=== PATIENT | male | born 1965 | race Caucasian/White ===

== ENCOUNTER 2022-04-20 15:23 | Outpatient (RCR) | payer OTHER, SELFPAY ==
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
== END 2022-06-28 12:04 | disposition home or self-care (01) ==
PROVIDERS: PCP Internal Medicine; Visit Provider Internal Medicine
DX: M25.511 Pain in right shoulder (principal); M62.81 Muscle weakness (generalized); Z51.89 Encounter for other specified aftercare
CPT/HCPCS: 97110; 97162

== ENCOUNTER 2022-09-18 20:40 | Observation (INO) | payer OTHER, SELFPAY ==
[2022-09-18] VITALS (12 sets, daily range): BP systolic 126–166; BP diastolic 72–101; PULSE 81–97; RESP 14–18; O2SAT 90–97; BMI 39.0
--- NOTE | 2022-09-18 21:09 | CRLHL7_ITS ---
For Patients: As a result of the Century Cures Act, medical imaging exams and procedure reports are released immediately into your electronic medical record. You may view this report before your referring provider. If you have questions, please contact your health care provider. INDICATION: Fall, altered mental status. TECHNIQUE: CT head without IV contrast. Coronal and sagittal reformats. COMPARISON: Head CT 02/05/2021. FINDINGS: No intracranial hemorrhage, extra-axial collection, or evidence of acute cortical infarct. Newly apparent right inferior cerebellar small peripheral wedge-shaped region of fluid density (series 2, image 14). Age-appropriate ventricles and sulci. No mass effect or midline shift. The cranium and orbits are intact. Right maxillary sinus minimal mucosal thickening. The remaining paranasal sinuses and mastoid air cells are clear. IMPRESSION: 1. 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 2. No definitive acute findings. Dictated by Derrick De Leon MD @ 09/18/2022 9:48:24 PM Please note that all CT scans at this facility use dose modulation, iterative reconstruction, and/or weight-based dosing when appropriate to reduce radiation dose to as low as reasonably achievable. Dictated by: Derrick De Leon MD @ 09/18/2022 21:49:11 (Electronically Signed)
--- NOTE | 2022-09-18 21:09 | CRLHL7_ITS ---
For Patients: As a result of the Cures Act, medical imaging exams and procedure reports are released immediately into your electronic medical record. You may view this report before your referring provider. If you have questions, please contact your health care provider. Indication: Fall, altered mental status Technique: Noncontrast axial CT of the thoracic spine with coronal and sagittal reformats. Comparison: CT cervical spine from same day Findings: Normal static alignment of the thoracic spine. No significant spondylolisthesis. No acute fracture identified. Mild superior endplate deformities at T5-7, with superimposed Schmorl`s nodes, favored chronic. Chronic healed left 5th and 6th rib fractures. Mild scattered spondylosis, including shallow anterolateral projecting osteophytes. No evidence of significant neural foraminal or spinal canal stenosis. No focal mass, consolidation, or pneumothorax identified within the included lungs. Impression: 1. No evidence of acute fracture or traumatic malalignment in the thoracic spine. 2. Mild superior endplate deformities at T5-7 with superimposed Schmorl`s nodes, favor chronic. 3. Old healed left 5th and 6th rib fractures. Please note that all CT scans at this facility use dose modulation, iterative reconstruction, and/or weight-based dosing when appropriate to reduce radiation dose to as low as reasonably achievable. Dictated by Karlee Polanco MD @ 09/19/2022 1:55:37 PM (Electronically Signed)
--- NOTE | 2022-09-18 21:09 | CRLHL7_ITS ---
For Patients: As a result of the Cures Act, medical imaging exams and procedure reports are released immediately into your electronic medical record. You may view this report before your referring provider. If you have questions, please contact your health care provider. INDICATION: Fall, transient alteration of awareness, cervical spine injury TECHNIQUE: CT cervical spine without i.v. contrast. Coronal and sagittal reformats were obtained. COMPARISON: None FINDINGS: The sensitivity and specificity of the exam are moderately limited by artifacts from patient motion and body habitus. Alignment: Straightening of the cervical spine is noted with mild kyphosis in the upper cervical spine. Bone: No acute fractures or aggressive bone lesions are identified. Disc: Severe degenerative disc disease is present at C3-4. The facet joints are unremarkable. Soft tissue: The prevertebral soft tissues are unremarkable in appearance. The visualized lung apices and mediastinum are unremarkable. IMPRESSIONS: 1. No acute osseous injuries are identified. 2. The sensitivity and specificity of the exam are moderately limited by artifacts from patient motion and body habitus. Dictated by Will Valencia MD @ 09/18/2022 10:24:07 PM Please note that all CT scans at this facility use dose modulation, iterative reconstruction, and/or weight-based dosing when appropriate to reduce radiation dose to as low as reasonably achievable. Dictated by: Will Valencia MD @ 09/18/2022 22:24:10 (Electronically Signed)
--- NOTE | 2022-09-18 21:09 | CRLHL7_ITS ---
For Patients: As a result of the Cures Act, medical imaging exams and procedure reports are released immediately into your electronic medical record. You may view this report before your referring provider. If you have questions, please contact your health care provider. INDICATION: [Fall]. TECHNIQUE: CT lumbar spine without intravenous contrast. Coronal and sagittal reformats. COMPARISON: [None]. FINDINGS: Alignment: Normal. Osseous: [Postsurgical changes of L5-S1 interbody fusion. The lumbar vertebral body heights are maintained. No acute fracture. Chronic L5 pars defects.] Degenerative: [Mild-moderate L4-L5 spondylosis.] Soft tissues: [Scattered abdominal aortic atherosclerotic calcification] IMPRESSION: [Lumbar spine without static subluxation or acute fracture.] Please note that all CT scans at this facility use dose modulation, iterative reconstruction, and/or weight-based dosing when appropriate to reduce radiation dose to as low as reasonably achievable. Dictated by: Derrick De Leon MD @ 09/18/2022 22:51:37 (Electronically Signed)
--- NOTE | 2022-09-18 21:25 | ED_ITS ---
HPI - General Adult General Chief complaint: Fall/Minor Trauma Stated complaint: Glucose issues, fell twice Time Seen by Provider: 09/18/22 20:46 Source: family Mode of arrival: ambulatory Limitations: altered mental status History of Present Illness HPI narrative: 57-year-old male brought in by his for frequent falls today. Patient has a complex medical history that includes frequent falls, traumatic brain injury, diabetes, history of cerebellar infarct, depression, chronic pain who per his fell approximately 3 hours prior to presenting to the ER in his garage. She states that they were trying to get him up for 45 minutes. When he finally got up he came into the house had dinner and once he got up from the dinner table he fell again onto his knees. And she stated that she was able to get him up and then she convinced him to come to the ER. She states that for the last several hours she will have episodes where he closes his eyes and then his eye lids flutter and his eyes rolling to the back of his head. During these episodes which she cannot tell me how long they are, he is unresponsive. She states that this is not normal behavior for him. She tells me that he has no access to narcotic medications, there is no way that he could have taken more than his prescribed medications today and she is certain he did not take his insulin. However, during the 1st episode of falling which could get him off the floor she states that his sugar was 53. When I ask her if he Often has low blood sugar without insulin, she cannot answer this question. states that he has been out of it for several days now. When I ask her what this means she just says he has not been acting like himself. She is unsure if he has had episodes of unresponsiveness in the last few days. She does state that he has not been ill, denies fevers or vomiting. Denies any new complaints aside from being slower than usual to respond and again not acting like himself Related Data Home Medications Medication Instructions Recorded Confirmed aspirin 81 mg tablet,delayed 81 mg PO BID 04/18/22 09/18/22 release gabapentin 600 mg tablet 1,200 mg PO TID 04/18/22 09/18/22 insulin NPH isoph U-100 human 100 unit subcut 04/18/22 04/18/22 unit/mL subcutaneous suspension insulin regular human 100 unit/mL 65 - 75 unit subcut 04/18/22 04/18/22 injection solution lisinopril 10 mg tablet 10 mg PO DAILY 04/18/22 09/18/22 lisinopril 5 mg tablet 5 mg PO QDAY 04/18/22 09/18/22 metformin 1,000 mg tablet 1,000 mg PO BID 04/18/22 09/18/22 rosuvastatin 10 mg tablet 10 mg PO QDAY 04/18/22 09/18/22 venlafaxine 75 mg capsule,extended 300 mg PO DAILY 04/18/22 09/18/22 release 24 hr acetaminophen PO 09/18/22 Previous Rx's Medication Instructions Recorded Blood Glucose Meter #1 ea 01/16/22 Allergies Allergy/AdvReac Type Severity Reaction Status Date / Time amoxicillin Allergy Intermediate Unknown Verified 09/18/22 20:59 celecoxib Allergy Intermediate Unknown Verified 09/18/22 20:59 Sulfa (Sulfonamide Allergy Intermediate Hives Verified 09/18/22 20:59 Antibiotics) Penicillins Allergy Unknown Verified 09/18/22 20:59 sulfasalazine Allergy Unknown Verified 04/17/22 14:33 Review of Systems Status of ROS: Reports: 10 or more systems reviewed and unremarkable except as noted in History and below ( per ) [facility] Medical History Right shoulder pain ?M25.511 - Pain in right shoulder (ICD-10) Vasovagal syncope ?R55 - Syncope and collapse (ICD-10) Pneumonia due to COVID-19 virus (01/2021) ?U07.1 - COVID-19 (ICD-10) ?J12.82 - Pneumonia due to coronavirus disease 2019 (ICD-10) Surgical History History of lumbar fusion (1994) ?Z98.1 - Arthrodesis status (ICD-10) Social History Smoking Status: Former smoker Do you use any of these nicotine containing products: None Second hand tobacco smoke exposure: No How often do you have a drink containing alcohol: monthly or less AUDIT-C Alcohol total score: 1 Non-prescribed substance use: denies use Little interest or pleasure in doing things: more than half the days Feeling down, depressed, or hopeless: more than half the days Exam Narrative: Exam Narrative: overweight, well-developed patient . He appears to be sleeping in the ER but I cannot wake him up. He does move away from noxious stimuli. When I open his eyes his eyes quickly dart back and forth before rolling into the back of his head. When I raise his hand over his head, the hand falls to the side of the body and never on top of his head Or face. HEENT: Normocephalic atraumatic. Pupils are equally round reactive to light. Conjunctivae are moist without any icterus noted. Moist mucous membranes. I am able to open his mouth and he leaves it open, no trauma noted to the inside of the mouth in the posterior pharynx appears normal. Neck is soft without any lymphadenopathy or thyromegaly. No masses are appreciated. I am able to open his eyes and he looks back and forth a few times before his eyes roll superiorly and flutter. Cardiovascular: Heart is regular rate and rhythm S1 and S2 are present without any murmurs. Lungs: Clear to auscultation bilaterally no wheezes rhonchi or rales are appreciated. Abdomen: Soft , protuberant and nontender nondistended with normal bowel soun ds. No guarding or rebound. No masses or organomegaly appreciated. Extremities: Bilateral lower extremities are without edema. Skin: Well perfused without any obvious rashes. he does have superficial abrasions to both knees and the right elbow. Const: Vital Signs, click to edit/add: Vital Signs - 24 hr 09/18/22 20:48 09/18/22 21:07 09/18/22 21:09 Pulse Rate 86 Pulse Rate [Pulse Oximeter] 86 Respiratory Rate 18 Blood Pressure Blood Pressure [Ri ght Upper Arm] 126/72 Pulse Oximetry 94 92 94 Oxygen Delivery Me thod Room Air Oxygen Flow Rate 09/18/22 21:15 09/18/22 22:09 09/18/22 22:15 Pulse Rate 97 93 Pulse Rate [Pulse Oximeter] Respiratory Rate Blood Pressure Blood Pressure [Ri ght Upper Arm] Pulse Oximetry 90 90 94 Oxygen Delivery Me thod Oxygen Flow Rate 09/18/22 22:22 09/18/22 22:30 09/18/22 22:30 Pulse Rate 94 82 Pulse Rate [Pulse Oximeter] Respiratory Rate 15 Blood Pressure 127/87 Blood Pressure [Ri ght Upper Arm] Pulse Oximetry 91 96 90 Oxygen Delivery Me thod Nasal Cannula Nasal Cannula Oxygen Flow Rate 2 2 09/18/22 22:44 09/18/22 22:45 09/18/22 23:00 Pulse Rate 86 Pulse Rate [Pulse Oximeter] Respiratory Rate 15 17 14 Blood Pressure 166/94 H Blood Pressure [Ri ght Upper Arm] Pulse Oximetry 96 97 Oxygen Delivery Me thod Nasal Cannula Oxygen Flow Rate 2 09/18/22 23:02 Pulse Rate 81 Pulse Rate [Pulse Oximeter] Respiratory Rate 15 Blood Pressure 165/101 H Blood Pressure [Ri ght Upper Arm] Pulse Oximetry 97 Oxygen Delivery Me thod Oxygen Flow Rate Course Course Hospital Course: Patient was sent over for head and spine CT given an unwitnessed fall and inability to assess for pain. In route to CT patient woke up and asked where he was. He was told that he was in the hospital and he immediately fell back asleep again. EKG, read by me, shows sinus tachycardia with a pulse of 101, premature atrial complexes, left axis deviation. Upon returning to the ER room, an IV was placed and patient did not flinch with IV placement. During IV placement we worse talking about getting a urine sample and we came to the conclusion that he will need to be catheterized for a urine sample. Patient open his eyes shortly after this conversation and said that he did not want to be catheterized and he provided a urine sample. He immediately went back to sleep. His states that this is what he is like at home at this time night, states that he has a very heavy sleeper and that she has to Scream at him in order for him to wake up. The only difference between that and what is occurring today is that he is not waking up when he is asked to, and has only woken during the 2 previously mentioned times. unfortunately, during t he 2 times that he did wake up in the ED he did not cooperate with any conversation, did not answer any questions. his imaging was unremarkable this included a head, spine CT. Labs did not show any acute evidence for his altered mental status. Blood glucoses were all within normal ranges. Vital Signs Vital signs: Initial Vital Signs Temperature Source Temporal Artery Scan 09/18/22 20:48 Pulse Rate 86 09/18/22 20:48 Respiratory Rate 18 09/18/22 20:48 Blood Pressure 126/72 09/18/22 20:48 Blood Pressure Mean 90 09/18/22 20:48 Blood Pressure Position Supine 09/18/22 20:48 Pulse Oximetry 94 09/18/22 20:48 Oxygen Delivery Method Room Air 09/18/22 20:48 Vital Signs Pulse Rate 86 09/18/22 20:48 Respiratory Rate 18 09/18/22 20:48 Blood Pressure 126/72 09/18/22 20:48 Pulse Oximetry 94 09/18/22 20:48 Oxygen Delivery Method Room Air 09/18/22 20:48 Pulse Rate 81 09/18/22 23:02 Respiratory Rate 15 09/18/22 23:02 Blood Pressure 165/101 H 09/18/22 23:02 Pulse Oximetry 97 09/18/22 23:02 Oxygen Delivery Method Nasal Cannula 09/18/22 23:00 Oxygen Flow Rate 2 09/18/22 23:00 Medical Decision Making MDM Narrative Medical decision making narrative: 57-year-old male with frequent falls and altered mental status of unclear etiology. Differential diagnoses include this med is a patel disorder, pseudoseizures, syncopal episodes. given that his cannot take care of him at this time because he is not cooperating, patient will be admitted for further care. Patient maintains his airway and Is hemodynamically stable, he does become mildly hypoxic with oxygen at 89-90% when he is snoring. Lab Data Lab results reviewed: Yes I reviewed the patient's lab results Labs: Lab Results 09/18/22 09/18/22 09/18/22 Range/Units 21:10 22:20 22:35 WBC 11.88 H (4.50-11.00) K/uL RBC 5.56 (4.30-5.90) m/uL Hgb 15.2 (13.5-17.5) gm/dL Hct 47.3 (37.0-53.0) % MCV 85 (80-100) fL MCH 27 (26-34) pg MCHC 32 (32-36) gm/dL RDW Coeff of Radha 12.4 (11.5-15.5) % Plt Count 255 (140-440) K/uL Neut % (Auto) 69.8 (42.0-72.0) % Lymph % (Auto) 19.9 L (20-44) % [place] % (Auto) 7.7 (0.0-11.0) % Eos % (Auto) 1.0 (0.0-7.0) % Baso % (Auto) 0.3 (0.0-3.0) % Neut # (Auto) 8.30 H (1.7-7.0) K/uL Lymph # (Auto) 2.40 (0.90-2.90) K/uL [place] # (Auto) 0.90 (0.00-0.90) K/UL Eos # (Auto) 0.10 (0.00-0.50) K/uL Baso # (Auto) 0.00 (0.00-0.30) K/uL VBG pH 7.319 L (7.32-7.43) VBG pCO2 57 H (40-50) mmHG VBG pO2 29.3 (25-47) mmHG VBG HCO3 29 H (21-28) mmol/L Sodium 136 (135-149) mmol/L Potassium 4.2 (3.6-5.1) mmol/L Chloride 100 (96-114) mmol/L Carbon Dioxide 30 (20-32) mmol/L BUN 31 H (7-30) mg/dL Creatinine 1.1 (0.5-1.5) mg/dL Estimated Creat Clear 74.98 Estimated GFR 79 ml/min Glucose 75 (60-115) mg/dL Lactate 1.5 (0.5-1.9) mmol/L Calcium 9.0 (8.4-10.6) mg/dL Total Bilirubin 0.6 (0.1-1.5) mg/dL Direct Bilirubin 0.0 (0.0-0.5) mg/dL AST 26 (12-35) U/L ALT 27 (4-50) U/L Alkaline Phosphatase 81 (40-150) U/L Troponin I < 0.01 L (0.01-0.04) ng/mL C-Reactive Protein 0.7 (0.5-1.0) mg/dL Total Protein 6.9 (6.0-8.3) g/dL Albumin 4.0 (3.3-5.0) g/dL Lipase 104 (23-300) U/L Urine Color Yellow (Yellow) Urine Appearance Clear (Clear) Urine pH 5.0 (5.0-8.5) Ur Specific [place] 1.025 (1.000-1.030) Urine Protein 3+ A (Negative) Urine Glucose (UA) Negative (Negative) Urine Ketones 1+ A (Negative) Urine Blood Negative (Negative) Urine Nitrite Negative (Negative) Urine Bilirubin 1+ A (Negative) Urine Urobilinogen 1.0 (0.2-1.0) Ur Leukocyte Esterase Negative (Negative) Urine RBC 0-2 (0-2) Urine WBC 0-2 (0-5) Ur Squamous Epith Cells Few (None-Few) Urine Bacteria Few A (None) Urine Mucus Few A (None) Salicylates < 1.0 L (1.0-10) mg/dL Urine Opiates Screen Negative (Negative) Ur Oxycodone Screen Negative (Negative) Urine Methadone Screen Negative (Negative) Ur Propoxyphene Screen Negative (Negative) Acetaminophen < 10.0 L (10.0-30.0) ug/mL Ur Barbiturates Screen Negative (Negative) U Tricyclic Antidepress Negative (Negative) Ur Phencyclidine Scrn Negative (Negative) Ur Amphetamines Screen Negative (Negative) U Methamphetamines Scrn Negative (Negative) U Benzodiazepines Scrn Negative (Negative) Urine Cocaine Screen Negative (Negative) U Marijuana (THC) Screen Negative (Negative) Ur Drug Screen Comment See Note Ethyl Alcohol < 0.01 L (0.01-0.03) % POC Troponin I 0.00 L (0.01-0.04) ng/ml Imaging Data CT scan - head: Attestation: I have reviewed the pertinent imaging results. Radiologist's impression: CT head without IV contrast. Coronal and sagittal reformats. COMPARISON: Head CT 02/05/2021. FINDINGS: No intracranial hemorrhage, extra-axial collection, or evidence of acute cortical infarct. Newly apparent right inferior cerebellar small peripheral wedge-shaped region of fluid density (series 2, image 14). Age-appropriate ventricles and sulci. No mass effect or midline shift. The cranium and orbits are intact. Right maxillary sinus minimal mucosal thickening. The remaining paranasal sinuses and mastoid air cells are clear. IMPRESSION: 1. 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 2. No definitive acute findings. CT cervical spine: Attestation: I have reviewed the pertinent imaging results. Radiologist's impression: TECHNIQUE: CT cervical spine without i.v. contrast. Coronal and sagittal reformats were obtained. COMPARISON: None FINDINGS: The sensitivity and specificity of the exam are moderately limited by artifacts from patient motion and body habitus. Alignment: Straightening of the cervical spine is noted with mild kyphosis in the upper cervical spine. Bone: No acute fractures or aggressive bone lesions are identified. Disc: Severe degenerative disc disease is present at C3-4. The facet joints are unremarkable. Soft tissue: The prevertebral soft tissues are unremarkable in appearance. The visualized lung apices and mediastinum are unremarkable. IMPRESSIONS: 1. No acute osseous injuries are identified. 2. The sensitivity and specificity of the exam are moderately limited by artifacts from patient motion and body habitus. CT lumbar spine: Attestation: I have reviewed the pertinent imaging results. Radiologist's impression: CT lumbar spine without intravenous contrast. Coronal and sagittal reformats. COMPARISON: [None]. FINDINGS: Alignment: Normal. Osseous: [Postsurgical changes of L5-S1 interbody fusion. The lumbar vertebral body heights are maintained. No acute fracture. Chronic L5 pars defects.] Degenerative: [Mild-moderate L4-L5 spondylosis.] Soft tissues: [Scattered abdominal aortic atherosclerotic calcification] IMPRESSION: [Lumbar spine without static subluxation or acute fracture.] CT thoracic spine: Attestation: I have reviewed the pertinent imaging results. Radiologist's impression: Study:?CT Spine Thoracic-09/18/2022 10:08:29 PM Ordering Physician:[place] Jim[place] Preliminary Report: PRELIMINARY IMPRESSION: 1. No acute osseous injuries are noted in the thoracic spine. ECG Data Attestation: I personally reviewed and interpreted this ECG as follows: Discharge Plan Discharge Clinical Impression: AMS (altered mental status) Patient Disposition: Admitted As Inpatient
[2022-09-18 22:37] LABS: Appearance Urine Clear (Clear); Bilirubin Urine 1+ (Negative); Blood Urine Negative (Negative); Color Urine Yellow (Yellow); Glucose Urine Negative (Negative); Ketones Urine 1+ (Negative); Leukocyte Esterase Urine Negative (Negative); Nitrite Urine Negative (Negative); Protein Urine 3+ (Negative); Specific Gravity Urine 1.025 (1.000-1.030)
[2022-09-18 22:40] LABS: HCO3 VBG 29 mmol/L (21-28); PCO2 VBG 57 mmHG (40-50); PO2 VBG 29.3 mmHG (25-47); pH VBG 7.319 (7.32-7.43)
[2022-09-18 22:42] LABS: Lactate* 1.5 mmol/L (0.5-1.9)
[2022-09-18 22:43] LABS: Amphetamine Screen Urine Negative (Negative); Barbiturate Screen Urine Negative (Negative); Benzodiazepines Screen Urine Negative (Negative); Cannabinoid Screen Urine Negative (Negative); Cocaine Screen Urine Negative (Negative); Methadone Screen Urine Negative (Negative); Methamphetamines Screen Urine Negative (Negative); Opiate Screen Urine Negative (Negative); Oxycodone Screen Urine Negative (Negative); Phencyclidine Screen Urine Negative (Negative); Tricyclic Antidepressant Urine Negative (Negative)
[2022-09-18 22:44] LABS: RBC Urine 0-2 (0-2)
[2022-09-18 22:45] LABS: Bacteria Urine Few; Mucus Urine Few; Squamous Epithelial Cell Urine Few (None-Few); WBC Urine 0-2 (0-5)
[2022-09-18 22:46] LABS: Basophils Percent Auto 0.3 % (0.0-3.0); Hematocrit 47.3 % (37.0-53.0); Hemoglobin* 15.2 gm/dL (13.5-17.5); Immature Granulocytes Pct Auto 1.3 %; Lymphocytes Percent Auto 19.9 % (20-44); Mean Corpuscular HGB Conc 32 gm/dL (32-36); Mean Corpuscular Hemoglobin 27 pg (26-34); Mean Corpuscular Volume 85 fL (80-100); Monocytes Percent Auto 7.7 % (0.0-11.0); Neutrophils Percent Auto 69.8 % (42.0-72.0); Platelet Count* 255 K/uL (140-440); RDW Coefficient of Variation % 12.4 % (11.5-15.5); Red Blood Count 5.56 m/uL (4.30-5.90); White Blood Count* 11.88 K/uL (4.50-11.00)
[2022-09-18 22:48] LABS: Slide Review Reflex No
[2022-09-18 22:57] LABS: Chloride* 100 mmol/L (96-114)
[2022-09-18 22:58] LABS: Sodium* 136 mmol/L (135-149)
[2022-09-18 22:59] LABS: Potassium* 4.2 mmol/L (3.6-5.1)
[2022-09-18 23:00] LABS: Creatinine* 1.1 mg/dL (0.5-1.5); Est. Creatinine Clearance* 74.98; Estimated Glomerular Filt Rate 79 ml/min
[2022-09-18 23:01] LABS: Alanine Aminotransferase* 27 U/L (4-50); Alkaline Phosphatase* 81 U/L (40-150); Aspartate Amino Transferase* 26 U/L (12-35); Bilirubin Total* 0.6 mg/dL (0.1-1.5); Blood Urea Nitrogen* 31 mg/dL (7-30); Carbon Dioxide* 30 mmol/L (20-32); Glucose* 75 mg/dL (60-115); Lipase* 104 U/L (23-300); Total Protein* 6.9 g/dL (6.0-8.3)
[2022-09-18 23:03] LABS: Acetaminophen* < 10.0 ug/mL (10.0-30.0); Ethanol* < 0.01 % (0.01-0.03); Salicylate* < 1.0 mg/dL (1.0-10)
[2022-09-18 23:04] LABS: C Reactive Protein* 0.7 mg/dL (0.5-1.0)
[2022-09-18] MEDS: 0.9 % SODIUM CHLORIDE 1000 ml 1,000 ML IV (23:07)
[2022-09-18 23:25] LABS: Troponin I* < 0.01 ng/mL (0.01-0.04)
[2022-09-19] VITALS (8 sets, daily range): BP systolic 103–176; BP diastolic 63–104; PULSE 78–96; RESP 18–20; TEMP 36.4–37.2; O2SAT 94–95; BMI 40.5
--- NOTE | 2022-09-19 00:22 | ED.NURSE ---
Report to accepting [place] RN. Patient is transported to [facility] [place] via cart.
[2022-09-19 00:26] LABS: Erythrocyte SedimentationRate* 7 mm/hr (2-15)
--- NOTE | 2022-09-19 00:56 | PM.IMCN1 ---
Date of Consult Consult date: 09/19/22 Primary Care Provider: Karthik Sanz MD Consult Narrative Narrative: [facility] Hospitalist ADMISSION SUPPORT NOTE eHospitalist was contacted by Dr. Escoto with request of admission support. Chief complaint: Falls with weakness HPI: History was obtained from the patient's who was present at bedside and provided most of the history as well as the patient. She reports that over the past month the patient has had 4 falls all related to hypoglycemia. Today he fell in the garage where his legs gave way he had a brief loss of consciousness it took him a while to get back up. His blood sugar was checked and was 69 and so he ate supper however after eating supper his blood sugar went only to 80 and then dropped again to the 60s range. He fell again and at that time his called EMS. She reports that his eating has been inconsistent and he is having episodes of hypoglycemia. She is concerned that he actually has a eating disorder and eats more frequently at nighttime and hides the fact that he is eating frequently. Review of systems other mention above is negative Home Medications: Reviewed see EMR for details Pertinent Medical History: DM 2, neuropathy, chronic back pain, hypertension, dyslipidemia, cerebellar infarct, traumatic brain injury, depression, back surgery Pertinent Social History: Smoked as a teenager, denies drugs of abuse, occasional alcohol use Review of Systems Status of ROS: Reports: 10 or more systems reviewed and unremarkable except as noted in History and below [facility] Medical History Right shoulder pain ?M25.511 - Pain in right shoulder (ICD-10) Vasovagal syncope ?R55 - Syncope and collapse (ICD-10) Pneumonia due to COVID-19 virus (01/2021) ?U07.1 - COVID-19 (ICD-10) ?J12.82 - Pneumonia due to coronavirus disease 2019 (ICD-10) Surgical History History of lumbar fusion (1994) ?Z98.1 - Arthrodesis status (ICD-10) Social History Smoking Status: Former smoker Do you use any of these nicotine containing products: None Second hand tobacco smoke exposure: No How often do you have a drink containing alcohol: monthly or less AUDIT-C Alcohol total score: 1 Non-prescribed substance use: denies use Little interest or pleasure in doing things: more than half the days Feeling down, depressed, or hopeless: more than half the days Meds Home Medications and Allergies Home Medications Medication Instructions Recorded Confirmed Type aspirin 81 mg tablet,delayed 81 mg PO BID 04/18/22 09/18/22 History release gabapentin 600 mg tablet 1,200 mg PO TID 04/18/22 09/18/22 History insulin NPH isoph U-100 human 100 unit subcut 04/18/22 04/18/22 History unit/mL subcutaneous suspension insulin regular human 100 unit/mL 65 - 75 unit subcut 04/18/22 04/18/22 History injection solution lisinopril 10 mg tablet 10 mg PO DAILY 04/18/22 09/18/22 History lisinopril 5 mg tablet 5 mg PO QDAY 04/18/22 09/18/22 History metformin 1,000 mg tablet 1,000 mg PO BID 04/18/22 09/18/22 History rosuvastatin 10 mg tablet 10 mg PO QDAY 04/18/22 09/18/22 History venlafaxine 75 mg capsule,extended 300 mg PO DAILY 04/18/22 09/18/22 History release 24 hr acetaminophen PO 09/18/22 History Allergies Allergy/AdvReac Type Severity Reaction Status Date / Time amoxicillin Allergy Intermediate Unknown Verified 09/18/22 20:59 celecoxib Allergy Intermediate Unknown Verified 09/18/22 20:59 Sulfa (Sulfonamide Allergy Intermediate Hives Verified 09/18/22 20:59 Antibiotics) Penicillins Allergy Unknown Verified 09/18/22 20:59 sulfasalazine Allergy Unknown Verified 04/17/22 14:33 Exam Narrative: Exam Narrative: Exam (performed via interactive video with assistance of bedside nurse): General: Alert, cooperative, no acute distress, morbidly obese HEENT: Oral mucosa pink and moist without erythema Lungs: Clear to auscultation bilaterally without crackle or wheeze but diminished at bases CV: Regular rate and rhythm without loud murmur rub or gallop Ext: No pitting edema noted Skin: No rashes, bruises or lesions appreciated on gross visualization of exposed skin Neuro: Alert, oriented x person and place, CN III -VII, XI, XII grossly intact, moves all extremities without any significant focal deficit appreciated by nurse Const: Vital Signs, click to edit/add: Vital Signs - 24 hr 09/18/22 20:48 09/18/22 21:07 09/18/22 21:09 Pulse Rate 86 Pulse Rate [Pulse Oximeter] 86 Respiratory Rate 18 Blood Pressure Blood Pressure [Ri ght Upper Arm] 126/72 Pulse Oximetry 94 92 94 Oxygen Delivery Me thod Room Air Oxygen Flow Rate 09/18/22 21:15 09/18/22 22:09 09/18/22 22:15 Pulse Rate 97 93 Pulse Rate [Pulse Oximeter] Respiratory Rate Blood Pressure Blood Pressure [Ri ght Upper Arm] Pulse Oximetry 90 90 94 Oxygen Delivery Me thod Oxygen Flow Rate 09/18/22 22:22 09/18/22 22:30 09/18/22 22:30 Pulse Rate 94 82 Pulse Rate [Pulse Oximeter] Respiratory Rate 15 Blood Pressure 127/87 Blood Pressure [Ri ght Upper Arm] Pulse Oximetry 91 96 90 Oxygen Delivery Me thod Nasal Cannula Nasal Cannula Oxygen Flow Rate 2 2 09/18/22 22:44 09/18/22 22:45 09/18/22 23:00 Pulse Rate 86 Pulse Rate [Pulse Oximeter] Respiratory Rate 15 17 14 Blood Pressure 166/94 H Blood Pressure [Ri ght Upper Arm] Pulse Oximetry 96 97 Oxygen Delivery Me thod Nasal Cannula Oxygen Flow Rate 2 09/18/22 23:02 Pulse Rate 81 Pulse Rate [Pulse Oximeter] Respiratory Rate 15 Blood Pressure 165/101 H Blood Pressure [Ri ght Upper Arm] Pulse Oximetry 97 Oxygen Delivery Me thod Oxygen Flow Rate Labs Labs: Short CBC 09/18/22 Range/Units 22:35 WBC 11.88 H (4.50-11.00) K/uL Hgb 15.2 (13.5-17.5) gm/dL Hct 47.3 (37.0-53.0) % Plt Count 255 (140-440) K/uL BMP 09/18/22 22:35 Sodium 136 Potassium 4.2 Chloride 100 Carbon Dioxide 30 BUN 31 H Creatinine 1.1 Glucose 75 Calcium 9.0 Cardiac Enzymes 09/18/22 Range/Units 22:35 Troponin I < 0.01 L (0.01-0.04) ng/mL Liver Function 09/18/22 Range/Units 22:35 Total Bilirubin 0.6 (0.1-1.5) mg/dL Direct Bilirubin 0.0 (0.0-0.5) mg/dL AST 26 (12-35) U/L ALT 27 (4-50) U/L Alkaline Phosphatase 81 (40-150) U/L Albumin 4.0 (3.3-5.0) g/dL Urine 09/18/22 Range/Units 22:20 Urine Color Yellow (Yellow) Urine Appearance Clear (Clear) Urine pH 5.0 (5.0-8.5) Ur Specific [place] 1.025 (1.000-1.030) Urine Protein 3+ A (Negative) Urine Glucose (UA) Negative (Negative) Assessment and Plan Assessment and plan (1) Hypoglycemia: Status: Acute Plan Recent lab/CT scan of cervical spine, head, lumbar spine, thoracic spine (this result was pending at the time of this documentation): Reviewed see EMR for details EKG: Per my interpretation showed sinus rhythm with poor R wave progression Assessment and Plan: 1. Fall and weakness-secondary to hypoglycemia. There may be an element of deconditioning. We will get physical therapy to evaluate 2. Hypoglycemia-NPH is not the best insulin for someone who is inconsistent with their meals because of the peaks related to this insulin. I think he would be better served on Lantus or Levemir for basal coverage with rapid insulin with meals. He reports taking 65 units of NPH in the morning and 85 units at bedtime with regular insulin 65 units at lunch and 75 units at dinnertime. Will leave for rounding provider to discuss with pharmacy regarding the conversion and appropriate dosing of long-acting Levemir/Lantus with rapid insulin for mealtime coverage. He has been hesitant to see his primary care physician regarding his insulin regimen management. For now we will place on sliding scale given his hypoglycemic episodes tonight. 3. Chronic back pain-continue gabapentin 4. Hypertension-patient reports being taken off of his antihypertensive agents 5. Dyslipidemia-however patient is not taking statin 6. Depression-continue venlafaxine. Will leave for rounding provider to further address concern for eating disorder expressed by patient's 7. DVT prophylaxis-twice daily Lovenox given BMI greater than 40 8. CODE STATUS full code discussed with patient Chart review was performed as well as evaluation of the patient via video. Thank you for involving ehospitalist. Please contact [phone] if further assistance is needed.
[2022-09-19] MEDS: 0.9 % SODIUM CHLORIDE 1000 ml 1,000 ML 150 ML IV (02:51)
[2022-09-19] MEDS: ACETAMINOPHEN 325 MG TABLET 650 MG PO ×3 (02:54→13:24)
--- NOTE | 2022-09-19 06:47 | PC.NURSE ---
End of shift: Pt arrived to the floor at 0030 with at bedside. Pt is Alert and oriented to person and place. Pt has periotic confusion and memory issues. Pt complaining of 8/10 pain on his tailbone. PRN pain medication given. Upon reassessment, pt was sleeping. Pt weaned off O2 and tolerating well with sats >90% on RA. Bed alarm in place. A1 to the bedside commode.
[2022-09-19 06:48] LABS: Basophils Absolute Auto 0.03 K/uL (0.00-0.30); Basophils Percent Auto 0.3 % (0.0-3.0); Eosinophils Absolute Auto 0.22 K/uL (0.00-0.50); Eosinophils Percent Auto 2.4 % (0.0-7.0); Hematocrit 46.2 % (37.0-53.0); Hemoglobin* 14.7 gm/dL (13.5-17.5); Immature Granulocytes Abs Auto 0.04 K/uL (0.00-0.30); Immature Granulocytes Pct Auto 0.4 %; Lymphocytes Percent Auto 29.7 % (20-44); Mean Corpuscular HGB Conc 32 gm/dL (32-36); Mean Corpuscular Hemoglobin 27 pg (26-34); Mean Corpuscular Volume 86 fL (80-100); Monocytes Percent Auto 8.7 % (0.0-11.0); Neutrophils Absolute Auto 5.32 K/uL (1.7-7.0); Neutrophils Percent Auto 58.5 % (42.0-72.0); Platelet Count* 215 K/uL (140-440); RDW Coefficient of Variation % 12.4 % (11.5-15.5); Red Blood Count 5.39 m/uL (4.30-5.90)
[2022-09-19 06:49] LABS: Slide Review Reflex No
[2022-09-19 07:01] LABS: Hemoglobin A1C* 9.76 % (0-5.6)
[2022-09-19 07:08] LABS: Albumin* 3.6 g/dL (3.3-5.0); Chloride* 106 mmol/L (96-114); Sodium* 137 mmol/L (135-149)
[2022-09-19 07:09] LABS: Potassium* 3.9 mmol/L (3.6-5.1)
[2022-09-19 07:10] LABS: Creatinine* 0.7 mg/dL (0.5-1.5); Estimated Glomerular Filt Rate 108 ml/min
[2022-09-19 07:11] LABS: Alanine Aminotransferase* 24 U/L (4-50); Alkaline Phosphatase* 69 U/L (40-150); Aspartate Amino Transferase* 24 U/L (12-35); Bilirubin Total* 0.5 mg/dL (0.1-1.5); Blood Urea Nitrogen* 24 mg/dL (7-30); Carbon Dioxide* 25 mmol/L (20-32); Glucose* 132 mg/dL (60-115); Total Protein* 6.1 g/dL (6.0-8.3)
[2022-09-19 07:12] LABS: Calcium* 8.7 mg/dL (8.4-10.6)
[2022-09-19 07:39] LABS: TSH With Reflex to FT4* 0.205 uIU/mL (0.270-4.200)
[2022-09-19 08:12] LABS: Free T4 Free Thyroxine* 1.04 ng/dL (0.70-1.85)
[2022-09-19] MEDS: METFORMIN 1,000 MG TABLET 1000 MG PO (08:51)
[2022-09-19] MEDS: VENLAFAXINE ER 75 MG CAPSULE 225 MG PO (08:52)
[2022-09-19] MEDS: lisinopriL 10 MG TABLET PO (08:52)
[2022-09-19] MEDS: GABAPENTIN 600 MG TABLET 1200 MG PO ×3 (08:52→21:26)
[2022-09-19] MEDS: ASPIRIN 81 MG TABLET EC PO ×2 (08:52→21:26)
[2022-09-19] MEDS: ROSUVASTATIN CALCIUM 10 MG TABLET PO (08:52)
[2022-09-19] MEDS: SODIUM CHLORIDE 0.9 % (FLUSH) 10 ML SYRINGE 5 ML IVF ×2 (08:53→21:26)
[2022-09-19] MEDS: ENOXAPARIN 40 MG/0.4 ML INJ SUBCUT ×2 (08:53→21:26)
--- NOTE | 2022-09-19 13:05 | P.IMHP_ITS ---
Hospitalist- H&P: TRAN History of Present Illness Date Seen: 09/19/22 Chief complaint: Glucose issues, fell twice Narrative: Saman Michel Jr is a 57 year old male brought in by his for frequent falls today.? Patient has a complex medical history that includes frequent falls, traumatic brain injury, diabetes, history of cerebellar infarct, depression, chronic pain who per his fell approximately 3 hours prior to presenting to the ER in his garage.? She states that they were trying to get him up for 45 minutes.? When he finally got up he came into the house had dinner and once he got up from the dinner table he fell again onto his knees.? And she stated that she was able to get him up and then she convinced him to come to the ER.? She states that for the last several hours she will have episodes where he closes his eyes and then his eye lids flutter and his eyes rolling to the back of his head.? During these episodes which she cannot tell me how long they are, he is unresponsive.? She states that this is not normal behavior for him.? She tells me that he has no access to narcotic medications, there is no way that he could have taken more than his prescribed medications today and she is certain he did not take his insulin.? However, during the 1st episode of falling which could get him off the floor she states that his sugar was 53.? When I ask her if he ? Often has low blood sugar without? insulin, she cannot answer this question. states that he has been out of it for several days now.? When I ask her what this means she just says he has not been acting like himself.? She is unsure if he has had episodes of unresponsiveness in the last few days.? She does state that he has not been ill, denies fevers or vomiting.? Denies any new complaints aside from being slower than usual to respond and again not acting like himself I speak with the patient today. He is oriented to his circumstances. Recalls some of the recent events with falling down and being unable to get up. He is able to describe for me his management lb for insulin and blood sugar control. He does have a continuous glucose monitor which has been telling him he has had low readings. These recent falls with low readings he has not taken any oral glucose to rapidly correct them. Patient currently reports he takes Humulin and 65 units in the morning and 85 units at bedtime. He takes Humulin R 65 units at noon and 75 units at supper. He is unaware of whether there is a pattern to his hypoglycemia episodes. His hemoglobin A1c in March was 9.8 and today it is 9.75. He eats typically to meals a day, lunch around 1:00 a.m. and supper around 6:00 a.m.. He does not normally eat breakfast. He denies doing a lot of snacking the other notes indicate that he may be doing quite a bit of snacking as well. He reports he walks pretty well without an assistive device or unsteadiness most the time. He occasionally has episodes where he feels unsteady, out of balance or even has vertigo. Does not have any of those feelings today. He does not have any orthostatic symptoms but does feel more unsteady when he is moving about than when he is sitting still. He reports that he goes for a walk with his dog every day and reports that normally goes well. He does think he lost consciousness with a couple of these episodes. Notes indicate that he had altered mental status for a significant period of time after each episode though I note again that he was not getting his hypoglycemia treated with oral glucose or carbohydrates. January of 2021 he was hospitalized for COVID pneumonia. At that time he was admitted to the hospital taking 300 units of insulin per day. During his hospital stay he had fairly good blood sugar control on 200 units a day with a basal bolus regimen. He has subsequently gone back to his current regimen which is providing him with [address] scan done in the emergency department showed a cerebellar stroke which was new since January of 2021 but did not appear to be acute. Patient is unaware of when this might have occurred. Review of Systems Narrative: He has sleep apnea. His BiPAP equipment was recalled any is not used it for a long time. I told him he should use it until the replace it. He reports that the equipment no longer works. He reports seasonal allergy symptoms in the summer and fall. This bothers him especially when he is out walking his dog. He has never had medication to treat this. [facility] Medical History Right shoulder pain ?M25.511 - Pain in right shoulder (ICD-10) Vasovagal syncope ?R55 - Syncope and collapse (ICD-10) Pneumonia due to COVID-19 virus (01/2021) ?U07.1 - COVID-19 (ICD-10) ?J12.82 - Pneumonia due to coronavirus disease 2019 (ICD-10) Surgical History History of lumbar fusion (1994) ?Z98.1 - Arthrodesis status (ICD-10) Family History (Updated 09/19/22 @ 13:17 by Stanley Hilario MD) Mother High blood pressure Depression Stroke Other Diabetes Social History (Updated 09/19/22 @ 13:19 by Stanley Hilario MD) Narrative: He lives with his in [place]. He is disabled. He is a former smoker having 30 pack-year history. Occasionally drinks alcohol. What is your current living situation?: I presently have a place to live Problems where you live: no known problems Problems where you live details: n/a In the past 12 months, utilities in danger of being shut off: no In the past 12 mos, have been you worried that your food would run out before you had money to buy more?: never true In the past 12 mos, the food you bought just didn't last and you didn't have money to buy more?: never true Highest level of school completed/degree received: high school graduate Smoking Status: Former smoker Do you use any of these nicotine containing products: None Second hand tobacco smoke exposure: No How often do you have a drink containing alcohol: monthly or less Alcohol type: beer AUDIT-C Alcohol total score: 1 Non-prescribed substance use: denies use Caffeine: Yes ([facility]) How often does anyone, including family, friends and others, physically hurt you : never How often does anyone, including family, friends and others, insult or talk down to you: never How often does anyone, including family, friends and others, threaten you with harm: never How often does anyone, including family, friends and others, scream or curse at you: never Little interest or pleasure in doing things: more than half the days Feeling down, depressed, or hopeless: more than half the days service: No Meds Home Medications and Allergies Home Medications Medication Instructions Recorded Confirmed Type aspirin 81 mg tablet,delayed 81 mg PO BID 04/18/22 09/18/22 History release gabapentin 600 mg tablet 1,200 mg PO TID 04/18/22 09/18/22 History insulin NPH isoph U-100 human 100 65 - 90 unit subcut BID 04/18/22 09/19/22 History unit/mL subcutaneous suspension insulin regular human 100 unit/mL 65 - 75 unit subcut BID 04/18/22 09/19/22 History injection solution venlafaxine 75 mg capsule,extended 300 mg PO DAILY 04/18/22 09/18/22 History release 24 hr acetaminophen 500 - 1,000 mg PO Q6H PRN 09/18/22 09/19/22 History Allergies Allergy/AdvReac Type Severity Reaction Status Date / Time amoxicillin Allergy Intermediate Unknown Verified 09/18/22 20:59 celecoxib Allergy Intermediate Unknown Verified 09/18/22 20:59 Sulfa (Sulfonamide Allergy Intermediate Hives Verified 09/18/22 20:59 Antibiotics) Penicillins Allergy Unknown Verified 09/18/22 20:59 sulfasalazine Allergy Unknown Verified 04/17/22 14:33 Exam Narrative: Exam Narrative: He is alert and oriented to his circumstances. Speech is fluent. Head is without obvious trauma. Eyes are normal. Pupils are equal round reactive to light. Extraocular movements are full. Oropharynx with small airway. Neck is supple without mass or adenopathy. No stridor. Respirations are clear to auscultation. No wheezing rales or rhonchi. Cardiovascular: S1, S2, regular rate and rhythm. No murmur gallop or rub. Abdomen: Bowel sounds active. Abdomen is soft without tenderness or mass. Extremities without edema. He moves all 4 extremities well with symmetric strength. Const: Vital Signs, click to edit/add: Vital Signs - 24 hr 09/18/22 20:48 09/18/22 21:07 09/18/22 21:09 Temperature Pulse Rate 86 Pulse Rate [Left A pical] Pulse Rate [Pulse Oximeter] 86 Respiratory Rate 18 Blood Pressure Blood Pressure [Ri ght Arm] Blood Pressure [Ri ght Upper Arm] 126/72 Pulse Oximetry 94 92 94 Oxygen Delivery Me thod Room Air Oxygen Flow Rate 09/18/22 21:15 09/18/22 22:09 09/18/22 22:15 Temperature Pulse Rate 97 93 Pulse Rate [Left A pical] Pulse Rate [Pulse Oximeter] Respiratory Rate Blood Pressure Blood Pressure [Ri ght Arm] Blood Pressure [Ri ght Upper Arm] Pulse Oximetry 90 90 94 Oxygen Delivery Me thod Oxygen Flow Rate 09/18/22 22:22 09/18/22 22:30 09/18/22 22:30 Temperature Pulse Rate 94 82 Pulse Rate [Left A pical] Pulse Rate [Pulse Oximeter] Respiratory Rate 15 Blood Pressure 127/87 Blood Pressure [Ri ght Arm] Blood Pressure [Ri ght Upper Arm] Pulse Oximetry 91 96 90 Oxygen Delivery Me thod Nasal Cannula Nasal Cannula Oxygen Flow Rate 2 2 09/18/22 22:44 09/18/22 22:45 09/18/22 23:00 Temperature Pulse Rate 86 Pulse Rate [Left A pical] Pulse Rate [Pulse Oximeter] Respiratory Rate 15 17 14 Blood Pressure 166/94 H Blood Pressure [Ri ght Arm] Blood Pressure [Ri ght Upper Arm] Pulse Oximetry 96 97 Oxygen Delivery Me thod Nasal Cannula Oxygen Flow Rate 2 09/18/22 23:02 09/19/22 00:42 09/19/22 00:42 Temperature 97.7 F Pulse Rate 81 Pulse Rate [Left A pical] Pulse Rate [Pulse Oximeter] 93 Respiratory Rate 15 18 18 Blood Pressure 165/101 H Blood Pressure [Ri ght Arm] 150/95 H Blood Pressure [Ri ght Upper Arm] Pulse Oximetry 97 95 95 Oxygen Delivery Me thod Nasal Cannula Nasal Cannula Oxygen Flow Rate 2 2 09/19/22 02:55 09/19/22 07:30 09/19/22 11:00 Temperature 97.5 F L 98.1 F 98.9 F Pulse Rate Pulse Rate [Left A pical] 91 Pulse Rate [Pulse Oximeter] 78 85 91 Respiratory Rate 18 20 20 Blood Pressure Blood Pressure [Ri ght Arm] 150/92 H 176/102 H 172/101 H Blood Pressure [Ri ght Upper Arm] Pulse Oximetry 94 95 94 Oxygen Delivery Me thod Nasal Cannula Room Air Room Air Oxygen Flow Rate 1 Documenting provider has reviewed patient's vital signs: yes Hospitalist - H&P: Result Labs Labs: Short CBC 09/18/22 09/19/22 Range/Units 22:35 05:50 WBC 11.88 H 9.10 (4.50-11.00) K/uL Hgb 15.2 14.7 (13.5-17.5) gm/dL Hct 47.3 46.2 (37.0-53.0) % Plt Count 255 215 (140-440) K/uL BMP 09/18/22 09/19/22 22:35 05:50 Sodium 136 137 Potassium 4.2 3.9 Chloride 100 106 Carbon Dioxide 30 25 BUN 31 H 24 Creatinine 1.1 0.7 Glucose 75 132 H Calcium 9.0 8.7 Cardiac Enzymes 09/18/22 Range/Units 22:35 Troponin I < 0.01 L (0.01-0.04) ng/mL Liver Function 09/18/22 09/19/22 Range/Units 22:35 05:50 Total Bilirubin 0.6 0.5 (0.1-1.5) mg/dL Direct Bilirubin 0.0 (0.0-0.5) mg/dL AST 26 24 (12-35) U/L ALT 27 24 (4-50) U/L Alkaline Phosphatase 81 69 (40-150) U/L Albumin 4.0 3.6 (3.3-5.0) g/dL Urine 09/18/22 Range/Units 22:20 Urine Color Yellow (Yellow) Urine Appearance Clear (Clear) Urine pH 5.0 (5.0-8.5) Ur Specific [place] 1.025 (1.000-1.030) Urine Protein 3+ A (Negative) Urine Glucose (UA) Negative (Negative) Assessment and Plan Assessment and plan (1) Hypoglycemia: Problem comment: Hypoglycemia episodes in the context of an elevated hemoglobin A1c and very high dosing of insulin. This is likely to be somewhat difficult to manage as he is likely mostly hyperglycemic but occasionally hypoglycemic causing him to fall. I recommended that we moved to a basal bolus insulin regimen that was effective for him urine half ago when he was hospitalized. Will look into the economic costs to make sure this could be affordable for him. Status: Acute (2) AMS (altered mental status): Problem comment: Back to baseline today. Presumably related to hypoglycemia. Status: Acute (3) Cerebellar infarct: Problem comment: Patient does not recall this. Likely this is contributing to his problems with falling down at times Old chronic right. See scanned 03/13/22-03/17/22 [facility] Discharge Sum. Status: Chronic (4) Falls frequently: Problem comment: Falls presumably primarily due to hypoglycemia but secondarily his cerebellar infarct and peripheral neuropathy are contributing. He did well with physical therapy today though they are recommending outpatient PT Status: Chronic (5) History of traumatic brain injury: Problem comment: Multiple head injuries and old stroke resulting in cognitive deficits. Status: Chronic (6) CAD (coronary artery disease): Problem comment: Asymptomatic Status: Chronic (7) MICHA (obstructive sleep apnea): Problem comment: 03/24/12 AHI=70. Untreated. 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 Status: Chronic (10) Type 2 diabetes mellitus with hyperglycemia: Problem comment: Not well-controlled with hx of noncompliance with meds. Switched to basal bolus insulin. Status: Chronic (11) Obesity with body mass index (BMI) of 35.0 to 39.9 without comorbidity: Problem comment: Will continue work on his diet exercise. Status: Chronic (12) Hypertension: Problem comment: I do need to see him back when he is not in acute pain so we can make further recommendations (04/18/22). Status: Chronic (13) Depression: Problem comment: & anxiety. Continue the venlafaxine. Status: Chronic Plan 57-year-old male admitted to the hospital with altered mental status in the context of hypoglycemia. Also having relatively frequent falls always in the context of hypoglycemia as well. Notably his hemoglobin A1c of 9.75 indicates persistent hyperglycemia. I have discussed with him a recommendation to switch to basal bolus insulin to see if we can level out his very high and very low sugars.. Continue to assess for neurologic and cardiac problems related to falls. These have been witnessed events without evidence of seizures. Total time spent today is 75 minutes, 55 minutes in coordination of care discussing with patient management of hyper and hypoglycemia, falls.
--- NOTE | 2022-09-19 14:34 | PC.NURSE ---
Gildaal by Dr. BELTRAN. Insulin doses adjusted by hospitalist. AM BG 150 and Lunch BG 156. Pt has chronic back pain managed with gabapentin and tylenol. Orthostatic bps reviewed with Dr. Beltran. Good appetite. Denies dizziness,n/v headache or tunnel vision. Pain 4-5 out of 10. Patient's gait is stable, sba of one. Report to oncoming shift.
[2022-09-19] MEDS: DEXTROSE 50 % SYRINGE IVP ×3 (16:24→21:26)
[2022-09-19] MEDS: ONDANSETRON 2 MG/ML inj 4 MG IVP (17:42)
[2022-09-19 17:56] LABS: Glucose* 60 mg/dL (60-115)
--- NOTE | 2022-09-19 19:03 | PC.NURSE ---
Checked patient's blood glucose at 1725 while patient was eating supper and found to be 42. Patient reported feeling dizzy and lightheaded and was diaphoretic. New IV site placed and serum glucose sent to lab with IV start which was 60. D50% 25mg administered IVP. Blood glucose recheck at 1745 was 219. Patient finished supper and reported hypoglycemic symptoms were resolved. Dr. Mccall updated and ordered to hold mealtime diabetic meds and complete hourly glucose checks for 4 hours. Recheck of blood glucose at 1800 was 160 and at 1900 was 118.
[2022-09-20 03:00] VITALS: BP 130/78; PULSE 85; RESP 22; TEMP 36.4; O2SAT 94
--- NOTE | 2022-09-20 05:57 | PC.NURSE ---
Shift note: BG in 90-100th from 1600 yesterday, 09/19/22, and throughout the night. Per Dr Mccall Levemir was non-administered in pm, no sliding scale insulin given and extra dose of D50% 25gm given to the pt. He ambulates independently in the room, gait is steady, no c/o lightheadedness or dizziness, or nausea.
[2022-09-20 07:00] VITALS: BP 130/78; PULSE 81; RESP 22; TEMP 36.7; O2SAT 93
--- NOTE | 2022-09-20 09:09 | NUTR.NU ---
RDN with nutrition screen for DM2 diagnosis and diabetic diet. Patient declined verbal education for designated caregiver and will pass along the handout/information provided. Diabetic diet education provided. Discussed basics of carbohydrate counting including sources of carbohydrates, serving sizes, and label reading. Discussed using the plate method for carbohydrate-controlled, balanced meals that include ? plate non-starchy vegetables, ? plate protein, and 3-4 servings of carbohydrates per meal (fruit, whole grains, legumes, milk, yogurt) and 1-2 per snack. ?Patient was also encouraged to keep timing of meals consistent and avoid skipping meals. Handouts provided to support discussion. Patient was encouraged to attend outpatient diabetes education and was provided with the process to set this up. RDN contact information provided and encouraged patient to call with questions. RDN to follow up as needed.
[2022-09-20] MEDS: VENLAFAXINE ER 75 MG CAPSULE 225 MG PO (09:26)
[2022-09-20] MEDS: ENOXAPARIN 40 MG/0.4 ML INJ SUBCUT (09:26)
[2022-09-20] MEDS: lisinopriL 10 MG TABLET PO (09:26)
[2022-09-20] MEDS: ROSUVASTATIN CALCIUM 10 MG TABLET PO (09:26)
[2022-09-20] MEDS: ASPIRIN 81 MG TABLET EC PO (09:26)
[2022-09-20] MEDS: GABAPENTIN 600 MG TABLET 1200 MG PO (09:27)
[2022-09-20] MEDS: METFORMIN 1,000 MG TABLET 1000 MG PO (09:27)
[2022-09-20] MEDS: SODIUM CHLORIDE 0.9 % (FLUSH) 10 ML SYRINGE 5 ML IVF (09:27)
[2022-09-20 11:00] VITALS: BP 123/73; PULSE 81; RESP 20; TEMP 36.1; O2SAT 93
--- NOTE | 2022-09-20 14:58 | PC.NURSE ---
Discharge: Patient alert and oriented, pleasant and cooperative. BG much better today. see emar. VSS and denies pain. at bedside. Machine Rope Maker did some teaching and education on how to self administer insulin using a pen dispenser, patient verbalized understanding on how to use pen. Machine Rope Maker suggested have home meter checked or recalibrated d/t discrepancy of readings. Hospital machine showed higher BG number than the home meter. Patient discharged today at 1400 accompanied by spouse. Discharge instructions given and signed. patient verbalized understanding. Belongings sheet signed. IV removed intact.
--- NOTE | 2022-09-20 15:58 | P.DS_ITS ---
DS: Providers Provider Date Seen: 09/20/22 Date of admission: 09/19/22 00:26 Primary care physician: Karthik Sanz MD Admitting Clinician: Haroon Mccall MD Attending Physician on discharge: Eliezer Hilario MD Date of Discharge: 09/20/22 DS: Diagnosis Discharge Diagnosis (1) Hypoglycemia: Status: Acute Problem details: Hypoglycemia episodes in the context of an elevated hemoglobin A1c and very high dosing of insulin. This is likely to be somewhat difficult to manage as he is likely mostly hyperglycemic but occasionally hypoglycemic causing him to fall. I recommended that we moved to a basal bolus insulin regimen that was effective for him urine half ago when he was hospitalized. There is a large amount of uncertainty related to the cause of his elevated hemoglobin A1c with frequent hypoglycemic episodes and reported relatively high dose of insulin use. I suspect he may have difficulties with his glucose monitor and nurses here confirmed that it is having significant variations from our fingerstick glucose measurements. I also suspect he may have trouble drawing up and self administering insulin. I have switched him to insulin pens for that reason. Urgent outpatient follow-up in clinic to review his blood sugar monitoring including possible referral for new glucose monitoring equipment which seems to be not working properly. Recommend his do insulin administration and glucose monitoring as cognitively it is still uncertain whether he is able to perform this adequately. Ongoing adjustment of his insulin dosing which has been a problem and possibly also related to inconsistent dietary management of his diabetes. (2) AMS (altered mental status): Status: Acute Problem details: Back to baseline today. Presumably related to hypoglycemia. (3) Cerebellar infarct: Status: Chronic Problem details: Patient does not recall this. Likely this is contributing to his problems with falling down at times. Old chronic right side. See scanned 03/13/22-03/17/22 [facility] Discharge Sum. (4) Falls frequently: Status: Chronic Problem details: Falls presumably primarily due to hypoglycemia but secondarily his cerebellar infarct and peripheral neuropathy are contributing. He did well with physical therapy today though they are recommending outpatient PT. ambulates fairly well when he has a normal blood sugar (5) History of traumatic brain injury: Status: Chronic Problem details: Multiple head injuries and old stroke resulting in cognitive deficits. 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 (7) MICHA (obstructive sleep apnea): Status: Chronic Problem details: 03/24/12 AHI=70. Untreated. Patient is not really interested in pursuing further evaluation for getting a new BiPAP (8) Type 2 diabetes mellitus with hyperglycemia: Status: Chronic Problem details: Switched to Lantus plus Humalog plus metformin (9) Hypertension: Status: Chronic Problem details: Resume lisinopril (10) Depression: Status: Chronic Problem details: & anxiety. Continue the venlafaxine. (11) Cognitive impairment: Status: Acute Problem details: Unable to perform [facility] testing today. Initial attempts were revealing of severe cognitive deficits but he was unable to do most of the testing. Recommend his take over insulin administration and glucose monitoring DS: Summary Hospital Course Hospital Course: 57-year-old male admitted to the hospital with recurrent falls associated with hypoglycemia with blood sugar readings in the 50-60 range. Patient self administers insulin R and N to manage his blood sugars. With his frequent hypoglycemia and an hemoglobin A1c of 9.7 it is clear that there are problems with blood sugar management. His total insulin administration that he repeatedly confirmed is 290 units per day. On admission I switched him to a basal bolus regimen. Almost immediately this had to be reduced to a total of 150 units today because of hypoglycemia. On discharge his regimen will be Lantus 50 units at bedtime plus Humalog 30 units with each meal, he only eats 2 meals a day. He was able to demonstrate that he knew how to use an insulin pen which was prescribed. I confirmed with his pharmacist at [facility] in [place] that the cost of each of these prescriptions would be 35 dollars per month which he says he can not afford. I also restarted his metformin which was stopped for unknown reasons. His lisinopril was also stopped for unknown reasons and I have resume that as well. Status at Discharge Cognitive/behavioral status at discharge: Unable to perform testing. Consider outpatient occupational therapy assessment. Functional status at discharge: independent ambulation Overall status at discharge: patient is back to baseline Time Spent with Patient Time attestation: Total time spent providing and/or coordinating discharge services: Time spent: Greater than 30 minutes Exam Narrative: Exam Narrative: He is alert and in no distress. Speech is normal. He is able to give fairly good history. Unable to perform a any mental status testing however. Breathing is unlabored. Cardiovascular: S1, S2, regular rate and rhythm. Abdomen is soft without tenderness or mass. Extremities with 1- 2+ edema. Const: Vital Signs, click to edit/add: Vital Signs - 24 hr 09/19/22 19:00 09/19/22 23:00 09/20/22 03:00 Temperature 98.9 F 98.2 F 97.5 F L Pulse Rate [Left A pical] Pulse Rate [Pulse Oximeter] 94 90 85 Respiratory Rate 20 20 22 Blood Pressure [Ri ght Arm] 117/78 103/63 130/78 Pulse Oximetry 94 95 94 Oxygen Delivery Me thod Room Air Room Air Room Air 09/20/22 07:00 09/20/22 07:00 09/20/22 11:00 Temperature 98.0 F 97.0 F L Pulse Rate [Left A pical] 81 Pulse Rate [Pulse Oximeter] 81 81 Respiratory Rate 22 22 20 Blood Pressure [Ri ght Arm] 130/78 123/73 Pulse Oximetry 93 93 Oxygen Delivery Me thod Room Air Room Air Documenting provider has reviewed patient's vital signs: yes DS: Data Data Completed and Pending Labs on day of discharge: Labs from last 24 hours 09/19/22 17:36 Glucose 60 Preliminary micro results at discharge 09/18/22 22:20 Urine Culture - Preliminary Urine Catheterized NO GROWTH AFTER 24 HOURS Discharge Plan Discharge Disposition: Home, Self-Care Date of Admission: 09/19/22 00:26 Attending Provider on Discharge: Stanley Hilario Primary Care Provider: Karthik Sanz Condition: Improved Anticipated Discharge Date/Time: 09/20/22 11:10 Discharge Medications: New insulin aspart U-100 [Novolog FlexPen U-100 Insulin] 100 unit/mL (3 mL) insulin pen 30 unit subcut TIDWM Qty: 30 0RF insulin glargine [Basaglar KwikPen U-100 Insulin] 100 unit/mL (3 mL) insulin pen 50 unit subcut QPM Qty: 15 0RF metformin 1,000 mg Tablet 1,000 mg PO BIDWM Qty: 60 0RF lisinopril 10 mg Tablet 10 mg PO DAILY Qty: 30 0RF Continued aspirin 81 mg tablet,delayed release (DR/EC) 81 mg PO BID gabapentin 600 mg tablet 1,200 mg PO TID venlafaxine 75 mg capsule,extended release 24hr 300 mg PO DAILY acetaminophen [Tylenol] 500 - 1,000 mg PO Q6H PRN Discontinued insulin NPH isoph U-100 human 100 unit/mL suspension 65 - 90 unit subcut BID Rx Instructions: 65 units at noon 85 units in pm insulin regular human 100 unit/mL solution 65 - 75 unit subcut BID Rx Instructions: 65 units at noon 75 units at pm No Action (DME) Blood Glucose Meter Misc See Rx Instructions .Route Qty: 1 0RF Rx Instructions: As directed Discharge Orders: Discharge Order (Routine); Ordered 09/20/22 Ordered By: Stanley Hilario Patient Education: Lisinopril (By mouth), Metformin (By mouth), Insulin Aspart Protamine/Insulin Aspart (By injection), Insulin Glargine (By injection) Additional Instructions: I have made several changes to her medications. I have restarted metformin and lisinopril. I have stopped your previous insulin treatment and started a new insulin treatment. You will be using insulin pens. You will take Lantus 50 units at bedtime and Humalog 30 units before each meal. See your doctor next week to review your blood sugar readings to make sure this plan is working. He will certainly need to make some adjustments in your treatment over time. Activity Level: Activity as Tolerated Discharge Diet: Diabetic Follow Up Appointments: Karthik Sanz MD [Primary Care Provider] - 10/01/22 1:45 pm ( [facility]/blood sugar management) Forms: [facility] Info Instructions
== END 2022-09-20 14:00 | disposition home or self-care (01) ==
LOC: ED 23:48 → MEDSURG 09-19 00:27
PROVIDERS: Internal Medicine; Admitting Provider Hospitalist; Emergency Provider Family Medicine; PCP Internal Medicine; Visit Provider Hospitalist
DX: E16.2 Hypoglycemia, unspecified (principal); R41.82 Altered mental status, unspecified; I63.9 Cerebral infarction, unspecified; R29.6 Repeated falls; Z87.820 Personal history of traumatic brain injury; I25.10 Atherosclerotic heart disease of native coronary artery without angina pectoris; G47.33 Obstructive sleep apnea (adult) (pediatric); M54.2 Cervicalgia; M54.9 Dorsalgia, unspecified; G89.29 Other chronic pain; G62.9 Polyneuropathy, unspecified; E11.65 Type 2 diabetes mellitus with hyperglycemia; E66.9 Obesity, unspecified; I10 Essential (primary) hypertension; F32.A Depression, unspecified; R41.89 Other symptoms and signs involving cognitive functions and awareness
CPT/HCPCS: 36415; 70450; 72125; 72128; 72131; 80048; 80053; 80076; 80143; 80179; 80306; 81001; 82077; 82803; 82947; 82962; 83036; 83605; 83690; 84439; 84443; 84484; 85025; 85651; 86140; 87086; 93005; 94761; 96361; 96372; 97112; 97116; 97162; 97165; 97535; 99199; 99285; A9270; G0378; J1650; J2405; J7030

== ENCOUNTER 2022-10-01 13:24 | Outpatient (CLI) | payer OTHER, SELFPAY | END 2022-10-01 13:25 | disposition home or self-care (01) | PROVIDERS: PCP Internal Medicine; Visit Provider Internal Medicine | DX: E16.2 Hypoglycemia, unspecified (principal); E78.5 Hyperlipidemia, unspecified; I10 Essential (primary) hypertension; E11.65 Type 2 diabetes mellitus with hyperglycemia; Z12.5 Encounter for screening for malignant neoplasm of prostate | CPT/HCPCS: 80053; 80061; 82043; 82570; 84153 ==

== ENCOUNTER 2023-08-26 14:47 | Outpatient (CLI) | payer OTHER, SELFPAY | END 2023-08-26 14:48 | disposition home or self-care (01) | LOC: NFLDREF 14:53 | PROVIDERS: PCP Internal Medicine; Visit Provider Internal Medicine | DX: E11.65 Type 2 diabetes mellitus with hyperglycemia (principal) | CPT/HCPCS: 80053 ==

== ENCOUNTER 2023-09-23 15:17 | Outpatient (CLI) | payer OTHER, SELFPAY | END 2023-09-23 15:18 | disposition home or self-care (01) | PROVIDERS: PCP Internal Medicine; Visit Provider Physician Assistant | DX: L97.511 Non-pressure chronic ulcer of other part of right foot limited to breakdown of skin (principal); B95.1 Streptococcus, group B, as the cause of diseases classified elsewhere | CPT/HCPCS: 87070; 87186 ==

== ENCOUNTER 2023-10-14 08:10 | Outpatient (CLI) | payer OTHER, SELFPAY | END 2023-10-14 08:11 | disposition home or self-care (01) | LOC: WOUND 08:10 | PROVIDERS: PCP Internal Medicine; Visit Provider Family Medicine | DX: E11.621 Type 2 diabetes mellitus with foot ulcer (principal); E11.40 Type 2 diabetes mellitus with diabetic neuropathy, unspecified; L97.412 Non-pressure chronic ulcer of right heel and midfoot with fat layer exposed; L97.422 Non-pressure chronic ulcer of left heel and midfoot with fat layer exposed; L97.521 Non-pressure chronic ulcer of other part of left foot limited to breakdown of skin; I25.10 Atherosclerotic heart disease of native coronary artery without angina pectoris; R29.6 Repeated falls; Z79.4 Long term (current) use of insulin | CPT/HCPCS: G0463 ==

== ENCOUNTER 2023-10-21 15:30 | Outpatient (CLI) | payer OTHER, SELFPAY | END 2023-10-21 15:31 | disposition home or self-care (01) | LOC: WOUND 10-22 12:47 | PROVIDERS: PCP Internal Medicine; Visit Provider Nurse Practitioner Family | DX: E11.621 Type 2 diabetes mellitus with foot ulcer (principal); E11.40 Type 2 diabetes mellitus with diabetic neuropathy, unspecified; L97.418 Non-pressure chronic ulcer of right heel and midfoot with other specified severity; L97.428 Non-pressure chronic ulcer of left heel and midfoot with other specified severity; I25.10 Atherosclerotic heart disease of native coronary artery without angina pectoris; Z79.4 Long term (current) use of insulin | CPT/HCPCS: 97597 ==

== ENCOUNTER 2023-10-24 15:14 | Observation (INO) | payer OTHER, SELFPAY ==
[2023-10-24] VITALS (31 sets, daily range): BP systolic 66–149; BP diastolic 44–95; PULSE 68–81; RESP 12–20; TEMP 36.1–36.6; O2SAT 82–98; BMI 36.5
[2023-10-24] MEDS: DEXTROSE 50 % SYRINGE IVP (15:45)
[2023-10-24] MEDS: 0.9 % SODIUM CHLORIDE 1000 ml 1,000 ML IV ×2 (15:45→16:00)
--- NOTE | 2023-10-24 15:45 | ED.GENADULT ---
HPI - General Adult General Time Seen by Provider: 15:45 Date Seen: 10/24/23 Chief complaint: Diabetic Related Problem Stated complaint: slurring speech, blood sugar low Time Seen by Provider: 10/24/23 15:28 Source: patient and RN notes reviewed Mode of arrival: ambulatory Limitations: no limitations History of Present Illness HPI narrative: This 58-year-old diabetic gentleman was brought over from outpatient ultrasound where he was to have arterial ultrasounds done for wounds of his bilateral heels. [place] Manager is found him to be slumped forward in his chair, not really responding. His told them that they would probably need help as he was not very mobile. She notes he has been like this most of the day. She finely arouse him around 11, was not really waking up. His blood sugar I believe she said was in the 54. She did force him to eat some food but reportedly was quite somnolent like he is today. He has not had any fevers. He has had wounds in his heels that [facility] has [facility]. No acute cough, he did not complain of any pain when we did ask him at 1 of the times he did answer us. His is here with 2 grandchildren, when asked about advanced directives, she would want everything done possible. This is a patient that is insulin-dependent diabetic who has had problems with hypoglycemia before. He has also had a stroke that was diagnosed by head CT but he was otherwise unaware that he had this before. He does have obstructive sleep apnea in review of recent admission, he was not using his BiPAP because his equipment did not work any longer. His initial oxygenation was 83% on arrival and he was noted to be breathing independently. His initial blood pressure was in the low 100s but when I was initially evaluating him, recheck blood pressures were in the 60s and 70s systolic, he was afebrile. Nursing staff was working to find an IV site as his Accu-Chek showed blood sugar to be in the 40s with this altered mental status, pharmacy was bringing down oral glucose when they finally did obtain IV, did get an amp of D50. Recheck of the blood sugar was 160. 1-1/2 hour later was down into the 80s an pharmacy did bring down D10 which we did started 100 mL an hour. We will be following his Accu-Cheks Q 30 minutes or as indicated. He was certainly obtain ended, seemingly like he could be acute on chronic respiratory failure. We did initiate BiPAP but patient was independently breathing, venous blood gas did come back at that point and patient was continuing to breathe independently, BiPAP was not continued and his venous blood gas does not support acute respiratory failure. Portable chest x-ray was done and on my preliminary review did not see any acute congestive heart failure. Initial EKG nonspecific widening of the QRS, some artifact and poor R-wave progression anterior precordial leads. Other labs are pending at this time. Did try 0.4 mg Narcan, patient maybe was a little more arousable. We are trying to understand if he is on any narcotic medicines. He is noted to be poorly compliant by a his and she had stated that he really does not take medicines unless she gives them to him. At times he will open his eyes to voice and will have short communications in 1 or 2 word answers. There are other times where he is not responsive to sternal rub. We did initiate 2 L of normal saline, most recent pressure when I was in there when the 2 L were going after we were able to find 2 IV sites with ultrasound assistance gave a systolic pressure of 110. Related Data Home Medications ?Medication ?Instructions ?Recorded ?Confirmed lidocaine 4 % topical patch 1 patch topical QDAY PRN 09/18/23 10/16/23 (Lidocaine Pain Relief) Previous Rx's ?Medication ?Instructions ?Recorded acetaminophen 500 mg tablet 500 - 1,000 mg (1 - 2 x 500 mg) PO 10/17/22 Q6H PRN pain #100 tabs aspirin 81 mg tablet,delayed 81 mg PO BID #60 tabs 10/17/22 release Blood Glucose Meter #1 ea 10/18/22 pen needle, diabetic 32 gauge x #100 ea 10/19/22 (Pen Needle) flash glucose sensor (FreeStyle #10 ea 11/05/22 Luis 2 Sensor kit) insulin aspart U-100 100 unit/mL 30 unit (0.3 mL) subcut BID #30 mL 09/18/23 (3 mL) subcutaneous pen (Novolog FlexPen U-100 Insulin aspart) insulin lispro 100 unit/mL 30 unit (0.3 mL) subcut TID 10/02/23 subcutaneous pen (Humalog KwikPen Diabetes type 2 #15 mL (U-100) Insulin) flash glucose sensor (FreeStyle #1 ea 10/09/23 Luis 2 Sensor kit) gabapentin 600 mg tablet 1,200 mg (2 x 600 mg) PO TID #180 10/09/23 tabs propranolol 10 mg tablet 10 mg PO BID #180 tabs 10/09/23 venlafaxine 75 mg capsule,extended 300 mg (4 x 75 mg) PO DAILY #120 10/09/23 release 24 hr caps atorvastatin 10 mg tablet 10 mg PO QHS #90 tabs 10/11/23 divalproex 500 mg tablet,extended 1,500 mg (3 x 500 mg) PO QDAY #270 10/11/23 release 24 hr (Depakote ER) tabs prazosin 1 mg capsule 1 mg PO QHS #90 caps 10/11/23 quetiapine 25 mg tablet 25 mg PO Q6H #120 tabs 10/11/23 trazodone 50 mg tablet 50 mg PO QHS insomnia #90 tabs 10/11/23 Allergies Allergy/AdvReac Type Severity Reaction Status Date / Time amoxicillin Allergy Intermediate Unknown Verified 10/24/23 15:45 celecoxib Allergy Intermediate Unknown Verified 10/24/23 15:45 Sulfa (Sulfonamide Allergy Intermediate Hives Verified 10/24/23 15:45 Antibiotics) Penicillins Allergy Unknown Verified 10/24/23 15:45 sulfasalazine Allergy Unknown Verified 10/24/23 15:45 Review of Systems Status of ROS: Reports: unobtainable due to mental status (Obtunded at times, other times arousable and will answer briefly) [facility] Medical History (Updated 10/24/23 @ 18:24 by Stanley Hilario MD) Dietary indiscretion ?R63.8 - Other symptoms and signs concerning food and fluid intake (ICD-10) Decubitus ulcer of heel, bilateral ?L89.619 - Pressure ulcer of right heel, unspecified stage (ICD-10) ?L89.629 - Pressure ulcer of left heel, unspecified stage (ICD-10) Poorly controlled diabetes mellitus ?E11.65 - Type 2 diabetes mellitus with hyperglycemia (ICD-10) Depression ?F32.A - Depression, unspecified (ICD-10) Heart failure with preserved ejection fraction ?I50.30 - Unspecified diastolic (congestive) heart failure (ICD-10) Hypertension ?I10 - Essential (primary) hypertension (ICD-10) Obesity with body mass index (BMI) of 35.0 to 39.9 without comorbidity ?E66.9 - Obesity, unspecified (ICD-10) Type 2 diabetes mellitus with hyperglycemia ?E11.65 - Type 2 diabetes mellitus with hyperglycemia (ICD-10) Hyperlipemia ?E78.5 - Hyperlipidemia, unspecified (ICD-10) Chronic neck and back pain ?M54.2 - Cervicalgia (ICD-10) ?M54.9 - Dorsalgia, unspecified (ICD-10) ?G89.29 - Other chronic pain (ICD-10) MICHA (obstructive sleep apnea) ?G47.33 - Obstructive sleep apnea (adult) (pediatric) (ICD-10) CAD (coronary artery disease) ?I25.10 - Atherosclerotic heart disease of [place] coronary artery without angina pectoris (ICD-10) Peripheral polyneuropathy ?G62.9 - Polyneuropathy, unspecified (ICD-10) Bilateral carpal tunnel syndrome ?G56.03 - Carpal tunnel syndrome, bilateral upper limbs (ICD-10) History of traumatic brain injury ?Z87.820 - Personal history of traumatic brain injury (ICD-10) Falls frequently ?R29.6 - Repeated falls (ICD-10) Cerebellar infarct ?I63.9 - Cerebral infarction, unspecified (ICD-10) AMS (altered mental status) ?R41.82 - Altered mental status, unspecified (ICD-10) Hypoglycemia ?E16.2 - Hypoglycemia, unspecified (ICD-10) Unsteady gait ?R26.81 - Unsteadiness on feet (ICD-10) CVA (cerebral vascular accident) ?I63.9 - Cerebral infarction, unspecified (ICD-10) Cognitive impairment ?R41.89 - Other symptoms and signs involving cognitive functions and awareness (ICD-10) Right shoulder pain ?M25.511 - Pain in right shoulder (ICD-10) Surgical History History of lumbar fusion (1994) ?Z98.1 - Arthrodesis status (ICD-10) Family History Mother High blood pressure Depression Stroke Father Alcohol dependence Other Diabetes Social History (Updated 10/24/23 @ 18:14 by Stanley Hilario MD) Narrative: He lives with his in [place]. He is disabled. He is a former smoker having 30 pack-year history. Occasionally drinks alcohol. In their home he lives with his and 2 daughters and 2 granddaughters ages 2 and 6. 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 One of the daughters also works at school where her 6-year-old daughter will attend school. Other daughter works at a preschool where the her 2-year-old daughter will attend preschool. What is your current living situation?: I presently have a place to live Problems where you live: no known problems Problems where you live details: n/a In the past 12 months, utilities in danger of being shut off: no In past 12 months, lack of transportation kept you from medical appts, meetings, work, or getting things needed for daily living: no In the past 12 mos, have been you worried that your food would run out before you had money to buy more?: never true In the past 12 mos, the food you bought just didn't last and you didn't have money to buy more?: never true Highest level of school completed/degree received: high school graduate Smoking Status: Former smoker Do you use any of these nicotine containing products: None Second hand tobacco smoke exposure: No How often do you have a drink containing alcohol: monthly or less Alcohol type: beer AUDIT-C Alcohol total score: 1 Non-prescribed substance use: denies use Caffeine: Yes ([facility]) How often does anyone, including family, friends and others, physically hurt you: never How often does anyone, including family, friends and others, insult or talk down to you: never How often does anyone, including family, friends and others, threaten you with harm: never How often does anyone, including family, friends and others, scream or curse at you: never Little interest or pleasure in doing things: more than half the days Feeling down, depressed, or hopeless: more than half the days service: No Exam Const: Vital Signs, click to edit/add: Vital Signs - 24 hr 10/24/23 15:20 10/24/23 15:23 10/24/23 15:43 Temperature 97.6 F Pulse Rate 70 Pulse Rate [Pulse Oximeter] Respiratory Rate 16 12 Blood Pressure Blood Pressure [Ri ght Upper Arm] Pulse Oximetry 83 L 91 87 L Oxygen Delivery Me thod Room Air Room Air Oxygen Flow Rate Fraction of Inspir ed Oxygen 10/24/23 15:45 10/24/23 15:45 10/24/23 15:46 Temperature 98 F Pulse Rate 69 Pulse Rate [Pulse Oximeter] 69 Respiratory Rate 12 Blood Pressure Blood Pressure [Ri ght Upper Arm] 129/73 Pulse Oximetry 83 L 88 91 Oxygen Delivery Me thod Room Air Nasal Cannula Nasal Cannula Oxygen Flow Rate 2 2 Fraction of Inspir ed Oxygen 10/24/23 15:52 10/24/23 15:54 10/24/23 16:00 Temperature Pulse Rate 68 69 69 Pulse Rate [Pulse Oximeter] Respiratory Rate 14 14 16 Blood Pressure 79/54 L 66/44 L 85/46 L Blood Pressure [Ri ght Upper Arm] Pulse Oximetry 91 86 L 82 L Oxygen Delivery Me thod BiPAP Oxygen Flow Rate Fraction of Inspir ed Oxygen 10/24/23 16:01 10/24/23 16:02 10/24/23 16:10 Temperature Pulse Rate 69 68 Pulse Rate [Pulse Oximeter] Respiratory Rate 13 Blood Pressure 77/47 L Blood Pressure [Ri ght Upper Arm] Pulse Oximetry 91 89 Oxygen Delivery Me thod Oxygen Flow Rate Fraction of Inspir ed Oxygen 0.30 10/24/23 16:10 10/24/23 16:11 10/24/23 16:15 Temperature Pulse Rate 69 70 70 Pulse Rate [Pulse Oximeter] Respiratory Rate 14 16 16 Blood Pressure 74/44 L 68/48 L Blood Pressure [Ri ght Upper Arm] Pulse Oximetry 90 88 92 Oxygen Delivery Me thod Oxygen Flow Rate Fraction of Inspir ed Oxygen 10/24/23 16:22 10/24/23 16:28 10/24/23 16:46 Temperature Pulse Rate 71 72 73 Pulse Rate [Pulse Oximeter] Respiratory Rate 20 18 14 Blood Pressure 110/66 118/61 130/76 Blood Pressure [Ri ght Upper Arm] Pulse Oximetry 93 96 96 Oxygen Delivery Me thod Nasal Cannula Oxygen Flow Rate 2 Fraction of Inspir ed Oxygen 10/24/23 16:52 10/24/23 17:02 10/24/23 17:12 Temperature Pulse Rate 73 72 73 Pulse Rate [Pulse Oximeter] Respiratory Rate 16 14 16 Blood Pressure 132/79 129/78 133/77 Blood Pressure [Ri ght Upper Arm] Pulse Oximetry 96 97 97 Oxygen Delivery Me thod Oxygen Flow Rate Fraction of Inspir ed Oxygen 10/24/23 17:22 10/24/23 17:32 10/24/23 18:02 Temperature Pulse Rate 74 74 77 Pulse Rate [Pulse Oximeter] Respiratory Rate 14 16 16 Blood Pressure 139/82 138/80 126/75 Blood Pressure [Ri ght Upper Arm] Pulse Oximetry 97 96 95 Oxygen Delivery Me thod Nasal Cannula Oxygen Flow Rate 1 Fraction of Inspir ed Oxygen 10/24/23 18:12 10/24/23 18:22 10/24/23 18:30 Temperature Pulse Rate 77 76 75 Pulse Rate [Pulse Oximeter] Respiratory Rate 14 16 14 Blood Pressure 124/73 126/74 Blood Pressure [Ri ght Upper Arm] Pulse Oximetry 93 94 93 Oxygen Delivery Me thod Oxygen Flow Rate 1 2 Fraction of Inspir ed Oxygen Somnolent to tended, at times responds to voice, other times is not responding to sternal rub. Has been independently breathing throughout all of this. Conjugate gaze, pupils are equal round, sclera clear. Symmetrical facial function when he does talk. Speech is somewhat slurred at times. Neck supple, no masses. Lungs are clear without wheezing or crackles, no tachypnea. CV regular rate and rhythm, no murmur heard. Abdomen is soft, no masses, organomegaly, does not seem to elicit any pain on palpation. He has no lower extremity edema, has wounds/ulcers of his heels that seem to be clean dry and intact at this time, no surrounding erythema, do not appear to be infected. Do watch him when he is more lucid independently moving his arms and legs. Did not notice any focal deficit but cannot get directed neurologic exam out of him at this time. Documenting provider has reviewed patient's vital signs: yes Course Reevaluation(s) Time of Reevaluation #1: 17:01 Reevaluation #1: His notes he has been hospitalized at [place] before, recently. She states that is worried they started his psychiatric medicines and antianxiety medicines. Briefly in review of that history, do note that the increased his Depakote. His hemoglobin A1c during that hospitalization was 14.8, note this was in August I believe. He was started on propranolol 10 mg tablet b.i.d. and trazodone 50 mg at bedtime with ability to repeat ones. His quiet a Pean was 25-50 mg up to 4 times a day. He is on 300 mg of venlafaxine. He also takes gabapentin 1200 mg t.i.d., prazosin 1 mg at bedtime. He did have his dextrose solution rate increased, will increase to 200 mL per hour and then recheck in 15 minutes due to a glucose in the 60s despite being on the D10 infusion at 100 mL/hour. His blood pressures have stabilized. He is in the low one hundred systolic. Procalcitonin has come back mildly elevated at 0.82. C-reactive protein is 4.8. We do not have a definite source of infection and will be moving towards CT of chest abdomen pelvis to rule out occult infection. Will see if 1 blood culture can be drawn, note there is significant shortage and they are limits to blood culture availability. feels that his heels look better than they have been. Time of Reevaluation #2: 17:09 Reevaluation #2: Blood sugar is 63 despite the increased D10. Will try 1 mg IV glucagon. Will contact outside facilities to see if we might transfer this patient. Consultations Consultation #1: Dr. Hilario did come down, we have briefly reviewed this patient earlier but went over him in further depth now. He believes that this is likely the hypoglycemia which is complicated by a his comorbid conditions. Patient does seem to be awakening better. We have talked to his , his insulin seems to be in some discrepancy. His states he is on novel in an and novel in our, last gave himself insulin at 5:00 a.m. this morning despite reports of having hypoglycemia through the night. He is going to evaluate this patient, does feel like he may be able to stay here. Had a similar hospitalization about 1 year ago. Did review his C-reactive protein is up, procalcitonin just mildly elevated. Will proceed with CT of chest abdomen pelvis just to ensure that we are not missing occult infection, 1 blood culture is going to be drawn as well. Time: 17:21 Consultation #2: Updated Dr. Hilario on the CT findings; there is essentially no acute evidence of any infectious etiology. He does have some incidental stable findings of atherosclerosis, prostatomegaly, there is bladder wall thickening. This was all reviewed with Dr. Hilario, we are holding on antibiotics at this time. Once his D10 has run out, they are going to see if he can maintain his sugars with eating. He is asked our nurses to feed the patient down here before going down the floor. He does accept this patient. Time: 19:02 Vital Signs Vital signs: Initial Vital Signs Pulse Oximetry 83 L 10/24/23 15:20 Vital Signs Pulse Oximetry 83 L 10/24/23 15:20 Temperature 98 F 10/24/23 15:45 Pulse Rate 75 10/24/23 18:30 Respiratory Rate 14 10/24/23 18:30 Blood Pressure 126/74 10/24/23 18:22 Pulse Oximetry 93 10/24/23 18:30 Oxygen Delivery Method Nasal Cannula 10/24/23 18:02 Oxygen Flow Rate 2 10/24/23 18:22 Fraction of Inspired Oxygen 0.30 10/24/23 16:10 Medications Administered Medications: Generic Name Dose Route Start Last Admin Trade Name Freq PRN Reason Stop Dose Admin Dextrose 500 mls @ 100 mls/hr 10/24/23 16:58 10/24/23 16:57 10 % Dextrose 500 Ml IV 200 mls/hr .Q5H RICHARD Infusion Discontinued Medications Generic Name Dose Route Start Last Admin Trade Name Freq PRN Reason Stop Dose Admin Dextrose 25 gm 10/24/23 15:26 10/24/23 15:45 Dextrose 50 % Syringe IVP 10/24/23 15:27 25 gm ONCE ONE Administration Glucagon 1 mg 10/24/23 17:09 10/24/23 17:16 Glucagon,Human Recombinant 1 Mg/Ml Vial IV 10/24/23 17:10 1 mg ONCE ONE Administration Sodium Chloride 1,000 mls @ 1,000 mls/hr 10/24/23 16:02 10/24/23 16:45 0.9 % Sodium Chloride 1000 Ml IV 10/24/23 17:01 Infused .Q1H RICHARD Infusion Sodium Chloride 1,000 mls @ 1,000 mls/hr 10/24/23 16:03 10/24/23 17:00 0.9 % Sodium Chloride 1000 Ml IV 10/24/23 17:02 Infused .Q1H RICHARD Infusion Naloxone HCl 0.4 mg 10/24/23 16:58 10/24/23 16:06 Naloxone 0.4 Mg/Ml Inj IVP 10/24/23 16:59 0.4 mg ONCE ONE Administration Medical Decision Making Lab Data Lab results reviewed: Yes I reviewed the patient's lab results Labs: Lab Results 10/24/23 10/24/23 Range/Units 15:40 16:23 WBC 12.07 H (4.50-11.00) K/uL RBC 4.66 (4.30-5.90) m/uL Hgb 12.5 L (13.5-17.5) gm/dL Hct 40.9 (37.0-53.0) % MCV 88 (80-100) fL MCH 27 (26-34) pg MCHC 31 L (32-36) gm/dL RDW Coeff of Radha 12.8 (11.5-15.5) % Plt Count 297 (140-440) K/uL Neut % (Auto) 77.8 H (42.0-72.0) % Lymph % (Auto) 12.3 L (20-44) % [place] % (Auto) 7.6 (0.0-11.0) % Eos % (Auto) 1.4 (0.0-7.0) % Baso % (Auto) 0.2 (0.0-3.0) % Neut # (Auto) 9.40 H (1.7-7.0) K/uL Lymph # (Auto) 1.50 (0.90-2.90) K/uL [place] # (Auto) 0.90 (0.00-0.90) K/UL Eos # (Auto) 0.20 (0.00-0.50) K/uL Baso # (Auto) 0.00 (0.00-0.30) K/uL Abs Immat Gran (auto) 0.10 (0.00-0.30) K/uL Imm/Tot Granulo (auto) 0.7 % VBG pH 7.322 (7.32-7.43) VBG pCO2 57 H (40-50) mmHG VBG pO2 47.3 H (25-47) mmHG VBG HCO3 30 H (21-28) mmol/L Sodium 138 (135-149) mmol/L Potassium 4.4 (3.6-5.1) mmol/L Chloride 104 (96-114) mmol/L Carbon Dioxide 29 (20-32) mmol/L Anion Gap 5 L (7-15) mEq/L BUN 36 H (7-30) mg/dL Creatinine 1.4 (0.5-1.5) mg/dL Estimated GFR 59 ml/min Glucose 49 L* (60-115) mg/dL Lactate 1.2 (0.5-1.9) mmol/L Calcium 8.7 (8.4-10.6) mg/dL Magnesium 2.3 (1.5-2.6) mg/dL Total Bilirubin 0.5 (0.1-1.5) mg/dL Direct Bilirubin 0.3 (0.0-0.5) mg/dL AST 16 (12-35) U/L ALT 17 (4-50) U/L Alkaline Phosphatase 78 (40-150) U/L Troponin I 0.03 (0.01-0.04) ng/mL C-Reactive Protein 4.8 H (0.5-1.0) mg/dL NT-Pro-B Natriuret Pep 1560 pg/mL Total Protein 6.8 (6.0-8.3) g/dL Albumin 3.9 (3.3-5.0) g/dL Procalcitonin 0.82 H (<0.50) ng/mL Urine Color Yellow (Yellow) Urine Appearance Clear (Clear) Urine pH 5.5 (5.0-8.5) Ur Specific [place] 1.025 (1.000-1.030) Urine Protein 2+ A (Negative) Urine Glucose (UA) 3+ A (Negative) Urine Ketones Trace A (Negative) Urine Blood Negative (Negative) Urine Nitrite Negative (Negative) Urine Bilirubin 1+ A (Negative) Urine Urobilinogen 1.0 (0.2-1.0) Ur Leukocyte Esterase Negative (Negative) Urine RBC 0-2 (0-2) Urine WBC 0-2 (0-5) Ur Squamous Epith Cells Few (None-Few) Urine Bacteria None (None) Urine Opiates Screen Negative (Negative) Ur Oxycodone Screen Negative (Negative) Urine Methadone Screen Negative (Negative) Ur Barbiturates Screen Negative (Negative) U Tricyclic Antidepress POSITIVE A (Negative) Ur Phencyclidine Scrn Negative (Negative) Ur Amphetamines Screen Negative (Negative) U Methamphetamines Scrn Negative (Negative) U Benzodiazepines Scrn Negative (Negative) Urine Cocaine Screen Negative (Negative) U Marijuana (THC) Screen Negative (Negative) Ur Drug Screen Comment See Note Ethyl Alcohol < 0.01 L (0.01-0.03) % SARS-CoV-2 (PCR) Negative SARS-CoV-2 (Negative) Influenza Type A (PCR) Negative PCR FLU A (Negative) Influenza Type B (PCR) Negative PCR FLU B (Negative) RSV (PCR) Negative PCR RSV (Negative) Imaging Data CT scan - head: Attestation: I have reviewed the pertinent imaging results. Radiologist's impression: Patient: JONATHAN BURRIS JR Facility:?[facility] Patient ID:?[id number] Site Patient ID:?[id number]. Site :?[id number] Study:?CT-Head WITHOUT-10/24/2023 4:45:12 PM Ordering Physician:Mati Jimenez Final Report: INDICATION: ALTERED MENTAL STATUS TECHNIQUE: CT of the head was performed without IV contrast. COMPARISON: 09/18/2022. FINDINGS: Slightly suboptimal examination secondary to motion artifact. Parenchyma: No acute hemorrhage, infarction, or mass. Mild scattered periventricular white matter hypoattenuation is nonspecific and is favored to represent chronic small vessel ischemic disease. Redemonstration of small chronic right cerebellar infarct. Ventricles and extra-axial spaces: Appropriate for age. Visualized paranasal sinuses: Clear. Mastoid air cells: Partially opacified on the right. Bones: No focal abnormality. Additional comment: None. IMPRESSION: No acute intracranial abnormality. Redemonstration of small chronic right cerebellar infarct. Please note that all CT scans at this facility use dose modulation, iterative reconstruction, and/or weight-based dosing when appropriate to reduce radiation dose to as low as reasonably achievable. Dictated by Sae Ames MD @ 10/24/2023 5:09:55 PM (Electronic Signature) Chest x-ray: Attestation: I have reviewed the pertinent imaging results. Radiologist's impression: Patient: JONATHAN BURRIS JR Facility:?[facility] Patient ID:?[id number] Site Patient ID:?[id number]. Site :?1965 Study:?XRay-Chest 1 VIEW-10/24/2023 4:18:57 PM Ordering Physician:?Dontae Jimenez Final Report: Indication: Altered mental status Technique: AP view of the chest. Comparison: 09/13/2019 Findings: Low lung volumes. Normal cardiomediastinal silhouette aside from calcified aortic knob. No focal consolidation, pleural effusions, or visualized pneumothorax. Chronic left 5th and 6 rib fracture deformities. Impression: No acute cardiopulmonary disease. Dictated by Sae Ames MD @ 10/24/2023 4:54:26 PM (Electronic Signature) CT Chest/Ab/Pelvis: Attestation: I have reviewed the pertinent imaging results. Radiologist's impression: Patient: JONATHAN BURRIS JR Facility:?[facility] Patient ID:?[id number] Site Patient ID:?[id number]. Site :?1965 Study:?CT-Chest/Abd/Pelvis WITH ISOVUE 370 125cc-10/24/2023 6:29:37 PM Ordering Physician:?Dontae Jimenez Final Report: Indication: ALTERED MENTAL STATUS, INFECTION WITHOUT SOURCE Technique: CT chest/abdomen/pelvis with IV contrast, 125 mL Isovue 370 Comparison: CT chest on February 05, [address] abdomen/pelvis on September 26, 2019 Findings: Chest: No thyroid nodules. No thoracic lymphadenopathy. Mild cardiomegaly with small pericardial effusion. Coronary artery calcifications and aortic valve calcifications. The thoracic aorta and pulmonary artery are normal in caliber. No focal airspace consolidation, pleural effusion, or pneumothorax. Minimal dependent and bibasilar atelectatic changes. No suspicious pulmonary nodules or masses. The airways are clear. Abdomen/pelvis: The liver, gallbladder and biliary system, spleen, pancreas, adrenal glands, kidneys, and ureters are unremarkable in appearance. Moderate circumferential bladder wall thickening, mild prostatomegaly. There is no evidence of bowel obstruction or inflammation. The appendix is normal in appearance. Moderate stool burden throughout the colon. No free fluid or free air. No abscess. No abdominopelvic lymphadenopathy. No abdominal aortic aneurysm. Mild calcified and noncalcified atherosclerosis of the aortoiliac system and its branches. Soft tissue/musculoskeletal: Moderate bilateral gynecomastia. No acute fracture or malalignment. Remote posterior left 5th and 6th rib fractures and right anterior 4th and 5th rib fractures. Similar appearing degenerative changes and sequela of remote injury to the proximal left humerus. Intervertebral disc spacer at L5-S1. No suspicious osseous. Impression: 1. No CT evidence of an acute process involving the abdomen or pelvis. 2. Incidental findings as detailed above. Please note that all CT scans at this facility use dose modulation, iterative reconstruction, and/or weight-based dosing when appropriate to reduce radiation dose to as low as reasonably achievable. Dictated by Mario Slaughter MD @ 10/24/2023 6:58:08 PM (Electronic Signature) Critical Care Time Critical Care Time Critical Care Time: Yes Attestation: The patient required my highest level preparedness to intervene emergently and I personally spent this critical care time directly and personally managing the patient. This critical care time included: Obtaining a history; Examining the patient; Pulse oximetry; Ordering and reviewing of studies; Arranging urgent treatment with development of a management plan; Evaluation of patients response to treatment; Frequent reassessment discussions with other providers. This critical care time was performed to assess and manage the high probability of imminent life-threatening deterioration that could result in multiorgan failure. It was exclusive of separate billable procedures and treating other patients and teaching time. Total Critical Care Time in Minutes: 70 Discharge Plan Discharge Clinical Impression: Acute alteration in mental status, Hypoglycemia due to insulin Patient Disposition: Admitted As Observation Condition: Improved
--- NOTE | 2023-10-24 15:49 | CRLHL7_ITS ---
For Patients: As a result of the Century Cures Act, medical imaging exams and procedure reports are released immediately into your electronic medical record. You may view this report before your referring provider. If you have questions, please contact your health care provider. INDICATION: ALTERED MENTAL STATUS TECHNIQUE: CT of the head was performed without IV contrast. COMPARISON: 09/18/2022. FINDINGS: Slightly suboptimal examination secondary to motion artifact. Parenchyma: No acute hemorrhage, infarction, or mass. Mild scattered periventricular white matter hypoattenuation is nonspecific and is favored to represent chronic small vessel ischemic disease. Redemonstration of small chronic right cerebellar infarct. Ventricles and extra-axial spaces: Appropriate for age. Visualized paranasal sinuses: Clear. Mastoid air cells: Partially opacified on the right. Bones: No focal abnormality. Additional comment: None. IMPRESSION: No acute intracranial abnormality. Redemonstration of small chronic right cerebellar infarct. Please note that all CT scans at this facility use dose modulation, iterative reconstruction, and/or weight-based dosing when appropriate to reduce radiation dose to as low as reasonably achievable. Dictated by Sae Ames MD @ 10/24/2023 5:09:55 PM (Electronically Signed)
[2023-10-24 15:56] LABS: HCO3 VBG 30 mmol/L (21-28); Lactate* 1.2 mmol/L (0.5-1.9); PCO2 VBG 57 mmHG (40-50); PO2 VBG 47.3 mmHG (25-47); pH VBG 7.322 (7.32-7.43)
[2023-10-24 16:00] LABS: Basophils Percent Auto 0.2 % (0.0-3.0); Eosinophils Percent Auto 1.4 % (0.0-7.0); Hematocrit 40.9 % (37.0-53.0); Hemoglobin* 12.5 gm/dL (13.5-17.5); Immature Granulocytes Pct Auto 0.7 %; Lymphocytes Percent Auto 12.3 % (20-44); Mean Corpuscular HGB Conc 31 gm/dL (32-36); Mean Corpuscular Hemoglobin 27 pg (26-34); Mean Corpuscular Volume 88 fL (80-100); Monocytes Percent Auto 7.6 % (0.0-11.0); Neutrophils Percent Auto 77.8 % (42.0-72.0); Platelet Count* 297 K/uL (140-440); RDW Coefficient of Variation % 12.8 % (11.5-15.5); Red Blood Count 4.66 m/uL (4.30-5.90); White Blood Count* 12.07 K/uL (4.50-11.00)
[2023-10-24 16:01] LABS: Slide Review Reflex No
--- NOTE | 2023-10-24 16:01 | CRLHL7_ITS ---
For Patients: As a result of the Cures Act, medical imaging exams and procedure reports are released immediately into your electronic medical record. You may view this report before your referring provider. If you have questions, please contact your health care provider. Indication: Altered mental status Technique: AP view of the chest. Comparison: 09/13/2019 Findings: Low lung volumes. Normal cardiomediastinal silhouette aside from calcified aortic knob. No focal consolidation, pleural effusions, or visualized pneumothorax. Chronic left 5th and 6 rib fracture deformities. Impression: No acute cardiopulmonary disease. Dictated by Sae Ames MD @ 10/24/2023 4:54:26 PM (Electronically Signed)
[2023-10-24] MEDS: 10 % DEXTROSE 500 ML 500 ML 100 ML IV (16:15)
[2023-10-24 16:26] LABS: Albumin* 3.9 g/dL (3.3-5.0); Chloride* 104 mmol/L (96-114)
[2023-10-24 16:27] LABS: Potassium* 4.4 mmol/L (3.6-5.1); Sodium* 138 mmol/L (135-149)
[2023-10-24 16:29] LABS: Creatinine* 1.4 mg/dL (0.5-1.5); Estimated Glomerular Filt Rate 59 ml/min
[2023-10-24 16:30] LABS: Alanine Aminotransferase* 17 U/L (4-50); Alkaline Phosphatase* 78 U/L (40-150); Anion Gap 5 mEq/L (7-15); Aspartate Amino Transferase* 16 U/L (12-35); Bilirubin Direct* 0.3 mg/dL (0.0-0.5); Bilirubin Total* 0.5 mg/dL (0.1-1.5); Blood Urea Nitrogen* 36 mg/dL (7-30); Carbon Dioxide* 29 mmol/L (20-32); Total Protein* 6.8 g/dL (6.0-8.3)
[2023-10-24 16:31] LABS: Calcium* 8.7 mg/dL (8.4-10.6); Magnesium* 2.3 mg/dL (1.5-2.6)
[2023-10-24 16:32] LABS: Glucose* 49 mg/dL (60-115)
[2023-10-24 16:33] LABS: Appearance Urine Clear (Clear); Bilirubin Urine 1+ (Negative); Blood Urine Negative (Negative); Color Urine Yellow (Yellow); Glucose Urine 3+ (Negative); Ketones Urine Trace (Negative); Leukocyte Esterase Urine Negative (Negative); Nitrite Urine Negative (Negative); Protein Urine 2+ (Negative); Specific Gravity Urine 1.025 (1.000-1.030); pH Urine 5.5 (5.0-8.5)
[2023-10-24 16:33] LABS: C Reactive Protein* 4.8 mg/dL (0.5-1.0)
[2023-10-24 16:34] LABS: Ethanol* < 0.01 % (0.01-0.03)
[2023-10-24 16:40] LABS: PCR FLU A Negative PCR FLU A (Negative); PCR FLU B Negative PCR FLU B (Negative); PCR RSV Negative PCR RSV (Negative); SARS PCR* Negative SARS-CoV-2 (Negative)
[2023-10-24 16:42] LABS: NT Pro B Type NatriureticPept* 1560 pg/mL
[2023-10-24 16:43] LABS: Amphetamine Screen Urine Negative (Negative); Barbiturate Screen Urine Negative (Negative); Benzodiazepines Screen Urine Negative (Negative); Cannabinoid Screen Urine Negative (Negative); Cocaine Screen Urine Negative (Negative); Methadone Screen Urine Negative (Negative); Methamphetamines Screen Urine Negative (Negative); Opiate Screen Urine Negative (Negative); Oxycodone Screen Urine Negative (Negative); Phencyclidine Screen Urine Negative (Negative); Tricyclic Antidepressant Urine POSITIVE (Negative)
[2023-10-24 16:43] LABS: Troponin I* 0.03 ng/mL (0.01-0.04)
[2023-10-24 16:45] LABS: RBC Urine 0-2 (0-2); Squamous Epithelial Cell Urine Few (None-Few); WBC Urine 0-2 (0-5)
[2023-10-24 16:47] LABS: Procalcitonin* 0.82 ng/mL (<0.50)
--- NOTE | 2023-10-24 17:05 | CRLHL7_ITS ---
For Patients: As a result of the Cures Act, medical imaging exams and procedure reports are released immediately into your electronic medical record. You may view this report before your referring provider. If you have questions, please contact your health care provider. Indication: ALTERED MENTAL STATUS, INFECTION WITHOUT SOURCE Technique: CT chest/abdomen/pelvis with IV contrast, 125 mL Isovue 370 Comparison: CT chest on February 05, [address] abdomen/pelvis on September 26, 2019 Findings: Chest: No thyroid nodules. No thoracic lymphadenopathy. Mild cardiomegaly with small pericardial effusion. Coronary artery calcifications and aortic valve calcifications. The thoracic aorta and pulmonary artery are normal in caliber. No focal airspace consolidation, pleural effusion, or pneumothorax. Minimal dependent and bibasilar atelectatic changes. No suspicious pulmonary nodules or masses. The airways are clear. Abdomen/pelvis: The liver, gallbladder and biliary system, spleen, pancreas, adrenal glands, kidneys, and ureters are unremarkable in appearance. Moderate circumferential bladder wall thickening, mild prostatomegaly. There is no evidence of bowel obstruction or inflammation. The appendix is normal in appearance. Moderate stool burden throughout the colon. No free fluid or free air. No abscess. No abdominopelvic lymphadenopathy. No abdominal aortic aneurysm. Mild calcified and noncalcified atherosclerosis of the aortoiliac system and its branches. Soft tissue/musculoskeletal: Moderate bilateral gynecomastia. No acute fracture or malalignment. Remote posterior left 5th and 6th rib fractures and right anterior 4th and 5th rib fractures. Similar appearing degenerative changes and sequela of remote injury to the proximal left humerus. Intervertebral disc spacer at L5-S1. No suspicious osseous. Impression: 1. No CT evidence of an acute process involving the abdomen or pelvis. 2. Incidental findings as detailed above. Please note that all CT scans at this facility use dose modulation, iterative reconstruction, and/or weight-based dosing when appropriate to reduce radiation dose to as low as reasonably achievable. Dictated by Mario Slaughter MD @ 10/24/2023 6:58:08 PM (Electronically Signed)
[2023-10-24] MEDS: GLUCAGON,HUMAN RECOMBINANT 1 MG/ML VIAL IV (17:16)
--- NOTE | 2023-10-24 17:55 | P.IMHP_ITS ---
Hospitalist- H&P: TRAN History of Present Illness Date Seen: 10/24/23 Chief complaint: slurring speech, blood sugar low Narrative: Saman Michel Jr is a 58 year old male with diabetes, stroke, TBI, coronary artery disease, MICHA, depressed admitted through the emergency department with hypoglycemia hypoxia and altered mental status. History is mostly obtained from his . Last night he was up late eating pasta and potatoes. noted his blood sugar at 230 a.m. was 232. She reported this was typical that he would be up late eating He come to the hospital today for ultrasound of his lower extremity arteries for further evaluation of bilateral heel ulcers. In the radiology department awaiting is ultrasound he became unresponsive with low blood sugar. His notes that he was hard to arouse this morning and difficult to get him out of bed and to the ultrasound appointment. He was able to walk with a cane and assistance a short distance but then required a wheelchair to come to the appointment. On arrival to Emergency Department blood sugar was 43 and the patient was difficult to arouse. He subsequently had improvement his blood sugar to 104 and now he is now awake but has difficulty giving history. Patient is had longstanding problems with diabetes. On August 25 his hemoglobin A1c was 14.3. He has had some adjustments in his insulin to help manage his hyperglycemia and hypoglycemia. His most recent prescription for insulin was NovoLog insulin, 25 units before breakfast, 20 units before lunch, 35 units before dinner and Basaglar 50 units at bedtime. He has been prescribed insulin pens because he has trouble drawing up his own insulin. It was recommended that his manage his insulin but he has been managing his own insulin in his does not know what he has been giving himself. He has a continuous glucose monitor. It is unclear how much he is using it. I recommended it be connected to his 's cellphone. There are several big problems/concerns with blood sugar control: 1. Uncertain if patient is able to properly administer insulin. He was started on insulin pens to make it easier. 2. Patient tends not to eat regular meals or sleep at regular times. indicates the most common routine is for him to be awake most of the night eating mostly carbs and then he does not eat in the morning or at noon. It is unclear when he is taking his insulin and whether his insulin use is correlated with his eating. 3. He eats a very high carb diet and tends to binge on food. It is doubtful whether he would be able to do carb counting. 4. It is recommended that his manage his blood sugar monitoring, have her cell phone connected to his CGM, administer his insulin. It is unclear whether he is willing to let this happen. 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 Review of Systems Narrative: Other than being very tired and difficult to arouse today he has not had other symptoms of illness. He is going to our wound clinic for bilateral plantar heel ulcers. They referred him for arterial ultrasound of his legs looking for chronic ischemia. It was while he was waiting for his ultrasound that he became unresponsive with hypoglycemia and referred to the emergency department. Apparently no recent respiratory illness, fever, gastrointestinal illness. notes that when he is does binge on certain foods he gets diarrhea but this is been a chronic problem [facility] Medical History (Updated 10/24/23 @ 21:27 by Stanley Hilario MD) Dietary indiscretion ?R63.8 - Other symptoms and signs concerning food and fluid intake (ICD-10) Decubitus ulcer of heel, bilateral ?L89.619 - Pressure ulcer of right heel, unspecified stage (ICD-10) ?L89.629 - Pressure ulcer of left heel, unspecified stage (ICD-10) Poorly controlled diabetes mellitus ?E11.65 - Type 2 diabetes mellitus with hyperglycemia (ICD-10) Depression ?F32.A - Depression, unspecified (ICD-10) Heart failure with preserved ejection fraction ?I50.30 - Unspecified diastolic (congestive) heart failure (ICD-10) Hypertension ?I10 - Essential (primary) hypertension (ICD-10) Obesity with body mass index (BMI) of 35.0 to 39.9 without comorbidity ?E66.9 - Obesity, unspecified (ICD-10) Type 2 diabetes mellitus with hyperglycemia ?E11.65 - Type 2 diabetes mellitus with hyperglycemia (ICD-10) Hyperlipemia ?E78.5 - Hyperlipidemia, unspecified (ICD-10) Chronic neck and back pain ?M54.2 - Cervicalgia (ICD-10) ?M54.9 - Dorsalgia, unspecified (ICD-10) ?G89.29 - Other chronic pain (ICD-10) MICHA (obstructive sleep apnea) ?G47.33 - Obstructive sleep apnea (adult) (pediatric) (ICD-10) CAD (coronary artery disease) ?I25.10 - Atherosclerotic heart disease of [place] coronary artery without angina pectoris (ICD-10) Peripheral polyneuropathy ?G62.9 - Polyneuropathy, unspecified (ICD-10) Bilateral carpal tunnel syndrome ?G56.03 - Carpal tunnel syndrome, bilateral upper limbs (ICD-10) History of traumatic brain injury ?Z87.820 - Personal history of traumatic brain injury (ICD-10) Falls frequently ?R29.6 - Repeated falls (ICD-10) Cerebellar infarct ?I63.9 - Cerebral infarction, unspecified (ICD-10) AMS (altered mental status) ?R41.82 - Altered mental status, unspecified (ICD-10) Hypoglycemia ?E16.2 - Hypoglycemia, unspecified (ICD-10) Unsteady gait ?R26.81 - Unsteadiness on feet (ICD-10) CVA (cerebral vascular accident) ?I63.9 - Cerebral infarction, unspecified (ICD-10) Cognitive impairment ?R41.89 - Other symptoms and signs involving cognitive functions and awareness (ICD-10) Right shoulder pain ?M25.511 - Pain in right shoulder (ICD-10) Surgical History History of lumbar fusion (1994) ?Z98.1 - Arthrodesis status (ICD-10) Family History Mother High blood pressure Depression Stroke Father Alcohol dependence Other Diabetes Social History (Updated 10/24/23 @ 18:14 by Stanley Hilario MD) Narrative: He lives with his in [place]. He is disabled. He is a former smoker having 30 pack-year history. Occasionally drinks alcohol. In their home he lives with his and 2 daughters and 2 granddaughters ages 2 and 6. 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 One of the daughters also works at school where her 6-year-old daughter will attend school. Other daughter works at a preschool where the her 2-year-old daughter will attend preschool. What is your current living situation?: I presently have a place to live Problems where you live: no known problems Problems where you live details: n/a In the past 12 months, utilities in danger of being shut off: no In past 12 months, lack of transportation kept you from medical appts, meetings, work, or getting things needed for daily living: no In the past 12 mos, have been you worried that your food would run out before you had money to buy more?: never true In the past 12 mos, the food you bought just didn't last and you didn't have money to buy more?: never true Highest level of school completed/degree received: high school graduate Smoking Status: Former smoker Do you use any of these nicotine containing products: None Second hand tobacco smoke exposure: No How often do you have a drink containing alcohol: monthly or less Alcohol type: beer AUDIT-C Alcohol total score: 1 Non-prescribed substance use: denies use Caffeine: Yes ([place]) How often does anyone, including family, friends and others, physically hurt you : never How often does anyone, including family, friends and others, insult or talk down to you: never How often does anyone, including family, friends and others, threaten you with harm: never How often does anyone, including family, friends and others, scream or curse at you: never Little interest or pleasure in doing things: more than half the days Feeling down, depressed, or hopeless: more than half the days service: No Meds Home Medications and Allergies Home Medications ?Medication ?Instructions ?Recorded ?Confirmed ?Type lidocaine 4 % topical patch 1 patch topical QDAY PRN 09/18/23 10/16/23 History (Lidocaine Pain Relief) Allergies Allergy/AdvReac Type Severity Reaction Status Date / Time amoxicillin Allergy Intermediate Unknown Verified 10/24/23 20:04 celecoxib Allergy Intermediate Unknown Verified 10/24/23 20:04 Sulfa (Sulfonamide Allergy Intermediate Hives Verified 10/24/23 20:04 Antibiotics) Penicillins Allergy Unknown Verified 10/24/23 20:04 sulfasalazine Allergy Unknown Verified 10/24/23 20:04 Exam Narrative: Exam Narrative: Initially he is sleepy but arouses to voice. After his blood sugars up to 124 he is alert and able to carry on a conversation. Head is without apparent trauma. Oropharynx small airway. No facial asymmetry. Extraocular movements are full. Neck is supple without mass or adenopathy or tenderness. Respirations are clear to auscultation. Cardiovascular: S1, S2, regular rate and rhythm. No murmur gallop or rub. Abdomen: Bowel sounds active. Abdomen is soft without tenderness or mass. Extremities with bilateral plantar heel ulcers that are 3-4 cm in diameter. He has an ulcer on his anterior right patel and lateral distal left fibula area. Non of the ulcers appear infected. He has intact strength in all 4 extremities. Intact pedal pulses Const: Vital Signs, click to edit/add: Vital Signs - 24 hr 10/24/23 15:20 10/24/23 15:23 10/24/23 15:45 Temperature 97.6 F 98 F Pulse Rate [Pulse Oximeter] 69 Respiratory Rate 16 12 Blood Pressure [Ri ght Upper Arm] 129/73 Pulse Oximetry 83 L 91 83 L Oxygen Delivery Me thod Room Air Room Air Oxygen Flow Rate Fraction of Inspir ed Oxygen 10/24/23 15:45 10/24/23 16:10 Temperature Pulse Rate [Pulse Oximeter] Respiratory Rate Blood Pressure [Ri ght Upper Arm] Pulse Oximetry 88 Oxygen Delivery Me thod Nasal Cannula Oxygen Flow Rate 2 Fraction of Inspir ed Oxygen 0.30 Documenting provider has reviewed patient's vital signs: yes Hospitalist - H&P: Result Labs Labs: Short CBC 10/24/23 Range/Units 15:40 WBC 12.07 H (4.50-11.00) K/uL Hgb 12.5 L (13.5-17.5) gm/dL Hct 40.9 (37.0-53.0) % Plt Count 297 (140-440) K/uL BMP 10/24/23 15:40 Sodium 138 Potassium 4.4 Chloride 104 Carbon Dioxide 29 BUN 36 H Creatinine 1.4 Glucose 49 L* Calcium 8.7 Cardiac Enzymes 10/24/23 Range/Units 15:40 Troponin I 0.03 (0.01-0.04) ng/mL Liver Function 10/24/23 Range/Units 15:40 Total Bilirubin 0.5 (0.1-1.5) mg/dL Direct Bilirubin 0.3 (0.0-0.5) mg/dL AST 16 (12-35) U/L ALT 17 (4-50) U/L Alkaline Phosphatase 78 (40-150) U/L Albumin 3.9 (3.3-5.0) g/dL Urine 10/24/23 Range/Units 16:23 Urine Color Yellow (Yellow) Urine Appearance Clear (Clear) Urine pH 5.5 (5.0-8.5) Ur Specific [place] 1.025 (1.000-1.030) Urine Protein 2+ A (Negative) Urine Glucose (UA) 3+ A (Negative) Imaging CT Chest/Ab/Pelvis: Radiologist's impression: Indication: ALTERED MENTAL STATUS, INFECTION WITHOUT SOURCE Technique: CT chest/abdomen/pelvis with IV contrast, 125 mL Isovue 370 Comparison: CT chest on February 05, [address] abdomen/pelvis on September 26, 2019 Findings: Chest: No thyroid nodules. No thoracic lymphadenopathy. Mild cardiomegaly with small pericardial effusion. Coronary artery calcifications and aortic valve calcifications. The thoracic aorta and pulmonary artery are normal in caliber. No focal airspace consolidation, pleural effusion, or pneumothorax. Minimal dependent and bibasilar atelectatic changes. No suspicious pulmonary nodules or masses. The airways are clear. Abdomen/pelvis: The liver, gallbladder and biliary system, spleen, pancreas, adrenal glands, kidneys, and ureters are unremarkable in appearance. Moderate circumferential bladder wall thickening, mild prostatomegaly. There is no evidence of bowel obstruction or inflammation. The appendix is normal in appearance. Moderate stool burden throughout the colon. No free fluid or free air. No abscess. No abdominopelvic lymphadenopathy. No abdominal aortic aneurysm. Mild calcified and noncalcified atherosclerosis of the aortoiliac system and its branches. Soft tissue/musculoskeletal: Moderate bilateral gynecomastia. No acute fracture or malalignment. Remote posterior left 5th and 6th rib fractures and right anterior 4th and 5th rib fractures. Similar appearing degenerative changes and sequela of remote injury to the proximal left humerus. Intervertebral disc spacer at L5-S1. No suspicious osseous. Impression: 1. No CT evidence of an acute process involving the abdomen or pelvis. 2. Incidental findings as detailed above. CT scan - head: Radiologist's impression: INDICATION: ALTERED MENTAL STATUS TECHNIQUE: CT of the head was performed without IV contrast. COMPARISON: 09/18/2022. FINDINGS: Slightly suboptimal examination secondary to motion artifact. Parenchyma: No acute hemorrhage, infarction, or mass. Mild scattered periventricular white matter hypoattenuation is nonspecific and is favored to represent chronic small vessel ischemic disease. Redemonstration of small chronic right cerebellar infarct. Ventricles and extra-axial spaces: Appropriate for age. Visualized paranasal sinuses: Clear. Mastoid air cells: Partially opacified on the right. Bones: No focal abnormality. Additional comment: None. IMPRESSION: No acute intracranial abnormality. Redemonstration of small chronic right cerebellar infarct. Assessment and Plan Assessment and plan (1) Acute alteration in mental status: Problem comment: Likely due to hypoglycemia. Other contributing factors include high dose gabapentin, untreated sleep apnea. Continuing evaluation for acute medical pro blem that may be contributing as well. Plan to correct hypoglycemia and monitor blood sugars and adjust insulin. Decrease gabapentin to 900 mg t.i.d. and possibly 600 mg t.i.d. Status: Acute (2) Hypoglycemia due to insulin: Problem comment: Patient is having hypoglycemia despite marked elevation of hemoglobin A1c indicating chronic hyperglycemia. It appears patient is unable to appropriately monitor his diabetes and manage his blood sugars and administer insulin appropriately. I recommend a plan to have his manage his blood sugars and insulin. Status: Acute (3) Cognitive impairment: Problem comment: Attempt to perform [place] testing again. Cognitive impairment is suspected with history of TBI and stroke. Status: Chronic (4) Dietary indiscretion: Problem comment: Patient is primarily eating in the evening and at night, eating a very high carb diet. Unclear whether he is able to appropriately administer insulin to respond to his irregular dietary habits Status: Acute (5) Poorly controlled diabetes mellitus: Problem comment: Concerns about the patient's ability to monitor blood sugar, respond to blood sugar abnormalities, administer insulin, regulate dietary intake, carb counting, Status: Acute (6) Cerebellar infarct: Problem comment: Remote history of right cerebellar infarct Patient does not recall this. Likely this is contributing to his problems with falling down at times. See scanned 03/13/22-03/17/22 [facility] Discharge Sum. Status: Chronic (7) Falls frequently: Problem comment: Falls presumably primarily due to hypoglycemia but secondarily his cerebellar infarct and peripheral neuropathy are contributing. He did well with physical therapy today though they are recommending outpatient PT. ambulates fairly well when he has a normal blood sugar Status: Chronic (8) History of traumatic brain injury: Problem comment: Multiple head injuries and old stroke resulting in cognitive deficits. Status: Chronic (9) Peripheral polyneuropathy: Problem comment: Per scanned 2020 Neuro note Severe sensory >motor axonal peripheral polyneuropathy. Status: Chronic (10) MICHA (obstructive sleep apnea): Problem comment: 03/24/12 AHI=70. Untreated. Patient is not really interested in pursuing further evaluation for getting a new BiPAP Status: Chronic (11) Decubitus ulcer of heel, bilateral: Problem comment: Going to our wound clinic for evaluation. Referred for testing for arterial insufficiency with ultrasound. Status: Acute (12) Acute kidney injury: Problem comment: Baseline creatinine from August is 0.7. Now 1.4. Will trend and monitor. Further evaluation if not correcting Status: Acute (13) Hypoxic respiratory failure: Problem comment: Initially hypoxia was thought primarily due to altered mental status in the context of untreated sleep apnea. Patient denies dyspnea and no apparent cardia respiratory disease is identified. Continue to monitor Status: Acute Plan 58-year-old male with altered mental status and hypoglycemia admitted to the hospital for ongoing evaluation of hypoglycemia, altered mental status, hypoxia, acute kidney injury. Will need to evaluate a better plan of care for his poorly controlled diabetes to reduce the risk of serious medical complications and repeat hospitalizations Total Time Spent Total Time Spent: Total time spent is 90 minutes in evaluation management
[2023-10-24] MEDS: ATORVASTATIN 10 MG TABLET PO (20:10)
[2023-10-24] MEDS: TRAZODONE HCL 50 MG TABLET PO (20:10)
[2023-10-24] MEDS: PROPRANOLOL 20 MG TABLET 10 MG PO (20:11)
[2023-10-24] MEDS: GABAPENTIN 300 MG CAPSULE 900 MG PO (20:11)
[2023-10-24] MEDS: ASPIRIN 81 MG TABLET EC PO (20:11)
[2023-10-24] MEDS: INSULIN ASPART 100 UNIT/ML SUBCUT (20:12)
[2023-10-24] MEDS: QUETIAPINE 25 MG TABLET PO (20:13)
[2023-10-24] MEDS: SODIUM CHLORIDE 0.9 % (FLUSH) 10 ML SYRINGE 5 ML IVF (20:16)
[2023-10-24] MEDS: PRAZOSIN HCL 1 MG CAPSULE PO (21:01)
[2023-10-25 00:52] VITALS: O2SAT 81
[2023-10-25 02:34] VITALS: BP 141/85; PULSE 79; RESP 16; TEMP 36.2; O2SAT 95
--- NOTE | 2023-10-25 06:51 | PC.NURSE ---
shift note: pleasant and cooperative. SBA with walker to BR, tolerated well. BG 185 at HS, 3 units given per sliding scale. Recheck at 0200, BG 85 ? Juice and Cracker given, recheck shortly after BG 96, Juice and Cracker given again, BG 79 at end of shift, snacks given & breakfast ordered. Pt desat to 70s on RA while asleep, apneic episodes witnessed, 2L via NC placed to keep sats > 90%. Mepi to bilat heel ulcers. Mepi to right patel abrasion. Mepi to left ankle, small wound. Tele ? NSR w/ PVCs. IV in Right AC removed shortly after arrival to the floor, IV appeared to be infiltrated, right arm swollen. 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 ?
[2023-10-25 06:53] LABS: Basophils Absolute Auto 0.02 K/uL (0.00-0.30); Basophils Percent Auto 0.3 % (0.0-3.0); Eosinophils Percent Auto 2.8 % (0.0-7.0); Hematocrit 37.8 % (37.0-53.0); Hemoglobin* 11.8 gm/dL (13.5-17.5); Immature Granulocytes Abs Auto 0.04 K/uL (0.00-0.30); Immature Granulocytes Pct Auto 0.6 %; Lymphocytes Absolute Auto 2.33 K/uL (0.90-2.90); Lymphocytes Percent Auto 33.2 % (20-44); Mean Corpuscular HGB Conc 31 gm/dL (32-36); Mean Corpuscular Hemoglobin 27 pg (26-34); Mean Corpuscular Volume 87 fL (80-100); Monocytes Percent Auto 10.5 % (0.0-11.0); Neutrophils Absolute Auto 3.69 K/uL (1.7-7.0); Neutrophils Percent Auto 52.6 % (42.0-72.0); Platelet Count* 253 K/uL (140-440); RDW Coefficient of Variation % 12.7 % (11.5-15.5); Red Blood Count 4.35 m/uL (4.30-5.90); White Blood Count* 7.02 K/uL (4.50-11.00)
[2023-10-25 07:02] LABS: Slide Review Reflex No
[2023-10-25 07:16] VITALS: PULSE 81
[2023-10-25 07:17] LABS: Chloride* 104 mmol/L (96-114); Potassium* 4.5 mmol/L (3.6-5.1); Sodium* 136 mmol/L (135-149)
[2023-10-25 07:20] LABS: Estimated Glomerular Filt Rate 88 ml/min
[2023-10-25 07:21] LABS: Anion Gap 5 mEq/L (7-15); Blood Urea Nitrogen* 33 mg/dL (7-30); Calcium* 8.3 mg/dL (8.4-10.6); Carbon Dioxide* 27 mmol/L (20-32); Glucose* 107 mg/dL (60-115)
[2023-10-25 07:24] LABS: C Reactive Protein* 3.5 mg/dL (0.5-1.0)
[2023-10-25 08:00] VITALS: BP 104/66; PULSE 77; RESP 16; TEMP 36.1; O2SAT 91
[2023-10-25] MEDS: PROPRANOLOL 20 MG TABLET 10 MG PO (09:51)
[2023-10-25] MEDS: GABAPENTIN 300 MG CAPSULE 900 MG PO ×2 (09:51→13:21)
[2023-10-25] MEDS: VENLAFAXINE ER 75 MG CAPSULE 300 MG PO (09:52)
[2023-10-25] MEDS: DIVALPROEX SODIUM ER TAB 250 MG 1500 MG PO (09:52)
[2023-10-25] MEDS: ASPIRIN 81 MG TABLET EC PO (09:53)
[2023-10-25] MEDS: INSULIN GLARGINE,HUM.REC.ANLOG 100 UNIT/ML INSULN.PEN 50 UNIT SUBCUT (09:54)
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
[2023-10-25] MEDS: INSULIN ASPART 100 UNIT/ML 20 UNIT SUBCUT (13:23)
[2023-10-25] MEDS: ACETAMINOPHEN 500 MG TABLET 1000 MG PO (13:26)
[2023-10-25 13:29] VITALS: BP 127/64; PULSE 87; RESP 16; TEMP 36.3; O2SAT 91
--- NOTE | 2023-10-25 14:07 | PC.NURSE ---
end of shift. pt has been very pleasant and cooperative. he does have some memory problems per pt. OT did a mocca and it was 12. he is up with SBA walker to BR. he is eating, drinking and voiding. BS where 101 and 195 MD was updated and insulin was given. he has bilateral heel ulcers with Mepilex dressings. Mepilex to right patel and to left ankle, small wound. Tele ? NSR / SA. he is up with SBA and a walker.
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
== END 2023-10-25 16:15 | disposition home or self-care (01) ==
LOC: ED 18:59 → MEDSURG 19:27
PROVIDERS: Admitting Provider Family Medicine; Emergency Provider Family Medicine; PCP Internal Medicine; Visit Provider Family Medicine
DX: I10 Essential (primary) hypertension (principal)
CPT/HCPCS: 36415; 70450; 71045; 71260; 74177; 80048; 80053; 80306; 81001; 82077; 82248; 82803; 82962; 83605; 83735; 83880; 84145; 84484; 85025; 86140; 87040; 87631; 93005; 94660; 94761; 97116; 97162; 97166; 99285; 99291; G0378; A9270; J1610; J1815; J2310; J7030; Q9967

== ENCOUNTER 2023-10-28 15:41 | Outpatient (CLI) | payer OTHER, SELFPAY | END 2023-10-28 15:42 | disposition home or self-care (01) | LOC: WOUND 15:41 | PROVIDERS: PCP Internal Medicine; Visit Provider Nurse Practitioner Family | DX: E11.621 Type 2 diabetes mellitus with foot ulcer (principal); L97.418 Non-pressure chronic ulcer of right heel and midfoot with other specified severity; L97.428 Non-pressure chronic ulcer of left heel and midfoot with other specified severity; L97.818 Non-pressure chronic ulcer of other part of right lower leg with other specified severity; L97.828 Non-pressure chronic ulcer of other part of left lower leg with other specified severity; Z79.4 Long term (current) use of insulin; E11.622 Type 2 diabetes mellitus with other skin ulcer | CPT/HCPCS: 97597; 97602 ==

== ENCOUNTER 2023-10-29 13:50 | Outpatient (CLI) | payer OTHER, SELFPAY ==
--- NOTE | 2023-10-29 14:00 | CRLHL7_ITS ---
For Patients: As a result of the Century Cures Act, medical imaging exams and procedure reports are released immediately into your electronic medical record. You may view this report before your referring provider. If you have questions, please contact your health care provider. DUPLEX ARTERIAL ULTRASOUND BILATERAL LOWER EXTREMITIES 10/29/2023 CLINICAL HISTORY: Nonhealing right heel wound. COMPARISON: None. TECHNIQUE: The lower extremity arteries were examined per exam specific protocol with goetz-scale ultrasound, color-flow and Doppler spectral analysis. Peak systolic velocities (PSV), Doppler waveform quality and Velocity Ratios if applicable, were documented at sites per exam specific protocol. FINDINGS: Predominantly multiphasic waveforms are seen throughout the bilateral lower extremity arterial systems with monophasic waveforms in the right peroneal, posterior tibial, anterior tibial and dorsalis pedis arteries, as well as within the left peroneal and dorsalis pedis arteries. No hemodynamically significant stenoses or occlusions are identified. RIGHT FORESTER SILVICULTURE: 104.7 cm/sec. Tri DFA: 74.9 cm/sec. Multi FA PRX: 125.9 cm/sec. Tri FA MID: 97.3 cm/sec. Tri FA DIST: 122.3 cm/sec. Tri POP A: 78.9 cm/sec. Tri GUIDO A: 47.2 cm/sec. [place] JUNIOR ASSISTANT MANAGER: 48.4 cm/sec. [place] IVÁN: 52.4 cm/sec. [place] DPA: 39.6 cm/sec. [place] LEFT FORESTER SILVICULTURE: 122.3 cm/sec. Tri DFA: 63.9 cm/sec. Bi FA PRX: 130.2 cm/sec. Tri FA MID: 191.7 cm/sec. Tri FA DIST: 173.9 cm/sec. Tri POP A: 104.4 cm/sec. Tri GUIDO A: 35.4 cm/sec. [place] JUNIOR ASSISTANT MANAGER: 23.8 cm/sec. Tri IVÁN: 68.6 cm/sec. Tri DPA: 86.0 cm/sec. [place] IMPRESSION: Predominantly multiphasic waveforms throughout the bilateral lower extremity arterial systems with monophasic waveforms in the pedal arteries. No hemodynamically significant stenoses or occlusions are identified. Romero Palmer M.D. [facility] [employer] [facility] [email or web address] Transcribed: 1:24 pm DW/Dictated by: Romero Palmer MD @ 10/30/2023 12:04:00 PM (Electronically Signed)
== END 2023-10-29 13:51 | disposition home or self-care (01) ==
PROVIDERS: PCP Internal Medicine; Visit Provider Nurse Practitioner Family
DX: L97.412 Non-pressure chronic ulcer of right heel and midfoot with fat layer exposed (principal)
CPT/HCPCS: 93926

== ENCOUNTER 2023-11-04 15:28 | Outpatient (CLI) | payer OTHER, SELFPAY | END 2023-11-04 15:29 | disposition home or self-care (01) | LOC: WOUND 15:28 | PROVIDERS: PCP Internal Medicine; Visit Provider Nurse Practitioner Family | DX: E11.621 Type 2 diabetes mellitus with foot ulcer (principal); L97.418 Non-pressure chronic ulcer of right heel and midfoot with other specified severity; L97.428 Non-pressure chronic ulcer of left heel and midfoot with other specified severity; E11.622 Type 2 diabetes mellitus with other skin ulcer; L97.828 Non-pressure chronic ulcer of other part of left lower leg with other specified severity | CPT/HCPCS: 97597 ==

== ENCOUNTER 2023-11-11 14:51 | Outpatient (CLI) | payer OTHER, SELFPAY | END 2023-11-11 14:52 | disposition home or self-care (01) | LOC: WOUND 14:51 | PROVIDERS: PCP Internal Medicine; Visit Provider Physician Assistant Surgical | DX: E11.621 Type 2 diabetes mellitus with foot ulcer (principal); L97.418 Non-pressure chronic ulcer of right heel and midfoot with other specified severity; L97.428 Non-pressure chronic ulcer of left heel and midfoot with other specified severity; E11.622 Type 2 diabetes mellitus with other skin ulcer; L97.822 Non-pressure chronic ulcer of other part of left lower leg with fat layer exposed; I73.89 Other specified peripheral vascular diseases | CPT/HCPCS: 11042 ==

== ENCOUNTER 2023-11-14 15:00 | Outpatient (CLI) | payer OTHER, SELFPAY ==
--- OUTSIDE RECORDS SUMMARY | 2023-11-16 23:48 | XMS_ITS | Continuity of Care Document ---
Author Organization [facility] Address [address] [facility] [address] [place] [address] Phone Care Team Providers Care Ict Development Manager Name Role Phone Elizabeth Peterson CNP Unavailable [...] Offic/outpt E&m Estab Low-mod D[facility]LL Rowley, [address] [facility] [address], [place], [place], [id number], tel:[phone] [facility] No Information 9 Kristen Johnson. [address] [facility], [address], [place], [place], [id number], [place]. tel:[phone] Referring Provider: Reggie Geiger MD J, [address] [facility], [place], [address]. tel:[phone] Offic/outpt E&m Estab Low-mod D[facility]RELL Rowley, [address] [facility] [address], [place], [place], [id number], [place] tel:[phone] [facility] No Information 9200 9 Budnick Elizabeth. [address] , [address], [place], [place], [id number], [place]. tel:[phone] Referring Provider: Reggie Rock, [address] [place], [address]. tel:[phone] Offic/outpt E&m Estab Mod-hi 2 Amrik, [facility], [address], [place], [place], [id number], [place] tel:[phone] [facility] No Information 9 Budnick Elizabeth. [address] , [address], [place], [place], [id number], [place]. tel:[phone] Referring Provider: Reggie Rcok, [address] [place], [address]. tel:[phone] Offic/outpt E&m Estab Low-mod Amrik, [facility], [address] [facility] [address], [place], [id number], [place] tel:[phone] [facility] No Information 9 Juanjo Paredes. [address], [place], [address], [place]. tel:[phone] Referring Provider: REFERRAL SELF, ISRA[place]. Offic/outpt E&m Estab Low-mod Amrik, [facility], [address] [facility] [address], [place], [place], [id number], [place] tel:[phone] [facility] No Information 9 Juanjo Paredes. [address], [place], [address], [place]. tel:[phone] Referring Provider: REFERRAL SELF, ISRA[place]. [facility], [address] [facility] [address], [place], [id number], [place] tel:[phone] [facility] No Information 9 Juanjo LOZA Reggie. [address], [place], [place], [facility], [place]. [phone] Referring Provider: REFERRAL SELF, ISRA[place]. Offic/outpt E&m Estab Mod-hi 2 [facility], [facility], [address] [facility] [address], [place], [place], [id number], tel:[phone] [facility] No Information 9 Juanjo LOZA Reggie. [address], [place], [place], [facility], [place]. tel:[phone] Referring Provider: REFERRAL SELFISRAEL. Offic Cons New/estab Mod-hi 60 Amrik, [facility], [address] [facility] [address], [place], [place], [id number], tel:[phone] [facility] No Information 9 Tor Vega [facility]. [address] [place], [place], [facility], . Family History Family Member Type Diagnosis [...]
--- OUTSIDE RECORDS SUMMARY | 2023-11-16 23:48 | XMS_ITS | Clinical Summary ---
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 Name Role Phone Royce Weiner Primary Care Provider [phone] Allergies Active Allergy Reactions Criticality Noted Date Comments Amoxicillin 09/29/2019 Celecoxib 09/29/2019 Penicillins Anaphylaxis High 09/29/2019 TOLERATED MEROPENEM Medications Medication Sig Dispensed Refills Start Date End Date Status venlafaxine (EFFEXOR XR) 75 MG 24 hr capsule Take 4 capsules by mouth daily 01/26/2022 Active gabapentin (NEURONTIN) 600 MG tablet Take 1,200 mg by mouth 3 times daily 01/26/2022 Active Continuous Blood Gluc Sensor (FREESTYLE WILFRED 2 SENSOR) MISCIndications:Hyp erglycemia,Type 2 diabetes mellitus with diabetic polyneuropathy, with long-term current use of insulin (H) 1 each every 14 days Use 1 sensor every 14 days. Use to read blood sugars per unit coordinator's instructions. 2 each 5 03/17/2022 Active aspirin (ASA) 325 MG EC tabletIndications:C erebellar infarct (H) Take 1 tablet (325 mg) by mouth daily 100 tablet 03/18/2022 Active rosuvastatin (CRESTOR) 10 MG tabletIndications:C erebellar infarct (H) Take 1 tablet (10 mg) by mouth daily 30 tablet 1 03/17/2022 Active lisinopril (ZESTRIL) 5 MG tabletIndications:E ssential hypertension Take 1 tablet (5 mg) by mouth daily 30 tablet 1 03/17/2022 Active insulin regular 100 UNIT/ML vialIndications:Typ e 2 diabetes mellitus with diabetic polyneuropathy, with long-term current use of insulin (H),Uncontrolled type 2 diabetes mellitus with hyperglycemia (H),Type 2 diabetes mellitus with hyperosmolar nonketotic hyperglycemia (H) Inject 0.5 mLs (50 Units) Subcutaneous 2 times daily (before meals) 03/17/2022 Active insulin NPH 100 UNIT/ML vialIndications:Typ e 2 diabetes mellitus with diabetic polyneuropathy, with long-term current use of insulin (H),Uncontrolled type 2 diabetes mellitus with hyperglycemia (H),Type 2 diabetes mellitus with hyperosmolar nonketotic hyperglycemia (H) Inject 50 Units Subcutaneous 2 times daily (before meals) 03/17/2022 Active Active Problems Problem Noted Date Diagnosed Date Nonketotic hypoglycemia 03/17/2022 Uncontrolled type 2 diabetes mellitus with hyper glycemia 03/17/2022 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 022 Hyperglycemia 03/13/2022 Black stools 03/13/2022 Multiple falls 03/13/2022 Altered mental status, unspe cified altered mental status type 03/13/2022 Immunizations Name Administration Dates Next Due Influenza Vaccine >6 months,quad, PF 01/26/2022, 12/12/2018 Social History Tobacco Use Types Packs/Day Years Used Date Smoking Tobacco: Never Assessed Adolescent Education Answer Date Record ed Getting School Help Needed Not on file 12/08 Sex and Gender Information Value Date Recorded Sex Assigned at Not on file Gender Identity Not on file Sexual Orientation Not on file Last Filed Vital Signs Vital Sign Reading Time Taken Comments Blood Pressure 166/95 03/17/2022 7:29 AM OPTION TRADER Pulse 88 03/17/2022 7:28 AM OPTION TRADER Temperature 36.8 ??C (98.3 ??F) 03/17/2022 7:28 AM CS T Respiratory Rate 20 03/17/2022 7:28 AM OPTION TRADER Oxygen Saturation 94% 03/17/2022 9:36 AM OPTION TRADER Inhaled Oxygen Concentration - - Weight 125.5 kg (276 lb 9.6 oz) 03/17/2022 5:12 AM OPTION TRADER Height 180.3 cm (5' 11) 03/14/2022 9:55 AM OPTION TRADER Body Mass Index 38.58 03/14/2022 9:55 AM OPTION TRADER Plan of Treatment Health Maintenance Due Date Last Done Comments ADVANCE CARE PLANNING 1966 ANNUAL REVIEW OF HM ORDERS 1966 CT COLONOGRAPHY 1966 DIABETIC FOOT EXAM 1966 EYE EXAM 1966 FIT 1966 FLEX SIG 1966 MICROALBUMIN 1966 sDNA (Cologuard) 1966 COLONOSCOPY 02/10/1976 COLORECTAL CANCER SCREENING 02/10/1976 HIV SCREENING 1981 HEPATITIS C SCREENING 02/10/1984 MEDICARE ANNUAL WELLNESS VISIT 02/10/1984 ZOSTER IMMUNIZATION (1 of 2) 02/10/2016 Pneumococcal Vaccine: Pediatrics (0 to 5 Years) and At-Risk Patients (6 to 64 Years) (2 of 2 - PCV) 12/01/2016 12/02/2015, 11/25/2015 A1C 06/11/2022 03/13/2022 COVID-19 Vaccine ( season) 2022 01/26/2022, 04/03/2021, 08/21/2020, Additional history exists LIPID 03/14/2023 03/14/2022 BMP 03/15/2023 03/15/2022, 02/16, 03/14/2022, Additional history exists PHQ-2 (once per calendar year) 2023 INFLUENZA VACCINE (#1) 2023 , 02/08/2021, 02/03/2021, Additional history exists DTAP/TDAP/TD IMMUNIZATION (2 - Td or Tdap) 11/24/2025 11/25/2015, 01/23/2005 HEPATITIS B IMMUNIZATION Completed 018, 11/30/2016, 11/25/2015 HPV IMMUNIZATION Aged Out No longer e ligible based on patient's age to complete this topic MENINGITIS IMMUNIZATION Aged Out No l onger eligible based on patient's age to complete this topic RSV MONOCLONAL ANTIBODY Aged Out No l onger eligible based on patient's age to complete this topic Procedures Procedure Name Priority Date/Time Associated Diagnosis Comments BASIC METABOLIC PANEL Routine 03/15/2022 7:49 AM OPTION TRADER LIPID REFLEX TO DIRECT LDL PANEL Add-On 03/14/2022 7:51 AM OPTION TRADER HEMOGLOBIN A1C Add-On 03/13/2022 2:49 PM OPTION TRADER from Last 3 Months or Most Recently Relevant to Health Maintenance Results * (ABNORMAL) Basic metabolic panel (03/15/2022 7:49 AM OPTION TRADER) Sodium 137 136 - 145 mmol/L 03/15/2022 8:38 AM [facility] Potassium 4.6 3.4 - 5.3 mmol/L 03/15/2022 8:38 AM [facility] Comment:Specimen slightly he molyzed, potassium may be falsely elevated. Chloride 100 98 - 107 mmol/L 03/15/2022 8:38 AM [facility] Carbon Dioxide (CO2) 27 22 - 29 mmol/L 03/15/2022 8:38 AM [facility] Anion Gap 10 7 - 15 mmol/L 03/15/2022 8:38 AM [facility] Urea Nitrogen 14.0 6.0 - 20.0 mg/dL 03/15/2022 8:38 AM [facility] Creatinine 0.55(L) 0.67 - 1.17 mg/dL 03/15/2022 8:38 AM [facility] Calcium 9.5 8.6 - 10.0 mg/dL 03/15/2022 8:38 AM [facility] Glucose 103(H) 70 - 99 mg/dL 03/15/2022 8:38 AM [facility] GFR Estimate >90 >60 mL/min/1.7 3m2 03/15/2022 8:38 AM [facility] Comment:Effective February 162020 eGFRcr in adults is calculated using the 2020 CKD-EPI creatinine equation which includes age and gender (Bridgett et al., NEJM, DOI: 10.1056/RSLFjk7348005) Blood STRUCTURE OF RIGHT UPPER LIMB / Unknown Venipuncture / Unknown 03/15/2022 7:49 AM OPTION TRADER 03/15/2022 8:04 AM OPTION TRADER Axel Calderón MD LAB - BLOOD ORDERABL ES LABORATORY [facility] Lab [address] Lab (1st floor, no room number) [place] [address], [facility] [phone] * (ABNORMAL) Lipid panel reflex to direct LDL (03/14/2022 7:51 AM OPTION TRADER) Cholesterol 184 <200 mg/dL 03/14/2022 1:46 PM OPTION TRADER [facility] Triglycerides 331(H) <150 mg/dL 03/14/2022 1:46 PM OPTION TRADER [facility] Direct Measure HDL 28(L) >=40 mg/dL 03/14/2022 1:46 PM OPTION TRADER [facility] LDL Cholesterol Calculated 90 <=100 mg/dL 03/14/2022 1:46 PM OPTION TRADER [facility] Non HDL Cholesterol 156(H) <130 mg/dL 03/14/2022 1:46 PM OPTION TRADER [facility] Blood STRUCTURE OF RIGHT UPPER LIMB / Unknown Venipuncture / Unknown 03/14/2022 7:51 AM OPTION TRADER 03/14/2022 8:00 AM OPTION TRADER Narrative [facility] - 03/14/2022 1:46 PM OPTION TRADER Cholesterol Desirable: ??<200 mg/dL Triglycerides Normal: ??Less than 150 mg/dL Borderline High: ??150-199 mg/dL High: ??200-499 mg/dL Very High: ??Greater than or equal to 500 mg/dL Direct Measure HDL Female: ??Greater than or equal to 50 mg/dL Male: ??Greater than or equal to 40 mg/dL LDL Cholesterol Desirable: ??<100mg/dL Above Desirable: ??100-129 mg/dL Borderline High: ??130-159 mg/dL High: ??160-189 mg/dL Very High: ??>= 190 mg/dL Non HDL Cholesterol Desirable: ??130 mg/dL Above Desirable: ??130-159 mg/dL Borderline High: ??160-189 mg/dL High: ??190-219 mg/dL Very High: ??Greater than or equal to 220 mg/dL Mila Hodge PA-C LAB - BLOOD ORDERABL ES [facility] [address] [facility] [address] [facility], [address] [address], [facility] [phone] * (ABNORMAL) Hemoglobin A1c (03/13/2022 2:49 PM OPTION TRADER) Hemoglobin A1C 14.4(H) <5.7 % 03/13/2022 7:14 PM [facility] TRAD[facility] Comment: Normal <5.7% Prediabetes 5.7-6.4% ?? Diabetes 6.5% or higher Note: Adopted from ADA consensus guidelines. Blood BLOOD SPECIMEN / Unknown Venipuncture / Unknown 03/13/2022 2:49 PM OPTION TRADER 03/13/2022 3:06 PM OPTION TRADER Parish Rios MD LAB - BLOOD ORDERABL ES [facility] Acute Care Lab [address] [facility] Lab (1st floor, no room number) [place] [address], [facility] [phone] from Last 3 Months or Most Recently Relevant to Health Maintenance Advance Directives For more information, please contact: [phone] * Full Code (Latest Code Status on File) Date Activated Date Inactivated Comments 03/13/2022 9:46 PM 03/17/2022 6:08 PM All basic and advanced life-sustaining interventions are performed as appropriate Question Answer Comments Code status determined by: Discussion with patie nt/ legal decision maker Care Teams [employer] Art Teacher Relationship Specialty Start Date End Date Royce Weiner [address] [place] [address] [address] [facility] - General 05/26/20
--- OUTSIDE RECORDS SUMMARY | 2023-11-16 23:48 | XMS_ITS | Referral Summary ---
Author Organization [facility] Address [address] [place] [address] Care Team Providers Care Sheet Metal Roofer Name Role Phone Royce Weiner Primary Care Provider [phone] Allergies Active Allergy Reactions Criticality Noted Date [...] days. Use to read blood sugars per middle school special education teacher's instructions. 2 each 5 03/17/2022 Active aspirin [...] Comments Blood Pressure 166/95 03/17/2022 7:29 AM SHAREPOINT CONSULTANT Pulse 88 03/17/2022 7:28 AM SHAREPOINT CONSULTANT Temperature 36.8 ??C (98.3 ??F) 03/17/2022 7:28 AM CS T Respiratory Rate 20 03/17/2022 7:28 AM SHAREPOINT CONSULTANT Oxygen Saturation 94% 03/17/2022 9:36 AM SHAREPOINT CONSULTANT Inhaled Oxygen Concentration - - Weight 125.5 kg (276 lb 9.6 oz) 03/17/2022 5:12 AM SHAREPOINT CONSULTANT Height 180.3 cm (5' 11) 03/14/2022 9:55 AM SHAREPOINT CONSULTANT Body Mass Index 38.58 03/14/2022 9:55 AM SHAREPOINT CONSULTANT Plan of Treatment Not on file Procedures Procedure Name Priority Date/Time Associated Diagnosis Comments BASIC METABOLIC PANEL Routine 03/15/2022 7:49 AM SHAREPOINT CONSULTANT LIPID REFLEX TO DIRECT LDL PANEL Add-On 03/14/2022 7:51 AM SHAREPOINT CONSULTANT HEMOGLOBIN A1C Add-On 03/13/2022 2:49 PM SHAREPOINT CONSULTANT from Last 3 Months or Most Recently Relevant to Health Maintenance Results * (ABNORMAL) Basic metabolic panel (03/15/2022 7:49 AM SHAREPOINT CONSULTANT) Sodium 137 136 - 145 mmol/L 03/15/2022 8:38 AM [facility] Potassium 4.6 3.4 - 5.3 mmol/L 03/15/2022 8:38 AM [facility] Comment:Specimen slightly he molyzed, potassium may be falsely elevated. Chloride 100 98 - 107 mmol/L 03/15/2022 8:38 AM [facility] Carbon Dioxide (CO2) 27 22 - 29 mmol/L 03/15/2022 8:38 AM [facility] Anion Gap 10 7 - 15 mmol/L 03/15/2022 8:38 AM [facility] Urea Nitrogen 14.0 6.0 - 20.0 mg/dL 03/15/2022 8:38 AM [facility] Creatinine 0.55(L) 0.67 - 1.17 mg/dL 03/15/2022 8:38 AM [facility] Calcium 9.5 8.6 - 10.0 mg/dL 03/15/2022 8:38 AM [facility] Glucose 103(H) 70 - 99 mg/dL 03/15/2022 8:38 AM [facility] GFR Estimate >90 >60 mL/min/1.7 3m2 03/15/2022 8:38 AM [facility] Comment:Effective February 162020 eGFRcr in adults is calculated using the 2020 CKD-EPI creatinine equation which includes age and gender (Bridgett et al., NEJM, DOI: 10.1056/HEJCrk0870778) Blood STRUCTURE OF RIGHT UPPER LIMB / Unknown Venipuncture / Unknown 03/15/2022 7:49 AM SHAREPOINT CONSULTANT 03/15/2022 8:04 AM SHAREPOINT CONSULTANT Axel Calderón MD LAB - BLOOD ORDERABL ES LABORATORY [facility] Acute Care Lab [address] Lab (1st floor, no room number) [place] [address], [facility] [phone] * (ABNORMAL) Lipid panel reflex to direct LDL (03/14/2022 7:51 AM SHAREPOINT CONSULTANT) Cholesterol 184 <200 mg/dL 03/14/2022 1:46 PM SHAREPOINT CONSULTANT [facility] Triglycerides 331(H) <150 mg/dL 03/14/2022 1:46 PM SHAREPOINT CONSULTANT [facility] Direct Measure HDL 28(L) >=40 mg/dL 03/14/2022 1:46 PM SHAREPOINT CONSULTANT [facility] LDL Cholesterol Calculated 90 <=100 mg/dL 03/14/2022 1:46 PM SHAREPOINT CONSULTANT [facility] Non HDL Cholesterol 156(H) <130 mg/dL 03/14/2022 1:46 PM SHAREPOINT CONSULTANT [facility] Blood STRUCTURE OF RIGHT UPPER LIMB / Unknown Venipuncture / Unknown 03/14/2022 7:51 AM SHAREPOINT CONSULTANT 03/14/2022 8:00 AM SHAREPOINT CONSULTANT Narrative [facility] - 03/14/2022 1:46 PM SHAREPOINT CONSULTANT Cholesterol Desirable: ??<200 mg/dL Triglycerides Normal: ??Less [...] LAB - BLOOD ORDERABL ES [facility] [address] [facility] [address] [facility], [address] [place] [address], [facility] [phone] * (ABNORMAL) Hemoglobin A1c (03/13/2022 2:49 PM SHAREPOINT CONSULTANT) Hemoglobin A1C 14.4(H) <5.7 % 03/13/2022 7:14 PM [facility]ATORY Comment: Normal <5.7% Prediabetes 5.7-6.4% ?? Diabetes 6.5% or higher Note: Adopted from ADA consensus guidelines. Blood BLOOD SPECIMEN / Unknown Venipuncture / Unknown 03/13/2022 2:49 PM SHAREPOINT CONSULTANT 03/13/2022 3:06 PM SHAREPOINT CONSULTANT Parish Rios MD LAB - BLOOD ORDERABL ES LABORATORY [facility] [address] [facility] ([facility], no room number) [place] [address], [facility] [phone] from Last 3 Months or Most Recently Relevant to Health Maintenance Advance Directives For more information, please contact: [phone] * Full Code (Latest Code Status on File) Date Activated Date Inactivated Comments 03/13/2022 9:46 PM 03/17/2022 6:08 PM All basic and advanced life-sustaining interventions are performed as appropriate Question Answer Comments Code status determined by: Discussion with leobardo nt/ legal decision maker 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
--- OUTSIDE RECORDS SUMMARY | 2023-11-16 23:49 | XMS_ITS | Clinical Summary ---
Author Organization [facility] Address [place], [place] [address] Care Team Providers Care Pyridine Recovery Operator Name Role Phone Karthik Sanz MD Primary Care Provider [phone] Allergies Active Allergy Reactions Criticality Noted Date Comments Amoxicillin Other - Describe In Comment Field Celecoxib Shortness Of Breath High 04/27/2014 Unlisted Allergen (Include Detail In Comments) Hives 09/02/2023 Soy Sauce Penicillins Anaphylaxis,Other - Describe In Comment Field High 12/25/2006 Tolerated meropenem 02/21/17 Comment: Anaphylaxis, Comment: Anaphylaxis Sulfa (Sulfonamide Antibiotics) Hives 01/15/2012 Sulfasalazine Hives 02/21/2017 Venom-Honey Bee *Unknown 09/02/2023 wasp Medications Medication Sig Dispensed Refills Start Date End Date Status aspirin (ECOTRIN) 81 mg enteric coated tabletIndications:U 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 0 11/30/2016 Active medication order composerIndications :MICHA (obstructive sleep apnea) New CPAP supplies: Humidifier Chamber x1, mask with cushion x1, Heated hose x1, Headgear x1, Disposable filters X1; 1 unit 12/16/2017 Active gabapentin (NEURONTIN) 600 mg tabletIndications:P ain Take 2 Tablets (1,200 mg) by mouth three times daily. 540 Tablet 3 05/09/2023 Active prazosin (MINIPRESS) 1 mg capsuleIndications: PTSD (post-traumatic stress disorder) Take 1 Capsule (1 mg) by mouth at bedtime. 30 Capsule 09/02/2023 Active QUEtiapine (SEROQUEL) 25 mg tabletIndications:M ood disorder (HC) Take 1-2 Tablets (25-50 mg) by mouth four times daily. 240 Tablet 09/11/2023 Active venlafaxine (EFFEXOR XR) 150 mg Extended-Release capsuleIndications: Mood disorder (HC) Take 2 Capsules (300 mg) by mouth once daily with a meal. 60 Capsule 09/11/2023 Active atorvastatin (LIPITOR) 10 mg tabletIndications:M ixed hyperlipidemia Take 1 Tablet (10 mg) by mouth at bedtime. 30 Tablet 09/11/2023 Active bacitracin 500 unit/g ointmentIndications :Frequent falls Apply topically to affected area(s) two times daily. 28 g 09/11/2023 Active divalproex (DEPAKOTE ER) 500 mg Extended-Release tabletIndications:M ood disorder (HC) Take 3 Tablets (1,500 mg) by mouth once daily. 90 Tablet 09/11/2023 Active lidocaine 4 % topical patchIndications:Di abetic polyneuropathy associated with type 2 diabetes mellitus (HC) Apply to intact skin to cover most painful area for max 12hr per 24hr period. 30 Patch 09/11/2023 Active propranoloL (INDERAL) 10 mg tabletIndications:G AD (generalized anxiety disorder),Mood disorder (HC) Take 1 Tablet (10 mg) by mouth two times daily. 60 Tablet 09/11/2023 Active traZODone (DESYREL) 50 mg tabletIndications:M ood disorder (HC) Take 1 Tablet (50 mg) by mouth at bedtime if needed, may repeat once for Sleep. 60 Tablet 09/11/2023 Active WalkerIndications:G ait instability Walker with wheels,seat,hand brakes,and basket for home use. 1 Each 09/11/2023 Active insulin NPH isophane, U-100, (HUMULIN-N PEN, NOVOLIN N FLEXPEN) 100 unit/mL (3 mL) penIndications:Diab etic polyneuropathy associated with type 2 diabetes mellitus (HC) Inject 35 units subcutaneous two times daily before meals. 09/11/2023 Active insulin regular, U-100, human (NOVOLIN R FLEXPEN) 100 unit/mL (3 mL) penIndications:Diab etic polyneuropathy associated with type 2 diabetes mellitus (HC) Inject 25 units subcutaneously in the morning with breakfast, 20 units with lunch and 35 units with supper. Increase by 5 units as needed to achieve glucoses of 100 to 170 on average. 09/11/2023 Active Active Problems Problem Noted Date Diagnosed Date Gait instability 09/08/2023 Frequent falls 09/08/2023 Diabetic polyneuropathy asso ciated with type 2 diabetes mellitus 09/08/2023 AFUA (generalized anxiety disorder) 09/07/2023 AFUA (generalized anxiety disorder) 07/10/2023 Chronic obstructive pulmonar y disease with acute exacerbation 05/09/2023 Uncontrolled type 2 diabetes mellitus with hyper glycemia 05/09/2023 Type 2 diabetes mellitus wit h diabetic polyneuropathy, with long-term current use of insulin 05/09/2023 TBI (traumatic brain injury) 01/09/2018 Mild traumatic brain injury 08/14/2017 Noncompliance with medications 07/09/2017 Onychomycosis 12/11/2016 Hypoxia 09/07/2016 Obesity hypoventilation syndrome 09/07/2016 MICHA 03/24/2012 AHI-70 08/16/2016 H/O pertussis 04/24/2016 Morbid obesity with BMI of 45.0-49.9, adult 0 09/2016 Urinary frequency 09/26/2015 Recur Major Depress, Severe 01/04/2009 Major depression, recurrent 12/03/2008 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 11/04/2005 Overview: and a diagnosed spinal condition Uncontrolled type 2 diabetes with renal manifest ation 02/13/2005 Overview: diagnosis 2001 albuminuria mild lower extremity neuropathy Hypertensive disease 02/13/2005 HYPERLIPIDEMIA - MIXED 02/13/2005 Backache, unspecified Proteinuria Elevated coronary artery calcium score Resolved Problems Problem Noted Date Diagnosed Date Resolved Date Uncontrolled type 2 diabetes with renal manifestation 02/01/2015 04/23/2016 MICHA (obstructive sleep apnea) 04/19/2012 09/07/2016 Overview: sleep study March 2012 [facility] Obesity, unspecified 017 Encounters Date Type Department Care Team Description 10/29/[address] [facility] Scanner 1 scan: (1-Ord) [facility] DUPLEX [facility] BI, 10/29/2023 09/06/2023 9:00 AM CDT - 09/06/2023 11:59 PM CDT Hospital Encounter [address] [address] Sofie Ziegler NP Severe episode of recurrent major depressive disorder, without psychotic features (HC); AFUA (generalized anxiety disorder) 09/06/2023 8:38 AM CDT - 09/11/2023 5:20 PM CDT Hospital Encounter [facility] [address] [place] [address] Hodan Alvares NP Traumatic brain injury with loss of consciousness, subsequent encounter (Primary Dx); AFUA (generalized anxiety disorder); Mood disorder (HC); HYPERLIPIDEMIA - MIXED; Diabetic polyneuropathy associated with type 2 diabetes mellitus (HC); Frequent falls; Gait instability Discharge Disposition: Home Self Care 09/05/2023 11:04 AM CDT - 09/06/2023 7:25 AM CDT Emergency [address] [address] Leanne Haile NP Bowler, Nathaniel Smith, MD Auditory hallucinations (Primary Dx); Agitation; Homicidal ideations; Suicidal ideation; Type 2 diabetes mellitus with other specified complication, with long-term current use of insulin (HC); Contusion of hand, unspecified laterality, initial encounter Discharge Disposition: Psych Hosp/Unit w Planned Readmission 09/05/2023 8:59 AM CDT - 09/05/2023 11:03 AM CDT Hospital Encounter [address] [address] Sofie Ziegler NP Severe episode of recurrent major depressive disorder, without psychotic features (HC); AFUA (generalized anxiety disorder) 09/05/2023 Travel 09/04/2023 8:46 AM CDT - 09/04/2023 11:59 PM CDT Hospital Encounter [address] [address] Sofie Ziegler NP Severe episode of recurrent major depressive disorder, without psychotic features (HC); AFUA (generalized anxiety disorder) 09/04/2023 Travel 09/03/2023 8:38 AM CDT - 09/03/2023 11:59 PM CDT Hospital Encounter [facility] [address] [place] [address] Sofie Ziegler NP Severe episode of recurrent major depressive disorder, without psychotic features (HC); AFUA (generalized anxiety disorder) 09/02/2023 9:00 AM CDT - 09/02/2023 11:59 PM CDT Hospital Encounter [facility] [address] [place] [address] 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 Stokes DROP FORGER AFUA (generalized anxiety disorder) (Primary Dx); Severe episode of recurrent major depressive disorder, without psychotic features (HC); PTSD (post-traumatic stress disorder) 09/02/2023 Travel 09/02/2023 Telephone [facility] [address] [place] [address] Zamzam Kaminski, RN [facility] 08/30/2023 Telephone [facility] [address] [place] [address] Peggy Baez 08/27/2023 10:30 AM CDT Office Visit [facility] [address] [place] [address] Parminder Stokes [facility] Visit 08/27/2023 Travel 08/21/2023 Telephone [facility] [address] [place] [address] Zamzam Kaminski RN [facility] PHP 08/20/2023 Telephone [facility] [address] [place] [address] Parminder Stokes LICSW RETURNING CALL from Last 3 Months Immunizations Name Administration Dates Next Due AMB Influenza, IIV4 PF (=>6 mos Flulaval,Fluzone Fluarix)(Flu Clinic Only) 12/12/2018 COVID-19 vaccine (SOPATec 30mcg/0.3mL) 12YO+ BIVALENT PF, MDV 01/26/2022 Hepatitis B (Adult) 01/29/2018,11/30/2016,2015 Influenza Virus, Unspecified 03/27/2014 Influenza, IIV3 (Age >=3 years) 01/07/20 12,12/07/2008,01/28/2007,2004 Influenza, IIV4 01/26/2022,,01/29/2018,2015,02/01/2015 Influenza, IIV4 (=>6mos) MDV 11/30/2016 Pneumococcal Poly,23-Valent (Pneumovax) 11/25/2015 Td (Age >=7 Years) 01/23/2005 Tdap 09/05/2023,11/25/2015 Social History Tobacco Use Types Packs/Day Years Used Date Smoking Tobacco: Former Cigarettes 1 5 0 03/18/1982 - 03/18/1987 Smokeless Tobacco: Never Tobacco Cessation:Counseling Given: No Alcohol Use Standard Drinks/Week Comments Not Currently 0 (1 standard drink = 0.6 oz pur e alcohol) rare PHQ-2 Answer Date Recorded PHQ-2 TOTAL SCORE 6 09/06/2023 Social Connections Answer Date Recorded Frequency of Communication with Friends and Fami ly 0 09/06/2023 Financial Resource Strain Answer Date R ecorded Difficulty of Paying Living Expenses 3 09/06/2023 Difficulty of Paying Living Expenses Not on file 09/06/2023 Food Insecurity Answer Date Recorded Worried About Running Out of Food in the Last Ye ar 1 09/06/2023 Transportation Needs Answer Date Record ed Lack of Transportation (Medical) 1 09/06/2023 Housing Stability Answer Date Recorded Unable to Pay for Housing in the Last Year 1 09/06/2023 Sex and Gender Information Value Date Recorded Sex Assigned at Not on file Gender Identity Not on file Sexual Orientation Not on file Obstetrics History Last Filed Vital Signs Vital Sign Reading Time Taken Comments Blood Pressure 135/79 09/11/2023 3:35 PM CDT Pulse 101 09/11/2023 3:35 PM CDT Temperature 36.7 ??C (98 ??F) 09/11/2023 3:35 PM CDT Respiratory Rate 16 09/11/2023 3:35 PM CDT Oxygen Saturation 98% 09/11/2023 3:35 PM CDT Inhaled Oxygen Concentration - - Weight 111.3 kg (245 lb 6.4 oz) 09/07/2023 2:00 PM CDT Height 180.3 cm (5' 11) 09/05/2023 11: 10 AM CDT Body Mass Index 34.23 09/05/2023 11:10 AM CDT Plan of Treatment Health Maintenance Due Date Last Done Comments HIV for age 15-65 1981 Hepatitis C screening for ag e 18-79 02/10/1984 Zoster (shingles) series for age 50+ (1 of 2) 02/10/2016 Pneumococcal series for age 6-64 (2 of 2 - PCV) 11/24/2016 11/25/2015 Colonoscopy through age 75 05/03/2020 05/03/2010 BMI (ht and wt on same day) for age 18+ 05/05/2020 05/05/2019, 01/29/2018, 07/09/2017, Additional history exists Influenza for age 50-64 11/17/2023 01/27/20, 02/08/2021, 12/12/2018, Additional history exists Depression screening for age 12+ 09/07/2024 09/08/2023, 09/07/2023, 09/06/2023, Additional history exists Lipids for age 45-75 09/06/2028 09/07/2023, 01/22/2018, 01/22/2018, Additional history exists Tetanus booster 09/04/2033 09/05/2023, 11/2015, 01/23/2005 Hepatitis B series for Diabetes Completed 01/29/2018, 11/30/2016, 11/25/2015 COVID-19 vaccine series Completed 01/27/20, 01/26/2022, 04/03/2021, Additional history exists Tdap Completed 09/05/2023, 11/25/2015 Procedures Procedure Name Priority Date/Time Associated Diagnosis Comments SCAN-ULTRASOUND REPORT 12:00 AM CDT GLUCOSE METER Timed 09/11/2023 4:55 PM CDT GLUCOSE METER Timed 09/11/2023 12:02 PM CDT GLUCOSE METER Timed 09/11/2023 8:03 AM CDT VALPROIC ACID TOTAL Early AM 09/11/2023 7 :24 AM CDT GLUCOSE METER Timed 09/11/2023 4:34 AM CDT GLUCOSE METER Timed 09/10/2023 8:53 PM CDT GLUCOSE METER Timed 09/10/2023 5:00 PM CDT GLUCOSE METER Timed 09/10/2023 12:03 PM CDT GLUCOSE METER Timed 09/10/2023 7:59 AM CDT VALPROIC ACID TOTAL Early AM 09/10/2023 7 :44 AM CDT GLUCOSE METER Timed 09/10/2023 5:23 AM CDT GLUCOSE METER Timed 09/09/2023 9:48 PM CDT GLUCOSE METER Timed 09/09/2023 5:05 PM CDT GLUCOSE METER Timed 09/09/2023 12:28 PM CDT SCAN CORRESP-DIAGNOSTICS 09/09/2023 11:49 AM CDT GLUCOSE METER Timed 09/09/2023 7:57 AM CDT GLUCOSE METER Timed 09/09/2023 2:11 AM CDT GLUCOSE METER Timed 09/08/2023 8:25 PM CDT GLUCOSE METER Timed 09/08/2023 5:58 PM CDT GLUCOSE METER Timed 09/08/2023 5:13 PM CDT GLUCOSE METER Timed 09/08/2023 12:02 PM CDT EKG 12 LEAD Early AM 09/08/2023 10:11 AM CDT GLUCOSE METER Timed 09/08/2023 9:59 AM CDT GLUCOSE METER Timed 09/08/2023 8:07 AM CDT POTASSIUM Early AM 09/08/2023 7:57 AM CDT SODIUM Early AM 09/08/2023 7:57 AM CDT CREATININE Early AM 09/08/2023 7:57 AM CDT GLUCOSE METER Timed 09/08/2023 7:29 AM CDT GLUCOSE METER Timed 09/08/2023 1:57 AM CDT GLUCOSE METER Timed 09/08/2023 12:14 AM CDT GLUCOSE METER Timed 09/07/2023 11:54 PM CDT GLUCOSE METER Timed 09/07/2023 11:35 PM CDT GLUCOSE METER Timed 09/07/2023 11:08 PM CDT GLUCOSE METER Timed 09/07/2023 8:43 PM CDT GLUCOSE METER Timed 09/07/2023 4:57 PM CDT GLUCOSE METER Timed 09/07/2023 1:11 PM CDT GLUCOSE METER Timed 09/07/2023 12:55 PM CDT GLUCOSE METER Timed 09/07/2023 12:[address] SPINE THORACIC WO STAT 09/07/2023 11:[address] SPINE LUMBAR WO STAT 09/07/2023 11 :[address] NECK SOFT TISSUE WO STAT 11:[address] HEAD BRAIN WO STAT 09/07/2023 11:[address] SPINE CERVICAL WO STAT 09/07/2023 11:36 AM CDT GLUCOSE METER Timed 09/07/2023 11:07 AM CDT GLUCOSE METER Timed 09/07/2023 8:13 AM CDT LIPID PANEL Early AM 09/07/2023 7:01 AM CDT HEMOGLOBIN A1C SCREENING Early AM 09/07/2023 7:01 AM CDT GLUCOSE METER Timed 09/07/2023 2:08 AM CDT GLUCOSE METER Timed 09/06/2023 8:40 PM CDT GLUCOSE METER Timed 09/06/2023 5:07 PM CDT GLUCOSE METER Routine 09/06/2023 12:59 AM CDT GLUCOSE METER Routine 09/05/2023 6:37 PM CDT URINALYSIS MICROSCOPIC Timed 4:45 PM CDT UA W/ SEDIMENT EXAM REFLEXED PER CRITERIA Today 09/05/2023 4:45 PM CDT DRUG SCREEN RAPID URINE INHOUSE STAT 09/05/2023 4:45 PM CDT XR HAND 2 VIEWS LEFT PORTABLE STAT 09/05/2023 1:20 PM CDT HEPATIC FUNCTION PANEL LC 12:35 PM CDT CBC WITH AUTO DIFFERENTIAL STAT 09/05/2023 12:35 PM CDT TSH STAT 09/05/2023 12:35 PM CDT SALICYLATE STAT 09/05/2023 12:35 PM CDT ETHANOL SERUM OR PLASMA STAT 09/05/2023 12:35 PM CDT CBC WITH AUTO DIFFERENTIAL STAT 09/05/2023 12:35 PM CDT BASIC METABOLIC PANEL STAT 09/05/2023 12:35 PM CDT ACETAMINOPHEN STAT 09/05/2023 12:35 PM CDT XR HAND 2 VIEWS RIGHT PORTABLE STAT 09/05/2023 12:18 PM CDT from Last 3 Months Results * SCAN-ULTRASOUND REPORT (10/29/2023 12:00 AM CDT) Anatomical Region Laterality Modality Other Scanner OTHER * (ABNORMAL) GLUCOSE METER (09/11/2023 4:55 PM CDT) Only the most recent of38 resultswithin the time period is included. GLUCOSE METER 161(H) 65 - 100 mg/dL 09/11/2023 5:01 PM CDT [facility] Blood BLOOD SPECIMEN / Unknown 09/11/2023 4:55 PM CDT 09/11/2023 5:01 PM CDT Hodan Alvares NP CHEMISTRY [facility] [address] [place] [address], * (ABNORMAL) VALPROIC ACID TOTAL (09/11/2023 7:24 AM CDT) Only the most recent of2 resultswithin the time period is included. Pathologist [facility] VALPROIC ACID,TOTAL 16.8(L) 50.0 - 100.0 ug/mL 09/11/2023 8:20 AM CDT [facility] DATE OF LAST DOSE Not Given 09/11/2023 8:20 AM CDT [facility] TIME OF LAST DOSE Not Given 09/11/2023 8:20 AM CDT [facility] Blood BLOOD SPECIMEN / Unknown Butterfly / Unknown 09/11/2023 7:24 AM CDT 09/11/2023 7:45 AM CDT Hodan Alvares NP CHEMISTRY [facility] [address] [place] [id number], * SCAN CORRESP-DIAGNOSTICS (09/09/2023 11:49 AM CDT) Narrative 09/09/2023 11:49 AM CDT Ordered by an unspecified provider. Other Clinical Staff OTHER * EKG 12 LEAD (09/08/2023 10:11 AM CDT) Pathologist [facility] Interpretation Normal sinus rhythm Left axis deviation Minimal voltage criteria for LVH, may be normal variant ( Andrea product ) Anteroseptal infarct (cited on or before 20-MAY-2019) Abnormal ECG When compared with ECG of 20-MAY-2019 16:04, QRS duration has increased Questionable change in initial forces of Septal leads ST elevation now present in Anterior leads BEYOND NOW Ventricular Rate 92 BPM BEYOND NOW Atrial Rate 92 BPM BEYOND NOW P-R Interval 208 ms BEYOND NOW QRS Duration 120 ms BEYOND NOW QT 368 ms BEYOND NOW QTc 455 ms BEYOND NOW P [place] 17 degrees BEYOND NOW R [place] -56 degrees BEYOND NOW T [place] 70 degrees BEYOND NOW 09/08/2023 10:1 1 AM CDT 09/08/2023 6:35 PM CDT Chandan Paul Lamar Ia non MBBS EKG ORD BEYOND NOW [place], [place] * Sodium AM (09/08/2023 7:57 AM CDT) SODIUM 139 136 - 145 mmol/L 09/08/2023 9:13 AM CDT [facility] Blood BLOOD SPECIMEN / Unknown Venipuncture / Unknown 09/08/2023 7:57 AM CDT 09/08/2023 8:08 AM CDT Chandan Paul Lamar Ia non MBBS CHEMISTRY Performing Organization Address [facility] Co de Phone Number [facility] [address] [place] [address], [place] * Potassium AM (09/08/2023 7:57 AM CDT) POTASSIUM 4.9 3.5 - 5.1 mmol/L 09/08/2023 9:13 AM CDT [facility] Blood BLOOD SPECIMEN / Unknown Venipuncture / Unknown 09/08/2023 7:57 AM CDT 09/08/2023 8:08 AM CDT Chandan Lamar Ia non MBBS CHEMISTRY Performing Organization Address City/[facility] Co de Phone Number [facility] [address] [place] [address], [place] * Creatinine AM (09/08/2023 7:57 AM CDT) eGFR >90 >90 mL/min/1.7 3m2 09/08/2023 9:13 AM CDT [facility] Comment:As of 2021, eG FR is calculated by the CKD-EPI creatinine equation without race adjustment. ??eGFR can be influenced by muscle mass, exercise, and diet. ??The reported eGFR is an estimation only and is only applicable if the renal function is stable. CREATININE 0.86 0.70 - 1.20 mg/dL 09/08/2023 9:13 AM CDT [facility] Blood BLOOD SPECIMEN / Unknown Venipuncture / Unknown 09/08/2023 7:57 AM CDT 09/08/2023 8:08 AM CDT Chandan Lamar Ia non MBBS CHEMISTRY [facility] [address] [place] [address], * CT SPINE THORACIC WO (09/07/2023 11:54 AM CDT) Anatomical Region Laterality Modality THORACIC SPINE, Spine, Spine Com puted Tomography 09/07/2023 12:3 5 PM CDT Narrative 09/07/2023 12:35 PM CDT For Patients: ??As a result of the Cures Act, medical imaging exams and procedure reports are released immediately into your electronic medical record. ??You may view this report before your referring provider. ??If you have questions, please contact your health care provider. Indication: Fall, mid back pain. Technique: Noncontrast CT of the thoracic spine with multiplanar reconstruction utilizing bone and soft tissue algorithms. Comparison: None available. Findings: No acute fracture or traumatic subluxation. Chronic left 5th and 6th posterior rib fracture deformities. No lytic or blastic lesion. Mild multilevel disc desiccation and height loss. Scattered right upper lobe pulmonary ground-glass attenuation. No significant spinal canal or neural foraminal stenosis. Impression: 1. No acute fracture or traumatic subluxation. 2. Chronic left 5th and 6th posterior rib fracture deformities. 3. Scattered right upper lobe pulmonary ground-glass opacities, a nonspecific indicator of small vessel/airway disease. Consider follow-up with dedicated CT chest to ensure resolution. Please note that all CT scans at this facility use dose modulation, iterative reconstruction, and/or weight-based dosing when appropriate to reduce radiation dose to as low as reasonably achievable. Dictated by Derrick Shankar MD @ 09/07/2023 12:35:52 PM (Electronically Signed) Procedure Note Sabas Shankar MD - 09/07/2023 For Patients: As a result of the Cures Act, medical imagingexams and procedure reports are released immediately into your electronicmedical record. You may view this report before your referring provider.If you have questions, please contact your health care provider. Indication: Fall, mid back pain. Technique: Noncontrast CT of the thoracic spine with multiplanar reconstructionutilizing bone and soft tissue algorithms. Comparison: None available. Findings: No acute fracture or traumatic subluxation. Chronic left 5th and 6thposterior rib fracture deformities. No lytic or blastic lesion. Mildmultilevel disc desiccation and height loss. Scattered right upper lobepulmonary ground-glass attenuation. No significant spinal canal or neuralforaminal stenosis. Impression: 1. No acute fracture or traumatic subluxation. 2. Chronic left 5th and 6th posterior rib fracture deformities. 3. Scattered right upper lobe pulmonary ground-glass opacities, anonspecific indicator of small vessel/airway disease. Consider follow-upwith dedicated CT chest to ensure resolution. Please note that all CT scans at this facility use dose modulation,iterative reconstruction, and/or weight-based dosing when appropriate toreduce radiation dose to as low as reasonably achievable. Dictated by Derrick Shankar MD @ 09/07/2023 12:35:52 PM (Electronically Signed) Chandan Paul Lamar Ia non MBBS CT * CT SPINE LUMBAR WO (09/07/2023 11:41 AM CDT) Anatomical Region Laterality Modality LUMBAR SPINE, Spine, Spine Compu trupti Tomography 09/07/2023 12:2 9 PM CDT Narrative 09/07/2023 12:29 PM CDT For Patients: ??As a result of the Cures Act, medical imaging exams and procedure reports are released immediately into your electronic medical record. ??You may view this report before your referring provider. ??If you have questions, please contact your health care provider. Indication: Fall, lower back pain. Technique: Noncontrast CT of the lumbar spine with multiplanar reconstruction utilizing bone and soft tissue algorithms. Comparison: CT lumbar spine dated 11/15/2016. Findings: No acute fracture or traumatic subluxation. No lytic or blastic lesion. Operative changes of decompressive laminectomy at L4-L5 and L5-S1 with L5-S1 interbody spacer placement. Moderate aortoiliac atherosclerotic disease. No high-grade spinal canal stenosis. Moderate left neural foraminal narrowing at L4-L5. Impression: 1. No acute fracture or traumatic subluxation. 2. Operative changes of decompressive laminectomy at L4-L5 and L5-S1 with L5-S1 interbody spacer placement. 3. At L4-L5, slight progression of moderate left neural foraminal narrowing since 11/15/2016. Please note that all CT scans at this facility use dose modulation, iterative reconstruction, and/or weight-based dosing when appropriate to reduce radiation dose to as low as reasonably achievable. Dictated by Derrick Shankar MD @ 09/07/2023 12:29:17 PM (Electronically Signed) Procedure Note Sabas Shankar MD - 09/07/2023 For Patients: As a result of the Cures Act, medical imagingexams and procedure reports are released immediately into your electronicmedical record. You may view this report before your referring provider.If you have questions, please contact your health care provider. Indication: Fall, lower back pain. Technique: Noncontrast CT of the lumbar spine with multiplanar reconstructionutilizing bone and soft tissue algorithms. Comparison: CT lumbar spine dated 11/15/2016. Findings: No acute fracture or traumatic subluxation. No lytic or blastic lesion.Operative changes of decompressive laminectomy at L4-L5 and L5-S1 withL5-S1 interbody spacer placement. Moderate aortoiliac atheroscleroticdisease. No high-grade spinal canal stenosis. Moderate left neuralforaminal narrowing at L4-L5. Impression: 1. No acute fracture or traumatic subluxation. 2. Operative changes of decompressive laminectomy at L4-L5 and L5-S1 withL5-S1 interbody spacer placement. 3. At L4-L5, slight progression of moderate left neural foraminalnarrowing since 11/15/2016. Please note that all CT scans at this facility use dose modulation,iterative reconstruction, and/or weight-based dosing when appropriate toreduce radiation dose to as low as reasonably achievable. Dictated by Derrick Shankar MD @ 09/07/2023 12:29:17 PM (Electronically Signed) Chandan Lamar Ia non MBBS CT * CT soft tissue neck without contrast TODAY (09/07/2023 11:37 AM CDT) Anatomical Region Laterality Modality NECK Computed Tomogra phy 09/07/2023 12:2 0 PM CDT Narrative 09/07/2023 12:20 PM CDT For Patients: ??As a result of the Cures Act, medical imaging exams and procedure reports are released immediately into your electronic medical record. ??You may view this report before your referring provider. ??If you have questions, please contact your health care provider. Indication: Fall, neck pain, right arm paresthesias. Technique: Noncontrast CT of the neck with multiplanar reconstruction. Comparison: Correlated with CT chest dated 02/02/2021. Findings: No suspicious mucosal based mass or asymmetry. No pathologically enlarged cervical lymph nodes. Normal parotid and submandibular glands. Unremarkable thyroid. Subject to limitations imposed by motion artifact and lack of contrast, similar mild dilatation of the ascending aorta as also demonstrated on prior chest CT dated 02/02/2021. The lung apices are clear. The imaged intracranial structures appear within normal limits. Impression: 1. No suspicious mucosal based mass or asymmetry. 2. No pathologically enlarged cervical lymph nodes. 3. Mild dilatation of the partially imaged ascending aorta, on limited noncontrast evaluation similar in appearance to prior CT dated 02/02/2021. Please note that all CT scans at this facility use dose modulation, iterative reconstruction, and/or weight-based dosing when appropriate to reduce radiation dose to as low as reasonably achievable. Dictated by Derrick Shankar MD @ 09/07/2023 12:20:57 PM (Electronically Signed) Procedure Note Sabas Shankar MD - 09/07/2023 For Patients: As a result of the Cures Act, medical imagingexams and procedure reports are released immediately into your electronicmedical record. You may view this report before your referring provider.If you have questions, please contact your health care provider. Indication: Fall, neck pain, right arm paresthesias. Technique: Noncontrast CT of the neck with multiplanar reconstruction. Comparison: Correlated with CT chest dated 02/02/2021. Findings: No suspicious mucosal based mass or asymmetry. No pathologically enlargedcervical lymph nodes. Normal parotid and submandibular glands. Unremarkable thyroid. Subject to limitations imposed by motion artifact and lack of contrast,similar mild dilatation of the ascending aorta as also demonstrated onprior chest CT dated 02/02/2021. The lung apices are clear. The imagedintracranial structures appear within normal limits. Impression: 1. No suspicious mucosal based mass or asymmetry. 2. No pathologically enlarged cervical lymph nodes. 3. Mild dilatation of the partially imaged ascending aorta, on limitednoncontrast evaluation similar in appearance to prior CT dated104/04/2020. Please note that all CT scans at this facility use dose modulation,iterative reconstruction, and/or weight-based dosing when appropriate toreduce radiation dose to as low as reasonably achievable. Dictated by Derrick Shankar MD @ 09/07/2023 12:20:57 PM (Electronically Signed) Chandan Lamar Ia non MBBS CT * CT Cervical spine without contrast TODAY (09/07/2023 11:36 AM CDT) Anatomical Region Laterality Modality CERVICAL SPINE, NECK, Spine Comp uted Tomography 09/07/2023 12:1 4 PM CDT Narrative 09/07/2023 12:14 PM CDT For Patients: ??As a result of the Century Cures Act, medical imaging exams and procedure reports are released immediately into your electronic medical record. ??You may view this report before your referring provider. ??If you have questions, please contact your health care provider. Indication: Fall, right arm paresthesias. Technique: Noncontrast CT of the cervical spine with multiplanar reconstruction utilizing bone and soft tissue algorithms. Comparison: Correlate with cervical spine radiographs dated 04/14/2020. Findings: No acute fracture or traumatic subluxation. No lytic or blastic lesion. Straightening of the normal cervical lordosis. Posterior aspects of the vertebral bodies are aligned. No significant spinal canal stenosis. At C3-C4, advanced interbody height loss and moderate-severe right neural foraminal narrowing. Impression: 1. No acute fracture or traumatic subluxation. 2. At C3-C4, advanced interbody height loss and moderate-severe right neural foraminal narrowing. Please note that all CT scans at this facility use dose modulation, iterative reconstruction, and/or weight-based dosing when appropriate to reduce radiation dose to as low as reasonably achievable. Dictated by Derrick Shankar MD @ 09/07/2023 12:14:45 PM (Electronically Signed) Procedure Note Sabas Shankar MD - 09/07/2023 For Patients: As a result of the Cures Act, medical imagingexams and procedure reports are released immediately into your electronicmedical record. You may view this report before your referring provider.If you have questions, please contact your health care provider. Indication: Fall, right arm paresthesias. Technique: Noncontrast CT of the cervical spine with multiplanar reconstructionutilizing bone and soft tissue algorithms. Comparison: Correlate with cervical spine radiographs dated 04/14/2020. Findings: No acute fracture or traumatic subluxation. No lytic or blastic lesion.Straightening of the normal cervical lordosis. Posterior aspects of thevertebral bodies are aligned. No significant spinal canal stenosis. AtC3-C4, advanced interbody height loss and moderate-severe right neuralforaminal narrowing. Impression: 1. No acute fracture or traumatic subluxation. 2. At C3-C4, advanced interbody height loss and moderate-severe rightneural foraminal narrowing. Please note that all CT scans at this facility use dose modulation,iterative reconstruction, and/or weight-based dosing when appropriate toreduce radiation dose to as low as reasonably achievable. Dictated by Derrick Shnakar MD @ 09/07/2023 12:14:45 PM (Electronically Signed) Chandan Lamar Ia non MBBS CT * CT head without contrast (09/07/2023 11:36 AM CDT) Anatomical Region Laterality Modality HEAD, BRAIN Computed Tomogra phy 09/07/2023 12:0 1 PM CDT Narrative 09/07/2023 12:01 PM CDT For Patients: ??As a result of the Cures Act, medical imaging exams and procedure reports are released immediately into your electronic medical record. ??You may view this report before your referring provider. ??If you have questions, please contact your health care provider. Indication: Syncope. Technique: Noncontrast CT of the head with multiplanar reconstruction utilizing bony and soft tissue algorithms. Comparison: Correlated with MR brain dated 07/10/2017. Findings: No acute intracranial hemorrhage. The goetz-white matter interface is preserved. The ventricles are normal in size. No abnormal extra-axial fluid collection is identified. Normal calvarium and skull base. Unremarkable orbits. Chronic opacification of the right mastoid tip. Impression: No acute intracranial abnormality. Please note that all CT scans at this facility use dose modulation, iterative reconstruction, and/or weight-based dosing when appropriate to reduce radiation dose to as low as reasonably achievable. Dictated by Derrick Shankar MD @ 09/07/2023 12:01:38 PM (Electronically Signed) Procedure Note Sabas Shankar MD - 09/07/2023 For Patients: As a result of the Cures Act, medical imagingexams and procedure reports are released immediately into your electronicmedical record. You may view this report before your referring provider.If you have questions, please contact your health care provider. Indication: Syncope. Technique: Noncontrast CT of the head with multiplanar reconstruction utilizing bonyand soft tissue algorithms. Comparison: Correlated with MR brain dated 07/10/2017. Findings: No acute intracranial hemorrhage. The goetz-white matter interface ispreserved. The ventricles are normal in size. No abnormal extra-axial fluidcollection is identified. Normal calvarium and skull base. Unremarkable orbits. Chronicopacification of the right mastoid tip. Impression: No acute intracranial abnormality. Please note that all CT scans at this facility use dose modulation,iterative reconstruction, and/or weight-based dosing when appropriate toreduce radiation dose to as low as reasonably achievable. Dictated by Derrick Shankar MD @ 09/07/2023 12:01:38 PM (Electronically Signed) Chandan Paul Lamar Ia non MBBS CT * (ABNORMAL) HEMOGLOBIN A1C SCREENING (09/07/2023 7:01 AM CDT) Pathologist [facility] HEMOGLOBIN A1C SCREENING 14.8(H) <=6.4 % 09/07/2023 8:40 AM CDT [facility] Blood BLOOD SPECIMEN / Unknown Venipuncture / Unknown 09/07/2023 7:01 AM CDT 09/07/2023 7:13 AM CDT [facility] - 09/07/2023 8:40 AM CDT ? (<5.7%) ?Normal ? (5.7% to 6.4%) ? Indicates prediabetes ? (>=6.5%) ? Confirms diabetes Falsely low levels may be seen with: Recent Transfusion, Recent Significant Blood Loss, Hemolytic Diseases, or Falsely elevated levels may be seen with: Untreated Anemias, Splenectomy Melita Lopez MD CHEMISTRY [facility] [address] [place] [address], * (ABNORMAL) LIPID PANEL (09/07/2023 7:01 AM CDT) Pathologist [facility] CHOLESTEROL,TOTAL 225(H) 100 - 199 mg/dL 09/07/2023 7:39 AM CDT [facility] Comment: Cholesterol, Total Reference Ranges Desirable <200 mg/dL Borderline 200-239 mg/dL High >=240 mg/dL TRIGLYCERIDES 212(H) <150 mg/dL 09/07/2023 7:39 AM CDT [facility] HDL CHOLESTEROL 37(L) >40 mg/dL 7:39 AM CDT [facility] NON-HDL CHOLESTEROL 188(H) <145 mg/dl 09/07/2023 7:39 AM CDT [facility] CHOL/HDL RATIO 6.08(H) <4.50 09/07/2023 7:39 AM CDT [facility] LDL CHOLESTEROL 146(H) <=130 mg/dL 09/07/2023 7:39 AM CDT [facility] VLDL CHOLESTEROL 42(H) <=30 mg/dL 09/07/2023 7:39 AM CDT [facility] PROVIDER ORDERED STATUS RANDOM 09/07/2023 7:39 AM T [facility] Blood BLOOD SPECIMEN / Unknown Venipuncture / Unknown 09/07/2023 7:01 AM CDT 09/07/2023 7:13 AM CDT Melita Lopez MD CHEMISTRY [facility] [address] [place] [address], * DRUG ABUSE SCREEN RAPID URINE (09/05/2023 4:45 PM CDT) THC METABOLITES,KATIE L Not Detected Not Detected 09/05/2023 6:53 PM [facility] PCP,QUAL Not Detected Not Detected 09/05/2023 6:53 PM [facility] COCAINE,QUAL Not Detected Not Detected 09/05/2023 6:53 PM [facility] METHAMPHETAMINE , QUALITATIVE Not Detected Not Detected 09/05/2023 6:53 PM [facility] OPIATES,QUAL Not Detected Not Detected 09/05/2023 6:53 PM [facility] AMPHETAMINE, QUALITATIVE Not Detected Not Detected 09/05/2023 6:53 PM [facility] BENZODIAZEPINES ,QUAL Not Detected Not Detected 09/05/2023 6:53 PM [facility] TRICYCLICS,QUAL Not Detected Not Detected 09/05/2023 6:53 PM [facility] METHADONE, QUALITATIVE Not Detected Not Detected 09/05/2023 6:53 PM CDT [facility] BARBITURATES,QU AL Not Detected Not Detected 09/05/2023 6:53 PM CDT [facility] OXYCODONE, QUALITATIVE Not Detected Not Detected 09/05/2023 6:53 PM CDT [facility] BUPRENORPHINE, QUALITATIVE Not Detected Not Detected 09/05/2023 6:53 PM CDT [facility] Urine URINE SPECIMEN / Unknown Non-Blood / Unknown 09/05/2023 4:45 PM CDT 09/05/2023 6:16 PM CDT Narrative [facility] - 09/05/2023 6:53 PM CDT Please Note: ?? This is a screening test only, all results are unconfirmed and should be used for medical purposes only. ??Unconfirmed results must not be used for non-medical purposes (e.g., employment testing, legal testing). ??Suggest analyte specific confirmation for all non-negative results. ??Specimens will be held for 24 hours if additional testing is needed. ?? The following threshold concentrations are used for this analysis: ? Drug ? Screening Threshold ? Buprenorphine ? 10 ng/mL PCP ? 25 ng/mL ?? THC Metabolites ? 50 ng/mL *Opiates ? 100 ng/mL Oxycodone ?100 ng/mL Cocaine ?150 ng/mL Benzodiazepines ?150 ng/mL ?? Methadone ?200 ng/mL ?? Barbiturates ? 200 ng/mL Tricyclic Antidepressants ?300 ng/mL ?? Amphetamines ? 500 ng/mL ?? Methamphetamines ? 500 ng/mL ?*Includes related compounds: ? Codeine ?50 ng/mL ? Heroin ?100 ng/mL ? Morphine ?100 ng/mL ? Hydrocodone ? 400 ng/mL ? Hydromorphone ? 800 ng/mL ?Venlafaxine (Effexor) is a known cross reactant in the PCP ?assay. ??If clinically indicated, order PCP confirmation. Leanne Haile AIRCRAFT NAVIGATOR URINE [facility] [address] [place] [id number] * URINALYSIS MICROSCOPIC (09/05/2023 4:45 PM CDT) RBC None Seen 0-2, None Seen /HPF 09/05/2023 6:29 PM CDT [facility] WBC 0-2 0-2, 3-5, None Seen /HPF 09/05/2023 6:29 PM CDT [facility] BACTERIA Rare None Seen, Rare, Few Bacteria/ HPF 09/05/2023 6:29 PM T [facility] EPITHELIAL CELLS Few None Seen, Few Epi/HPF 09/05/2023 6:29 PM [facility] Urine URINE SPECIMEN / Unknown Non-Blood / Unknown 09/05/2023 4:45 PM CDT 09/05/2023 6:16 PM CDT Leanne Haile AIRCRAFT NAVIGATOR URINE [facility] [address] [place] [id number] * (ABNORMAL) UA W/ SEDIMENT EXAM REFLEXED PER CRITERIA (09/05/2023 4:45 PM CDT) COLOR Yellow Yellow Color 09/05/2023 6:29 PM [facility] CLARITY Clear Clear Clarity 09/05/2023 6:29 PM [facility] SPECIFIC GRAVITY,URINE 1.010 1.010, 1.015, 1.020, 1.025 09/05/2023 6:29 PM [facility] PH,URINE 6.0 6.0, 7.0, 8.0, 5.5, 6.5, 7.5, 8.5 09/05/2023 6:29 PM [facility] UROBILINOGEN, QUALITATIVE Normal Normal EU/dl 09/05/2023 6:29 PM [facility] PROTEIN, URINE Negative Negative mg/dL 09/05/2023 6:29 PM [facility] GLUCOSE, URINE >=1000(A) Negative mg/dL 09/05/2023 6:29 PM [facility] KETONES,URINE Negative Negative mg/dL 09/05/2023 6:29 PM [facility] BILIRUBIN,URI NE Negative Negative 09/05/2023 6:29 PM [facility] OCCULT BLOOD,URINE Negative Negative 09/05/2023 6:29 PM [facility] NITRITE Negative Negative 09/05/2023 6:29 PM CDT [facility] LEUKOCYTE ESTERASE Negative Negative 09/05/2023 6:29 PM CDT [facility] Urine URINE SPECIMEN / Unknown Non-Blood / Unknown 09/05/2023 4:45 PM CDT 09/05/2023 6:16 PM CDT Leanne Haile AIRCRAFT NAVIGATOR URINE [facility] [address] [place] [address] * XR HAND 2 VIEWS LEFT PORTABLE (09/05/2023 1:20 PM CDT) Anatomical Region Laterality Modality HANDS, HAND L Digital Radiogra phy 09/05/2023 1:53 PM CDT Impressions 09/05/2023 1:53 PM CDT No acute or traumatic findings seen in the left hand. Dictated by Julia Joy MD @ 09/05/2023 1:53:03 PM (Electronically Signed) Narrative 09/05/2023 1:53 PM CDT For Patients: ??As a result of the Cures Act, medical imaging exams and procedure reports are released immediately into your electronic medical record. ??You may view this report before your referring provider. ??If you have questions, please contact your health care provider. INDICATION: Trauma COMPARISON: Same-day right hand radiographs TECHNIQUE: Two views left hand FINDINGS: No fracture. Normal alignment. Mild osteoarthritis. No focal bone lesions. Normal bone mineralization. Atherosclerotic vascular calcifications. Ring around the base of the 4th finger. Procedure Note Julia Joy MD - 09/05/2023 For Patients: As a result of the Cures Act, medical imagingexams and procedure reports are released immediately into your electronicmedical record. You may view this report before your referring provider.If you have questions, please contact your health care provider. INDICATION: Trauma COMPARISON: Same-day right hand radiographs TECHNIQUE: Two views left hand FINDINGS: No fracture. Normal alignment. Mild osteoarthritis. No focal bone lesions. Normal bone mineralization. Atherosclerotic vascular calcifications. Ring around the base of the 4th finger. IMPRESSION: No acute or traumatic findings seen in the left hand. Dictated by Julia Joy MD @ 09/05/2023 1:53:03 PM (Electronically Signed) Leanne Johnson Lazara AIRCRAFT NAVIGATOR GENERAL [facility] * (ABNORMAL) CBC WITH AUTO DIFFERENTIAL (09/05/2023 12:35 PM CDT) WHITE BLOOD COUNT 9.3 4.5 - 11.0 thou/cu mm 09/05/2023 12:45 PM [facility] RED BLOOD COUNT 5.80 4.30 - 5.90 mil/cu mm 09/05/2023 12:45 PM [facility] HEMOGLOBIN 15.7 13.5 - 17.5 g/dL 09/05/2023 12:45 PM [facility] HEMATOCRIT 46.8 37.0 - 53.0 % 09/05/2023 12:45 PM [facility] MCV 81 80 - 100 fL 09/05/2023 12:45 PM [facility] MCH 27.1 26.0 - 34.0 pg 09/05/2023 12:45 PM [facility] MCHC 33.5 32.0 - 36.0 g/dL 09/05/2023 12:45 PM [facility] RDW 12.7 11.5 - 15.5 % 09/05/2023 12:45 PM [facility] PLATELET COUNT 248 140 - 440 thou/cu mm 09/05/2023 12:45 PM [facility] MPV 11.5(H) 6.5 - 11.0 fL 09/05/2023 12:45 PM [facility] % NEUT 62.3 % 09/05/2023 12:45 PM [facility] % LYMPH 28.2 % 09/05/2023 12:45 PM [facility] % MONO 7.9 % 09/05/2023 12:45 PM [facility] % EOS 1.3 % 09/05/2023 12:45 PM CDT [facility] % BASO 0.3 % 09/05/2023 12:45 PM CDT [facility] ABSOLUTE NEUTROPHILS 5.8 1.7 - 7.0 thou/cu mm 09/05/2023 12:45 PM CDT [facility] ABSOLUTE LYMPHOCYTES 2.6 0.9 - 2.9 thou/cu mm 09/05/2023 12:45 PM CDT [facility] ABSOLUTE MONOCYTES 0.7 <0.9 thou/cu mm 09/05/2023 12:45 PM CDT [facility] ABSOLUTE EOSINOPHILS 0.1 <0.5 thou/cu mm 09/05/2023 12:45 PM CDT [facility] ABSOLUTE BASOPHILS 0.0 <0.3 thou/cu mm 09/05/2023 12:45 PM CDT [facility] Blood BLOOD SPECIMEN / Unknown Venipuncture / Unknown 09/05/2023 12:35 PM CDT 09/05/2023 12:40 PM CDT Leanne Haile NP HEMATOLOGY [facility] [address] [place], [place] [id number] * TSH (09/05/2023 12:35 PM CDT) TSH 0.93 0.27 - 4.20 uIU/mL 09/05/2023 1:08 PM CDT [facility] Blood BLOOD SPECIMEN / Unknown Venipuncture / Unknown 09/05/2023 12:35 PM CDT 09/05/2023 12:40 PM CDT [facility] - 09/05/2023 1:08 PM CDT In Adults, TSH values between 5.00 and 10.00 uIU/ml do not necessarily indicate the presence of Hypothyroidism. Correlation with clinical findings such as presence of goiter and/or Thyroperoxidase (TPO) Antibody may be helpful. For more information please refer to BAMBI 2004; 291: 228-238. Leanne Haile NP CHEMISTRY Performing Organization Address [facility] Co de Phone Number [facility] [address] [place] [address] * ETHANOL SERUM OR PLASMA (09/05/2023 12:35 PM CDT) ETHANOL <0.010 <0.010 g/dL 09/05/2023 1:08 PM CDT [facility] Blood BLOOD SPECIMEN / Unknown Venipuncture / Unknown 09/05/2023 12:35 PM CDT 09/05/2023 12:40 PM CDT Leanne Haile AIRCRAFT NAVIGATOR CHEMISTRY Performing Organization Address [facility] Co de Phone Number [facility] [address] [place] [address] * (ABNORMAL) ACETAMINOPHEN (09/05/2023 12:35 PM CDT) ACETAMINOPHEN <5.0(L) 10.0 - 30.0 ug/mL 09/05/2023 1:14 PM CDT [facility] Blood BLOOD SPECIMEN / Unknown Venipuncture / Unknown 09/05/2023 12:35 PM CDT 09/05/2023 12:40 PM CDT Leanne Haile AIRCRAFT NAVIGATOR CHEMISTRY Performing Organization Address [facility] Co de Phone Number [facility] [address] [place] [address] * (ABNORMAL) SALICYLATE (09/05/2023 12:35 PM CDT) SALICYLATE <0.5(L) 15.0 - 30.0 mg/dL 09/05/2023 1:14 PM CDT [facility] Blood BLOOD SPECIMEN / Unknown Venipuncture / Unknown 09/05/2023 12:35 PM CDT 09/05/2023 12:40 PM CDT Leanne Haile NP CHEMISTRY Performing Organization Address City/[facility]/ZIP Co de Phone Number [facility] [address] [place] [address] * HEPATIC FUNCTION PANEL (09/05/2023 12:35 PM CDT) ALBUMIN 4.1 4.0 - 4.9 g/dL 09/06/2023 2:39 PM CDT [facility] PROTEIN,TOTAL 7.0 6.0 - 8.0 g/dL 09/06/2023 2:39 PM T [facility] BILIRUBIN,TOTAL 0.7 0.0 - 1.2 mg/dL 09/06/2023 2:39 PM T [facility] BILIRUBIN,DIRECT <0.2 0.0 - 0.3 mg/dL 09/06/2023 2:39 PM T [facility] BILIRUBIN,INDIRE CT 09/06/2023 2:39 PM T [facility] Comment:Unable to calculate, Direct Bili <0.2 ALK PHOSPHATASE 111 40 - 129 IU/L 09/06/2023 2:39 PM T [facility] ALT (SGPT) 15 10 - 50 IU/L 09/06/2023 2:39 PM T [facility] AST (SGOT) 17 10 - 50 IU/L 09/06/2023 2:39 PM T [facility] Blood BLOOD SPECIMEN / Unknown Venipuncture / Unknown 09/05/2023 12:35 PM CDT 09/05/2023 12:40 PM CDT Melita Lopez MD CHEMISTRY [facility] [address] [place] [address] * (ABNORMAL) BASIC METABOLIC PANEL (09/05/2023 12:35 PM CDT) SODIUM 133(L) 136 - 145 mmol/L 09/05/2023 1:08 PM CDT [facility] POTASSIUM 4.5 3.5 - 5.1 mmol/L 09/05/2023 1:08 PM [facility] CHLORIDE 94(L) 98 - 107 mmol/L 09/05/2023 1:08 PM [facility] CO2,TOTAL 26 22 - 29 mmol/L 09/05/2023 1:08 PM [facility] ANION GAP 13 5 - 18 09/05/2023 1:08 PM [facility] GLUCOSE 399(H) 70 - 99 mg/dL 09/05/2023 1:08 PM [facility] CALCIUM 9.7 8.6 - 10.0 mg/dL 09/05/2023 1:08 PM [facility] BUN 24(H) 6 - 20 mg/dL 09/05/2023 1:08 PM [facility] CREATININE 0.95 0.70 - 1.20 mg/dL 09/05/2023 1:08 PM [facility] BUN/CREAT RATIO 25(H) 10 - 20 1:08 PM [facility] eGFR >90 >90 mL/min/1.7 3m2 09/05/2023 1:08 PM [facility] Comment:As of 2021, eG FR is calculated by the CKD-EPI creatinine equation without race adjustment. ??eGFR can be influenced by muscle mass, exercise, and diet. ??The reported eGFR is an estimation only and is only applicable if the renal function is stable. Blood BLOOD SPECIMEN / Unknown Venipuncture / Unknown 09/05/2023 12:35 PM CDT 09/05/2023 12:40 PM CDT Leanne Haile NP CHEMISTRY [facility] [address] [place] [address] * XR HAND 2 VIEWS RIGHT PORTABLE (09/05/2023 12:18 PM CDT) Anatomical Region Laterality Modality HANDS, HAND R Digital Radiogra phy 09/05/2023 12:5 9 PM CDT Narrative 09/05/2023 12:59 PM CDT For Patients: ??As a result of the Cures Act, medical imaging exams and procedure reports are released immediately into your electronic medical record. ??You may view this report before your referring provider. ??If you have questions, please contact your health care provider. Indication: Trauma Technique: Right hand 2 views. Comparison: None Findings: Bones: Alignment is normal. No fractures or bone lesions. ?? Joint spaces: Unremarkable. ?? Soft tissues: Atherosclerotic calcification. Impression: No evidence of fracture or dislocation. Dictated by Candelario Roblero MD @ 09/05/2023 12:59:29 PM (Electronically Signed) Procedure Note Candelario Roblero MD - 09/05/2023 For Patients: As a result of the Cures Act, medical imagingexams and procedure reports are released immediately into your electronicmedical record. You may view this report before your referring provider.If you have questions, please contact your health care provider. Indication: Trauma Technique: Right hand 2 views. Comparison: None Findings: Bones: Alignment is normal. No fractures or bone lesions. Joint spaces: Unremarkable. Soft tissues: Atherosclerotic calcification. Impression: No evidence of fracture or dislocation. 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 [id number] 2019 -Prese nt [address] [place] [address] [employer]VA [employer]GR[employer] CASUALTY INS [id number] 2016-Prese nt [address] [place] [address] MEDICARE PART B - HB USE ONLY MEDICARE PART B HB ONLY [id number] 1998-Presen t ATTN: CLAIMS [address] [place] [address] MEDICARE PART A - HB USE ONLY MEDICARE PART A HB ONLY [id number] 1998-Presen t ATTN: CLAIMS [address] [place] [address] [employer] HB ONLY [id number] 2006-Presen t [address] [place] [address] [facility] MR HP MEDICARE ADVANTAGE MR [id number] 2021-Presen t [address] [place] [address] Advance Directives * Full Code (Latest Code Status on File) Date Activated Date Inactivated Comments 09/06/2023 9:15 AM 09/11/2023 7:27 PM Question Answer Comments Code Status Discussion: Unable to Assess Preferences, Provider to review later * Full Code Date Activated Date Inactivated Comments 05/20/2019 5:20 PM 05/21/2019 8:24 PM Care Teams Pyridine Recovery Operator Relationship Specialty Start Date End Date aKrthik Sanz MD [address] [place] [id number] PCP - General Internal Medicine 06/24/20
== END 2023-11-14 15:01 | disposition home or self-care (01) ==
LOC: NFLDREF 11-16 23:47
PROVIDERS: PCP Internal Medicine; Referring Provider Internal Medicine; Visit Provider Internal Medicine
DX: E78.5 Hyperlipidemia, unspecified (principal); I10 Essential (primary) hypertension; Z12.5 Encounter for screening for malignant neoplasm of prostate
CPT/HCPCS: 80053; 80061; G0103

== ENCOUNTER 2023-11-25 15:20 | Outpatient (CLI) | payer OTHER, SELFPAY ==
--- OUTSIDE RECORDS SUMMARY | 2023-11-25 15:22 | XMS_ITS | Referral Summary ---
Author Organization [facility] Address [address] [place] [address] Care Team Providers Care Director Summer Sessions Name Role Phone Royce Weiner Primary Care Provider [phone] Allergies Active Allergy Reactions Criticality Noted Date [...] days. Use to read blood sugars per senior product analyst's instructions. 2 each 5 03/17/2022 Active aspirin [...] Comments Blood Pressure 166/95 03/17/2022 7:29 AM CORPORATE STRATEGIST Pulse 88 03/17/2022 7:28 AM CORPORATE STRATEGIST Temperature 36.8 ??C (98.3 ??F) 03/17/2022 7:28 AM CS T Respiratory Rate 20 03/17/2022 7:28 AM CORPORATE STRATEGIST Oxygen Saturation 94% 03/17/2022 9:36 AM CORPORATE STRATEGIST Inhaled Oxygen Concentration - - Weight 125.5 kg (276 lb 9.6 oz) 03/17/2022 5:12 AM CORPORATE STRATEGIST Height 180.3 cm (5' 11) 03/14/2022 9:55 AM CORPORATE STRATEGIST Body Mass Index 38.58 03/14/2022 9:55 AM CORPORATE STRATEGIST Plan of Treatment Not on file Procedures Procedure Name Priority Date/Time Associated Diagnosis Comments BASIC METABOLIC PANEL Routine 03/15/2022 7:49 AM CORPORATE STRATEGIST LIPID REFLEX TO DIRECT LDL PANEL Add-On 03/14/2022 7:51 AM CORPORATE STRATEGIST HEMOGLOBIN A1C Add-On 03/13/2022 2:49 PM CORPORATE STRATEGIST from Last 3 Months or Most Recently Relevant to Health Maintenance Results * (ABNORMAL) Basic metabolic panel (03/15/2022 7:49 AM CORPORATE STRATEGIST) Sodium 137 136 - 145 mmol/L 03/15/2022 8:38 AM [facility] Potassium 4.6 3.4 - 5.3 mmol/L 03/15/2022 8:38 AM [facility] Comment:Specimen slightly he molyzed, potassium may be falsely elevated. Chloride 100 98 - 107 mmol/L 03/15/2022 8:38 AM [facility] Carbon Dioxide (CO2) 27 22 - 29 mmol/L 03/15/2022 8:38 AM [facility] Anion Gap 10 7 - 15 mmol/L 03/15/2022 8:38 AM [facility] Urea Nitrogen 14.0 6.0 - 20.0 mg/dL 03/15/2022 8:38 AM [facility] Creatinine 0.55(L) 0.67 - 1.17 mg/dL 03/15/2022 8:38 AM [facility] Calcium 9.5 8.6 - 10.0 mg/dL 03/15/2022 8:38 AM [facility] Glucose 103(H) 70 - 99 mg/dL 03/15/2022 8:38 AM [facility] GFR Estimate >90 >60 mL/min/1.7 3m2 03/15/2022 8:38 AM [facility] Comment:Effective February 162020 eGFRcr in adults is calculated using the 2020 CKD-EPI creatinine equation which includes age and gender (Bridgett et al., NEJM, DOI: 10.1056/WQNRwz3868478) Blood STRUCTURE OF RIGHT UPPER LIMB / Unknown Venipuncture / Unknown 03/15/2022 7:49 AM CORPORATE STRATEGIST 03/15/2022 8:04 AM CORPORATE STRATEGIST Axel Calderón MD LAB - BLOOD ORDERABL ES LABORATORY [facility] Lab [address] Lab (1st floor, no room number) [place] [address], [facility] [phone] * (ABNORMAL) Lipid panel reflex to direct LDL (03/14/2022 7:51 AM CORPORATE STRATEGIST) Cholesterol 184 <200 mg/dL 03/14/2022 1:46 PM CORPORATE STRATEGIST [facility] Triglycerides 331(H) <150 mg/dL 03/14/2022 1:46 PM CORPORATE STRATEGIST [facility] Direct Measure HDL 28(L) >=40 mg/dL 03/14/2022 1:46 PM CORPORATE STRATEGIST [facility] LDL Cholesterol Calculated 90 <=100 mg/dL 03/14/2022 1:46 PM CORPORATE STRATEGIST [facility] Non HDL Cholesterol 156(H) <130 mg/dL 03/14/2022 1:46 PM CORPORATE STRATEGIST [facility] Blood STRUCTURE OF RIGHT UPPER LIMB / Unknown Venipuncture / Unknown 03/14/2022 7:51 AM CORPORATE STRATEGIST 03/14/2022 8:00 AM CORPORATE STRATEGIST Narrative [facility] - 03/14/2022 1:46 PM CORPORATE STRATEGIST Cholesterol Desirable: ??<200 mg/dL Triglycerides Normal: ??Less [...] - BLOOD ORDERABL ES [facility] [address] [facility], [address] [place] [address], [facility] [phone] * (ABNORMAL) Hemoglobin A1c (03/13/2022 2:49 PM CORPORATE STRATEGIST) Hemoglobin A1C 14.4(H) <5.7 % 03/13/2022 7:14 PM CORPORATE STRATEGIST LABORATORY Comment: Normal <5.7% Prediabetes 5.7-6.4% ?? Diabetes 6.5% or higher Note: Adopted from ADA consensus guidelines. Blood BLOOD SPECIMEN / Unknown Venipuncture / Unknown 03/13/2022 2:49 PM CORPORATE STRATEGIST 03/13/2022 3:06 PM CORPORATE STRATEGIST Parish Rios MD LAB - BLOOD ORDERABL ES LABORATORY [facility] [address] [facility] Lab (1st floor, no room number) [place] [address], [facility] [phone] from Last 3 Months or Most Recently Relevant to Health Maintenance Advance Directives For more information, please contact: [phone] * Full Code (Latest Code Status on File) Date Activated Date Inactivated Comments 03/13/2022 9:46 PM 03/17/2022 6:08 PM All basic and advanced life-sustaining interventions are performed as appropriate Question Answer Comments Code status determined by: Discussion with leobardo nt/ legal decision maker Care Teams Director Summer Sessions Relationship Specialty Start Date End Date Royce Weiner [address] [place] [address] PCP - General 05/26/20
--- OUTSIDE RECORDS SUMMARY | 2023-11-25 15:22 | XMS_ITS | Clinical Summary ---
Author Organization [facility] Address [address] [place] [address] Care Team Providers Care In Home Caregiver Name Role Phone Royce Weiner Primary Care Provider [phone] Allergies Active Allergy Reactions Criticality Noted Date [...] days. Use to read blood sugars per vehicle painter's instructions. 2 each 5 03/17/2022 Active aspirin [...] Comments Blood Pressure 166/95 03/17/2022 7:29 AM COMMUNITY OUTREACH MANAGER Pulse 88 03/17/2022 7:28 AM COMMUNITY OUTREACH MANAGER Temperature 36.8 ??C (98.3 ??F) 03/17/2022 7:28 AM CS T Respiratory Rate 20 03/17/2022 7:28 AM COMMUNITY OUTREACH MANAGER Oxygen Saturation 94% 03/17/2022 9:36 AM COMMUNITY OUTREACH MANAGER Inhaled Oxygen Concentration - - Weight 125.5 kg (276 lb 9.6 oz) 03/17/2022 5:12 AM COMMUNITY OUTREACH MANAGER Height 180.3 cm (5' 11) 03/14/2022 9:55 AM COMMUNITY OUTREACH MANAGER Body Mass Index 38.58 03/14/2022 9:55 AM COMMUNITY OUTREACH MANAGER Plan of Treatment Health Maintenance Due Date [...] PCV) 12/01/2016 12/02/2015, 11/25/2015 A1C 06/11/2022 03/13/2022 LIPID 03/14/2023 03/14/2022 BMP 03/15/2023 03/15/2022, 02/16, 03/14/2022, Additional history exists PHQ-2 (once per calendar year) 2023 COVID-19 Vaccine ( season) 2023 01/26/2022, 04/03/2021, 08/21/2020, Additional history exists INFLUENZA VACCINE (#1) 2023 , 02/08/2021, 02/03/2021, [...] BASIC METABOLIC PANEL Routine 03/15/2022 7:49 AM COMMUNITY OUTREACH MANAGER LIPID REFLEX TO DIRECT LDL PANEL Add-On 03/14/2022 7:51 AM COMMUNITY OUTREACH MANAGER HEMOGLOBIN A1C Add-On 03/13/2022 2:49 PM COMMUNITY OUTREACH MANAGER from Last 3 Months or Most Recently Relevant to Health Maintenance Results * (ABNORMAL) Basic metabolic panel (03/15/2022 7:49 AM COMMUNITY OUTREACH MANAGER) Sodium 137 136 - 145 mmol/L 03/15/2022 8:38 AM [facility] Potassium 4.6 3.4 - 5.3 mmol/L 03/15/2022 8:38 AM [facility] Comment:Specimen slightly he molyzed, potassium may be falsely elevated. Chloride 100 98 - 107 mmol/L 03/15/2022 8:38 AM [facility] Carbon Dioxide (CO2) 27 22 - 29 mmol/L 03/15/2022 8:38 AM [facility] Anion Gap 10 7 - 15 mmol/L 03/15/2022 8:38 AM [facility] Urea Nitrogen 14.0 6.0 - 20.0 mg/dL 03/15/2022 8:38 AM [facility] Creatinine 0.55(L) 0.67 - 1.17 mg/dL 03/15/2022 8:38 AM [facility] Calcium 9.5 8.6 - 10.0 mg/dL 03/15/2022 8:38 AM [facility] Glucose 103(H) 70 - 99 mg/dL 03/15/2022 8:38 AM [facility] GFR Estimate >90 >60 mL/min/1.7 3m2 03/15/2022 8:38 AM [facility] Comment:Effective February 162020 eGFRcr in adults is calculated using the 2020 CKD-EPI creatinine equation which includes age and gender (Bridgett et al., NEJM, DOI: 10.1056/KSHQqe6492351) Blood STRUCTURE OF RIGHT UPPER LIMB / Unknown Venipuncture / Unknown 03/15/2022 7:49 AM COMMUNITY OUTREACH MANAGER 03/15/2022 8:04 AM COMMUNITY OUTREACH MANAGER Axel Calderón MD LAB - BLOOD ORDERABL ES LABORATORY [facility] Acute Care Lab [address] Lab (1st floor, no room number) [place] [address], [facility] [phone] * (ABNORMAL) Lipid panel reflex to direct LDL (03/14/2022 7:51 AM COMMUNITY OUTREACH MANAGER) Cholesterol 184 <200 mg/dL 03/14/2022 1:46 PM COMMUNITY OUTREACH MANAGER [facility] Triglycerides 331(H) <150 mg/dL 03/14/2022 1:46 PM COMMUNITY OUTREACH MANAGER [facility] Direct Measure HDL 28(L) >=40 mg/dL 03/14/2022 1:46 PM COMMUNITY OUTREACH MANAGER [facility] LDL Cholesterol Calculated 90 <=100 mg/dL 03/14/2022 1:46 PM COMMUNITY OUTREACH MANAGER [facility] Non HDL Cholesterol 156(H) <130 mg/dL 03/14/2022 1:46 PM COMMUNITY OUTREACH MANAGER [facility] Blood STRUCTURE OF RIGHT UPPER LIMB / Unknown Venipuncture / Unknown 03/14/2022 7:51 AM COMMUNITY OUTREACH MANAGER 03/14/2022 8:00 AM COMMUNITY OUTREACH MANAGER Narrative [facility] - 03/14/2022 1:46 PM COMMUNITY OUTREACH MANAGER Cholesterol Desirable: ??<200 mg/dL Triglycerides Normal: ??Less [...] LAB - BLOOD ORDERABL ES [facility] [address] [facility] [address] [facility] [address], [address] [address], [facility] [phone] * (ABNORMAL) Hemoglobin A1c (03/13/2022 2:49 PM COMMUNITY OUTREACH MANAGER) Hemoglobin A1C 14.4(H) <5.7 % 03/13/2022 7:14 PM COMMUNITY OUTREACH MANAGER [facility] Comment: Normal <5.7% Prediabetes 5.7-6.4% ?? Diabetes 6.5% or higher Note: Adopted from ADA consensus guidelines. Blood BLOOD SPECIMEN / Unknown Venipuncture / Unknown 03/13/2022 2:49 PM COMMUNITY OUTREACH MANAGER 03/13/2022 3:06 PM COMMUNITY OUTREACH MANAGER Parish Rios MD LAB - BLOOD ORDERABL ES [facility] LABORATORY [facility] Acute Care Lab [address] [facility] Lab (1st floor, no room number) [place] [address], [facility] [phone] from Last 3 Months or Most Recently Relevant to Health Maintenance Advance Directives For more information, please contact: [phone] * Full Code (Latest Code Status on File) Date Activated Date Inactivated Comments 03/13/2022 9:46 PM 03/17/2022 6:08 PM All basic and advanced life-sustaining interventions are performed as appropriate Question Answer Comments Code status determined by: Discussion with patie nt/ legal decision maker Care Teams In Home Caregiver Relationship Specialty Start Date End Date Royce Weiner [address] [place] [address] [facility] - General 05/26/20
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
== END 2023-11-25 15:21 | disposition home or self-care (01) ==
LOC: WOUND 15:20
PROVIDERS: PCP Internal Medicine; Visit Provider Nurse Practitioner Family
DX: E11.621 Type 2 diabetes mellitus with foot ulcer (principal); L97.415 Non-pressure chronic ulcer of right heel and midfoot with muscle involvement without evidence of necrosis; L97.422 Non-pressure chronic ulcer of left heel and midfoot with fat layer exposed; E11.622 Type 2 diabetes mellitus with other skin ulcer; L97.822 Non-pressure chronic ulcer of other part of left lower leg with fat layer exposed; Z79.4 Long term (current) use of insulin
CPT/HCPCS: 11042; 11043; 87070; 87186; 97597

== ENCOUNTER 2023-12-02 15:32 | Outpatient (CLI) | payer OTHER, SELFPAY ==
--- OUTSIDE RECORDS SUMMARY | 2023-12-02 15:35 | XMS_ITS | Clinical Summary ---
Author Organization [facility] Address [address] [place] [id number] Care Team Providers Care Manufacturing Mechanic Name Role Phone Royce Weiner Primary Care Provider [phone] Allergies Active Allergy Reactions Criticality Noted Date [...] days. Use to read blood sugars per detective lieutenant's instructions. 2 each 5 03/17/2022 Active aspirin [...] Comments Blood Pressure 166/95 03/17/2022 7:29 AM DROP COUNT ASSOCIATE Pulse 88 03/17/2022 7:28 AM DROP COUNT ASSOCIATE Temperature 36.8 ??C (98.3 ??F) 03/17/2022 7:28 AM CS T Respiratory Rate 20 03/17/2022 7:28 AM DROP COUNT ASSOCIATE Oxygen Saturation 94% 03/17/2022 9:36 AM DROP COUNT ASSOCIATE Inhaled Oxygen Concentration - - Weight 125.5 kg (276 lb 9.6 oz) 03/17/2022 5:12 AM DROP COUNT ASSOCIATE Height 180.3 cm (5' 11) 03/14/2022 9:55 AM DROP COUNT ASSOCIATE Body Mass Index 38.58 03/14/2022 9:55 AM DROP COUNT ASSOCIATE Plan of Treatment Health Maintenance Due Date [...] BASIC METABOLIC PANEL Routine 03/15/2022 7:49 AM DROP COUNT ASSOCIATE LIPID REFLEX TO DIRECT LDL PANEL Add-On 03/14/2022 7:51 AM DROP COUNT ASSOCIATE HEMOGLOBIN A1C Add-On 03/13/2022 2:49 PM DROP COUNT ASSOCIATE from Last 3 Months or Most Recently Relevant to Health Maintenance Results * (ABNORMAL) Basic metabolic panel (03/15/2022 7:49 AM DROP COUNT ASSOCIATE) Sodium 137 136 - 145 mmol/L 03/15/2022 8:38 AM [facility] Potassium 4.6 3.4 - 5.3 mmol/L 03/15/2022 8:38 AM [facility] Comment:Specimen slightly he molyzed, potassium may be falsely elevated. Chloride 100 98 - 107 mmol/L 03/15/2022 8:38 AM [facility] Carbon Dioxide (CO2) 27 22 - 29 mmol/L 03/15/2022 8:38 AM [facility] Anion Gap 10 7 - 15 mmol/L 03/15/2022 8:38 AM [facility] Urea Nitrogen 14.0 6.0 - 20.0 mg/dL 03/15/2022 8:38 AM [facility] Creatinine 0.55(L) 0.67 - 1.17 mg/dL 03/15/2022 8:38 AM [facility] Calcium 9.5 8.6 - 10.0 mg/dL 03/15/2022 8:38 AM [facility] Glucose 103(H) 70 - 99 mg/dL 03/15/2022 8:38 AM [facility] GFR Estimate >90 >60 mL/min/1.7 3m2 03/15/2022 8:38 AM [facility] Comment:Effective February 162020 eGFRcr in adults is calculated using the 2020 CKD-EPI creatinine equation which includes age and gender (Bridgett et al., NEJM, DOI: 10.1056/SUUGvw3374796) Blood STRUCTURE OF RIGHT UPPER LIMB / Unknown Venipuncture / Unknown 03/15/2022 7:49 AM DROP COUNT ASSOCIATE 03/15/2022 8:04 AM DROP COUNT ASSOCIATE Axel Calderón MD LAB - BLOOD ORDERABL ES LABORATORY [facility] [address] (1st floor, no room number) [place] [address], [facility] [phone] * (ABNORMAL) Lipid panel reflex to direct LDL (03/14/2022 7:51 AM DROP COUNT ASSOCIATE) Cholesterol 184 <200 mg/dL 03/14/2022 1:46 PM DROP COUNT ASSOCIATE [facility] Triglycerides 331(H) <150 mg/dL 03/14/2022 1:46 PM DROP COUNT ASSOCIATE [facility] Direct Measure HDL 28(L) >=40 mg/dL 03/14/2022 1:46 PM DROP COUNT ASSOCIATE [facility] LDL Cholesterol Calculated 90 <=100 mg/dL 03/14/2022 1:46 PM DROP COUNT ASSOCIATE [facility] Non HDL Cholesterol 156(H) <130 mg/dL 03/14/2022 1:46 PM DROP COUNT ASSOCIATE [facility] Blood STRUCTURE OF RIGHT UPPER LIMB / Unknown Venipuncture / Unknown 03/14/2022 7:51 AM DROP COUNT ASSOCIATE 03/14/2022 8:00 AM DROP COUNT ASSOCIATE Narrative [facility] - 03/14/2022 1:46 PM DROP COUNT ASSOCIATE Cholesterol Desirable: ??<200 mg/dL Triglycerides Normal: ??Less [...] LAB - BLOOD ORDERABL ES [facility] [address] [facility] [address] [facility], Room [address] [address], [facility] [phone] * (ABNORMAL) Hemoglobin A1c (03/13/2022 2:49 PM DROP COUNT ASSOCIATE) Hemoglobin A1C 14.4(H) <5.7 % 03/13/2022 7:14 PM DROP COUNT ASSOCIATE [facility] Comment: Normal <5.7% Prediabetes 5.7-6.4% ?? Diabetes 6.5% or higher Note: Adopted from ADA consensus guidelines. Blood BLOOD SPECIMEN / Unknown Venipuncture / Unknown 03/13/2022 2:49 PM DROP COUNT ASSOCIATE 03/13/2022 3:06 PM DROP COUNT ASSOCIATE Parish Rios MD LAB - BLOOD ORDERABL ES [facility] [address] [facility] Lab (1st floor, no room number) [place] [address], [facility] [phone] from Last 3 Months or Most Recently Relevant to Health Maintenance Advance Directives For more information, please contact: [phone] * Full Code (Latest Code Status on File) Date Activated Date Inactivated Comments 03/13/2022 9:46 PM 03/17/2022 6:08 PM All basic and advanced life-sustaining interventions are performed as appropriate Question Answer Comments Code status determined by: Discussion with patie nt/ legal decision maker Care Teams Manufacturing Mechanic Relationship Specialty Start Date End Date Royce Weiner [address] [place] [address] [facility] - General 05/26/20
--- OUTSIDE RECORDS SUMMARY | 2023-12-02 15:35 | XMS_ITS | Clinical Summary ---
Author Organization [facility] Address [place], [place] [address] Care Team Providers Care Policy Writer Typist Name Role Phone Karthik Sanz MD Primary Care Provider [phone] Allergies Active Allergy Reactions Criticality Noted Date [...] Department Care Team Description 10/29/2023 Orders Only [facility] Scanner 1 scan: (1-Ord) [facility] ART[facility] DUPLEX LE BI, 10/29/2023 09/06/2023 9:00 AM CDT - 09/06/2023 11:59 PM CDT Hospital Encounter [facility] [address] [place] [address] Sofie Ziegler NP Severe episode of recurrent major depressive disorder, without psychotic features (HC); AFUA (generalized anxiety disorder) 09/06/2023 8:38 AM CDT - 09/11/2023 5:20 PM CDT Hospital Encounter [facility] [address] [place] [address] Hodan Alvares NP Traumatic brain injury with loss of consciousness, subsequent encounter (Primary Dx); AFUA (generalized anxiety disorder); Mood disorder (HC); HYPERLIPIDEMIA - MIXED; Diabetic polyneuropathy associated with type 2 diabetes mellitus (HC); Frequent falls; Gait instability Discharge Disposition: Home Self Care 09/05/2023 11:04 AM CDT - 09/06/2023 7:25 AM CDT Emergency [facility] [address] [place] [address] Leanne Haile NP Bowler, Nathaniel Smith, MD Auditory hallucinations (Primary Dx); Agitation; Homicidal ideations; Suicidal ideation; Type 2 diabetes mellitus with other specified complication, with long-term current use of insulin (HC); Contusion of hand, unspecified laterality, initial encounter Discharge Disposition: Psych Hosp/Unit w Planned Readmission 09/05/2023 8:59 AM CDT - 09/05/2023 11:03 AM CDT Hospital Encounter [facility] [address] [place] [address] Sofie Ziegler NP Severe episode of recurrent major depressive disorder, without psychotic features (HC); AFUA (generalized anxiety disorder) 09/05/2023 Travel 09/04/2023 8:46 AM CDT - 09/04/2023 11:59 PM CDT Hospital Encounter [facility] [address] [place] [address] Sofie Ziegler, HOLLY Severe episode of recurrent major depressive disorder, without psychotic features (HC); AFUA (generalized anxiety disorder) 09/04/2023 Travel 09/03/2023 8:38 AM CDT - 09/03/2023 11:59 PM CDT Hospital Encounter [facility] [address] [place] [address] Sofie Ziegler, HOLLY Severe episode of recurrent major depressive disorder, without psychotic features (HC); AFUA (generalized anxiety disorder) 09/02/2023 9:00 AM CDT - 09/02/2023 11:59 PM CDT Hospital Encounter [facility] [address] [place] [address] Parminder Stokes, TRADITIONAL [facility] [employer] AFUA (generalized anxiety disorder) (Primary Dx); Severe episode of recurrent major depressive disorder, without psychotic features (HC); PTSD (post-traumatic stress disorder) 09/02/2023 Travel 09/02/2023 Telephone [facility] [address] [facility] [place] [address] Zamzam Kaminski RN [facility] from Last 3 Months Immunizations Name Administration Dates Next Due AMB Influenza, IIV4 PF (=>6 mos Flulaval,Fluzone Fluarix)(Flu Clinic Only) 12/12/2018 COVID-19 vaccine ([email or web address] 30mcg/0.3mL) 12YO+ BIVALENT PF, MDV 01/26/2022 Hepatitis B (Adult) 01/29/2018,11/30/2016,2015 Influenza Virus, Unspecified 03/27/2014 Influenza, IIV3 (Age >=3 years) 01/07/20 12,12/07/2008,01/28/2007,2004 Influenza, IIV4 01/26/2022, 1,01/29/2018,2015,02/01/2015 Influenza, IIV4 (=>6mos) MDV 11/30/2016 Pneumococcal Poly,23-Valent [...] - 100 mg/dL 09/11/2023 5:01 PM CDT [facility] Blood BLOOD SPECIMEN / Unknown 09/11/2023 4:55 PM CDT 09/11/2023 5:01 PM CDT Hodan Alvares NP [facility]MISTRY [facility] [address] [place] [address], * (ABNORMAL) VALPROIC ACID TOTAL (09/11/2023 7:24 AM CDT) Only the most recent of2 resultswithin the time period is included. VALPROIC ACID,TOTAL 16.8(L) 50.0 - 100.0 ug/mL 09/11/2023 8:20 AM CDT [facility] DATE OF LAST DOSE Not Given 09/11/2023 8:20 AM CDT [facility] TIME OF LAST DOSE Not Given 09/11/2023 8:20 AM CDT [facility] Blood BLOOD SPECIMEN / Unknown Butterfly / Unknown 09/11/2023 7:24 AM CDT 09/11/2023 7:45 AM CDT Hodan Alvares PEER TUTOR CHEMISTRY Performing Organization Address [facility] Co de Phone Number [facility] [address] [place] [address], * SCAN CORRESP-DIAGNOSTICS (09/09/2023 11:49 AM CDT) [...] NOW QTc 455 ms BEYOND NOW P [place] 17 degrees BEYOND NOW R [place] -56 degrees BEYOND NOW T [place] 70 degrees BEYOND NOW 09/08/2023 10:1 1 AM CDT 09/08/2023 6:35 PM CDT Chandan Ward non MBBS EKG ORD Performing Organization Address [facility] Co de Phone Number BEYOND NOW [place], [place] * Sodium AM (09/08/2023 7:57 AM CDT) SODIUM 139 136 - 145 mmol/L 09/08/2023 9:13 AM CDT [facility] Blood BLOOD SPECIMEN / Unknown Venipuncture / Unknown 09/08/2023 7:57 AM CDT 09/08/2023 8:08 AM CDT Chandan Lamar Ma non MBBS CHEMISTRY Performing Organization Address City/[facility]/ZIP Co de Phone Number [facility] [address] [place] [address], [place] * Potassium AM (09/08/2023 7:57 AM CDT) POTASSIUM 4.9 3.5 - 5.1 mmol/L 09/08/2023 9:13 AM CDT [facility] Blood BLOOD SPECIMEN / Unknown Venipuncture / Unknown 09/08/2023 7:57 AM CDT 09/08/2023 8:08 AM CDT Chandan Lamar [facility] CHEMISTRY Performing Organization Address [facility] Co de Phone Number [facility] [address] [place] [address], [place] * Creatinine AM (09/08/2023 7:57 AM CDT) eGFR >90 >90 mL/min/1.7 3m2 09/08/2023 9:13 AM CDT [facility] Comment:As of 2021, eG FR is calculated by the CKD-EPI creatinine equation without race adjustment. ??eGFR can be influenced by muscle mass, exercise, and diet. ??The reported eGFR is an estimation only and is only applicable if the renal function is stable. CREATININE 0.86 0.70 - 1.20 mg/dL 09/08/2023 9:13 AM CDT [facility] Blood BLOOD SPECIMEN / Unknown Venipuncture / Unknown 09/08/2023 7:57 AM CDT 09/08/2023 8:08 AM CDT Chandan Lamar Ma non MBBS CHEMISTRY Performing Organization Address City/[facility] Co de Phone Number [facility] [address] [place] [address], [place] * CT SPINE THORACIC WO (09/07/2023 11:54 [...] @ 09/07/2023 12:35:52 PM (Electronically Signed) Chandan Monteztanviphylicia Zalupe Ma non MBBS CT * CT SPINE LUMBAR [...] 09/07/2023 12:29:17 PM (Electronically Signed) Chandan Lamar Ma non MBBS CT * CT soft tissue [...] For Patients: As a result of the Century Cures Act, medical imagingexams and procedure reports [...] 09/07/2023 12:20:57 PM (Electronically Signed) Chandan Lamar Ma non MBBS CT * CT Cervical spine [...] 09/07/2023 12:14:45 PM (Electronically Signed) Chandan Lamar Ma non MBBS CT * CT head without [...] 09/07/2023 12:01:38 PM (Electronically Signed) Chandan Lamar Ma non MBBS CT * (ABNORMAL) HEMOGLOBIN A1C SCREENING (09/07/2023 7:01 AM CDT) HEMOGLOBIN A1C SCREENING 14.8(H) <=6.4 % 09/07/2023 8:40 AM CDT [facility] Blood BLOOD SPECIMEN / Unknown Venipuncture / Unknown 09/07/2023 7:01 AM CDT 09/07/2023 7:13 AM CDT Narrative [facility] - 09/07/2023 8:40 AM CDT ? (<5.7%) ?Normal ? (5.7% to 6.4%) ? Indicates prediabetes ? (>=6.5%) ? Confirms diabetes Falsely low levels may be seen with: Recent Transfusion, Recent Significant Blood Loss, Hemolytic Diseases, or Falsely elevated levels may be seen with: Untreated Anemias, Splenectomy Melita Lopez MD CHEMISTRY [facility] [address] [place] [address], * (ABNORMAL) LIPID PANEL (09/07/2023 7:01 AM CDT) Pathologist [facility] CHOLESTEROL,TOTAL 225(H) 100 - 199 mg/dL 09/07/2023 7:39 AM T [facility] Comment: Cholesterol, Total Reference Ranges Desirable <200 mg/dL Borderline 200-239 mg/dL High >=240 mg/dL TRIGLYCERIDES 212(H) <150 mg/dL 09/07/2023 7:39 AM T [facility] HDL CHOLESTEROL 37(L) >40 mg/dL 7:39 AM [facility] NON-HDL CHOLESTEROL 188(H) <145 mg/dl 09/07/2023 7:39 AM T [facility] CHOL/HDL RATIO 6.08(H) <4.50 09/07/2023 7:39 AM T [facility] LDL CHOLESTEROL 146(H) <=130 mg/dL 09/07/2023 7:39 AM T [facility] VLDL CHOLESTEROL 42(H) <=30 mg/dL 09/07/2023 7:39 AM [facility] PROVIDER ORDERED STATUS RANDOM 09/07/2023 7:39 AM [facility] Blood BLOOD SPECIMEN / Unknown Venipuncture / Unknown 09/07/2023 7:01 AM CDT 09/07/2023 7:13 AM CDT Melita Lopez MD CHEMISTRY [facility] [address] [place] [address], * DRUG ABUSE SCREEN RAPID URINE (09/05/2023 4:45 PM CDT) THC METABOLITES,KATIE L Not Detected Not Detected 09/05/2023 6:53 PM CDT [facility] PCP,QUAL Not Detected Not Detected 09/05/2023 6:53 PM CDT [facility] COCAINE,QUAL Not Detected Not Detected 09/05/2023 6:53 PM T [facility] METHAMPHETAMINE , QUALITATIVE Not Detected Not Detected 09/05/2023 6:53 PM T [facility] OPIATES,QUAL Not Detected Not Detected 09/05/2023 6:53 PM T [facility] AMPHETAMINE, QUALITATIVE Not Detected Not Detected 09/05/2023 6:53 PM T [facility] BENZODIAZEPINES ,QUAL Not Detected Not Detected 09/05/2023 6:53 PM T [facility] TRICYCLICS,QUAL Not Detected Not Detected 09/05/2023 6:53 PM T [facility] METHADONE, QUALITATIVE Not Detected Not Detected 09/05/2023 6:53 PM T [facility] BARBITURATES,QU AL Not Detected Not Detected 09/05/2023 6:53 PM T [facility] OXYCODONE, QUALITATIVE Not Detected Not Detected 09/05/2023 6:53 PM T [facility] BUPRENORPHINE, QUALITATIVE Not Detected Not Detected 09/05/2023 6:53 PM T [facility] Urine URINE SPECIMEN / Unknown Non-Blood / Unknown 09/05/2023 4:45 PM CDT 09/05/2023 6:16 PM CDT Narrative [facility] - 09/05/2023 6:53 PM CDT [...] clinically indicated, order PCP confirmation. Leanne Haile PEER TUTOR URINE Performing Organization Address [facility] de Phone Number [facility] [address] [place] [phone] * URINALYSIS MICROSCOPIC (09/05/2023 4:45 PM CDT) RBC None Seen 0-2, None Seen /HPF 09/05/2023 6:29 PM CDT [facility] WBC 0-2 0-2, 3-5, None Seen /HPF 09/05/2023 6:29 PM CDT [facility] BACTERIA Rare None Seen, Rare, Few Bacteria/ HPF 09/05/2023 6:29 PM CDT [facility] EPITHELIAL CELLS Few None Seen, Few Epi/HPF 09/05/2023 6:29 PM CDT [facility] Urine URINE SPECIMEN / Unknown Non-Blood / Unknown 09/05/2023 4:45 PM CDT 09/05/2023 6:16 PM CDT Leanne Haile PEER TUTOR URINE Performing Organization Address [facility] Co de Phone Number [facility] [address] [place] [address] * (ABNORMAL) UA W/ SEDIMENT EXAM REFLEXED PER CRITERIA (09/05/2023 4:45 PM CDT) COLOR Yellow Yellow Color 09/05/2023 6:29 PM CDT [facility] CLARITY Clear Clear Clarity 09/05/2023 6:29 PM CDT [facility] SPECIFIC GRAVITY,URINE 1.010 1.010, 1.015, 1.020, 1.025 09/05/2023 6:29 PM CDT [facility] PH,URINE 6.0 6.0, 7.0, 8.0, 5.5, 6.5, 7.5, 8.5 09/05/2023 6:29 PM T [facility] UROBILINOGEN, QUALITATIVE Normal Normal EU/dl 09/05/2023 6:29 PM CDT [facility] PROTEIN, URINE Negative Negative mg/dL 09/05/2023 6:29 PM T [facility] GLUCOSE, URINE >=1000(A) Negative mg/dL 09/05/2023 6:29 PM T [facility] KETONES,URINE Negative Negative mg/dL 09/05/2023 6:29 PM T [facility] BILIRUBIN,URI NE Negative Negative 09/05/2023 6:29 PM CDT [facility] OCCULT BLOOD,URINE Negative Negative 09/05/2023 6:29 PM T [facility] NITRITE Negative Negative 09/05/2023 6:29 PM CDT [facility] LEUKOCYTE ESTERASE Negative Negative 09/05/2023 6:29 PM CDT [facility] Urine URINE SPECIMEN / Unknown Non-Blood / Unknown 09/05/2023 4:45 PM CDT 09/05/2023 6:16 PM CDT Leanne Haile PEER TUTOR URINE [facility] [address] [place] [address] * XR HAND 2 VIEWS LEFT PORTABLE [...] @ 09/05/2023 1:53:03 PM (Electronically Signed) Leanne Haile PEER TUTOR GENERAL JB GING * (ABNORMAL) CBC WITH AUTO DIFFERENTIAL (09/05/2023 12:35 PM CDT) WHITE BLOOD COUNT 9.3 4.5 - 11.0 thou/cu mm 09/05/2023 12:45 PM CDT [facility] RED BLOOD COUNT 5.80 4.30 - 5.90 mil/cu mm 09/05/2023 12:45 PM [facility] HEMOGLOBIN 15.7 13.5 - 17.5 g/dL 09/05/2023 12:45 PM [facility] HEMATOCRIT 46.8 37.0 - 53.0 % 09/05/2023 12:45 PM [facility] MCV 81 80 - 100 fL 09/05/2023 12:45 PM [facility] MCH 27.1 26.0 - 34.0 pg 09/05/2023 12:45 PM [facility] MCHC 33.5 32.0 - 36.0 g/dL 09/05/2023 12:45 PM [facility] RDW 12.7 11.5 - 15.5 % 09/05/2023 12:45 PM [facility] PLATELET COUNT 248 140 - 440 thou/cu mm 09/05/2023 12:45 PM [facility] MPV 11.5(H) 6.5 - 11.0 fL 09/05/2023 12:45 PM [facility] % NEUT 62.3 % 09/05/2023 12:45 PM [facility] % LYMPH 28.2 % 09/05/2023 12:45 PM [facility] % MONO 7.9 % 09/05/2023 12:45 PM [facility] % EOS 1.3 % 09/05/2023 12:45 PM [facility] % BASO 0.3 % 09/05/2023 12:45 PM [facility] ABSOLUTE NEUTROPHILS 5.8 1.7 - 7.0 thou/cu mm 09/05/2023 12:45 PM [facility] ABSOLUTE LYMPHOCYTES 2.6 0.9 - 2.9 thou/cu mm 09/05/2023 12:45 PM [facility] ABSOLUTE MONOCYTES 0.7 <0.9 thou/cu mm 09/05/2023 12:45 PM [facility] ABSOLUTE EOSINOPHILS 0.1 <0.5 thou/cu mm 09/05/2023 12:45 PM CDT [facility] ABSOLUTE BASOPHILS 0.0 <0.3 thou/cu mm 09/05/2023 12:45 PM CDT [facility] Blood BLOOD SPECIMEN / Unknown Venipuncture / Unknown 09/05/2023 12:35 PM CDT 09/05/2023 12:40 PM CDT Leanne Haile NP HEMATOLOGY Performing Organization Address [facility] Co de Phone Number [facility] [address] [place] [address] * TSH (09/05/2023 12:35 PM CDT) TSH 0.93 0.27 - 4.20 uIU/mL 09/05/2023 1:08 PM CDT [facility] Blood BLOOD SPECIMEN / Unknown Venipuncture / Unknown 09/05/2023 12:35 PM CDT 09/05/2023 12:40 PM CDT Narrative [facility] - 09/05/2023 1:08 PM CDT In Adults, TSH values between 5.00 and 10.00 uIU/ml do not necessarily indicate the presence of Hypothyroidism. Correlation with clinical findings such as presence of goiter and/or Thyroperoxidase (TPO) Antibody may be helpful. For more information please refer to BAMBI 2004; 291: 228-238. Leanne Haile NP CHEMISTRY Performing Organization Address City/[facility] Co de Phone Number [facility] [address] [place] [address] * ETHANOL SERUM OR PLASMA (09/05/2023 12:35 PM CDT) ETHANOL <0.010 <0.010 g/dL 09/05/2023 1:08 PM CDT [facility] Blood BLOOD SPECIMEN / Unknown Venipuncture / Unknown 09/05/2023 12:35 PM CDT 09/05/2023 12:40 PM CDT Leanne Haile PEER TUTOR CHEMISTRY Performing Organization Address [facility]/ZIP Co de Phone Number [facility] [address] [place] [address] * (ABNORMAL) ACETAMINOPHEN (09/05/2023 12:35 PM CDT) ACETAMINOPHEN <5.0(L) 10.0 - 30.0 ug/mL 09/05/2023 1:14 PM CDT [facility] Blood BLOOD SPECIMEN / Unknown Venipuncture / Unknown 09/05/2023 12:35 PM CDT 09/05/2023 12:40 PM CDT Leanne Haile PEER TUTOR CHEMISTRY Performing Organization Address [facility] Co de Phone Number [facility] [address] [place] [address] * (ABNORMAL) SALICYLATE (09/05/2023 12:35 PM CDT) SALICYLATE <0.5(L) 15.0 - 30.0 mg/dL 09/05/2023 1:14 PM CDT [facility] Blood BLOOD SPECIMEN / Unknown Venipuncture / Unknown 09/05/2023 12:35 PM CDT 09/05/2023 12:40 PM CDT Leanne Haile PEER TUTOR CHEMISTRY Performing Organization Address [facility] Co de Phone Number [facility] [address] [place] [address] * HEPATIC FUNCTION PANEL (09/05/2023 12:35 PM CDT) ALBUMIN 4.1 4.0 - 4.9 g/dL 09/06/2023 2:39 PM CDT [facility] PROTEIN,TOTAL 7.0 6.0 - 8.0 g/dL 09/06/2023 2:39 PM CDT [facility] BILIRUBIN,TOTAL 0.7 0.0 - 1.2 mg/dL 09/06/2023 2:39 PM T [facility] BILIRUBIN,DIRECT <0.2 0.0 - 0.3 mg/dL 09/06/2023 2:39 PM T [facility] BILIRUBIN,INDIRE CT 09/06/2023 2:39 PM T [facility] Comment:Unable to calculate, Direct Bili <0.2 ALK PHOSPHATASE 111 40 - 129 IU/L 09/06/2023 2:39 PM T [facility] ALT (SGPT) 15 10 - 50 IU/L 09/06/2023 2:39 PM [facility] AST (SGOT) 17 10 - 50 IU/L 09/06/2023 2:39 PM [facility] Blood BLOOD SPECIMEN / Unknown Venipuncture / Unknown 09/05/2023 12:35 PM CDT 09/05/2023 12:40 PM CDT Melita Lopez MD CHEMISTRY [facility] [address] [place] [address] * (ABNORMAL) BASIC METABOLIC PANEL (09/05/2023 12:35 PM CDT) SODIUM 133(L) 136 - 145 mmol/L 09/05/2023 1:08 PM [facility] POTASSIUM 4.5 3.5 - 5.1 mmol/L 09/05/2023 1:08 PM [facility] CHLORIDE 94(L) 98 - 107 mmol/L 09/05/2023 1:08 PM [facility] CO2,TOTAL 26 22 - 29 mmol/L 09/05/2023 1:08 PM [facility] ANION GAP 13 5 - 18 09/05/2023 1:08 PM [facility] GLUCOSE 399(H) 70 - 99 mg/dL 09/05/2023 1:08 PM [facility] CALCIUM 9.7 8.6 - 10.0 mg/dL 09/05/2023 1:08 PM CDT [facility] BUN 24(H) 6 - 20 mg/dL 09/05/2023 1:08 PM CDT [facility] CREATININE 0.95 0.70 - 1.20 mg/dL 09/05/2023 1:08 PM CDT [facility] BUN/CREAT RATIO 25(H) 10 - 20 1:08 PM CDT [facility] eGFR >90 >90 mL/min/1.7 3m2 09/05/2023 1:08 PM CDT [facility] Comment:As of 2021, eG FR [...] 12:40 PM CDT Leanne Haile NP CHEMISTRY [facility] [address] [place] [address] * XR HAND 2 VIEWS RIGHT PORTABLE [...] GENERAL JB GING from Last 3 Months Advance Directives * Full Code (Latest Code Status on File) Date Activated Date Inactivated Comments 09/06/2023 9:15 AM 09/11/2023 7:27 PM Question Answer Comments Code Status Discussion: Unable to Assess Preferences, Provider to review later * Full Code Date Activated Date Inactivated Comments 05/20/2019 5:20 PM 05/21/2019 8:24 PM Care Teams Policy Writer Typist Relationship Specialty Start Date End Date Karthik Sanz MD [address] [place] [address] PCP - General Internal Medicine 06/24/20
--- OUTSIDE RECORDS SUMMARY | 2023-12-02 15:35 | XMS_ITS | Continuity of Care Document ---
Author Organization [facility] Address [address] [place] [address] Phone Care Team Providers Care Epitaxial Reactor Technician Name Role Phone Elizabeth Peterson CNP [...] Offic/outpt E&m Estab Low-mod [facility], [address], [place], [place], [id number], tel:[phone] [facility] No Information 9 Kristen Johnson. [address], [address], [place], [place], [id number], [place]. tel:[phone] Referring Provider: Reggie Geiger MD J, [address] [facility], [place], [address]. tel:[phone] Offic/outpt E&m Estab Low-mod [facility], [address], [place], [place], [id number], [place] tel:[phone] [facility] No Information [address] Budnick Elizabeth. [address] , [address], [place], [place], [id number], [place]. tel:[phone] Referring Provider: Reggie Rock, [address] [place], [address]. tel:[phone] Offic/outpt E&m Estab Mod-hi 2 Amrik, [facility], [address], [place], [place], [id number], [place] tel:[phone] [facility] No Information 9 Budnick Elizabeth. [address] , [address], [place], [place], [id number], [place]. tel:[phone] Referring Provider: Reggie Rock, [address] [place], [address]. tel:[phone] Offic/outpt E&m Estab Low-mod Amrik, [facility], [address] [facility] [address], [place], [id number], [place] tel:[phone] [facility] No Information 9 Juanjo Paredes. [address], [place], [address], [place]. tel:[phone] Referring Provider: REFERRAL SELF, [place]RA[place]. Offic/outpt E&m Estab Low-mod Amrik, [facility], [address] [facility] [address], [place], [place], [id number], [place] tel:[phone] [facility] No Information 9 Juanjo Paredes. [address], [place], [address], [place]. tel:[phone] Referring Provider: REFERRAL SELF, ISRA[place]. [facility], [address] [facility] [address], [place], [id number], [place] tel:[phone] [facility] No Information 9 Juanjo LOZA Reggie. [address], [place], [place], [facility], [place]. [phone] Referring Provider: REFERRAL SELF, ISRAEL. Offic/outpt E&m Estab Mod-hi 2 [facility], [facility], [address] [facility] [address], [place], [place], [id number], tel:[phone] [facility] No Information 9 Juanjo LOZA Reggie. [address], [place], [place], [facility], [place]. tel:[phone] Referring Provider: REFERRAL SELFISRAEL. Offic Cons New/estab Mod-hi 60 Amrik, [facility], [address] [facility] [address], [place], [place], [id number], tel:[phone] [facility] No Information 9 [facility]. [address] [place], [place], [facility], . Family History Family Member Type Diagnosis Age At Onset No Information Payers Payer name Insurance type Covered republican ID Authoriza tion(s) No Information Social History [...]
--- OUTSIDE RECORDS SUMMARY | 2023-12-02 15:35 | XMS_ITS | Referral Summary ---
Author Organization [place] Address [address] [place] [address] Care Team Providers Care Production Technician Name Role Phone Royce Weiner Primary Care Provider [phone] Allergies Active Allergy Reactions Criticality Noted Date [...] days. Use to read blood sugars per mail handler's instructions. 2 each 5 03/17/2022 Active aspirin [...] Comments Blood Pressure 166/95 03/17/2022 7:29 AM GLASS CALIBRATOR Pulse 88 03/17/2022 7:28 AM GLASS CALIBRATOR Temperature 36.8 ??C (98.3 ??F) 03/17/2022 7:28 AM CS T Respiratory Rate 20 03/17/2022 7:28 AM GLASS CALIBRATOR Oxygen Saturation 94% 03/17/2022 9:36 AM GLASS CALIBRATOR Inhaled Oxygen Concentration - - Weight 125.5 kg (276 lb 9.6 oz) 03/17/2022 5:12 AM GLASS CALIBRATOR Height 180.3 cm (5' 11) 03/14/2022 9:55 AM GLASS CALIBRATOR Body Mass Index 38.58 03/14/2022 9:55 AM GLASS CALIBRATOR Plan of Treatment Not on file Procedures Procedure Name Priority Date/Time Associated Diagnosis Comments BASIC METABOLIC PANEL Routine 03/15/2022 7:49 AM GLASS CALIBRATOR LIPID REFLEX TO DIRECT LDL PANEL Add-On 03/14/2022 7:51 AM GLASS CALIBRATOR HEMOGLOBIN A1C Add-On 03/13/2022 2:49 PM GLASS CALIBRATOR from Last 3 Months or Most Recently Relevant to Health Maintenance Results * (ABNORMAL) Basic metabolic panel (03/15/2022 7:49 AM GLASS CALIBRATOR) Sodium 137 136 - 145 mmol/L 03/15/2022 8:38 AM [facility] Potassium 4.6 3.4 - 5.3 mmol/L 03/15/2022 8:38 AM [facility] Comment:Specimen slightly he molyzed, potassium may be falsely elevated. Chloride 100 98 - 107 mmol/L 03/15/2022 8:38 AM [facility] Carbon Dioxide (CO2) 27 22 - 29 mmol/L 03/15/2022 8:38 AM [facility] Anion Gap 10 7 - 15 mmol/L 03/15/2022 8:38 AM [facility] Urea Nitrogen 14.0 6.0 - 20.0 mg/dL 03/15/2022 8:38 AM [facility] Creatinine 0.55(L) 0.67 - 1.17 mg/dL 03/15/2022 8:38 AM [facility] Calcium 9.5 8.6 - 10.0 mg/dL 03/15/2022 8:38 AM [facility] Glucose 103(H) 70 - 99 mg/dL 03/15/2022 8:38 AM [facility] GFR Estimate >90 >60 mL/min/1.7 3m2 03/15/2022 8:38 AM [facility] Comment:Effective February 162020 eGFRcr in adults is calculated using the 2020 CKD-EPI creatinine equation which includes age and gender (Bridgett et al., NEJM, DOI: 10.1056/IGKHul4197966) Blood STRUCTURE OF RIGHT UPPER LIMB / Unknown Venipuncture / Unknown 03/15/2022 7:49 AM GLASS CALIBRATOR 03/15/2022 8:04 AM GLASS CALIBRATOR Axel Calderón MD LAB - BLOOD ORDERABL ES LABORATORY [facility] Acute Care Lab [address] Lab (1st floor, no room number) [place] [address], [facility] [phone] * (ABNORMAL) Lipid panel reflex to direct LDL (03/14/2022 7:51 AM GLASS CALIBRATOR) Cholesterol 184 <200 mg/dL 03/14/2022 1:46 PM GLASS CALIBRATOR [facility] Triglycerides 331(H) <150 mg/dL 03/14/2022 1:46 PM GLASS CALIBRATOR [facility] Direct Measure HDL 28(L) >=40 mg/dL 03/14/2022 1:46 PM GLASS CALIBRATOR [facility] LDL Cholesterol Calculated 90 <=100 mg/dL 03/14/2022 1:46 PM GLASS CALIBRATOR [facility] Non HDL Cholesterol 156(H) <130 mg/dL 03/14/2022 1:46 PM GLASS CALIBRATOR [facility] Blood STRUCTURE OF RIGHT UPPER LIMB / Unknown Venipuncture / Unknown 03/14/2022 7:51 AM GLASS CALIBRATOR 03/14/2022 8:00 AM GLASS CALIBRATOR Narrative [facility] - 03/14/2022 1:46 PM GLASS CALIBRATOR Cholesterol Desirable: ??<200 mg/dL Triglycerides Normal: ??Less [...] - BLOOD ORDERABL ES [facility] [address] [facility] [address] [facility], [address] [place] [address], [facility] [phone] * (ABNORMAL) Hemoglobin A1c (03/13/2022 2:49 PM GLASS CALIBRATOR) Hemoglobin A1C 14.4(H) <5.7 % 03/13/2022 7:14 PM [facility] Comment: Normal <5.7% Prediabetes 5.7-6.4% ?? Diabetes 6.5% or higher Note: Adopted from ADA consensus guidelines. Blood BLOOD SPECIMEN / Unknown Venipuncture / Unknown 03/13/2022 2:49 PM GLASS CALIBRATOR 03/13/2022 3:06 PM GLASS CALIBRATOR Parish Rios MD LAB - BLOOD ORDERABL ES LABORATORY [facility] Acute [facility] Lab [address] [facility] Lab (1st floor, no room number) [place] [address], [facility] [phone] from Last 3 Months or Most Recently Relevant to Health Maintenance Advance Directives For more information, please contact: [phone] * Full Code (Latest Code Status on File) Date Activated Date Inactivated Comments 03/13/2022 9:46 PM 03/17/2022 6:08 PM All basic and advanced life-sustaining interventions are performed as appropriate Question Answer Comments Code status determined by: Discussion with leobardo nt/ legal decision maker Care Teams Production Technician Relationship Specialty Start Date End Date Royce Weiner [address] [facility] [address] PCP - General 05/26/20
== END 2023-12-02 15:33 | disposition home or self-care (01) ==
LOC: WOUND 15:32
PROVIDERS: PCP Internal Medicine; Visit Provider Nurse Practitioner Family
DX: E11.621 Type 2 diabetes mellitus with foot ulcer (principal); L97.418 Non-pressure chronic ulcer of right heel and midfoot with other specified severity; L97.428 Non-pressure chronic ulcer of left heel and midfoot with other specified severity; E11.622 Type 2 diabetes mellitus with other skin ulcer; L97.828 Non-pressure chronic ulcer of other part of left lower leg with other specified severity; Z79.4 Long term (current) use of insulin
CPT/HCPCS: 11042; 97597

== ENCOUNTER 2023-12-09 15:11 | Outpatient (CLI) | payer OTHER, SELFPAY ==
--- OUTSIDE RECORDS SUMMARY | 2023-12-09 15:13 | XMS_ITS | Clinical Summary ---
Author Organization [place] Address [address] [place] [address] Care Team Providers Care Bioinformatics Analyst Name Role Phone Royce Weiner Primary Care Provider [phone] Allergies Active Allergy Reactions Criticality Noted Date [...] polyneuropathy, with long-term current use of insulin 1 each every 14 days Use 1 sensor every 14 days. Use to read blood sugars per reliability specialist's instructions. 2 each 5 03/17/2022 Active aspirin (ASA) 325 MG EC tabletIndications:C erebellar infarct Take 1 tablet (325 mg) by mouth daily 100 tablet 03/18/2022 Active rosuvastatin (CRESTOR) 10 MG tabletIndications:C erebellar infarct Take 1 tablet (10 mg) by mouth daily 30 tablet 1 03/17/2022 Active lisinopril (ZESTRIL) 5 MG tabletIndications:E ssential hypertension Take 1 tablet (5 mg) by mouth daily 30 tablet 1 03/17/2022 Active insulin regular 100 UNIT/ML vialIndications:Typ e 2 diabetes mellitus with diabetic polyneuropathy, with long-term current use of insulin,Uncontrolle d type 2 diabetes mellitus with hyperglycemia,Type 2 diabetes mellitus with hyperosmolar nonketotic hyperglycemia Inject 0.5 mLs (50 Units) Subcutaneous 2 times daily (before meals) 03/17/2022 Active insulin NPH 100 UNIT/ML vialIndications:Typ e 2 diabetes mellitus with diabetic polyneuropathy, with long-term current use of insulin,Uncontrolle d type 2 diabetes mellitus with hyperglycemia,Type 2 diabetes mellitus with hyperosmolar nonketotic hyperglycemia Inject 50 Units Subcutaneous 2 times daily [...] Comments Blood Pressure 166/95 03/17/2022 7:29 AM FISH STRAIGHTENER Pulse 88 03/17/2022 7:28 AM FISH STRAIGHTENER Temperature 36.8 ??C (98.3 ??F) 03/17/2022 7:28 AM CS T Respiratory Rate 20 03/17/2022 7:28 AM FISH STRAIGHTENER Oxygen Saturation 94% 03/17/2022 9:36 AM FISH STRAIGHTENER Inhaled Oxygen Concentration - - Weight 125.5 kg (276 lb 9.6 oz) 03/17/2022 5:12 AM FISH STRAIGHTENER Height 180.3 cm (5' 11) 03/14/2022 9:55 AM FISH STRAIGHTENER Body Mass Index 38.58 03/14/2022 9:55 AM FISH STRAIGHTENER Plan of Treatment Health Maintenance Due Date [...] - Td or Tdap) 11/24/2025 11/25/2015, 01/23/2005 RSV VACCINE (1 - 1-dose 75+ series) 2041 HEPATITIS B IMMUNIZATION Completed 018, 11/30/2016, 11/25/2015 [...] BASIC METABOLIC PANEL Routine 03/15/2022 7:49 AM FISH STRAIGHTENER LIPID REFLEX TO DIRECT LDL PANEL Add-On 03/14/2022 7:51 AM FISH STRAIGHTENER HEMOGLOBIN A1C Add-On 03/13/2022 2:49 PM FISH STRAIGHTENER from Last 3 Months or Most Recently Relevant to Health Maintenance Results * (ABNORMAL) Basic metabolic panel (03/15/2022 7:49 AM FISH STRAIGHTENER) Sodium 137 136 - 145 mmol/L 03/15/2022 8:38 AM [facility] Potassium 4.6 3.4 - 5.3 mmol/L 03/15/2022 8:38 AM [facility] Comment:Specimen slightly he molyzed, potassium may be falsely elevated. Chloride 100 98 - 107 mmol/L 03/15/2022 8:38 AM [facility] Carbon Dioxide (CO2) 27 22 - 29 mmol/L 03/15/2022 8:38 AM [facility] Anion Gap 10 7 - 15 mmol/L 03/15/2022 8:38 AM [facility] Urea Nitrogen 14.0 6.0 - 20.0 mg/dL 03/15/2022 8:38 AM [facility] Creatinine 0.55(L) 0.67 - 1.17 mg/dL 03/15/2022 8:38 AM [facility] Calcium 9.5 8.6 - 10.0 mg/dL 03/15/2022 8:38 AM [facility] Glucose 103(H) 70 - 99 mg/dL 03/15/2022 8:38 AM [facility] GFR Estimate >90 >60 mL/min/1.7 3m2 03/15/2022 8:38 AM [facility] Comment:Effective February 162020 eGFRcr in adults is calculated using the 2020 CKD-EPI creatinine equation which includes age and gender (Bridgett et al., NEJ, DOI: 10.1056/SGLSye5887598) Blood STRUCTURE OF RIGHT UPPER LIMB / Unknown Venipuncture / Unknown 03/15/2022 7:49 AM FISH STRAIGHTENER 03/15/2022 8:04 AM FISH STRAIGHTENER Axel Calderón MD LAB - BLOOD ORDERABL ES LABORATORY [facility] Acute Care Lab [address] Lab (1st floor, no room number) [place] [address], [facility] [phone] * (ABNORMAL) Lipid panel reflex to direct LDL (03/14/2022 7:51 AM FISH STRAIGHTENER) Cholesterol 184 <200 mg/dL 03/14/2022 1:46 PM FISH STRAIGHTENER [facility] Triglycerides 331(H) <150 mg/dL 03/14/2022 1:46 PM FISH STRAIGHTENER [facility] Direct Measure HDL 28(L) >=40 mg/dL 03/14/2022 1:46 PM FISH STRAIGHTENER [facility] LDL Cholesterol Calculated 90 <=100 mg/dL 03/14/2022 1:46 PM FISH STRAIGHTENER [facility] Non HDL Cholesterol 156(H) <130 mg/dL 03/14/2022 1:46 PM FISH STRAIGHTENER [facility] Blood STRUCTURE OF RIGHT UPPER LIMB / Unknown Venipuncture / Unknown 03/14/2022 7:51 AM FISH STRAIGHTENER 03/14/2022 8:00 AM FISH STRAIGHTENER [facility] - 03/14/2022 1:46 PM FISH STRAIGHTENER Cholesterol Desirable: ??<200 mg/dL Triglycerides Normal: ??Less [...] Hodge PA-C LAB - BLOOD ORDERABL ES U LABORATORY [facility] [place] [facility] Lab [address] [facility] [address] [facility], [address] [place] [address], [facility] [phone] * (ABNORMAL) Hemoglobin A1c (03/13/2022 2:49 PM FISH STRAIGHTENER) Hemoglobin A1C 14.4(H) <5.7 % 03/13/2022 7:14 PM FISH STRAIGHTENER [facility] Comment: Normal <5.7% Prediabetes 5.7-6.4% ?? Diabetes 6.5% or higher Note: Adopted from ADA consensus guidelines. Blood BLOOD SPECIMEN / Unknown Venipuncture / Unknown 03/13/2022 2:49 PM FISH STRAIGHTENER 03/13/2022 3:06 PM FISH STRAIGHTENER Parish Rios MD LAB - BLOOD ORDERABL ES RH LABORATORY [facility] Acute Care Lab [address] [facility] Lab (1st floor, no room number) [place] [address], [facility] [phone] from Last 3 Months or Most Recently Relevant to Health Maintenance Advance Directives For more information, please contact: [phone] * Full Code (Latest Code Status on File) Date Activated Date Inactivated Comments 03/13/2022 9:46 PM 03/17/2022 6:08 PM All basic and advanced life-sustaining interventions are performed as appropriate Question Answer Comments Code status determined by: Discussion with patie nt/ legal decision maker Care Teams Bioinformatics Analyst Relationship Specialty Start Date End Date Royce Weiner [address] [place] [address] [address] [facility] - General 05/26/20
--- OUTSIDE RECORDS SUMMARY | 2023-12-09 15:13 | XMS_ITS | Referral Summary ---
Author Organization [place] Address [address] [place] [address] Care Team Providers Care Remelt Worker Name Role Phone Royce Weiner Primary Care Provider [phone] Allergies Active Allergy Reactions Criticality Noted Date [...] days. Use to read blood sugars per hatchery laborer's instructions. 2 each 5 03/17/2022 Active aspirin [...] Comments Blood Pressure 166/95 03/17/2022 7:29 AM JOINERY SETTER OUT Pulse 88 03/17/2022 7:28 AM JOINERY SETTER OUT Temperature 36.8 ??C (98.3 ??F) 03/17/2022 7:28 AM CS T Respiratory Rate 20 03/17/2022 7:28 AM JOINERY SETTER OUT Oxygen Saturation 94% 03/17/2022 9:36 AM JOINERY SETTER OUT Inhaled Oxygen Concentration - - Weight 125.5 kg (276 lb 9.6 oz) 03/17/2022 5:12 AM JOINERY SETTER OUT Height 180.3 cm (5' 11) 03/14/2022 9:55 AM JOINERY SETTER OUT Body Mass Index 38.58 03/14/2022 9:55 AM JOINERY SETTER OUT Plan of Treatment Not on file Procedures Procedure Name Priority Date/Time Associated Diagnosis Comments BASIC METABOLIC PANEL Routine 03/15/2022 7:49 AM JOINERY SETTER OUT LIPID REFLEX TO DIRECT LDL PANEL Add-On 03/14/2022 7:51 AM JOINERY SETTER OUT HEMOGLOBIN A1C Add-On 03/13/2022 2:49 PM JOINERY SETTER OUT from Last 3 Months or Most Recently Relevant to Health Maintenance Results * (ABNORMAL) Basic metabolic panel (03/15/2022 7:49 AM JOINERY SETTER OUT) Sodium 137 136 - 145 mmol/L 03/15/2022 8:38 AM [facility] Potassium 4.6 3.4 - 5.3 mmol/L 03/15/2022 8:38 AM [facility] Comment:Specimen slightly he molyzed, potassium may be falsely elevated. Chloride 100 98 - 107 mmol/L 03/15/2022 8:38 AM [facility] Carbon Dioxide (CO2) 27 22 - 29 mmol/L 03/15/2022 8:38 AM [facility] Anion Gap 10 7 - 15 mmol/L 03/15/2022 8:38 AM [facility] Urea Nitrogen 14.0 6.0 - 20.0 mg/dL 03/15/2022 8:38 AM [facility] Creatinine 0.55(L) 0.67 - 1.17 mg/dL 03/15/2022 8:38 AM [facility] Calcium 9.5 8.6 - 10.0 mg/dL 03/15/2022 8:38 AM [facility] Glucose 103(H) 70 - 99 mg/dL 03/15/2022 8:38 AM [facility] GFR Estimate >90 >60 mL/min/1.7 3m2 03/15/2022 8:38 AM [facility] Comment:Effective February 162020 eGFRcr in adults is calculated using the 2020 CKD-EPI creatinine equation which includes age and gender (Floor Cleaner et al., NEJM, DOI: 10.1056/[id number]) Blood STRUCTURE OF RIGHT UPPER LIMB / Unknown Venipuncture / Unknown 03/15/2022 7:49 AM JOINERY SETTER OUT 03/15/2022 8:04 AM JOINERY SETTER OUT Axel Calderón MD LAB - BLOOD ORDERABL ES LABORATORY [facility] Acute Care Lab [address] [facility] Lab (1st floor, no room number) [place] [address], [facility] [phone] * (ABNORMAL) Lipid panel reflex to direct LDL (03/14/2022 7:51 AM JOINERY SETTER OUT) Cholesterol 184 <200 mg/dL 03/14/2022 1:46 PM JOINERY SETTER OUT [facility] Triglycerides 331(H) <150 mg/dL 03/14/2022 1:46 PM JOINERY SETTER OUT [facility] Direct Measure HDL 28(L) >=40 mg/dL 03/14/2022 1:46 PM JOINERY SETTER OUT [facility] LDL Cholesterol Calculated 90 <=100 mg/dL 03/14/2022 1:46 PM JOINERY SETTER OUT [facility] Non HDL Cholesterol 156(H) <130 mg/dL 03/14/2022 1:46 PM JOINERY SETTER OUT [facility] Blood STRUCTURE OF RIGHT UPPER LIMB / Unknown Venipuncture / Unknown 03/14/2022 7:51 AM JOINERY SETTER OUT 03/14/2022 8:00 AM JOINERY SETTER OUT Narrative [facility] - 03/14/2022 1:46 PM JOINERY SETTER OUT Cholesterol Desirable: ??<200 mg/dL Triglycerides Normal: ??Less [...] LAB - BLOOD ORDERABL ES [facility] LAB[facility]ATORY [facility] [place] [facility] Lab [address] [facility] [address] Building, [address] [place] [address] [phone] * (ABNORMAL) Hemoglobin A1c (03/13/2022 2:49 PM JOINERY SETTER OUT) Hemoglobin A1C 14.4(H) <5.7 % 03/13/2022 7:14 PM JOINERY SETTER OUT LABORATORY Comment: Normal <5.7% Prediabetes 5.7-6.4% ?? Diabetes 6.5% or higher Note: Adopted from ADA consensus guidelines. Blood BLOOD SPECIMEN / Unknown Venipuncture / Unknown 03/13/2022 2:49 PM JOINERY SETTER OUT 03/13/2022 3:06 PM JOINERY SETTER OUT Parish Rios MD LAB - BLOOD ORDERABL ES LABORATORY [facility] Acute [facility] Lab [address] [facility] Lab (1st floor, no room number) [place] [address], [facility] [phone] from Last 3 Months or Most Recently Relevant to Health Maintenance Advance Directives For more information, please contact: [phone] * Full Code (Latest Code Status on File) Date Activated Date Inactivated Comments 03/13/2022 9:46 PM 03/17/2022 6:08 PM All basic and advanced life-sustaining interventions are performed as appropriate Question Answer Comments Code status determined by: Discussion with leobardo nt/ legal decision maker Care Teams Remelt Worker Relationship Specialty Start Date End Date Royce Weiner [address] [place] [address] PCP - General 05/26/20
--- OUTSIDE RECORDS SUMMARY | 2023-12-09 15:13 | XMS_ITS | Continuity of Care Document ---
Author Organization [facility] Address [address] [facility] [place] [address] Phone Care Team Providers Care [employer] Worker Name Role Phone Elizabeth Peterson CNP Unavailable [...] Offic/outpt E&m Estab Low-mod [facility], [address] [facility] [address], [place], [place], [id number], tel:[phone] [facility] No Information [address] [facility], [address], [place], [place], [id number], [place]. tel:[phone] Referring Provider: Reggie Geiger MD J, [address] [facility], [place], [address]. tel:[phone] Offic/outpt E&m Estab Low-mod [facility], [address], [place], [place], [id number], [place] tel:[phone] [facility] No Information 9[address] Budnick Elizabeth. [address] , [address], [place], [place], [id number], [place]. tel:[phone] Referring Provider: Reggie Rock, [address] [place], [address]. tel:[phone] Offic/outpt E&m Estab Mod-hi 2 Amrik, [facility], [address], [place], [place], [id number], [place] tel:[phone] [facility] No Information 9 Budnick Elizabeth. [address] , [address], [place], [place], [id number], [place]. tel:[phone] Referring Provider: Reggie Rock, [address] [place], [address]. tel:[phone] Offic/outpt E&m Estab Low-mod Amrik, [facility], [address] [facility] [address], [place], [id number], [place] tel:[phone] [facility] No Information 9 Juanjo Paredes. [address], [place], [address], [place]. tel:[phone] Referring Provider: REFERRAL SELF, [place]. Offic/outpt E&m Estab Low-mod Amrik, [facility], [address] [facility] [address], [place], [place], [id number], [place] tel:[phone] [facility] No Information 9 Juanjo Paredes. [address], [place], [address], [place]. tel:[phone] Referring Provider: REFERRAL SELF, [place]. [facility], [address] [facility] [address], [place], [id number], [place] tel:[phone] [facility] No Information 9 Juanjo LOZA Reggie. [address], [place], [place], [facility], [place]. [phone] Referring Provider: REFERRAL SELF, [place]. Offic/outpt E&m Estab Mod-hi 2 [facility], [facility], [address], [place], [place], [id number], tel:[phone] [facility] No Information 9 Juanjo LOZA Reggie. [address], [place], [place], [facility], [place]. tel:[phone] Referring Provider: REFERRAL SELFISRAEL. Offic Cons New/estab Mod-hi 60 [facility], [facility], [address], [place], [place], [id number], tel:[phone] [facility] No Information 9 [facility]. [address] [place], [place], [facility], . Family History Family Member Type [...]
--- OUTSIDE RECORDS SUMMARY | 2023-12-09 15:13 | XMS_ITS | Clinical Summary ---
Author Organization [employer] [facility] Address [place], [place] [address] Care Team Providers Care Machine Container Washer Name Role Phone Karthik Sanz MD Primary Care Provider [phone] Allergies Active Allergy Reactions Criticality Noted Date [...] Department Care Team Description 10/29/2023 Orders Only [facility] Scanner 1 scan: (1-Ord) [facility] ARTERIAL DUPLEX LE BI, 10/29/2023 09/06/2023 8:38 AM CDT - 09/11/2023 5:20 PM CDT Hospital Encounter [facility] [address] [place] [address] Hodan Alvares, HOLLY Traumatic brain injury with loss of consciousness, subsequent encounter (Primary Dx); AFUA (generalized anxiety disorder); Mood disorder (HC); HYPERLIPIDEMIA - MIXED; Diabetic polyneuropathy associated with type 2 diabetes mellitus (HC); Frequent falls; Gait instability Discharge Disposition: Home Self Care from Last 3 Months Immunizations Name Administration Dates Next Due AMB Influenza, IIV4 PF (=>6 mos Flulaval,Fluzone Fluarix)(Flu Clinic Only) 12/12/2018 COVID-19 vaccine (Angiodroid NTGMI 30mcg/0.3mL) 12YO+ BIVALENT PF, MDV 01/26/2022 Hepatitis [...] Priority Date/Time Associated Diagnosis Comments SCAN-ULTRASOUND REPORT 10/29/2023 12:00 AM CDT GLUCOSE METER Timed 09/11/2023 [...] GLUCOSE METER Timed 09/08/2023 12:14 AM CDT LIPID PANEL Early AM 09/07/2023 7:01 AM CDT from Last 3 Months or Most Recently Relevant to Health Maintenance Results * SCAN-ULTRASOUND REPORT (10/29/2023 12:00 AM CDT) Anatomical Region Laterality Modality Other Scanner OTHER * (ABNORMAL) GLUCOSE METER (09/11/2023 4:55 PM CDT) Only the most recent of23 resultswithin the time period is included. GLUCOSE METER 161(H) 65 - 100 mg/dL 09/11/2023 5:01 PM CDT [facility] Blood BLOOD SPECIMEN / Unknown 09/11/2023 4:55 PM CDT 09/11/2023 5:01 PM CDT Hodan Alvares SKI BINDING FITTER AND REPAIRER CHEMISTRY Performing Organization Address [facility] Co de Phone Number [facility] [address] [place] [address], * (ABNORMAL) VALPROIC ACID TOTAL (09/11/2023 7:24 AM CDT) Only the most recent of2 resultswithin the time period is included. VALPROIC ACID,TOTAL 16.8(L) 50.0 - 100.0 ug/mL 09/11/2023 8:20 AM CDT [facility] DATE OF LAST DOSE Not Given 09/11/2023 8:20 AM CDT [facility] TIME OF LAST DOSE Not Given 09/11/2023 8:20 AM CDT [facility] Blood BLOOD SPECIMEN / Unknown Butterfly / Unknown 09/11/2023 7:24 AM CDT 09/11/2023 7:45 AM CDT Hodan Alvares SKI BINDING FITTER AND REPAIRER CHEMISTRY Performing Organization Address City/[facility]/ZIP Co de Phone Number [facility] [address] [place] [phone], * SCAN CORRESP-DIAGNOSTICS (09/09/2023 11:49 AM CDT) Narrative 09/09/2023 11:49 AM CDT Ordered by an unspecified provider. Other Clinical Staff OTHER * EKG 12 LEAD (09/08/2023 10:11 AM CDT) Interpretation Normal sinus rhythm Left axis deviation Minimal voltage criteria for LVH, may be normal variant ( [place] product ) Anteroseptal infarct (cited on or [...] NOW QTc 455 ms BEYOND NOW P [place] 17 degrees BEYOND NOW R [place] -56 degrees BEYOND NOW T [place] 70 degrees BEYOND NOW 09/08/2023 10:1 1 AM CDT 09/08/2023 6:35 PM CDT Chandan Lamar Al non MBBS EKG ORD Performing Organization Address City/[facility]/ZIP Co de Phone Number BEYOND NOW [place], [place] * Sodium AM (09/08/2023 7:57 AM CDT) Pathologist [facility] SODIUM 139 136 - 145 mmol/L 09/08/2023 9:13 AM CDT [facility] Blood BLOOD SPECIMEN / Unknown Venipuncture / Unknown 09/08/2023 7:57 AM CDT 09/08/2023 8:08 AM CDT Chandan Lamar Al non MBBS CHEMISTRY [facility] [address] [place] [address], * Potassium AM (09/08/2023 7:57 AM CDT) Pathologist [facility] POTASSIUM 4.9 3.5 - 5.1 mmol/L 09/08/2023 9:13 AM CDT [facility] Blood BLOOD SPECIMEN / Unknown Venipuncture / Unknown 09/08/2023 7:57 AM CDT 09/08/2023 8:08 AM CDT Chandan Lamar Al non MBBS CHEMISTRY Performing Organization Address [facility] Co de Phone Number [facility] [address] [place] [address], * Creatinine AM (09/08/2023 7:57 AM CDT) eGFR >90 >90 mL/min/1.7 3m2 09/08/2023 9:13 AM CDT [facility] Comment:As of 2021, eG FR is calculated by the CKD-EPI creatinine equation without race adjustment. ??eGFR can be influenced by muscle mass, exercise, and diet. ??The reported eGFR is an estimation only and is only applicable if the renal function is stable. CREATININE 0.86 0.70 - 1.20 mg/dL 09/08/2023 9:13 AM CDT [facility] Blood BLOOD SPECIMEN / Unknown Venipuncture / Unknown 09/08/2023 7:57 AM CDT 09/08/2023 8:08 AM CDT Chandan Lamar Al non BS CHEMISTRY Performing Organization Address City/[facility] Co de Phone Number [facility] [address] [place] [address], [place] * (ABNORMAL) LIPID PANEL (09/07/2023 7:01 AM CDT) CHOLESTEROL,TOTAL 225(H) 100 - 199 mg/dL 09/07/2023 7:39 AM CDT [facility] Comment: Cholesterol, Total Reference Ranges Desirable <200 mg/dL Borderline 200-239 mg/dL High >=240 mg/dL TRIGLYCERIDES 212(H) <150 mg/dL 09/07/2023 7:39 AM CDT [facility] HDL CHOLESTEROL 37(L) >40 mg/dL 7:39 AM CDT [facility] NON-HDL CHOLESTEROL 188(H) <145 mg/dl 09/07/2023 7:39 AM CDT [facility] CHOL/HDL RATIO 6.08(H) <4.50 09/07/2023 7:39 AM CDT [facility] LDL CHOLESTEROL 146(H) <=130 mg/dL 09/07/2023 7:39 AM T [facility] VLDL CHOLESTEROL 42(H) <=30 mg/dL 09/07/2023 7:39 AM CDT [facility] PROVIDER ORDERED STATUS RANDOM 09/07/2023 7:39 AM T [facility] Blood BLOOD SPECIMEN / Unknown Venipuncture / Unknown 09/07/2023 7:01 AM CDT 09/07/2023 7:13 AM CDT Melita Lopez MD CHEMISTRY [facility] [address] [place] [address], from Last 3 Months or Most Recently Relevant to Health Maintenance Advance Directives * Full Code (Latest Code Status on File) Date Activated Date Inactivated Comments 09/06/2023 9:15 AM 09/11/2023 7:27 PM Question Answer Comments Code Status Discussion: Unable to Assess Preferences, Provider to review later * Full Code Date Activated Date Inactivated Comments 05/20/2019 5:20 PM 05/21/2019 8:24 PM Care Teams Machine Container Washer Relationship Specialty Start Date End Date Karthik Sanz MD [address] [place] [address] PCP - General Internal Medicine 06/24/20
== END 2023-12-09 15:12 | disposition home or self-care (01) ==
PROVIDERS: PCP Internal Medicine; Visit Provider Nurse Practitioner Family
DX: E11.621 Type 2 diabetes mellitus with foot ulcer (principal); L97.415 Non-pressure chronic ulcer of right heel and midfoot with muscle involvement without evidence of necrosis; L97.428 Non-pressure chronic ulcer of left heel and midfoot with other specified severity; I73.89 Other specified peripheral vascular diseases; Z79.4 Long term (current) use of insulin
CPT/HCPCS: 11042; 97597

== ENCOUNTER 2023-12-16 15:10 | Outpatient (CLI) | payer OTHER, SELFPAY ==
--- OUTSIDE RECORDS SUMMARY | 2023-12-16 15:12 | XMS_ITS | Referral Summary ---
Author Organization [employer] Address [address] [place] [address] Care Team Providers Care Field Support Engineer Name Role Phone Royce Weiner Primary Care Provider [phone] Allergies Active Allergy Reactions Criticality Noted Date [...] days. Use to read blood sugars per retail sales director's instructions. 2 each 5 03/17/2022 Active aspirin [...] Comments Blood Pressure 166/95 03/17/2022 7:29 AM BANDMILL OPERATOR Pulse 88 03/17/2022 7:28 AM BANDMILL OPERATOR Temperature 36.8 ??C (98.3 ??F) 03/17/2022 7:28 AM CS T Respiratory Rate 20 03/17/2022 7:28 AM BANDMILL OPERATOR Oxygen Saturation 94% 03/17/2022 9:36 AM BANDMILL OPERATOR Inhaled Oxygen Concentration - - Weight 125.5 kg (276 lb 9.6 oz) 03/17/2022 5:12 AM BANDMILL OPERATOR Height 180.3 cm (5' 11) 03/14/2022 9:55 AM BANDMILL OPERATOR Body Mass Index 38.58 03/14/2022 9:55 AM BANDMILL OPERATOR Plan of Treatment Not on file Procedures Procedure Name Priority Date/Time Associated Diagnosis Comments BASIC METABOLIC PANEL Routine 03/15/2022 7:49 AM BANDMILL OPERATOR LIPID REFLEX TO DIRECT LDL PANEL Add-On 03/14/2022 7:51 AM BANDMILL OPERATOR HEMOGLOBIN A1C Add-On 03/13/2022 2:49 PM BANDMILL OPERATOR from Last 3 Months or Most Recently Relevant to Health Maintenance Results * (ABNORMAL) Basic metabolic panel (03/15/2022 7:49 AM BANDMILL OPERATOR) Sodium 137 136 - 145 mmol/L 03/15/2022 8:38 AM [facility] Potassium 4.6 3.4 - 5.3 mmol/L 03/15/2022 8:38 AM [facility] Comment:Specimen slightly he molyzed, potassium may be falsely elevated. Chloride 100 98 - 107 mmol/L 03/15/2022 8:38 AM [facility] Carbon Dioxide (CO2) 27 22 - 29 mmol/L 03/15/2022 8:38 AM [facility] Anion Gap 10 7 - 15 mmol/L 03/15/2022 8:38 AM [facility] Urea Nitrogen 14.0 6.0 - 20.0 mg/dL 03/15/2022 8:38 AM [facility] Creatinine 0.55(L) 0.67 - 1.17 mg/dL 03/15/2022 8:38 AM [facility] Calcium 9.5 8.6 - 10.0 mg/dL 03/15/2022 8:38 AM [facility] Glucose 103(H) 70 - 99 mg/dL 03/15/2022 8:38 AM [facility] GFR Estimate >90 >60 mL/min/1.7 3m2 03/15/2022 8:38 AM [facility] Comment:Effective February 162020 eGFRcr in adults is calculated using the 2020 CKD-EPI creatinine equation which includes age and gender (Bridgett et al., NEJM, DOI: 10.1056/CJOUxr5859918) Blood STRUCTURE OF RIGHT UPPER LIMB / Unknown Venipuncture / Unknown 03/15/2022 7:49 AM BANDMILL OPERATOR 03/15/2022 8:04 AM BANDMILL OPERATOR Axel Calderón MD LAB - BLOOD ORDERABL ES LABORATORY [facility] Lab [address] Lab (1st floor, no room number) [place] [address], [facility] [phone] * (ABNORMAL) Lipid panel reflex to direct LDL (03/14/2022 7:51 AM BANDMILL OPERATOR) Cholesterol 184 <200 mg/dL 03/14/2022 1:46 PM BANDMILL OPERATOR [facility] Triglycerides 331(H) <150 mg/dL 03/14/2022 1:46 PM BANDMILL OPERATOR [facility] Direct Measure HDL 28(L) >=40 mg/dL 03/14/2022 1:46 PM BANDMILL OPERATOR [facility] LDL Cholesterol Calculated 90 <=100 mg/dL 03/14/2022 1:46 PM BANDMILL OPERATOR [facility] Non HDL Cholesterol 156(H) <130 mg/dL 03/14/2022 1:46 PM BANDMILL OPERATOR [facility] Blood STRUCTURE OF RIGHT UPPER LIMB / Unknown Venipuncture / Unknown 03/14/2022 7:51 AM BANDMILL OPERATOR 03/14/2022 8:00 AM BANDMILL OPERATOR Narrative [facility] - 03/14/2022 1:46 PM BANDMILL OPERATOR Cholesterol Desirable: ??<200 mg/dL Triglycerides Normal: ??Less [...] - BLOOD ORDERABL ES [facility] [address] [facility] [address] [facility], [address] [place] [address], [facility] [phone] * (ABNORMAL) Hemoglobin A1c (03/13/2022 2:49 PM BANDMILL OPERATOR) Hemoglobin A1C 14.4(H) <5.7 % 03/13/2022 7:14 PM BANDMILL OPERATOR LABORATORY Comment: Normal <5.7% Prediabetes 5.7-6.4% ?? Diabetes 6.5% or higher Note: Adopted from ADA consensus guidelines. Blood BLOOD SPECIMEN / Unknown Venipuncture / Unknown 03/13/2022 2:49 PM BANDMILL OPERATOR 03/13/2022 3:06 PM BANDMILL OPERATOR Parish Rios MD LAB - BLOOD ORDERABL ES LABORATORY [facility] [address] [facility] (1st floor, no room number) [place] [address], [facility] [phone] from Last 3 Months or Most Recently Relevant to Health Maintenance Advance Directives For more information, please contact: [phone] * Full Code (Latest Code Status on File) Date Activated Date Inactivated Comments 03/13/2022 9:46 PM 03/17/2022 6:08 PM All basic and advanced life-sustaining interventions are performed as appropriate Question Answer Comments Code status determined by: Discussion with leobardo nt/ legal decision maker Care Teams Field Support Engineer Relationship Specialty Start Date End Date Royce Weiner [address] [facility] [address] PCP - General 05/26/20
--- OUTSIDE RECORDS SUMMARY | 2023-12-16 15:12 | XMS_ITS | Clinical Summary ---
Author Organization [facility] Address [address] [place] [address] Care Team Providers Care Hat Marker Name Role Phone Royce Weiner Primary Care Provider [phone] Allergies Active Allergy Reactions Criticality Noted Date [...] days. Use to read blood sugars per auto dealership porter's instructions. 2 each 5 03/17/2022 Active aspirin [...] Comments Blood Pressure 166/95 03/17/2022 7:29 AM PRODUCT DEVELOPMENT CHEMIST Pulse 88 03/17/2022 7:28 AM PRODUCT DEVELOPMENT CHEMIST Temperature 36.8 ??C (98.3 ??F) 03/17/2022 7:28 AM CS T Respiratory Rate 20 03/17/2022 7:28 AM PRODUCT DEVELOPMENT CHEMIST Oxygen Saturation 94% 03/17/2022 9:36 AM PRODUCT DEVELOPMENT CHEMIST Inhaled Oxygen Concentration - - Weight 125.5 kg (276 lb 9.6 oz) 03/17/2022 5:12 AM PRODUCT DEVELOPMENT CHEMIST Height 180.3 cm (5' 11) 03/14/2022 9:55 AM PRODUCT DEVELOPMENT CHEMIST Body Mass Index 38.58 03/14/2022 9:55 AM PRODUCT DEVELOPMENT CHEMIST Plan of Treatment Health Maintenance Due Date [...] BASIC METABOLIC PANEL Routine 03/15/2022 7:49 AM PRODUCT DEVELOPMENT CHEMIST LIPID REFLEX TO DIRECT LDL PANEL Add-On 03/14/2022 7:51 AM PRODUCT DEVELOPMENT CHEMIST HEMOGLOBIN A1C Add-On 03/13/2022 2:49 PM PRODUCT DEVELOPMENT CHEMIST from Last 3 Months or Most Recently Relevant to Health Maintenance Results * (ABNORMAL) Basic metabolic panel (03/15/2022 7:49 AM PRODUCT DEVELOPMENT CHEMIST) Sodium 137 136 - 145 mmol/L 03/15/2022 8:38 AM [facility] Potassium 4.6 3.4 - 5.3 mmol/L 03/15/2022 8:38 AM [facility] Comment:Specimen slightly he molyzed, potassium may be falsely elevated. Chloride 100 98 - 107 mmol/L 03/15/2022 8:38 AM [facility] Carbon Dioxide (CO2) 27 22 - 29 mmol/L 03/15/2022 8:38 AM [facility] Anion Gap 10 7 - 15 mmol/L 03/15/2022 8:38 AM [facility] Urea Nitrogen 14.0 6.0 - 20.0 mg/dL 03/15/2022 8:38 AM [facility] Creatinine 0.55(L) 0.67 - 1.17 mg/dL 03/15/2022 8:38 AM [facility] Calcium 9.5 8.6 - 10.0 mg/dL 03/15/2022 8:38 AM [facility] Glucose 103(H) 70 - 99 mg/dL 03/15/2022 8:38 AM [facility] GFR Estimate >90 >60 mL/min/1.7 3m2 03/15/2022 8:38 AM [facility] Comment:Effective February 162020 eGFRcr in adults is calculated using the 2020 CKD-EPI creatinine equation which includes age and gender (Bridgett et al., NEJM, DOI: 10.1056/RLOEou6569961) Blood STRUCTURE OF RIGHT UPPER LIMB / Unknown Venipuncture / Unknown 03/15/2022 7:49 AM PRODUCT DEVELOPMENT CHEMIST 03/15/2022 8:04 AM PRODUCT DEVELOPMENT CHEMIST Axel Calderón MD LAB - BLOOD ORDERABL ES LABORATORY [facility] Acute Care Lab [address] [facility] Lab (1st floor, no room number) [place] [address], [facility] [phone] * (ABNORMAL) Lipid panel reflex to direct LDL (03/14/2022 7:51 AM PRODUCT DEVELOPMENT CHEMIST) Cholesterol 184 <200 mg/dL 03/14/2022 1:46 PM PRODUCT DEVELOPMENT CHEMIST [facility] Triglycerides 331(H) <150 mg/dL 03/14/2022 1:46 PM PRODUCT DEVELOPMENT CHEMIST [facility] Direct Measure HDL 28(L) >=40 mg/dL 03/14/2022 1:46 PM PRODUCT DEVELOPMENT CHEMIST [facility] LDL Cholesterol Calculated 90 <=100 mg/dL 03/14/2022 1:46 PM PRODUCT DEVELOPMENT CHEMIST [facility] Non HDL Cholesterol 156(H) <130 mg/dL 03/14/2022 1:46 PM PRODUCT DEVELOPMENT CHEMIST [facility] Blood STRUCTURE OF RIGHT UPPER LIMB / Unknown Venipuncture / Unknown 03/14/2022 7:51 AM PRODUCT DEVELOPMENT CHEMIST 03/14/2022 8:00 AM PRODUCT DEVELOPMENT CHEMIST Narrative [facility] - 03/14/2022 1:46 PM PRODUCT DEVELOPMENT CHEMIST Cholesterol Desirable: ??<200 mg/dL Triglycerides Normal: ??Less [...] LAB - BLOOD ORDERABL ES [facility] LAB[facility] [place] [facility] [address] [facility] [address] [facility], Room [address] [place] [address], [facility] [phone] * (ABNORMAL) Hemoglobin A1c (03/13/2022 2:49 PM PRODUCT DEVELOPMENT CHEMIST) Hemoglobin A1C 14.4(H) <5.7 % 03/13/2022 7:14 PM PRODUCT DEVELOPMENT CHEMIST LABORATORY Comment: Normal <5.7% Prediabetes 5.7-6.4% ?? Diabetes 6.5% or higher Note: Adopted from ADA consensus guidelines. Blood BLOOD SPECIMEN / Unknown Venipuncture / Unknown 03/13/2022 2:49 PM PRODUCT DEVELOPMENT CHEMIST 03/13/2022 3:06 PM PRODUCT DEVELOPMENT CHEMIST Parish Rios MD LAB - BLOOD ORDERABL ES LABORATORY [facility] Acute Care Lab [address] Lab (1st floor, no room number) [place] [address], [facility] [phone] from Last 3 Months or Most Recently Relevant to Health Maintenance Advance Directives For more information, please contact: [phone] * Full Code (Latest Code Status on File) Date Activated Date Inactivated Comments 03/13/2022 9:46 PM 03/17/2022 6:08 PM All basic and advanced life-sustaining interventions are performed as appropriate Question Answer Comments Code status determined by: Discussion with loebardo nt/ legal decision maker Care Teams Hat Marker Relationship Specialty Start Date End Date Royce Weiner [address] [facility] [address] [facility] - General 05/26/20
--- OUTSIDE RECORDS SUMMARY | 2023-12-16 15:12 | XMS_ITS | Continuity of Care Document ---
Author Organization [facility] Address [address] [facility] [address] [place] [address] Phone Care Team Providers Care Edge Cutter Name Role Phone Elizabeth Peterson CNP Unavailable [...] Offic/outpt E&m Estab Low-mod [facility], [address] [facility] [address], [place], [place], [id number], tel:[phone] [facility] No Information 9 Kristen Johnson. [address], [address], [place], [place], [id number], [place]. tel:[phone] Referring Provider: Reggie Geiger MD J, [address] [facility], [place], [address]. tel:[phone] Offic/outpt E&m Estab Low-mod [facility], [address] [facility] [address], [place], [place], [id number], [place] tel:[phone] [facility] No Information [address] Budnick Elizabeth. [address] , [address], [place], [place], [id number], [place]. tel:[phone] Referring Provider: Reggie Rock, [address] [place], [address]. tel:[phone] Offic/outpt E&m Estab Mod-hi 2 Amrik, [facility], [address], [place], [place], [id number], [place] tel:[phone] [facility] No Information 9 Budnick Elizabeth. [address] , [address], [place], [place], [id number], [place]. tel:[phone] Referring Provider: Reggie Rock, [address] [place], [address]. tel:[phone] Offic/outpt E&m Estab Low-mod Amrik, [facility], [address] [facility] [address], [place], [id number], [place] tel:[phone] [facility] No Information 9 Juanjo Paredes. [address], [place], [address], [place]. tel:[phone] Referring Provider: REFERRAL SELF, [place]RA[place]. Offic/outpt E&m Estab Low-mod Amrik, [facility], [address] [facility] [address], [place], [place], [id number], [place] tel:[phone] [facility] No Information 9 Juanjo Paredes. [address], [place], [address], [place]. tel:[phone] Referring Provider: REFERRAL SELF, [place]RA[place]. [facility], [address] [facility] [address], [place], [id number], [place] [phone] [facility] No Information 9 Juanjo LOZA Reggie. [address], [place], [place], [facility], [place]. [phone] Referring Provider: REFERRAL SELF, ISRA[place]. Offic/outpt E&m Estab Mod-hi 2 [facility], [facility], [address] [facility] [address], [place], [place], [id number], tel:[phone] [facility] No Information 9 Juanjo LOZA Reggie. [address], [place], [place], [facility], [place]. tel:[phone] Referring Provider: REFERRAL SELFISRAEL. Offic Cons New/estab Mod-hi 60 Amrik, [facility], [address] [facility] [address], [place], [place], [id number], tel:[phone] [facility] No Information 9 [facility]. [address] [place], [place], [facility], . Family History Family Member Type [...]
--- OUTSIDE RECORDS SUMMARY | 2023-12-16 15:12 | XMS_ITS | Clinical Summary ---
Author Organization [employer] Address [place], [place] [address] Care Team Providers Care Grant Specialist Name Role Phone Karthik Sanz MD Primary [...] Care Team Description 10/29/[address] [facility] Scanner 1 scan: (1-Ord) [facility] ARTERIAL DUPLEX LE BI, 10/29/2023 from Last 3 Months Immunizations Name Administration Dates Next Due AMB Influenza, IIV4 PF (=>6 mos Flulaval,Fluzone Fluarix)(Flu Clinic Only) 12/12/2018 COVID-19 vaccine (eASIC-Bio NTech 30mcg/0.3mL) 12YO+ BIVALENT PF, MDV 01/26/2022 Hepatitis [...] 09/05/2023 11:10 AM CDT Plan of Treatment Upcoming Encounters Date Type Department Care Team (Late st Contact Info) Description 12/19/2023 1:00 PM CDT Office Visit [facility] [address] [place] [address] Eran Campa MD [address] [facility] [address] [place] [address] Health Maintenance Due Date Last Done Comments [...] 05/05/2020 05/05/2019, 01/29/2018, 07/09/2017, Additional history exists COVID-19 vaccine series (2023- season) 2023 01/26/2023, 01/26/2022, 04/03/2021, Additional history exists Influenza for age 50-64 11/17/2023 01/27/20, 02/08/2021, 12/12/2018, Additional history exists Depression screening for age 12+ 09/07/2024 09/08/2023, 09/07/2023, 09/06/2023, Additional history exists Lipids for age 45-75 09/06/2028 09/07/2023, 01/22/2018, 01/22/2018, Additional history exists Tetanus booster 09/04/2033 09/05/2023, 09/11/2015, 01/23/2005 Hepatitis B series for Diabetes Completed 01/29/2018, 11/30/2016, 11/25/2015 Tdap Completed 09/05/2023, 11/25/2015 Procedures Procedure Name Priority Date/Time Associated Diagnosis Comments SCAN-ULTRASOUND REPORT 10/29/2023 12:00 AM CDT LIPID PANEL Early AM 09/07/2023 7:01 AM CDT from Last 3 Months or Most Recently Relevant to Health Maintenance Results * SCAN-ULTRASOUND REPORT (10/29/2023 12:00 AM CDT) Anatomical Region Laterality Modality Other Scanner OTHER * (ABNORMAL) LIPID PANEL (09/07/2023 7:01 AM CDT) CHOLESTEROL,TOTAL 225(H) 100 - 199 mg/dL 09/07/2023 7:39 AM CDT [facility] Comment: Cholesterol, Total Reference Ranges Desirable <200 mg/dL Borderline 200-239 mg/dL High >=240 mg/dL TRIGLYCERIDES 212(H) <150 mg/dL 09/07/2023 7:39 AM CDT [facility] HDL CHOLESTEROL 37(L) >40 mg/dL 7:39 AM CDT [facility] NON-HDL CHOLESTEROL 188(H) <145 mg/dl 09/07/2023 7:39 AM CDT [facility] CHOL/HDL RATIO 6.08(H) <4.50 09/07/2023 7:39 AM CDT [facility] LDL CHOLESTEROL 146(H) <=130 mg/dL 09/07/2023 7:39 AM CDT [facility] VLDL CHOLESTEROL 42(H) <=30 mg/dL 09/07/2023 7:39 AM CDT [facility] PROVIDER ORDERED STATUS RANDOM 09/07/2023 7:39 AM CDT [facility] Blood BLOOD SPECIMEN / Unknown Venipuncture / Unknown 09/07/2023 7:01 AM CDT 09/07/2023 7:13 AM CDT Melita Lopez MD CHEMISTRY [facility] [address] [place] [address], from Last 3 Months or Most Recently Relevant to Health Maintenance Advance Directives * Full Code (Latest Code Status on File) Date Activated Date Inactivated Comments 09/06/2023 9:15 AM 09/11/2023 7:27 PM Question Answer Comments Code Status Discussion: Unable to Assess Preferences, Provider to review later * Full Code Date Activated Date Inactivated Comments 05/20/2019 5:20 PM 05/21/2019 8:24 PM Care Teams Grant Specialist Relationship Specialty Start Date End Date Karthik Sanz MD [address] [place] [address] PCP - General Internal Medicine 06/24/20
== END 2023-12-16 15:11 | disposition home or self-care (01) ==
PROVIDERS: PCP Internal Medicine; Visit Provider Nurse Practitioner Family
DX: E11.621 Type 2 diabetes mellitus with foot ulcer (principal); L97.418 Non-pressure chronic ulcer of right heel and midfoot with other specified severity; L97.428 Non-pressure chronic ulcer of left heel and midfoot with other specified severity; Z79.4 Long term (current) use of insulin
CPT/HCPCS: 11042

== ENCOUNTER 2023-12-23 15:31 | Outpatient (CLI) | payer OTHER, MEDICARE, SELFPAY ==
--- OUTSIDE RECORDS SUMMARY | 2023-12-23 15:33 | XMS_ITS | Clinical Summary ---
Author Organization [employer] Address [place], [place] [address] Care Team Providers Care Medical Sales Specialist Name Role Phone Karthik Sanz MD [...] Encounters Date Type Department Care Team Description 12/19/2023 1:00 PM CDT Office Visit [facility] [address] [place] [address] Eran Campa MD Follow Up 10/29/2023 Orders Only [facility] Scanner 1 scan: (1-Ord) [facility] ARTERIAL DUPLEX LE BI, 10/29/2023 from Last 3 Months Immunizations Name Administration Dates Next Due AMB Influenza, IIV4 PF (=>6 mos Flulaval,Fluzone Fluarix)(Flu Clinic Only) 12/12/2018 COVID-19 vaccine (Pretty in my Pocket (PRIMP) NTInvoiceable 30mcg/0.3mL) 12YO+ BIVALENT PF, MDV 01/26/2022 Hepatitis [...] Sign Reading Time Taken Comments Blood Pressure 108/62 12/19/2023 1:37 PM CDT Pulse 80 12/19/2023 1:37 PM CDT Temperature 36.7 ??C (98 ??F) 09/11/2023 3:35 PM CDT Respiratory Rate 14 12/19/2023 1:37 PM CDT Oxygen Saturation 98% 09/11/2023 3:35 PM CDT Inhaled Oxygen Concentration - - Weight 126.1 kg (278 lb) 12/19/2023 1:37 PM CDT Height 180.3 cm (5' 11) 09/05/2023 11:10 AM CDT Body Mass Index 38.77 09/05/2023 11:10 AM CDT Plan of Treatment [...] - 199 mg/dL 09/07/2023 7:39 AM CDT [facility] Comment: Cholesterol, Total Reference Ranges Desirable <200 mg/dL Borderline 200-239 mg/dL High >=240 mg/dL TRIGLYCERIDES 212(H) <150 mg/dL 09/07/2023 7:39 AM CDT [facility] HDL CHOLESTEROL 37(L) >40 mg/dL 7:39 AM CDT [facility] NON-HDL CHOLESTEROL 188(H) <145 mg/dl 09/07/2023 7:39 AM CDT [facility] CHOL/HDL RATIO 6.08(H) <4.50 09/07/2023 7:39 AM CDT [facility] LDL CHOLESTEROL 146(H) <=130 mg/dL 09/07/2023 7:39 AM CDT [facility] VLDL CHOLESTEROL 42(H) <=30 mg/dL 09/07/2023 7:39 AM CDT [facility] PROVIDER ORDERED STATUS RANDOM 09/07/2023 7:39 AM CDT [facility] Blood BLOOD SPECIMEN / Unknown Venipuncture / Unknown 09/07/2023 7:01 AM CDT 09/07/2023 7:13 AM CDT Melita Lopez MD CHEMISTRY [facility] [address] [place] [address], from Last 3 Months or Most Recently Relevant to Health Maintenance Advance Directives * Full Code (Latest Code Status on File) Date Activated Date Inactivated Comments 09/06/2023 9:15 AM 09/11/2023 7:27 PM Question Answer Comments Code Status Discussion: Unable to Assess Preferences, Provider to review later * Full Code Date Activated Date Inactivated Comments 05/20/2019 5:20 PM 05/21/2019 8:24 PM Care Teams Medical Sales Specialist Relationship Specialty Start Date End Date Karthik Sanz MD [address] [place] [address] PCP - General Internal Medicine 06/24/20
--- OUTSIDE RECORDS SUMMARY | 2023-12-23 15:33 | XMS_ITS | Clinical Summary ---
Author Organization [employer] Address [address] [place] [address] Care Team Providers Care Business Initiatives Manager Name Role Phone Royce Weiner Primary Care Provider [phone] Allergies Active Allergy Reactions Criticality Noted Date [...] days. Use to read blood sugars per landscape architect and planner's instructions. 2 each 5 03/17/2022 Active aspirin [...] Comments Blood Pressure 166/95 03/17/2022 7:29 AM [facility] Pulse 88 03/17/2022 7:28 AM [facility] Temperature 36.8 ??C (98.3 ??F) 03/17/2022 7:28 AM CS T Respiratory Rate 20 03/17/2022 7:28 AM [facility] Oxygen Saturation 94% 03/17/2022 9:36 AM [facility] Inhaled Oxygen Concentration - - Weight 125.5 kg (276 lb 9.6 oz) 03/17/2022 5:12 AM [facility] Height 180.3 cm (5' 11) 03/14/2022 9:55 AM [facility] Body Mass Index 38.58 03/14/2022 9:55 AM [facility] Plan of Treatment Health Maintenance Due Date [...] BASIC METABOLIC PANEL Routine 03/15/2022 7:49 AM [facility] LIPID REFLEX TO DIRECT LDL PANEL Add-On 03/14/2022 7:51 AM [facility] HEMOGLOBIN A1C Add-On 03/13/2022 2:49 PM [facility] from Last 3 Months or Most Recently Relevant to Health Maintenance Results * (ABNORMAL) Basic metabolic panel (03/15/2022 7:49 AM [facility]) Sodium 137 136 - 145 mmol/L 03/15/2022 8:38 AM [facility] Potassium 4.6 3.4 - 5.3 mmol/L 03/15/2022 8:38 AM [facility] Comment:Specimen slightly he molyzed, potassium may be falsely elevated. Chloride 100 98 - 107 mmol/L 03/15/2022 8:38 AM [facility] Carbon Dioxide (CO2) 27 22 - 29 mmol/L 03/15/2022 8:38 AM [facility] Anion Gap 10 7 - 15 mmol/L 03/15/2022 8:38 AM [facility] Urea Nitrogen 14.0 6.0 - 20.0 mg/dL 03/15/2022 8:38 AM [facility] Creatinine 0.55(L) 0.67 - 1.17 mg/dL 03/15/2022 8:38 AM [facility] Calcium 9.5 8.6 - 10.0 mg/dL 03/15/2022 8:38 AM [facility] Glucose 103(H) 70 - 99 mg/dL 03/15/2022 8:38 AM [facility] GFR Estimate >90 >60 mL/min/1.7 3m2 03/15/2022 8:38 AM [facility] Comment:Effective February 162020 eGFRcr in adults is calculated using the 2020 CKD-EPI creatinine equation which includes age and gender (Bridgett et al., NEJM, DOI: 10.1056/EUAOwn1811112) Blood STRUCTURE OF RIGHT UPPER LIMB / Unknown Venipuncture / Unknown 03/15/2022 7:49 AM [facility] 03/15/2022 8:04 AM [facility] Axel Calderón MD LAB - BLOOD ORDERABL ES LABORATORY [facility] [address] [facility] Lab (1st floor, no room number) [place] [address], [facility] [phone] * (ABNORMAL) Lipid panel reflex to direct LDL (03/14/2022 7:51 AM [facility]) Cholesterol 184 <200 mg/dL 03/14/2022 1:46 PM [facility] Triglycerides 331(H) <150 mg/dL 03/14/2022 1:46 PM [facility] Direct Measure HDL 28(L) >=40 mg/dL 03/14/2022 1:46 PM [facility] LDL Cholesterol Calculated 90 <=100 mg/dL 03/14/2022 1:46 PM [facility] Non HDL Cholesterol 156(H) <130 mg/dL 03/14/2022 1:46 PM [facility] Blood STRUCTURE OF RIGHT UPPER LIMB / Unknown Venipuncture / Unknown 03/14/2022 7:51 AM [facility] 03/14/2022 8:00 AM [facility] Narrative [facility] - 03/14/2022 1:46 PM [facility] Cholesterol Desirable: ??<200 mg/dL Triglycerides Normal: ??Less [...] LAB - BLOOD ORDERABL ES [facility] [address] [facility], [address] [place] [address], [facility] [phone] * (ABNORMAL) Hemoglobin A1c (03/13/2022 2:49 PM [facility]) Hemoglobin A1C 14.4(H) <5.7 % 03/13/2022 7:14 PM [facility]ORATORY Comment: Normal <5.7% Prediabetes 5.7-6.4% ?? Diabetes 6.5% or higher Note: Adopted from ADA consensus guidelines. Blood BLOOD SPECIMEN / Unknown Venipuncture / Unknown 03/13/2022 2:49 PM [facility] 03/13/2022 3:06 PM [facility] Parish Rios MD LAB - BLOOD ORDERABL ES LABORATORY [facility] [address] Lab (1st floor, no room number) [place] [address], [facility] [phone] from Last 3 Months or Most Recently Relevant to Health Maintenance Advance Directives For more information, please contact: [phone] * Full Code (Latest Code Status on File) Date Activated Date Inactivated Comments 03/13/2022 9:46 PM 03/17/2022 6:08 PM All basic and advanced life-sustaining interventions are performed as appropriate Question Answer Comments Code status determined by: Discussion with leobardo nt/ legal decision maker Care Teams Business Initiatives Manager Relationship Specialty Start Date End Date Royce Weiner [address] [facility] [address] [facility] - General 05/26/20
--- OUTSIDE RECORDS SUMMARY | 2023-12-23 15:33 | XMS_ITS | Continuity of Care Document ---
Author Organization [employer] Address [address] [place] [address] Phone Care Team Providers Care Cut To Length Operator Name Role Phone Elizabeth Peterson CNP [...] Offic/outpt E&m Estab Low-mod DARRELL Rowley, [address], [place], [place], [id number], tel:[phone] [facility] No Information 9 Kristen Johnson. [address], [address], [place], [place], [id number], [place]. tel:[phone] Referring Provider: Reggie Geiger MD J, [address] [facility], [place], [address]. tel:[phone] Offic/outpt E&m Estab Low-mod DARRELL Rowley, [address], [place], [place], [id number], [place] tel:[phone] [facility] No Information 9[address] Budnick Elizabeth. [address] , [address], [place], [place], [id number], [place]. tel:[phone] Referring Provider: Reggie Rock, [address] [place], [address]. tel:[phone] Offic/outpt E&m Estab Mod-hi 2 Amrik, [facility], [address], [place], [place], [id number], [place] tel:[phone] [facility] No Information 9 Budnick Elizabeth. [address] , [address], [place], [place], [id number], [place]. tel:[phone] Referring Provider: Reggie Rock, [address] [place], [address]. tel:[phone] Offic/outpt E&m Estab Low-mod Amrik, [facility], [address] [facility] [address], [place], [id number], [place] tel:[phone] [facility] No Information 9 Juanjo Paredes. [address], [place], [address], [place]. tel:[phone] Referring Provider: REFERRAL SELF, ISRAEL. Offic/outpt E&m Estab Low-mod Amrik, [facility], [address] [facility] [address], [place], [place], [id number], [place] tel:[phone] [facility] No Information 9 Juanjo Paredes. [address], [place], [address], [place]. tel:[phone] Referring Provider: REFERRAL SELF, ISRAEL. [facility], [address] [facility] [address], [place], [id number], [place] tel:[phone] [facility] No Information 9 Juanjo LOZA Reggie. [address], [place], [place], [facility], [place]. [phone] Referring Provider: REFERRAL SELF, ISRAEL. Offic/outpt E&m Estab Mod-hi 2 [facility], [facility], [address], [place], [place], [id number], [phone] [facility] No Information 9 Juanjo LOZA Reggie. [address], [place], [place], [facility], [place]. tel:[phone] Referring Provider: REFERRAL SELFISRAEL. Offic Cons New/estab Mod-hi 60 Amrik, [facility], [address], [place], [place], [id number], tel:[phone] [facility] No Information [address] [facility]. [address] [place], [place], [facility], . Family History Family Member Type Diagnosis [...]
--- OUTSIDE RECORDS SUMMARY | 2023-12-23 15:33 | XMS_ITS | Referral Summary ---
Author Organization [employer] Address [address] [place] [address] Care Team Providers Care Pigs Feet Cleaner Name Role Phone Royce Weiner Primary Care Provider [phone] Allergies Active Allergy Reactions Criticality Noted Date [...] days. Use to read blood sugars per engine dynamometer tester's instructions. 2 each 5 03/17/2022 Active aspirin [...] Comments Blood Pressure 166/95 03/17/2022 7:29 AM [facility] Pulse 88 03/17/2022 7:28 AM [facility] Temperature 36.8 ??C (98.3 ??F) 03/17/2022 7:28 AM CS T Respiratory Rate 20 03/17/2022 7:28 AM [facility] Oxygen Saturation 94% 03/17/2022 9:36 AM MAIL CARRIER Inhaled Oxygen Concentration - - Weight 125.5 kg (276 lb 9.6 oz) 03/17/2022 5:12 AM MAIL CARRIER Height 180.3 cm (5' 11) 03/14/2022 9:55 AM [facility] Body Mass Index 38.58 03/14/2022 9:55 AM MAIL CARRI[facility] Plan of Treatment Not on file Procedures Procedure Name Priority Date/Time Associated Diagnosis Comments BASIC METABOLIC PANEL Routine 03/15/2022 7:49 AM [facility] LIPID REFLEX TO DIRECT LDL PANEL Add-On 03/14/2022 7:51 AM [facility] HEMOGLOBIN A1C Add-On 03/13/2022 2:49 PM MAIL CARRIER from Last 3 Months or Most Recently Relevant to Health Maintenance Results * (ABNORMAL) Basic metabolic panel (03/15/2022 7:49 AM MAIL CARRIER) Sodium 137 136 - 145 mmol/L 03/15/2022 8:38 AM [facility] Potassium 4.6 3.4 - 5.3 mmol/L 03/15/2022 8:38 AM [facility] Comment:Specimen slightly he molyzed, potassium may be falsely elevated. Chloride 100 98 - 107 mmol/L 03/15/2022 8:38 AM [facility] Carbon Dioxide (CO2) 27 22 - 29 mmol/L 03/15/2022 8:38 AM [facility] Anion Gap 10 7 - 15 mmol/L 03/15/2022 8:38 AM [facility] Urea Nitrogen 14.0 6.0 - 20.0 mg/dL 03/15/2022 8:38 AM [facility] Creatinine 0.55(L) 0.67 - 1.17 mg/dL 03/15/2022 8:38 AM [facility] Calcium 9.5 8.6 - 10.0 mg/dL 03/15/2022 8:38 AM [facility] Glucose 103(H) 70 - 99 mg/dL 03/15/2022 8:38 AM [facility] GFR Estimate >90 >60 mL/min/1.7 3m2 03/15/2022 8:38 AM [facility] Comment:Effective February 162020 eGFRcr in adults is calculated using the 2020 CKD-EPI creatinine equation which includes age and gender (Bridgett et al., NEJM, DOI: 10.1056/MXOXeh7086228) Blood STRUCTURE OF RIGHT UPPER LIMB / Unknown Venipuncture / Unknown 03/15/2022 7:49 AM [facility] 03/15/2022 8:04 AM MAIL CARRIER Axel Calderón MD LAB - BLOOD ORDERABL ES LABORATORY [facility] Lab [address] Lab (1st floor, no room number) [place] [address], [facility] [phone] * (ABNORMAL) Lipid panel reflex to direct LDL (03/14/2022 7:51 AM MAIL CARRIER) Cholesterol 184 <200 mg/dL 03/14/2022 1:46 PM [facility] Triglycerides 331(H) <150 mg/dL 03/14/2022 1:46 PM [facility] Direct Measure HDL 28(L) >=40 mg/dL 03/14/2022 1:46 PM [facility] LDL Cholesterol Calculated 90 <=100 mg/dL 03/14/2022 1:46 PM [facility] Non HDL Cholesterol 156(H) <130 mg/dL 03/14/2022 1:46 PM [facility] Blood STRUCTURE OF RIGHT UPPER LIMB / Unknown Venipuncture / Unknown 03/14/2022 7:51 AM MAIL CARRIER 03/14/2022 8:00 AM MAIL CARRIER Narrative [facility] - 03/14/2022 1:46 PM MAIL CARRIER Cholesterol Desirable: ??<200 mg/dL Triglycerides Normal: ??Less [...] - BLOOD ORDERABL ES [facility] [address] [facility] [address] [facility], [address] [place] [address], [facility] [phone] * (ABNORMAL) Hemoglobin A1c (03/13/2022 2:49 PM MAIL CARRIER) Hemoglobin A1C 14.4(H) <5.7 % 03/13/2022 7:14 PM [facility] Comment: Normal <5.7% Prediabetes 5.7-6.4% ?? Diabetes 6.5% or higher Note: Adopted from ADA consensus guidelines. Blood BLOOD SPECIMEN / Unknown Venipuncture / Unknown 03/13/2022 2:49 PM MAIL CARRIER 03/13/2022 3:06 PM MAIL CARRIER Parish Rios MD LAB - BLOOD ORDERABL ES LABORATORY [facility] [address] [facility] (1st floor, no room number) [place] [address], [facility] [phone] from Last 3 Months or Most Recently Relevant to Health Maintenance Advance Directives For more information, please contact: [phone] * Full Code (Latest Code Status on File) Date Activated Date Inactivated Comments 03/13/2022 9:46 PM 03/17/2022 6:08 PM All basic and advanced life-sustaining interventions are performed as appropriate Question Answer Comments Code status determined by: Discussion with leobardo nt/ legal decision maker Care Teams Pigs Feet Cleaner Relationship Specialty Start Date End Date Royce Weiner [address] [facility] [address] PCP - General 05/26/20
== END 2023-12-23 15:32 | disposition home or self-care (01) ==
LOC: WOUND 15:31
PROVIDERS: PCP Internal Medicine; Visit Provider Nurse Practitioner Family
DX: E11.621 Type 2 diabetes mellitus with foot ulcer (principal); L97.422 Non-pressure chronic ulcer of left heel and midfoot with fat layer exposed; Z79.4 Long term (current) use of insulin
CPT/HCPCS: 97597

== ENCOUNTER 2023-12-30 15:03 | Outpatient (CLI) | payer OTHER, SELFPAY ==
--- OUTSIDE RECORDS SUMMARY | 2023-12-30 15:06 | XMS_ITS | Clinical Summary ---
Author Organization [facility] Address [place], [place] [address] Care Team Providers Care Instructor Painting Name Role Phone Karthik Sanz MD Primary Care Provider [phone] Allergies Active Allergy Reactions Criticality Noted Date [...] Description 12/19/2023 1:00 PM CDT Office Visit [facility] [address] [place] [address] Eran Campa MD Follow Up 10/29/2023 Orders Only [facility] Scanner 1 scan: (1-Ord) [facility] ART[facility] DUPLEX LE BI, 10/29/2023 from Last 3 Months Immunizations Name Administration Dates Next Due AMB Influenza, IIV4 PF (=>6 mos Flulaval,Fluzone Fluarix)(Flu Clinic Only) 12/12/2018 COVID-19 vaccine (Krux NTSagge 30mcg/0.3mL) 12YO+ BIVALENT PF, MDV 01/26/2022 Hepatitis [...] - 199 mg/dL 09/07/2023 7:39 AM CDT [facility] Comment: Cholesterol, Total Reference Ranges Desirable <200 mg/dL Borderline 200-239 mg/dL High >=240 mg/dL TRIGLYCERIDES 212(H) <150 mg/dL 09/07/2023 7:39 AM CDT [facility] HDL CHOLESTEROL 37(L) >40 mg/dL 7:39 AM CDT [facility] NON-HDL CHOLESTEROL 188(H) <145 mg/dl 09/07/2023 7:39 AM CDT [facility] CHOL/HDL RATIO 6.08(H) <4.50 09/07/2023 7:39 AM CDT [facility] LDL CHOLESTEROL 146(H) <=130 mg/dL 09/07/2023 7:39 AM CDT [facility] Explain [facility] VLDL CHOLESTEROL 42(H) <=30 mg/dL 09/07/2023 7:39 AM CDT [facility] PROVIDER ORDERED STATUS RANDOM 09/07/2023 7:39 AM CDT [facility] Blood BLOOD SPECIMEN / Unknown Venipuncture / Unknown 09/07/2023 7:01 AM CDT 09/07/2023 7:13 AM CDT Melita Lopez MD CHEMISTRY [facility] [address] [place] [address], from Last 3 Months or Most Recently Relevant to Health Maintenance Advance Directives * Full Code (Latest Code Status on File) Date Activated Date Inactivated Comments 09/06/2023 9:15 AM 09/11/2023 7:27 PM Question Answer Comments Code Status Discussion: Unable to Assess Preferences, Provider to review later * Full Code Date Activated Date Inactivated Comments 05/20/2019 5:20 PM 05/21/2019 8:24 PM Care Teams Instructor Painting Relationship Specialty Start Date End Date Karthik Sanz MD [address] [place] [address] PCP - General Internal Medicine 06/24/20
--- OUTSIDE RECORDS SUMMARY | 2023-12-30 15:06 | XMS_ITS | Referral Summary ---
Author Organization [place] Address [address] [place] [address] Care Team Providers Care Real Estate Associate Name Role Phone Royce Weiner Primary Care Provider [phone] Allergies Active Allergy Reactions Criticality Noted Date [...] days. Use to read blood sugars per attractions associate's instructions. 2 each 5 03/17/2022 Active aspirin [...] Comments Blood Pressure 166/95 03/17/2022 7:29 AM POSTAL TRANSPORTATION CLERK Pulse 88 03/17/2022 7:28 AM POSTAL TRANSPORTATION CLERK Temperature 36.8 ??C (98.3 ??F) 03/17/2022 7:28 AM CS T Respiratory Rate 20 03/17/2022 7:28 AM POSTAL TRANSPORTATION CLERK Oxygen Saturation 94% 03/17/2022 9:36 AM POSTAL TRANSPORTATION CLERK Inhaled Oxygen Concentration - - Weight 125.5 kg (276 lb 9.6 oz) 03/17/2022 5:12 AM POSTAL TRANSPORTATION CLERK Height 180.3 cm (5' 11) 03/14/2022 9:55 AM POSTAL TRANSPORTATION CLERK Body Mass Index 38.58 03/14/2022 9:55 AM POSTAL TRANSPORTATION CLERK Plan of Treatment Not on file Procedures Procedure Name Priority Date/Time Associated Diagnosis Comments BASIC METABOLIC PANEL Routine 03/15/2022 7:49 AM POSTAL TRANSPORTATION CLERK LIPID REFLEX TO DIRECT LDL PANEL Add-On 03/14/2022 7:51 AM POSTAL TRANSPORTATION CLERK HEMOGLOBIN A1C Add-On 03/13/2022 2:49 PM POSTAL TRANSPORTATION CLERK from Last 3 Months or Most Recently Relevant to Health Maintenance Results * (ABNORMAL) Basic metabolic panel (03/15/2022 7:49 AM POSTAL TRANSPORTATION CLERK) Sodium 137 136 - 145 mmol/L 03/15/2022 8:38 AM [facility] Potassium 4.6 3.4 - 5.3 mmol/L 03/15/2022 8:38 AM [facility] Comment:Specimen slightly he molyzed, potassium may be falsely elevated. Chloride 100 98 - 107 mmol/L 03/15/2022 8:38 AM [facility] Carbon Dioxide (CO2) 27 22 - 29 mmol/L 03/15/2022 8:38 AM [facility] Anion Gap 10 7 - 15 mmol/L 03/15/2022 8:38 AM [facility] Urea Nitrogen 14.0 6.0 - 20.0 mg/dL 03/15/2022 8:38 AM [facility] Creatinine 0.55(L) 0.67 - 1.17 mg/dL 03/15/2022 8:38 AM [facility] Calcium 9.5 8.6 - 10.0 mg/dL 03/15/2022 8:38 AM [facility] Glucose 103(H) 70 - 99 mg/dL 03/15/2022 8:38 AM [facility] GFR Estimate >90 >60 mL/min/1.7 3m2 03/15/2022 8:38 AM [facility] Comment:Effective February 162020 eGFRcr in adults is calculated using the 2020 CKD-EPI creatinine equation which includes age and gender (Bridgett et al., NEJM, DOI: 10.1056/WXERlj3868727) Blood STRUCTURE OF RIGHT UPPER LIMB / Unknown Venipuncture / Unknown 03/15/2022 7:49 AM POSTAL TRANSPORTATION CLERK 03/15/2022 8:04 AM POSTAL TRANSPORTATION CLERK Axel Calderón MD LAB - BLOOD ORDERABL ES LABORATORY [facility] [address] Lab (1st floor, no room number) [place] [address], [facility] [phone] * (ABNORMAL) Lipid panel reflex to direct LDL (03/14/2022 7:51 AM POSTAL TRANSPORTATION CLERK) Cholesterol 184 <200 mg/dL 03/14/2022 1:46 PM POSTAL TRANSPORTATION CLERK [facility] Triglycerides 331(H) <150 mg/dL 03/14/2022 1:46 PM POSTAL TRANSPORTATION CLERK [facility] Direct Measure HDL 28(L) >=40 mg/dL 03/14/2022 1:46 PM POSTAL TRANSPORTATION CLERK [facility] LDL Cholesterol Calculated 90 <=100 mg/dL 03/14/2022 1:46 PM POSTAL TRANSPORTATION CLERK [facility] Non HDL Cholesterol 156(H) <130 mg/dL 03/14/2022 1:46 PM POSTAL TRANSPORTATION CLERK [facility] Blood STRUCTURE OF RIGHT UPPER LIMB / Unknown Venipuncture / Unknown 03/14/2022 7:51 AM POSTAL TRANSPORTATION CLERK 03/14/2022 8:00 AM POSTAL TRANSPORTATION CLERK Narrative [facility] - 03/14/2022 1:46 PM POSTAL TRANSPORTATION CLERK Cholesterol Desirable: ??<200 mg/dL Triglycerides Normal: ??Less [...] - BLOOD ORDERABL ES [facility] [address] [facility] [address] [facility], [address] [place] [address], [facility] [phone] * (ABNORMAL) Hemoglobin A1c (03/13/2022 2:49 PM POSTAL TRANSPORTATION CLERK) Hemoglobin A1C 14.4(H) <5.7 % 03/13/2022 7:14 PM POSTAL TRANSPORTATION CLERK LABORATORY Comment: Normal <5.7% Prediabetes 5.7-6.4% ?? Diabetes 6.5% or higher Note: Adopted from ADA consensus guidelines. Blood BLOOD SPECIMEN / Unknown Venipuncture / Unknown 03/13/2022 2:49 PM POSTAL TRANSPORTATION CLERK 03/13/2022 3:06 PM POSTAL TRANSPORTATION CLERK Parish Rios MD LAB - BLOOD ORDERABL ES LABORATORY [facility] [address] [facility] Lab (1st floor, no room number) [place] [address], [facility] [phone] from Last 3 Months or Most Recently Relevant to Health Maintenance Advance Directives For more information, please contact: [phone] * Full Code (Latest Code Status on File) Date Activated Date Inactivated Comments 03/13/2022 9:46 PM 03/17/2022 6:08 PM All basic and advanced life-sustaining interventions are performed as appropriate Question Answer Comments Code status determined by: Discussion with leobardo nt/ legal decision maker Care Teams Real Estate Associate Relationship Specialty Start Date End Date Royce Weiner [address] [facility] [address] PCP - General 05/26/20
--- OUTSIDE RECORDS SUMMARY | 2023-12-30 15:06 | XMS_ITS | Continuity of Care Document ---
Author Organization [facility] Address [address] [place] [address] Phone Care Team Providers Care Paper Reclaiming Machine Operator Name Role Phone Elizabeth Peterson CNP [...] Offic/outpt E&m Estab Low-mod [facility], [address], [place], [place], [id number], tel:[phone] [facility] No Information 9 Kristen Johnson. [address], [address], [place], [place], [id number], [place]. tel:[phone] Referring Provider: Reggie Geiger MD J, [address] [facility], [place], [address]. tel:[phone] Offic/outpt E&m Estab Low-mod [facility], [address], [place], [place], [id number], [place] tel:[phone] [facility] No Information 9[address] Budnick Elizabeth. [address] , [address], [place], [place], [id number], [place]. tel:[phone] Referring Provider: Reggie Rock, [address] [place], [address]. tel:[phone] Offic/outpt E&m Estab Mod-hi 2 Amrik, [facility], [address], [place], [place], [id number], [place] tel:[phone] [facility] No Information 9 Budnick Elizabeth. [address] , [address], [place], [place], [id number], [place]. tel:[phone] Referring Provider: Reggie Rock, [address] [place], [address]. tel:[phone] Offic/outpt E&m Estab Low-mod Amrik, [facility], [address] [facility] [address], [place], [id number], [place] tel:[phone] [facility] No Information 9 Juanjo Paredes. [address], [place], [address], [place]. tel:[phone] Referring Provider: REFERRAL SELF, ISRA[place]. Offic/outpt E&m Estab Low-mod Amrik, [facility], [address] [facility] [address], [place], [place], [id number], [place] tel:[phone] [facility] No Information 9 Juanjo Paredes. [address], [place], [address], [place]. tel:[phone] Referring Provider: REFERRAL SELF, ISRA[place]. [facility], [address] [facility] [address], [place], [id number], [place] tel:[phone] [facility] No Information 9 Juanjo LOZA Reggie. [address], [place], [place], [facility], [place]. [phone] Referring Provider: REFERRAL SELF, ISRAEL. Offic/outpt E&m Estab Mod-hi 2 [facility] [place], [facility], [address], [place], [place], [id number], [phone] [facility] No Information 9 Juanjo LOZA Reggie. [address], [place], [facility], [place]. tel:[phone] Referring Provider: REFERRAL SELFISRAEL. Offic Cons New/estab Mod-hi 60 Amrik, [facility], [address], [place], [place], [id number], tel:[phone] [facility] No Information 9 Tor Vega [facility]. [address] [place], [place], [facility], . Family History Family Member [...]
--- OUTSIDE RECORDS SUMMARY | 2023-12-30 15:06 | XMS_ITS | Clinical Summary ---
Author Organization [facility] Address [address] [place] [address] Care Team Providers Care Principal Trainer Name Role Phone Royce Weiner Primary Care Provider [phone] Allergies Active Allergy Reactions Criticality Noted Date [...] days. Use to read blood sugars per healthcare risk control consultant's instructions. 2 each 5 03/17/2022 Active aspirin [...] Comments Blood Pressure 166/95 03/17/2022 7:29 AM METAL SPRAYER MACHINED PARTS Pulse 88 03/17/2022 7:28 AM METAL SPRAYER MACHINED PARTS Temperature 36.8 ??C (98.3 ??F) 03/17/2022 7:28 AM CS T Respiratory Rate 20 03/17/2022 7:28 AM METAL SPRAYER MACHINED PARTS Oxygen Saturation 94% 03/17/2022 9:36 AM METAL SPRAYER MACHINED PARTS Inhaled Oxygen Concentration - - Weight 125.5 kg (276 lb 9.6 oz) 03/17/2022 5:12 AM METAL SPRAYER MACHINED PARTS Height 180.3 cm (5' 11) 03/14/2022 9:55 AM METAL SPRAYER MACHINED PARTS Body Mass Index 38.58 03/14/2022 9:55 AM METAL SPRAYER MACHINED PARTS Plan of Treatment Health Maintenance Due Date [...] BASIC METABOLIC PANEL Routine 03/15/2022 7:49 AM METAL SPRAYER MACHINED PARTS LIPID REFLEX TO DIRECT LDL PANEL Add-On 03/14/2022 7:51 AM METAL SPRAYER MACHINED PARTS HEMOGLOBIN A1C Add-On 03/13/2022 2:49 PM METAL SPRAYER MACHINED PARTS from Last 3 Months or Most Recently Relevant to Health Maintenance Results * (ABNORMAL) Basic metabolic panel (03/15/2022 7:49 AM METAL SPRAYER MACHINED PARTS) Sodium 137 136 - 145 mmol/L 03/15/2022 8:38 AM [facility] Potassium 4.6 3.4 - 5.3 mmol/L 03/15/2022 8:38 AM [facility] Comment:Specimen slightly he molyzed, potassium may be falsely elevated. Chloride 100 98 - 107 mmol/L 03/15/2022 8:38 AM [facility] Carbon Dioxide (CO2) 27 22 - 29 mmol/L 03/15/2022 8:38 AM [facility] Anion Gap 10 7 - 15 mmol/L 03/15/2022 8:38 AM [facility] Urea Nitrogen 14.0 6.0 - 20.0 mg/dL 03/15/2022 8:38 AM [facility] Creatinine 0.55(L) 0.67 - 1.17 mg/dL 03/15/2022 8:38 AM [facility] Calcium 9.5 8.6 - 10.0 mg/dL 03/15/2022 8:38 AM [facility] Glucose 103(H) 70 - 99 mg/dL 03/15/2022 8:38 AM [facility] GFR Estimate >90 >60 mL/min/1.7 3m2 03/15/2022 8:38 AM [facility] Comment:Effective February 162020 eGFRcr in adults is calculated using the 2020 CKD-EPI creatinine equation which includes age and gender (Bridgett et al., NEJM, DOI: 10.1056/[id number]) Blood STRUCTURE OF RIGHT UPPER LIMB / Unknown Venipuncture / Unknown 03/15/2022 7:49 AM METAL SPRAYER MACHINED PARTS 03/15/2022 8:04 AM METAL SPRAYER MACHINED PARTS Axel Calderón MD LAB - BLOOD ORDERABL ES LABORATORY [facility] [address] [facility] Lab (1st floor, no room number) [place] [address], [facility] [phone] * (ABNORMAL) Lipid panel reflex to direct LDL (03/14/2022 7:51 AM METAL SPRAYER MACHINED PARTS) Cholesterol 184 <200 mg/dL 03/14/2022 1:46 PM METAL SPRAYER MACHINED PARTS [facility] Triglycerides 331(H) <150 mg/dL 03/14/2022 1:46 PM METAL SPRAYER MACHINED PARTS [facility] Direct Measure HDL 28(L) >=40 mg/dL 03/14/2022 1:46 PM METAL SPRAYER MACHINED PARTS [facility] LDL Cholesterol Calculated 90 <=100 mg/dL 03/14/2022 1:46 PM METAL SPRAYER MACHINED PARTS [facility] Non HDL Cholesterol 156(H) <130 mg/dL 03/14/2022 1:46 PM METAL SPRAYER MACHINED PARTS [facility] Blood STRUCTURE OF RIGHT UPPER LIMB / Unknown Venipuncture / Unknown 03/14/2022 7:51 AM METAL SPRAYER MACHINED PARTS 03/14/2022 8:00 AM METAL SPRAYER MACHINED PARTS Narrative [facility] - 03/14/2022 1:46 PM METAL SPRAYER MACHINED PARTS Cholesterol Desirable: ??<200 mg/dL Triglycerides Normal: ??Less [...] LAB - BLOOD ORDERABL ES [facility] [place] [facility] [address] [facility] [address] [facility], Room [address] [place] [address], [facility] [phone] * (ABNORMAL) Hemoglobin A1c (03/13/2022 2:49 PM METAL SPRAYER MACHINED PARTS) Hemoglobin A1C 14.4(H) <5.7 % 03/13/2022 7:14 PM [employer]AL SPR[employer] MACHIN[employer] PARTS LABORATORY Comment: Normal <5.7% Prediabetes 5.7-6.4% ?? Diabetes 6.5% or higher Note: Adopted from ADA consensus guidelines. Blood BLOOD SPECIMEN / Unknown Venipuncture / Unknown 03/13/2022 2:49 PM METAL SPRAYER MACHINED PARTS 03/13/2022 3:06 PM METAL SPRAYER MACHINED PARTS Parish Rios MD LAB - BLOOD ORDERABL ES LABORATORY [facility] Lab [address] Lab (1st floor, no room number) [place] [address], [facility] [phone] from Last 3 Months or Most Recently Relevant to Health Maintenance Advance Directives For more information, please contact: [phone] * Full Code (Latest Code Status on File) Date Activated Date Inactivated Comments 03/13/2022 9:46 PM 03/17/2022 6:08 PM All basic and advanced life-sustaining interventions are performed as appropriate Question Answer Comments Code status determined by: Discussion with leobardo nt/ legal decision maker Care Teams Principal Trainer Relationship Specialty Start Date End Date Royce Weiner [address] [facility] [address] [facility] - General 05/26/20
== END 2023-12-30 15:04 | disposition home or self-care (01) ==
LOC: WOUND 15:04
PROVIDERS: PCP Internal Medicine; Visit Provider Nurse Practitioner Family
DX: E11.621 Type 2 diabetes mellitus with foot ulcer (principal); L97.415 Non-pressure chronic ulcer of right heel and midfoot with muscle involvement without evidence of necrosis; L97.422 Non-pressure chronic ulcer of left heel and midfoot with fat layer exposed; Z79.4 Long term (current) use of insulin
CPT/HCPCS: 11042

== ENCOUNTER 2024-01-06 15:14 | Outpatient (CLI) | payer OTHER, MEDICARE, SELFPAY ==
--- OUTSIDE RECORDS SUMMARY | 2024-01-06 15:17 | XMS_ITS | Clinical Summary ---
Author Organization [facility] Address [address] [place] [address] Care Team Providers Care Professor Of Languages Name Role Phone Royce Weiner Primary Care Provider [phone] Allergies Active Allergy Reactions Criticality Noted Date [...] days. Use to read blood sugars per cost estimating clerk's instructions. 2 each 5 03/17/2022 Active aspirin [...] Comments Blood Pressure 166/95 03/17/2022 7:29 AM ADVERTISING VICE PRESIDENT Pulse 88 03/17/2022 7:28 AM ADVERTISING VICE PRESIDENT Temperature 36.8 ??C (98.3 ??F) 03/17/2022 7:28 AM CS T Respiratory Rate 20 03/17/2022 7:28 AM ADVERTISING VICE PRESIDENT Oxygen Saturation 94% 03/17/2022 9:36 AM ADVERTISING VICE PRESIDENT Inhaled Oxygen Concentration - - Weight 125.5 kg (276 lb 9.6 oz) 03/17/2022 5:12 AM ADVERTISING VICE PRESIDENT Height 180.3 cm (5' 11) 03/14/2022 9:55 AM ADVERTISING VICE PRESIDENT Body Mass Index 38.58 03/14/2022 9:55 AM ADVERTISING VICE PRESIDENT Plan of Treatment Health Maintenance Due Date [...] BASIC METABOLIC PANEL Routine 03/15/2022 7:49 AM ADVERTISING VICE PRESIDENT LIPID REFLEX TO DIRECT LDL PANEL Add-On 03/14/2022 7:51 AM ADVERTISING VICE PRESIDENT HEMOGLOBIN A1C Add-On 03/13/2022 2:49 PM ADVERTISING VICE PRESIDENT from Last 3 Months or Most Recently Relevant to Health Maintenance Results * (ABNORMAL) Basic metabolic panel (03/15/2022 7:49 AM ADVERTISING VICE PRESIDENT) Sodium 137 136 - 145 mmol/L 03/15/2022 8:38 AM [facility] Potassium 4.6 3.4 - 5.3 mmol/L 03/15/2022 8:38 AM [facility] Comment:Specimen slightly he molyzed, potassium may be falsely elevated. Chloride 100 98 - 107 mmol/L 03/15/2022 8:38 AM [facility] Carbon Dioxide (CO2) 27 22 - 29 mmol/L 03/15/2022 8:38 AM [facility] Anion Gap 10 7 - 15 mmol/L 03/15/2022 8:38 AM [facility] Urea Nitrogen 14.0 6.0 - 20.0 mg/dL 03/15/2022 8:38 AM [facility] Creatinine 0.55(L) 0.67 - 1.17 mg/dL 03/15/2022 8:38 AM [facility] Calcium 9.5 8.6 - 10.0 mg/dL 03/15/2022 8:38 AM [facility] Glucose 103(H) 70 - 99 mg/dL 03/15/2022 8:38 AM [facility] GFR Estimate >90 >60 mL/min/1.7 3m2 03/15/2022 8:38 AM [facility] Comment:Effective February 162020 eGFRcr in adults is calculated using the 2020 CKD-EPI creatinine equation which includes age and gender (Bridgett et al., NEJM, DOI: 10.1056/ZNOBoa5131105) Blood STRUCTURE OF RIGHT UPPER LIMB / Unknown Venipuncture / Unknown 03/15/2022 7:49 AM ADVERTISING VICE PRESIDENT 03/15/2022 8:04 AM ADVERTISING VICE PRESIDENT Axel Calderón MD LAB - BLOOD ORDERABL ES LABORATORY [facility] [address] [facility] Lab (1st floor, no room number) [place] [address], [facility] [phone] * (ABNORMAL) Lipid panel reflex to direct LDL (03/14/2022 7:51 AM ADVERTISING VICE PRESIDENT) Cholesterol 184 <200 mg/dL 03/14/2022 1:46 PM ADVERTISING VICE PRESIDENT [facility] Triglycerides 331(H) <150 mg/dL 03/14/2022 1:46 PM ADVERTISING VICE PRESIDENT [facility] Direct Measure HDL 28(L) >=40 mg/dL 03/14/2022 1:46 PM ADVERTISING VICE PRESIDENT [facility] LDL Cholesterol Calculated 90 <=100 mg/dL 03/14/2022 1:46 PM ADVERTISING VICE PRESIDENT [facility] Non HDL Cholesterol 156(H) <130 mg/dL 03/14/2022 1:46 PM ADVERTISING VICE PRESIDENT [facility] Blood STRUCTURE OF RIGHT UPPER LIMB / Unknown Venipuncture / Unknown 03/14/2022 7:51 AM ADVERTISING VICE PRESIDENT 03/14/2022 8:00 AM ADVERTISING VICE PRESIDENT Narrative [facility] - 03/14/2022 1:46 PM ADVERTISING VICE PRESIDENT Cholesterol Desirable: ??<200 mg/dL Triglycerides Normal: ??Less [...] LAB - BLOOD ORDERABL ES [facility] [address] [facility], Room [address] [place] [address], [facility] [phone] * (ABNORMAL) Hemoglobin A1c (03/13/2022 2:49 PM ADVERTISING VICE PRESIDENT) Hemoglobin A1C 14.4(H) <5.7 % 03/13/2022 7:14 PM ADVERTISING VICE PRESIDENT LABORATORY Comment: Normal <5.7% Prediabetes 5.7-6.4% ?? Diabetes 6.5% or higher Note: Adopted from ADA consensus guidelines. Blood BLOOD SPECIMEN / Unknown Venipuncture / Unknown 03/13/2022 2:49 PM ADVERTISING VICE PRESIDENT 03/13/2022 3:06 PM ADVERTISING VICE PRESIDENT Parish Rios MD LAB - BLOOD ORDERABL ES LABORATORY [facility] [address] Lab (1st floor, no room number) [place] [address], [facility] [phone] from Last 3 Months or Most Recently Relevant to Health Maintenance Advance Directives For more information, please contact: [phone] * Full Code (Latest Code Status on File) Date Activated Date Inactivated Comments 03/13/2022 9:46 PM 03/17/2022 6:08 PM All basic and advanced life-sustaining interventions are performed as appropriate Question Answer Comments Code status determined by: Discussion with leobardo nt/ legal decision maker Care Teams Professor Of Languages Relationship Specialty Start Date End Date Royce Weiner [address] [facility] [address] [facility] - General 05/26/20
--- OUTSIDE RECORDS SUMMARY | 2024-01-06 15:17 | XMS_ITS | Referral Summary ---
Author Organization [facility] Address [address] [place] [address] Care Team Providers Care Photo Finisher Name Role Phone Royce Weiner Primary Care Provider [phone] Allergies Active Allergy Reactions Criticality Noted Date [...] days. Use to read blood sugars per post anesthesia care unit nurse's instructions. 2 each 5 03/17/2022 Active aspirin [...] Comments Blood Pressure 166/95 03/17/2022 7:29 AM AIR REDUCTION EQUIPMENT OPERATOR Pulse 88 03/17/2022 7:28 AM AIR REDUCTION EQUIPMENT OPERATOR Temperature 36.8 ??C (98.3 ??F) 03/17/2022 7:28 AM CS T Respiratory Rate 20 03/17/2022 7:28 AM AIR REDUCTION EQUIPMENT OPERATOR Oxygen Saturation 94% 03/17/2022 9:36 AM AIR REDUCTION EQUIPMENT OPERATOR Inhaled Oxygen Concentration - - Weight 125.5 kg (276 lb 9.6 oz) 03/17/2022 5:12 AM AIR REDUCTION EQUIPMENT OPERATOR Height 180.3 cm (5' 11) 03/14/2022 9:55 AM AIR REDUCTION EQUIPMENT OPERATOR Body Mass Index 38.58 03/14/2022 9:55 AM AIR REDUCTION EQUIPMENT OPERATOR Plan of Treatment Not on file Procedures Procedure Name Priority Date/Time Associated Diagnosis Comments BASIC METABOLIC PANEL Routine 03/15/2022 7:49 AM AIR REDUCTION EQUIPMENT OPERATOR LIPID REFLEX TO DIRECT LDL PANEL Add-On 03/14/2022 7:51 AM AIR REDUCTION EQUIPMENT OPERATOR HEMOGLOBIN A1C Add-On 03/13/2022 2:49 PM AIR REDUCTION EQUIPMENT OPERATOR from Last 3 Months or Most Recently Relevant to Health Maintenance Results * (ABNORMAL) Basic metabolic panel (03/15/2022 7:49 AM AIR REDUCTION EQUIPMENT OPERATOR) Sodium 137 136 - 145 mmol/L 03/15/2022 8:38 AM [facility] Potassium 4.6 3.4 - 5.3 mmol/L 03/15/2022 8:38 AM [facility] Comment:Specimen slightly he molyzed, potassium may be falsely elevated. Chloride 100 98 - 107 mmol/L 03/15/2022 8:38 AM [facility] Carbon Dioxide (CO2) 27 22 - 29 mmol/L 03/15/2022 8:38 AM [facility] Anion Gap 10 7 - 15 mmol/L 03/15/2022 8:38 AM [facility] Urea Nitrogen 14.0 6.0 - 20.0 mg/dL 03/15/2022 8:38 AM [facility] Creatinine 0.55(L) 0.67 - 1.17 mg/dL 03/15/2022 8:38 AM [facility] Calcium 9.5 8.6 - 10.0 mg/dL 03/15/2022 8:38 AM [facility] Glucose 103(H) 70 - 99 mg/dL 03/15/2022 8:38 AM [facility] GFR Estimate >90 >60 mL/min/1.7 3m2 03/15/2022 8:38 AM [facility] Comment:Effective February 162020 eGFRcr in adults is calculated using the 2020 CKD-EPI creatinine equation which includes age and gender (Bridgett et al., NEJM, DOI: 10.1056/WMFBly3893118) Blood STRUCTURE OF RIGHT UPPER LIMB / Unknown Venipuncture / Unknown 03/15/2022 7:49 AM AIR REDUCTION EQUIPMENT OPERATOR 03/15/2022 8:04 AM AIR REDUCTION EQUIPMENT OPERATOR Axel Calderón MD LAB - BLOOD ORDERABL ES LABORATORY [facility] [address] Lab (1st floor, no room number) [place] [address], [facility] [phone] * (ABNORMAL) Lipid panel reflex to direct LDL (03/14/2022 7:51 AM AIR REDUCTION EQUIPMENT OPERATOR) Cholesterol 184 <200 mg/dL 03/14/2022 1:46 PM AIR REDUCTION EQUIPMENT OPERATOR [facility] Triglycerides 331(H) <150 mg/dL 03/14/2022 1:46 PM AIR REDUCTION EQUIPMENT OPERATOR [facility] Direct Measure HDL 28(L) >=40 mg/dL 03/14/2022 1:46 PM AIR REDUCTION EQUIPMENT OPERATOR [facility] LDL Cholesterol Calculated 90 <=100 mg/dL 03/14/2022 1:46 PM AIR REDUCTION EQUIPMENT OPERATOR [facility] Non HDL Cholesterol 156(H) <130 mg/dL 03/14/2022 1:46 PM AIR REDUCTION EQUIPMENT OPERATOR [facility] Blood STRUCTURE OF RIGHT UPPER LIMB / Unknown Venipuncture / Unknown 03/14/2022 7:51 AM AIR REDUCTION EQUIPMENT OPERATOR 03/14/2022 8:00 AM AIR REDUCTION EQUIPMENT OPERATOR Narrative [facility] - 03/14/2022 1:46 PM AIR REDUCTION EQUIPMENT OPERATOR Cholesterol Desirable: ??<200 mg/dL Triglycerides Normal: [...] - BLOOD ORDERABL ES [facility] LAB[facility] [address] [facility], Room [address] [place] [address], [facility] [phone] * (ABNORMAL) Hemoglobin A1c (03/13/2022 2:49 PM AIR REDUCTION EQUIPMENT OPERATOR) Hemoglobin A1C 14.4(H) <5.7 % 03/13/2022 7:14 PM AIR REDUCTION EQUIPMENT OPERATOR LABORATORY Comment: Normal <5.7% Prediabetes 5.7-6.4% ?? Diabetes 6.5% or higher Note: Adopted from ADA consensus guidelines. Blood BLOOD SPECIMEN / Unknown Venipuncture / Unknown 03/13/2022 2:49 PM AIR REDUCTION EQUIPMENT OPERATOR 03/13/2022 3:06 PM AIR REDUCTION EQUIPMENT OPERATOR Parish Rios MD LAB - BLOOD ORDERABL ES LABORATORY [facility] [address] [facility] (1st floor, no room number) [place] [address], [facility] [phone] from Last 3 Months or Most Recently Relevant to Health Maintenance Advance Directives For more information, please contact: [phone] * Full Code (Latest Code Status on File) Date Activated Date Inactivated Comments 03/13/2022 9:46 PM 03/17/2022 6:08 PM All basic and advanced life-sustaining interventions are performed as appropriate Question Answer Comments Code status determined by: Discussion with leobardo nt/ legal decision maker Care Teams Photo Finisher Relationship Specialty Start Date End Date Royce Weiner [address] [facility] [address] PCP - General 05/26/20
--- OUTSIDE RECORDS SUMMARY | 2024-01-06 15:17 | XMS_ITS | Clinical Summary ---
Author Organization [facility] Address [place], [place] [address] Care Team Providers Care Director Imaging Name Role Phone Karthik Sanz MD Primary Care Provider [phone] Allergies Active Allergy Reactions Criticality Noted Date [...] Description 12/19/2023 1:00 PM CDT Office Visit [facility] [address] [place] [address] Eran Campa MD Follow Up 10/29/2023 Orders Only [facility] Scanner 1 scan: (1-Ord) [facility] ARTERIAL DUPLEX LE BI, 10/29/2023 from Last 3 Months Immunizations Name Administration Dates Next Due AMB Influenza, IIV4 PF (=>6 mos Flulaval,Fluzone Fluarix)(Flu Clinic Only) 12/12/2018 COVID-19 vaccine ([employer] NTVacunek 30mcg/0.3mL) 12YO+ BIVALENT PF, MDV 01/26/2022 Hepatitis [...] file 09/06/2023 Food Insecurity Answer Date Recorded Do you worry your food will run out before you are able to buy more? 1 09/06/2023 Transportation Needs Answer Date Record ed Lack of Transportation (Medical) 1 09/06/2023 Housing Stability Answer Date Recorded What is your housing situation today? 1 09/06/2023 Sex and Gender Information Value [...] 07/09/2017, Additional history exists COVID-19 vaccine series ( season) 2023 01/26/2023, 01/26/2022, 04/03/2021, Additional history [...] - 199 mg/dL 09/07/2023 7:39 AM CDT [facility] Comment: Cholesterol, Total Reference Ranges Desirable <200 mg/dL Borderline 200-239 mg/dL High >=240 mg/dL TRIGLYCERIDES 212(H) <150 mg/dL 09/07/2023 7:39 AM CDT [facility] HDL CHOLESTEROL 37(L) >40 mg/dL 7:39 AM CDT [facility] NON-HDL CHOLESTEROL 188(H) <145 mg/dl 09/07/2023 7:39 AM CDT [facility] CHOL/HDL RATIO 6.08(H) <4.50 09/07/2023 7:39 AM CDT [facility] LDL CHOLESTEROL 146(H) <=130 mg/dL 09/07/2023 7:39 AM CDT [facility] VLDL CHOLESTEROL 42(H) <=30 mg/dL 09/07/2023 7:39 AM CDT [facility] PROVIDER ORDERED STATUS RANDOM 09/07/2023 7:39 AM T [facility] Blood BLOOD SPECIMEN / Unknown Venipuncture / Unknown 09/07/2023 7:01 AM CDT 09/07/2023 7:13 AM CDT Melita Lopez MD CHEMISTRY MEHDI [facility] [address] [place] [address], from Last 3 Months or Most Recently Relevant to Health Maintenance Advance Directives * Full Code (Latest Code Status on File) Date Activated Date Inactivated Comments 09/06/2023 9:15 AM 09/11/2023 7:27 PM Question Answer Comments Code Status Discussion: Unable to Assess Preferences, Provider to review later * Full Code Date Activated Date Inactivated Comments 05/20/2019 5:20 PM 05/21/2019 8:24 PM Care Teams Director Imaging Relationship Specialty Start Date End Date Karthik Sanz MD [address] [place] [address] PCP - General Internal Medicine 06/24/20
== END 2024-01-06 15:15 | disposition home or self-care (01) ==
LOC: WOUND 15:14
PROVIDERS: PCP Internal Medicine; Visit Provider Nurse Practitioner Family
DX: E11.621 Type 2 diabetes mellitus with foot ulcer (principal); L97.418 Non-pressure chronic ulcer of right heel and midfoot with other specified severity; L97.428 Non-pressure chronic ulcer of left heel and midfoot with other specified severity; Z79.4 Long term (current) use of insulin
CPT/HCPCS: 11042; 97597

== ENCOUNTER 2024-01-13 15:13 | Outpatient (CLI) | payer OTHER, SELFPAY ==
--- OUTSIDE RECORDS SUMMARY | 2024-01-13 15:15 | XMS_ITS | Clinical Summary ---
Author Organization [facility] Address [place], [place] [address] Care Team Providers Care Anesthesiologist Attending Name Role Phone Karthik Sanz MD Primary [...] Description 12/19/2023 1:00 PM CDT Office Visit [facility] [address] [place] [address] Eran Campa MD Follow Up 10/29/2023 Orders Only [facility] Scanner 1 scan: (1-Ord) [facility] ARTERIAL DUPLEX LE BI, 10/29/2023 from Last 3 Months Immunizations Name Administration Dates Next Due AMB Influenza, IIV4 PF (=>6 mos Flulaval,Fluzone Fluarix)(Flu Clinic Only) 12/12/2018 COVID-19 vaccine ([employer] NTech 30mcg/0.3mL) 12YO+ BIVALENT PF, MDV 01/26/2022 [...] 6 09/06/2023 Social Connections Answer Date Recorded Do you often feel lonely or isolated from those around you? 0 09/06/2023 Financial Resource Strain Answer Date R ecorded Difficulty of Paying Living Expenses 3 09/06/2023 Difficulty of Paying Living Expenses Not on file 09/06/2023 Food Insecurity Answer Date Recorded Do you worry your food will run out before you are able to buy more? 1 09/06/2023 Transportation Needs Answer Date Record ed Does lack of transportation keep you from medica l appointments? 1 09/06/2023 Does lack of transportation keep you from work, meetings or getting things that you need? 1 09/06/2023 Housing Stability Answer Date Recorded [...] - 199 mg/dL 09/07/2023 7:39 AM CDT [facility] Comment: Cholesterol, Total Reference Ranges Desirable <200 mg/dL Borderline 200-239 mg/dL High >=240 mg/dL TRIGLYCERIDES 212(H) <150 mg/dL 09/07/2023 7:39 AM CDT [facility] HDL CHOLESTEROL 37(L) >40 mg/dL 7:39 AM CDT [facility] NON-HDL CHOLESTEROL 188(H) <145 mg/dl 09/07/2023 7:39 AM CDT [facility] CHOL/HDL RATIO 6.08(H) <4.50 09/07/2023 7:39 AM CDT [facility] LDL CHOLESTEROL 146(H) <=130 mg/dL 09/07/2023 7:39 AM CDT [facility] VLDL CHOLESTEROL 42(H) <=30 mg/dL 09/07/2023 7:39 AM CDT [facility] PROVIDER ORDERED STATUS RANDOM 09/07/2023 7:39 AM CDT [facility] Blood BLOOD SPECIMEN / Unknown Venipuncture / Unknown 09/07/2023 7:01 AM CDT 09/07/2023 7:13 AM CDT Melita Lopez MD CHEMISTRY [facility] [address] [place] [address], from Last 3 Months or Most Recently Relevant to Health Maintenance Advance Directives * Full Code (Latest Code Status on File) Date Activated Date Inactivated Comments 09/06/2023 9:15 AM 09/11/2023 7:27 PM Question Answer Comments Code Status Discussion: Unable to Assess Preferences, Provider to review later * Full Code Date Activated Date Inactivated Comments 05/20/2019 5:20 PM 05/21/2019 8:24 PM Care Teams Anesthesiologist Attending Relationship Specialty Start Date End Date Karthik Sanz MD [address] [place] [address] PCP - General Internal Medicine 06/24/20
--- OUTSIDE RECORDS SUMMARY | 2024-01-13 15:15 | XMS_ITS | Continuity of Care Document ---
Author Organization [facility] Address [address] [facility] [facility] [address] [place] [address] Phone Care Team Providers Care Instructor Bridge Name Role Phone Elizabeth Peterson CNP Unavailable [...] Offic/outpt E&m Estab Low-mod [facility], [address], [place], [place], [id number], tel:[phone] [facility] No Information 9 Kristen Johnson. [address] [facility] [facility] [address], [address], [place], [place], [id number], [place]. tel:[phone] Referring Provider: Reggie Geiger MD J, [address] [facility], [place], [address]. tel:[phone] Offic/outpt E&m Estab Low-mod [facility], [address], [place], [place], [id number], [place] tel:[phone] [facility] No Information [address] Budnick Elizabeth. [address] , [address], [place], [place], [id number], [place]. tel:[phone] Referring Provider: Reggie Rock, [address] [place], [address]. tel:[phone] Offic/outpt E&m Estab Mod-hi 2 Amrik, [facility], [address], [place], [place], [id number], [place] tel:[phone] [facility] No Information 9 Budnick Elizabeth. [address] , [address], [place], [place], [id number], [place]. tel:[phone] Referring Provider: Reggie Rock, [address] [place], [address]. tel:[phone] Offic/outpt E&m Estab Low-mod Amrik, [facility], [address] [facility] [address], [place], [id number], [place] tel:[phone] [facility] No Information 9 Juanjo Paredes. [address], [place], [address], [place]. tel:[phone] Referring Provider: REFERRAL SELF, [place]. Offic/outpt E&m Estab Low-mod Amrik, [facility], [address] [facility], [place], [place], [id number], [place] tel:[phone] [facility] No Information 9 Juanjo Paredes. [address], [place], [address], [place]. tel:[phone] Referring Provider: REFERRAL SELF, [place]. [facility], [address] [facility] [address], [place], [id number], [place] tel:[phone] [facility] No Information 9 Juanjo LOZA Reggie. [address], [place], [place], [facility], [place]. [phone] Referring Provider: REFERRAL SELF, [place]. Offic/outpt E&m Estab Mod-hi 2 [facility], [facility], [address], [place], [place], [id number], tel:[phone] [facility] No Information 9 Juanjo LOZA Reggie. [address], [place], [place], [facility], [place]. tel:[phone] Referring Provider: REFERRAL SELFISRAEL. Offic Cons New/estab Mod-hi 60 Amrik, [facility], [address], [place], [place], [id number], tel:[phone] [facility] No Information 9 [facility]. [address] [place], [place], [facility], . Family History Family Member Type [...]
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
--- OUTSIDE RECORDS SUMMARY | 2024-01-13 15:15 | XMS_ITS | Clinical Summary ---
Author Organization [facility] Address [address] [place] [address] Care Team Providers Care Entry Level Account Executive Name Role Phone Royce Weiner Primary Care Provider Allergies Active Allergy Reactions Criticality Noted Date Comments Amoxicillin 09/29/2019 Celecoxib 09/29/2019 Penicillins Anaphylaxis High 09/29/2019 TOLERATED MEROPENEM Medications venlafaxine (EFFEXOR XR) 75 MG 24 hr capsule Take 4 capsules by mouth daily 01/27/20 22 Active gabapentin (NEURONTIN) 600 MG tablet Take 1,200 mg by mouth 3 times daily 01/27/20 22 Active Continuous Blood Gluc Sensor (DHgateSTYLE WILFRED 2 SENSOR) MISCIndications:H yperglycemia,Type 2 diabetes mellitus with diabetic polyneuropathy, with long-term current use of insulin (H) 1 each every 14 days Use 1 sensor every 14 days. Use to read blood sugars per laborer hoisting's instructions. 2 each 5 03/17/20 22 Active [...] Comments Blood Pressure 166/95 03/17/2022 7:29 AM DATABASE REPORT WRITER Pulse 88 03/17/2022 7:28 AM DATABASE REPORT WRITER Temperature 36.8 ??C (98.3 ??F) 03/17/2022 7:28 AM CS T Respiratory Rate 20 03/17/2022 7:28 AM DATABASE REPORT WRITER Oxygen Saturation 94% 03/17/2022 9:36 AM DATABASE REPORT WRITER Inhaled Oxygen Concentration - - Weight 125.5 kg (276 lb 9.6 oz) 03/17/2022 5:12 AM DATABASE REPORT WRITER Height 180.3 cm (5' 11) 03/14/2022 9:55 AM DATABASE REPORT WRITER Body Mass Index 38.58 03/14/2022 9:55 AM DATABASE REPORT WRITER Plan of Treatment Health Maintenance Due Date [...] BASIC METABOLIC PANEL Routine 03/15/2022 7:49 AM DATABASE REPORT WRITER LIPID REFLEX TO DIRECT LDL PANEL Add-On 03/14/2022 7:51 AM DATABASE REPORT WRITER HEMOGLOBIN A1C Add-On 03/13/2022 2:49 PM DATABASE REPORT WRITER from Last 3 Months or Most Recently Relevant to Health Maintenance Results * (ABNORMAL) Basic metabolic panel (03/15/2022 7:49 AM DATABASE REPORT WRITER) Sodium 137 136 - 145 mmol/L 03/15/2022 8:38 AM [facility] Potassium 4.6 3.4 - 5.3 mmol/L 03/15/2022 8:38 AM [facility] Comment:Specimen slightly he molyzed, potassium may be falsely elevated. Chloride 100 98 - 107 mmol/L 03/15/2022 8:38 AM [facility] Carbon Dioxide (CO2) 27 22 - 29 mmol/L 03/15/2022 8:38 AM [facility] Anion Gap 10 7 - 15 mmol/L 03/15/2022 8:38 AM [facility] Urea Nitrogen 14.0 6.0 - 20.0 mg/dL 03/15/2022 8:38 AM [facility] Creatinine 0.55(L) 0.67 - 1.17 mg/dL 03/15/2022 8:38 AM [facility] Calcium 9.5 8.6 - 10.0 mg/dL 03/15/2022 8:38 AM [facility] Glucose 103(H) 70 - 99 mg/dL 03/15/2022 8:38 AM [facility] GFR Estimate >90 >60 mL/min/1.7 3m2 03/15/2022 8:38 AM [facility] Comment:Effective February 162020 eGFRcr in adults is calculated using the 2020 CKD-EPI creatinine equation which includes age and gender (Mixing Tumbler Operator et al., NEJ, DOI: 10.1056/[id number]) Blood STRUCTURE OF RIGHT UPPER LIMB / Unknown Venipuncture / Unknown 03/15/2022 7:49 AM DATABASE REPORT WRITER 03/15/2022 8:04 AM DATABASE REPORT WRITER us Axel Calderón MD LAB - BLOOD ORDERABLES Final Re sult LABORATORY [facility] Acute [facility] Lab [address] [facility] Lab (1st floor, no room number) [place] [address], [facility] [phone] * (ABNORMAL) Lipid panel reflex to direct LDL (03/14/2022 7:51 AM DATABASE REPORT WRITER) Cholesterol 184 <200 mg/dL 03/14/2022 1:46 PM DATABASE REPORT WRITER [facility] Triglycerides 331(H) <150 mg/dL 03/14/2022 1:46 PM DATABASE REPORT WRITER [facility] Direct Measure HDL 28(L) >=40 mg/dL 03/14/2022 1:46 PM DATABASE REPORT WRITER [facility] LDL Cholesterol Calculated 90 <=100 mg/dL 03/14/2022 1:46 PM DATABASE REPORT WRITER [facility] Non HDL Cholesterol 156(H) <130 mg/dL 03/14/2022 1:46 PM DATABASE REPORT WRITER [facility] Blood STRUCTURE OF RIGHT UPPER LIMB / Unknown Venipuncture / Unknown 03/14/2022 7:51 AM DATABASE REPORT WRITER 03/14/2022 8:00 AM DATABASE REPORT WRITER Narrative [facility] - 03/14/2022 1:46 PM DATABASE REPORT WRITER Cholesterol Desirable: ??<200 mg/dL Triglycerides Normal: ??Less [...] ??Greater than or equal to 220 mg/dL us Mila Hodge PA-C LAB - BLOOD ORDERABLES Final R esult [facility] [place] [facility] [address] [facility] [address], [address] [place] [address] [phone] * (ABNORMAL) Hemoglobin A1c (03/13/2022 2:49 PM DATABASE REPORT WRITER) Hemoglobin A1C 14.4(H) <5.7 % 03/13/2022 7:14 PM DATABASE REPORT WRITER LABORATORY Comment: Normal <5.7% Prediabetes 5.7-6.4% ?? Diabetes 6.5% or higher Note: Adopted from ADA consensus guidelines. Blood BLOOD SPECIMEN / Unknown Venipuncture / Unknown 03/13/2022 2:49 PM DATABASE REPORT WRITER 03/13/2022 3:06 PM DATABASE REPORT WRITER Parish Rios MD LAB - BLOOD ORDERABLES Final Res ult [facility] Acute Care Lab [address] Lab (1st floor, no room number) [place] [address], [facility] [phone] from Last 3 Months or Most Recently Relevant to Health Maintenance [place] [address] [address] [employer] [address] [address] [facility] OTHER Advance Directives For more information, please contact: [phone] * Full Code (Latest Code Status on File) Date Activated Date Inactivated Comments 03/13/2022 9:46 PM 03/17/2022 6:08 PM All basic and advanced life-sustaining interventions are performed as appropriate Question Answer Comments Code status determined by: Discussion with leobardo nt/ legal decision maker Care Teams Entry Level Account Executive Relationship Specialty Start Date End Date Royce Weiner [address] [place] [address] PCP - General 05/26/20
== END 2024-01-13 15:14 | disposition home or self-care (01) ==
LOC: WOUND 15:13
PROVIDERS: PCP Internal Medicine; Visit Provider Nurse Practitioner Family
DX: E11.621 Type 2 diabetes mellitus with foot ulcer (principal); L97.418 Non-pressure chronic ulcer of right heel and midfoot with other specified severity; L97.422 Non-pressure chronic ulcer of left heel and midfoot with fat layer exposed; Z79.4 Long term (current) use of insulin
CPT/HCPCS: 97597

== ENCOUNTER 2024-01-20 15:33 | Outpatient (CLI) | payer OTHER, SELFPAY ==
--- OUTSIDE RECORDS SUMMARY | 2024-01-20 15:35 | XMS_ITS | Continuity of Care Document ---
Author Organization [facility] Address [address] [place] [address] Phone Care Team Providers Care Hosted Services Analyst Name Role Phone Elizabeth Peterson CNP [...] Low-mod [facility], [address], [place], [place], [id number], tel:[phone] [facility] No Information 9 Kristen Johnson. [address], [address], [place], [place], [id number], [place]. tel:[phone] Referring Provider: Reggie Geiger MD J, [address] [facility], [place], [address]. tel:[phone] Offic/outpt E&m Estab Low-mod [facility], [address], [place], [place], [id number], [place] tel:[phone] [facility] No Information 9200 [address] Budnick Elizabeth. [address] , [address], [place], [place], [id number], [place]. tel:[phone] Referring Provider: Reggie Rock, [address] [place], [address]. tel:[phone] Offic/outpt E&m Estab Mod-hi 2 Amrik, [facility], [address], [place], [place], [id number], [place] tel:[phone] [facility] No Information 9 Budnick Elizabeth. [address] , [address], [place], [place], [address], [place]. tel:[phone] Referring Provider: Reggie Rock, [address] [place], [address]. tel:[phone] Offic/outpt E&m Estab Low-mod Amrik, [facility], [address] [facility] [address], [place], [id number], [place] tel:[phone] [facility] No Information 9 Juanjo Paredes. [address], [place], [address], [place]. tel:[phone] Referring Provider: REFERRAL SELF, IS[place]. Offic/outpt E&m Estab Low-mod Amrik, [facility], [address] [facility], [place], [place], [id number], [place] tel:[phone] [facility] No Information 9 Juanjo Paredes. [address], [place], [address], [place]. tel:[phone] Referring Provider: REFERRAL SELF, [place]. [facility], [address] [facility] [address], [place], [id number], [place] tel:[phone] [facility] No Information 9 Juanjo LOZA Reggie. [address], [place], [place], [facility], [place]. [phone] Referring Provider: REFERRAL SELF, ISRA[place]. Offic/outpt E&m Estab Mod-hi 2 [facility], [facility], [address], [place], [place], [id number], tel:[phone] [facility] No Information 9 Juanjo LOZA Reggie. [address], [place], [facility], [place]. tel:[phone] Referring Provider: REFERRAL SELFISRAEL. Offic Cons New/estab Mod-hi 60 Amrik, [facility], [address], [place], [place], [id number], [phone] [facility] No Information 9 Tor Vega [facility]. [address] [place], [place], [facility], . Family History Family Member Type [...]
--- OUTSIDE RECORDS SUMMARY | 2024-01-20 15:35 | XMS_ITS | Clinical Summary ---
Author Organization [facility] Address [place], [place] [address] Care Team Providers Care News Content Specialist Name Role Phone Karthik Sanz MD Primary Care Provider [phone] Allergies Active Allergy Reactions Criticality Noted Date [...] Description 12/19/2023 1:00 PM CDT Office Visit [facility] [address] [place] [address] Eran Campa MD Follow Up 10/29/2023 Orders Only [facility] Scanner 1 scan: (1-Ord) [facility] ARTERIAL DUPLEX LE BI, 10/29/2023 from Last 3 Months Immunizations Name Administration Dates Next Due AMB Influenza, IIV4 PF (=>6 mos Flulaval,Fluzone Fluarix)(Flu Clinic Only) 12/12/2018 COVID-19 vaccine (Anagear NTech 30mcg/0.3mL) 12YO+ BIVALENT PF, MDV 01/26/2022 [...] - 199 mg/dL 09/07/2023 7:39 AM CDT [facility] Comment: Cholesterol, Total Reference Ranges Desirable <200 mg/dL Borderline 200-239 mg/dL High >=240 mg/dL TRIGLYCERIDES 212(H) <150 mg/dL 09/07/2023 7:39 AM CDT [facility] HDL CHOLESTEROL 37(L) >40 mg/dL 7:39 AM CDT [facility] NON-HDL CHOLESTEROL 188(H) <145 mg/dl 09/07/2023 7:39 AM CDT [facility] CHOL/HDL RATIO 6.08(H) <4.50 09/07/2023 7:39 AM CDT [facility] LDL CHOLESTEROL 146(H) <=130 mg/dL 09/07/2023 7:39 AM CDT [facility] VLDL CHOLESTEROL 42(H) <=30 mg/dL 09/07/2023 7:39 AM CDT [facility] PROVIDER ORDERED STATUS RANDOM 09/07/2023 7:39 AM CDT [facility] Blood BLOOD SPECIMEN / Unknown Venipuncture / Unknown 09/07/2023 7:01 AM CDT 09/07/2023 7:13 AM CDT Melita Lopez MD CHEMISTRY [facility] [address] [place] [address], from Last 3 Months or Most Recently Relevant to Health Maintenance Insurance Payer Benefit Plan / Group Subscriber ID Effective Dates Phone Address Type [employer] INS [id number] 2017-Prese nt [address] [place] [address] WC WORKERS COMP WC WORKERS COMP [id number] 2019 -Prese nt [address] [place] [address] [employer]GRESS[employer]TY INS [id number] 2016-Prese nt [address] [place] [address] MEDICARE PART B - HB USE ONLY MEDICARE PART B HB ONLY [id number] 1998-Presen t ATTN: CLAIMS [address] [place] [address] MEDICARE PART A - HB USE ONLY MEDICARE PART A HB ONLY [id number] 1998-Presen t ATTN: CLAIMS [address] [place] [address] [facility] HP [place] HB ONLY [id number] 2006-Presen t [address] [place] [address] [facility]ALTH [facility] MEDICARE ADVANTAGE MR [id number] 2021-Presen t [address] [place] [address] Advance Directives * Full Code (Latest Code Status on File) Date Activated Date Inactivated Comments 09/06/2023 9:15 AM 09/11/2023 7:27 PM Question Answer Comments Code Status Discussion: Unable to Assess Preferences, Provider to review later * Full Code Date Activated Date Inactivated Comments 05/20/2019 5:20 PM 05/21/2019 8:24 PM Care Teams News Content Specialist Relationship Specialty Start Date End Date Karthik Sanz MD [address] [place] [address] PCP - General Internal Medicine 06/24/20
--- OUTSIDE RECORDS SUMMARY | 2024-01-20 15:35 | XMS_ITS | Clinical Summary ---
Author Organization [facility] Address [address] [place] [address] Care Team Providers Care Transmitter Engineer In Charge Name Role Phone Royce Weiner Primary Care Provider [phone] Allergies Active Allergy Reactions Criticality Noted Date Comments Amoxicillin 09/29/2019 Celecoxib 09/29/2019 Penicillins Anaphylaxis High 09/29/2019 TOLERATED MEROPENEM Medications venlafaxine (EFFEXOR XR) 75 MG 24 hr capsule Take 4 capsules by mouth daily 01/27/20 22 Active gabapentin (NEURONTIN) 600 MG tablet Take 1,200 mg by mouth 3 times daily 01/27/20 22 Active Continuous Blood Gluc Sensor (QuantasonSTYLE WILFRED 2 SENSOR) MISCIndications:H yperglycemia,Type 2 diabetes mellitus with diabetic polyneuropathy, with long-term current use of insulin (H) 1 each every 14 days Use 1 sensor every 14 days. Use to read blood sugars per display director's instructions. 2 each 5 03/17/20 22 Active [...] Comments Blood Pressure 166/95 03/17/2022 7:29 AM GRAZING EXAMINER Pulse 88 03/17/2022 7:28 AM GRAZING EXAMINER Temperature 36.8 ??C (98.3 ??F) 03/17/2022 7:28 AM CS T Respiratory Rate 20 03/17/2022 7:28 AM GRAZING EXAMINER Oxygen Saturation 94% 03/17/2022 9:36 AM GRAZING EXAMINER Inhaled Oxygen Concentration - - Weight 125.5 kg (276 lb 9.6 oz) 03/17/2022 5:12 AM GRAZING EXAMINER Height 180.3 cm (5' 11) 03/14/2022 9:55 AM GRAZING EXAMINER Body Mass Index 38.58 03/14/2022 9:55 AM GRAZING EXAMINER Plan of Treatment Health Maintenance Due Date [...] BASIC METABOLIC PANEL Routine 03/15/2022 7:49 AM GRAZING EXAMINER LIPID REFLEX TO DIRECT LDL PANEL Add-On 03/14/2022 7:51 AM GRAZING EXAMINER HEMOGLOBIN A1C Add-On 03/13/2022 2:49 PM GRAZING EXAMINER from Last 3 Months or Most Recently Relevant to Health Maintenance Results * (ABNORMAL) Basic metabolic panel (03/15/2022 7:49 AM GRAZING EXAMINER) Sodium 137 136 - 145 mmol/L 03/15/2022 8:38 AM [facility] Potassium 4.6 3.4 - 5.3 mmol/L 03/15/2022 8:38 AM [facility] Comment:Specimen slightly he molyzed, potassium may be falsely elevated. Chloride 100 98 - 107 mmol/L 03/15/2022 8:38 AM [facility] Carbon Dioxide (CO2) 27 22 - 29 mmol/L 03/15/2022 8:38 AM [facility] Anion Gap 10 7 - 15 mmol/L 03/15/2022 8:38 AM [facility] Urea Nitrogen 14.0 6.0 - 20.0 mg/dL 03/15/2022 8:38 AM [facility] Creatinine 0.55(L) 0.67 - 1.17 mg/dL 03/15/2022 8:38 AM [facility] Calcium 9.5 8.6 - 10.0 mg/dL 03/15/2022 8:38 AM [facility] Glucose 103(H) 70 - 99 mg/dL 03/15/2022 8:38 AM [facility] GFR Estimate >90 >60 mL/min/1.7 3m2 03/15/2022 8:38 AM [facility] Comment:Effective February 162020 eGFRcr in adults is calculated using the 2020 CKD-EPI creatinine equation which includes age and gender (Department Mgr et al., NEJ, DOI: 10.1056/ITVIcx5236669) Blood STRUCTURE OF RIGHT UPPER LIMB / Unknown Venipuncture / Unknown 03/15/2022 7:49 AM GRAZING EXAMINER 03/15/2022 8:04 AM GRAZING EXAMINER us Axel Calderón MD LAB - BLOOD ORDERABLES Final Re sult LABORATORY [facility] Acute Care Lab [address] [facility] (1st floor, no room number) [place] [address], [facility] [phone] * (ABNORMAL) Lipid panel reflex to direct LDL (03/14/2022 7:51 AM GRAZING EXAMINER) Cholesterol 184 <200 mg/dL 03/14/2022 1:46 PM GRAZING EXAMINER [facility] Triglycerides 331(H) <150 mg/dL 03/14/2022 1:46 PM GRAZING EXAMINER [facility] Direct Measure HDL 28(L) >=40 mg/dL 03/14/2022 1:46 PM GRAZING EXAMINER [facility] LDL Cholesterol Calculated 90 <=100 mg/dL 03/14/2022 1:46 PM GRAZING EXAMINER [facility] Non HDL Cholesterol 156(H) <130 mg/dL 03/14/2022 1:46 PM GRAZING EXAMINER [facility] Blood STRUCTURE OF RIGHT UPPER LIMB / Unknown Venipuncture / Unknown 03/14/2022 7:51 AM GRAZING EXAMINER 03/14/2022 8:00 AM GRAZING EXAMINER Narrative [facility] - 03/14/2022 1:46 PM GRAZING EXAMINER Cholesterol Desirable: ??<200 mg/dL Triglycerides Normal: ??Less [...] BLOOD ORDERABLES Final R esult [facility] [place] [facility] [address] [facility] [address], Room [address] [place] [address] [phone] * (ABNORMAL) Hemoglobin A1c (03/13/2022 2:49 PM GRAZING EXAMINER) Hemoglobin A1C 14.4(H) <5.7 % 03/13/2022 7:14 PM GRAZING EXAMINER LABORATORY Comment: Normal <5.7% Prediabetes 5.7-6.4% ?? Diabetes 6.5% or higher Note: Adopted from ADA consensus guidelines. Blood BLOOD SPECIMEN / Unknown Venipuncture / Unknown 03/13/2022 2:49 PM GRAZING EXAMINER 03/13/2022 3:06 PM GRAZING EXAMINER Parish Rios MD LAB - BLOOD ORDERABLES Final Res ult [facility] Acute Care Lab [address] Lab (1st floor, no room number) [place] [address], [facility] [phone] from Last 3 Months or Most Recently Relevant to Health Maintenance [place] [address] [address] [employer] [address] [address] [facility] OTHER Advance Directives For more information, please contact: [phone] * Full Code (Latest Code Status on File) Date Activated Date Inactivated Comments 03/13/2022 9:46 PM 03/17/2022 6:08 PM All basic and advanced life-sustaining interventions are performed as appropriate Question Answer Comments Code status determined by: Discussion with leobardo nt/ legal decision maker Care Teams Transmitter Engineer In Charge Relationship Specialty Start Date End Date Royce Weiner [address] [place] [address] PCP - General 05/26/20
--- OUTSIDE RECORDS SUMMARY | 2024-01-20 15:35 | XMS_ITS | Referral Summary ---
Author Organization [facility] Address [address] [place] [address] Care Team Providers Care Buckle Inspector Name Role Phone Royce Weiner Primary Care Provider [phone] Allergies Active Allergy Reactions Criticality Noted Date Comments Amoxicillin 09/29/2019 Celecoxib 09/29/2019 Penicillins Anaphylaxis High 09/29/2019 TOLERATED MEROPENEM Medications venlafaxine (EFFEXOR XR) 75 MG 24 hr capsule Take 4 capsules by mouth daily 01/27/20 22 Active gabapentin (NEURONTIN) 600 MG tablet Take 1,200 mg by mouth 3 times daily 01/27/20 22 Active Continuous Blood Gluc Sensor (VivartesSTYLE WILFRED 2 SENSOR) MISCIndications:H yperglycemia,Type 2 diabetes mellitus with diabetic polyneuropathy, with long-term current use of insulin (H) 1 each every 14 days Use 1 sensor every 14 days. Use to read blood sugars per supervisor word processing's instructions. 2 each 5 03/17/20 22 Active [...] Comments Blood Pressure 166/95 03/17/2022 7:29 AM CONTRACTING MANAGER Pulse 88 03/17/2022 7:28 AM CONTRACTING MANAGER Temperature 36.8 ??C (98.3 ??F) 03/17/2022 7:28 AM CS T Respiratory Rate 20 03/17/2022 7:28 AM CONTRACTING MANAGER Oxygen Saturation 94% 03/17/2022 9:36 AM CONTRACTING MANAGER Inhaled Oxygen Concentration - - Weight 125.5 kg (276 lb 9.6 oz) 03/17/2022 5:12 AM CONTRACTING MANAGER Height 180.3 cm (5' 11) 03/14/2022 9:55 AM CONTRACTING MANAGER Body Mass Index 38.58 03/14/2022 9:55 AM CONTRACTING MANAGER Plan of Treatment Not on file Procedures Procedure Name Priority Date/Time Associated Diagnosis Comments BASIC METABOLIC PANEL Routine 03/15/2022 7:49 AM CONTRACTING MANAGER LIPID REFLEX TO DIRECT LDL PANEL Add-On 03/14/2022 7:51 AM CONTRACTING MANAGER HEMOGLOBIN A1C Add-On 03/13/2022 2:49 PM CONTRACTING MANAGER from Last 3 Months or Most Recently Relevant to Health Maintenance Results * (ABNORMAL) Basic metabolic panel (03/15/2022 7:49 AM CONTRACTING MANAGER) Sodium 137 136 - 145 mmol/L [...] and gender (Bridgett et al., NEJM, DOI: 10.1056/[id number]) Blood STRUCTURE OF RIGHT UPPER LIMB / Unknown Venipuncture / Unknown 03/15/2022 7:49 AM CONTRACTING MANAGER 03/15/2022 8:04 AM CONTRACTING MANAGER us Axel Calderón MD LAB - BLOOD ORDERABLES Final Re sult RH LABORATORY [facility] Acute Care Lab [address] Lab (1st floor, no room number) [place] [address], [facility] [phone] * (ABNORMAL) Lipid panel reflex to direct LDL (03/14/2022 7:51 AM CONTRACTING MANAGER) Cholesterol 184 <200 mg/dL 03/14/2022 1:46 PM CONTRACTING MANAGER [facility] Triglycerides 331(H) <150 mg/dL 03/14/2022 1:46 PM CONTRACTING MANAGER [facility] Direct Measure HDL 28(L) >=40 mg/dL 03/14/2022 1:46 PM CONTRACTING MANAGER [facility] LDL Cholesterol Calculated 90 <=100 mg/dL 03/14/2022 1:46 PM CONTRACTING MANAGER [facility] Non HDL Cholesterol 156(H) <130 mg/dL 03/14/2022 1:46 PM CONTRACTING MANAGER [facility] Blood STRUCTURE OF RIGHT UPPER LIMB / Unknown Venipuncture / Unknown 03/14/2022 7:51 AM CONTRACTING MANAGER 03/14/2022 8:00 AM CONTRACTING MANAGER Narrative [facility] - 03/14/2022 1:46 PM CONTRACTING MANAGER Cholesterol Desirable: ??<200 mg/dL Triglycerides Normal: [...] BLOOD ORDERABLES Final R esult [facility] LABORATORY [facility] Lab [address] [facility] [address] [facility], Room [address] [place] [address], [facility] [phone] * (ABNORMAL) Hemoglobin A1c (03/13/2022 2:49 PM CONTRACTING MANAGER) Hemoglobin A1C 14.4(H) <5.7 % 03/13/2022 7:14 PM CONTRACTING MANAGER LABORATORY Comment: Normal <5.7% Prediabetes 5.7-6.4% ?? Diabetes 6.5% or higher Note: Adopted from ADA consensus guidelines. Blood BLOOD SPECIMEN / Unknown Venipuncture / Unknown 03/13/2022 2:49 PM CONTRACTING MANAGER 03/13/2022 3:06 PM CONTRACTING MANAGER us Parish Rios MD LAB - BLOOD ORDERABLES Final Res ult LABORATORY [facility] Acute Care Lab [address] [facility] Lab (1st floor, no room number) [place] [address], [facility] [phone] from Last 3 Months or Most Recently Relevant to Health Maintenance Insurance [facility] OTHER Advance Directives For more information, please contact: [phone] * Full Code (Latest Code Status on File) Date Activated Date Inactivated Comments 03/13/2022 9:46 PM 03/17/2022 6:08 PM All basic and advanced life-sustaining interventions are performed as appropriate Question Answer Comments Code status determined by: Discussion with leobardo nt/ legal decision maker Care Teams Buckle Inspector Relationship Specialty Start Date End Date Royce Weiner [address] [place] [address] PCP - General 05/26/20
== END 2024-01-20 15:34 | disposition home or self-care (01) ==
LOC: WOUND 15:33
PROVIDERS: PCP Internal Medicine; Visit Provider Family Medicine
DX: E11.621 Type 2 diabetes mellitus with foot ulcer (principal); L97.412 Non-pressure chronic ulcer of right heel and midfoot with fat layer exposed; L97.422 Non-pressure chronic ulcer of left heel and midfoot with fat layer exposed; E78.5 Hyperlipidemia, unspecified; Z79.4 Long term (current) use of insulin
CPT/HCPCS: 11042; 80061

== ENCOUNTER 2024-01-27 15:19 | Outpatient (CLI) | payer OTHER, SELFPAY | END 2024-01-27 15:20 | disposition home or self-care (01) | LOC: WOUND 15:19 | PROVIDERS: PCP Internal Medicine; Visit Provider Family Medicine | DX: E11.621 Type 2 diabetes mellitus with foot ulcer (principal); L97.412 Non-pressure chronic ulcer of right heel and midfoot with fat layer exposed; L97.422 Non-pressure chronic ulcer of left heel and midfoot with fat layer exposed; Z79.4 Long term (current) use of insulin | CPT/HCPCS: 11042 ==

== ENCOUNTER 2024-02-03 15:23 | Outpatient (CLI) | payer OTHER, SELFPAY ==
--- OUTSIDE RECORDS SUMMARY | 2024-02-03 15:24 | XMS_ITS | Clinical Summary ---
Author Organization [facility] Address [place], [place] [address] Care Team Providers Care Financial Services Rep Name Role Phone Karthik Sanz MD Primary [...] Description 12/19/2023 1:00 PM CDT Office Visit [facility] [address] [place] [address] Eran Campa MD Follow Up from Last 3 Months Immunizations Name Administration Dates Next Due AMB Influenza, IIV4 PF (=>6 mos Flulaval,Fluzone Fluarix)(Flu Clinic Only) 12/12/2018 COVID-19 vaccine (Amen.-Bio NTech 30mcg/0.3mL) 12YO+ BIVALENT PF, MDV 01/26/2022 [...] 80 12/19/2023 1:37 PM CDT Temperature 36.7 C (98 F) 09/11/2023 3:35 PM CDT Respiratory Rate 14 [...] Additional history exists Tetanus booster 09/04/2033 09/05/2023, 09/0 11/2015, 01/23/2005 Hepatitis B series for Diabetes Completed 01/29/2018, 11/30/2016, 11/25/2015 Tdap Completed 09/05/2023, 11/25/2015 Procedures Procedure Name Priority Date/Time Associated Diagnosis Comments LIPID PANEL Early AM 09/07/2023 7:01 AM CDT from Last 3 Months or Most Recently Relevant to Health Maintenance Results * (ABNORMAL) LIPID PANEL (09/07/2023 7:01 AM CDT) CHOLESTEROL,TOTAL 225(H) 100 - 199 mg/dL 09/07/2023 7:39 AM CDT [facility] Comment: Cholesterol, Total Reference Ranges Desirable <200 mg/dL Borderline 200-239 mg/dL High >=240 mg/dL TRIGLYCERIDES 212(H) <150 mg/dL 09/07/2023 7:39 AM CDT [facility] HDL CHOLESTEROL 37(L) >40 mg/dL 7:39 AM CDT [facility] NON-HDL CHOLESTEROL 188(H) <145 mg/dl 09/07/2023 7:39 AM CDT [facility] CHOL/HDL RATIO 6.08(H) <4.50 09/07/2023 7:39 AM CDT [facility] LDL CHOLESTEROL 146(H) <=130 mg/dL 09/07/2023 7:39 AM CDT [facility] VLDL CHOLESTEROL 42(H) <=30 mg/dL 09/07/2023 7:39 AM CDT [facility] [employer] PROVIDER ORDERED STATUS RANDOM 09/07/2023 7:39 AM CDT [facility] Blood BLOOD SPECIMEN / Unknown Venipuncture / Unknown 09/07/2023 7:01 AM CDT 09/07/2023 7:13 AM CDT Melita Lopez MD CHEMISTRY [facility] [address] [place] [address], from Last 3 Months or Most Recently Relevant to Health Maintenance Advance Directives * Full Code (Latest Code Status on File) Date Activated Date Inactivated Comments 09/06/2023 9:15 AM 09/11/2023 7:27 PM Question Answer Comments Code Status Discussion: Unable to Assess Preferences, Provider to review later * Full Code Date Activated Date Inactivated Comments 05/20/2019 5:20 PM 05/21/2019 8:24 PM Care Teams Financial Services Rep Relationship Specialty Start Date End Date Karthik Sanz MD [address] [place] [address] PCP - General Internal Medicine 06/24/20
--- OUTSIDE RECORDS SUMMARY | 2024-02-03 15:24 | XMS_ITS | Continuity of Care Document ---
Author Organization [facility] Address [address] [facility] [address] [place] [address] Phone Care Team Providers Care Import Coordination And Production Head Name Role Phone Elizabeth Peterson CNP Unavailable [...] Offic/outpt E&m Estab Low-mod [facility], [address] [facility] [address], [place], [place], [id number], tel:[phone] [facility] No Information [address] [facility], [address], [place], [place], [id number], [place]. tel:[phone] Referring Provider: Reggie Geiger MD J, [address] [facility], [place], [address]. tel:[phone] Offic/outpt E&m Estab Low-mod [facility], [address] [facility] [address], [place], [place], [id number], [place] tel:[phone] [facility] No Information 9[address] Budnick Elizabeth. [address] , [address], [place], [place], [id number], [place]. tel:[phone] Referring Provider: Reggie Rock, [address] [place], [address]. tel:[phone] Offic/outpt E&m Estab Mod-hi 2 Amrik, [facility], [address], [place], [place], [id number], [place] tel:[phone] [facility] No Information 9 Budnick Elizabeth. [address] , [address], [place], [place], [id number], [place]. tel:[phone] Referring Provider: Reggie Rock, [address] [place], [address]. tel:[phone] Offic/outpt E&m Estab Low-mod Amrik, [facility], [address] [facility] [address], [place], [id number], [place] tel:[phone] [facility] No Information 9 Juanjo Paredes. [address], [place], [address], [place]. tel:[phone] Referring Provider: REFERRAL SELF, [place]. Offic/outpt E&m Estab Low-mod Amrik, [facility], [address] [facility] [address], [place], [place], [id number], [place] tel:[phone] [facility] No Information 9 Juanjo Paredes. [address], [place], [address], [place]. tel:[phone] Referring Provider: REFERRAL SELF, ISRA[place]. [facility], [address] [facility] [address], [place], [id number], [place] [phone] [facility] No Information 9 Juanjo LOZA Reggie. [address], [place], [place], [facility], [place]. [phone] Referring Provider: REFERRAL SELF, ISRA[place]. Offic/outpt E&m Estab Mod-hi 2 [facility], [facility], [address] [facility] [address], [place], [place], [id number], tel:[phone] [facility] No Information 9 Juanjo LOZA Reggie. [address], [place], [place], [facility], [place]. tel:[phone] Referring Provider: REFERRAL SELFISRAEL. Offic Cons New/estab Mod-hi 60 Amrik, [facility], [address] [facility] [address], [place], [place], [id number], tel:[phone] [facility] No Information 9 Tor Vega [facility]. [address] [place], [place], [facility], . Family History Family Member [...]
--- OUTSIDE RECORDS SUMMARY | 2024-02-03 15:24 | XMS_ITS | Referral Summary ---
Author Organization [facility] Address [address] [place] [address] Care Team Providers Care Rabbet Operator Name Role Phone Royce Weiner Primary Care Provider [phone] Allergies Active Allergy Reactions Criticality Noted Date Comments Amoxicillin 09/29/2019 Celecoxib 09/29/2019 Penicillins Anaphylaxis High 09/29/2019 TOLERATED MEROPENEM Medications venlafaxine (EFFEXOR XR) 75 MG 24 hr capsule Take 4 capsules by mouth daily 01/27/20 22 Active gabapentin (NEURONTIN) 600 MG tablet Take 1,200 mg by mouth 3 times daily 01/27/20 22 Active Continuous Blood Gluc Sensor (Face.comSTYLE WILFRED 2 SENSOR) MISCIndications:H yperglycemia,Type 2 diabetes mellitus with diabetic polyneuropathy, with long-term current use of insulin (H) 1 each every 14 days Use 1 sensor every 14 days. Use to read blood sugars per shell grader's instructions. 2 each 5 03/17/20 22 Active [...] Comments Blood Pressure 166/95 03/17/2022 7:29 AM REMOTE SENSING TECHNOLOGIST Pulse 88 03/17/2022 7:28 AM REMOTE SENSING TECHNOLOGIST Temperature 36.8 C (98.3 F) 03/17/2022 7:28 AM REMOTE SENSING TECHNOLOGIST Respiratory Rate 20 03/17/2022 7:28 AM REMOTE SENSING TECHNOLOGIST Oxygen Saturation 94% 03/17/2022 9:36 AM REMOTE SENSING TECHNOLOGIST Inhaled Oxygen Concentration - - Weight 125.5 kg (276 lb 9.6 oz) 03/17/2022 5:12 AM REMOTE SENSING TECHNOLOGIST Height 180.3 cm (5' 11) 03/14/2022 9:55 AM REMOTE SENSING TECHNOLOGIST Body Mass Index 38.58 03/14/2022 9:55 AM REMOTE SENSING TECHNOLOGIST Plan of Treatment Not on file Procedures Procedure Name Priority Date/Time Associated Diagnosis Comments BASIC METABOLIC PANEL Routine 03/15/2022 7:49 AM REMOTE SENSING TECHNOLOGIST LIPID REFLEX TO DIRECT LDL PANEL Add-On 03/14/2022 7:51 AM REMOTE SENSING TECHNOLOGIST HEMOGLOBIN A1C Add-On 03/13/2022 2:49 PM REMOTE SENSING TECHNOLOGIST from Last 3 Months or Most Recently Relevant to Health Maintenance Results * (ABNORMAL) Basic metabolic panel (03/15/2022 7:49 AM REMOTE SENSING TECHNOLOGIST) Sodium 137 136 - 145 mmol/L 03/15/2022 8:38 AM [facility] Potassium 4.6 3.4 - 5.3 mmol/L 03/15/2022 8:38 AM [facility] Comment:Specimen slightly he molyzed, potassium may be falsely elevated. Chloride 100 98 - 107 mmol/L 03/15/2022 8:38 AM [facility] Carbon Dioxide (CO2) 27 22 - 29 mmol/L 03/15/2022 8:38 AM [facility] Anion Gap 10 7 - 15 mmol/L 03/15/2022 8:38 AM [facility] Urea Nitrogen 14.0 6.0 - 20.0 mg/dL 03/15/2022 8:38 AM [facility] Creatinine 0.55(L) 0.67 - 1.17 mg/dL 03/15/2022 8:38 AM [facility] Calcium 9.5 8.6 - 10.0 mg/dL 03/15/2022 8:38 AM [facility] Glucose 103(H) 70 - 99 mg/dL 03/15/2022 8:38 AM [facility] GFR Estimate >90 >60 mL/min/1.7 3m2 03/15/2022 8:38 AM [facility] Comment:Effective February 162020 eGFRcr in adults is calculated using the 2020 CKD-EPI creatinine equation which includes age and gender (Bridgett et al., NEJM, DOI: 10.1056/[id number]) Blood STRUCTURE OF RIGHT UPPER LIMB / Unknown Venipuncture / Unknown 03/15/2022 7:49 AM REMOTE SENSING TECHNOLOGIST 03/15/2022 8:04 AM REMOTE SENSING TECHNOLOGIST us Axel Calderón MD LAB - BLOOD ORDERABLES Final Re sult LABORATORY [facility] Acute Care Lab [address] Lab (1st floor, no room number) [place] [address], [facility] [phone] * (ABNORMAL) Lipid panel reflex to direct LDL (03/14/2022 7:51 AM REMOTE SENSING TECHNOLOGIST) Cholesterol 184 <200 mg/dL 03/14/2022 1:46 PM REMOTE SENSING TECHNOLOGIST [facility] Triglycerides 331(H) <150 mg/dL 03/14/2022 1:46 PM REMOTE SENSING TECHNOLOGIST [facility] Direct Measure HDL 28(L) >=40 mg/dL 03/14/2022 1:46 PM REMOTE SENSING TECHNOLOGIST [facility] LDL Cholesterol Calculated 90 <=100 mg/dL 03/14/2022 1:46 PM REMOTE SENSING TECHNOLOGIST [facility] Non HDL Cholesterol 156(H) <130 mg/dL 03/14/2022 1:46 PM REMOTE SENSING TECHNOLOGIST [facility] Blood STRUCTURE OF RIGHT UPPER LIMB / Unknown Venipuncture / Unknown 03/14/2022 7:51 AM REMOTE SENSING TECHNOLOGIST 03/14/2022 8:00 AM REMOTE SENSING TECHNOLOGIST Narrative [facility] - 03/14/2022 1:46 PM REMOTE SENSING TECHNOLOGIST Cholesterol Desirable: <200 mg/dL Triglycerides Normal: Less than 150 mg/dL Borderline High: 150-199 mg/dL High: 200-499 mg/dL Very High: Greater than or equal to 500 mg/dL Direct Measure HDL Female: Greater than or equal to 50 mg/dL Male: Greater than or equal to 40 mg/dL LDL Cholesterol Desirable: <100mg/dL Above Desirable: 100-129 mg/dL Borderline High: 130-159 mg/dL High: 160-189 mg/dL Very High: >= 190 mg/dL Non HDL Cholesterol Desirable: 130 mg/dL Above Desirable: 130-159 mg/dL Borderline High: 160-189 mg/dL High: 190-219 mg/dL Very High: Greater than or equal to 220 mg/dL us Mila Hodge PA-C LAB - BLOOD ORDERABLES Final R esult [facility] LABORATORY [facility] [place] Lab [address], [address] [place] [address], [facility] [phone] * (ABNORMAL) Hemoglobin A1c (03/13/2022 2:49 PM REMOTE SENSING TECHNOLOGIST) Hemoglobin A1C 14.4(H) <5.7 % 03/13/2022 7:14 PM REMOTE SENSING TECHNOLOGIST LABORATORY Comment: Normal <5.7% Prediabetes 5.7-6.4% Diabetes 6.5% or higher Note: Adopted from ADA consensus guidelines. Blood BLOOD SPECIMEN / Unknown Venipuncture / Unknown 03/13/2022 2:49 PM REMOTE SENSING TECHNOLOGIST 03/13/2022 3:06 PM REMOTE SENSING TECHNOLOGIST us Parish Rios MD LAB - BLOOD ORDERABLES Final Res ult [facility] Acute Care Lab [address] [facility] Lab (1st floor, no room number) [place] [address], [facility] [phone] from Last 3 Months or Most Recently Relevant to Health Maintenance Insurance [facility] OTHER Advance Directives For more information, please contact: [phone] * Full Code (Latest Code Status on File) Date Activated Date Inactivated Comments 03/13/2022 9:46 PM 03/17/2022 6:08 PM All basic and advanced life-sustaining interventions are performed as appropriate Question Answer Comments Code status determined by: Discussion with leobardo nt/ legal decision maker Care Teams Rabbet Operator Relationship Specialty Start Date End Date Royce Weiner [address] [place] [address] PCP - General 05/26/20
--- OUTSIDE RECORDS SUMMARY | 2024-02-03 15:24 | XMS_ITS | Clinical Summary ---
Author Organization [facility] Address [address] [place] [address] Care Team Providers Care Support Group Manager Name Role Phone Royce Weiner Primary Care Provider [phone] Allergies Active Allergy Reactions Criticality Noted Date Comments Amoxicillin 09/29/2019 Celecoxib 09/29/2019 Penicillins Anaphylaxis High 09/29/2019 TOLERATED MEROPENEM Medications venlafaxine (EFFEXOR XR) 75 MG 24 hr capsule Take 4 capsules by mouth daily 01/27/20 22 Active gabapentin (NEURONTIN) 600 MG tablet Take 1,200 mg by mouth 3 times daily 01/27/20 22 Active Continuous Blood Gluc Sensor (Sleek AudioSTYLE WILFRED 2 SENSOR) MISCIndications:H yperglycemia,Type 2 diabetes mellitus with diabetic polyneuropathy, with long-term current use of insulin (H) 1 each every 14 days Use 1 sensor every 14 days. Use to read blood sugars per accounting officer's instructions. 2 each 5 03/17/20 22 Active [...] Comments Blood Pressure 166/95 03/17/2022 7:29 AM [facility] Pulse 88 03/17/2022 7:28 AM [facility] [facility] [facility] Temperature 36.8 C (98.3 F) 03/17/2022 7:28 AM [facility] [facility] Respiratory Rate 20 03/17/2022 7:28 AM [facility] [facility] Oxygen Saturation 94% 03/17/2022 9:36 AM [facility] [facility]OT Inhaled Oxygen Concentration - - Weight 125.5 kg (276 lb 9.6 oz) 03/17/2022 5:12 AM [facility] [facility]IC[employer] [facility] Height 180.3 cm (5' 11) 03/14/2022 9:55 AM [facility] [facility]IC[employer] P[facility]OT Body Mass Index 38.58 03/14/2022 9:55 AM COMM[employer] HELIC[employer] PILOT Plan of Treatment Health Maintenance Due [...] BASIC METABOLIC PANEL Routine 03/15/2022 7:49 AM COMM[employer] HELIC[employer] P[facility]OT LIPID REFLEX TO DIRECT LDL PANEL Add-On 03/14/2022 7:51 AM [facility] [facility] P[facility]OT HEMOGLOBIN A1C Add-On 03/13/2022 2:49 PM [employer] HELIC[employer] PILOT from Last 3 Months or Most Recently Relevant to Health Maintenance Results * (ABNORMAL) Basic metabolic panel (03/15/2022 7:49 AM COMMERCIAL HELICOPTER PILOT) Sodium 137 136 - 145 mmol/L 03/15/2022 8:38 AM [facility] Potassium 4.6 3.4 - 5.3 mmol/L 03/15/2022 8:38 AM [facility] Comment:Specimen slightly he molyzed, potassium may be falsely elevated. Chloride 100 98 - 107 mmol/L 03/15/2022 8:38 AM [facility] Carbon Dioxide (CO2) 27 22 - 29 mmol/L 03/15/2022 8:38 AM [facility] Anion Gap 10 7 - 15 mmol/L 03/15/2022 8:38 AM [facility] Urea Nitrogen 14.0 6.0 - 20.0 mg/dL 03/15/2022 8:38 AM [facility] Creatinine 0.55(L) 0.67 - 1.17 mg/dL 03/15/2022 8:38 AM [facility] Calcium 9.5 8.6 - 10.0 mg/dL 03/15/2022 8:38 AM [facility] Glucose 103(H) 70 - 99 mg/dL 03/15/2022 8:38 AM [facility] GFR Estimate >90 >60 mL/min/1.7 3m2 03/15/2022 8:38 AM [facility] Comment:Effective February 162020 eGFRcr in adults is calculated using the 2020 CKD-EPI creatinine equation which includes age and gender (Bridgett et al., NEJM, DOI: 10.1056/QCBRig3454929) Blood STRUCTURE OF RIGHT UPPER LIMB / Unknown Venipuncture / Unknown 03/15/2022 7:49 AM [facility] 03/15/2022 8:04 AM [facility] [facility] us Axel Calderón MD LAB - BLOOD ORDERABLES Final Re sult LABORATORY [facility] Lab [address] [facility] Lab (1st floor, no room number) [place] [address], [facility] [phone] * (ABNORMAL) Lipid panel reflex to direct LDL (03/14/2022 7:51 AM [facility] PIL[facility]) Cholesterol 184 <200 mg/dL 03/14/2022 1:46 PM [facility] Triglycerides 331(H) <150 mg/dL 03/14/2022 1:46 PM [facility] Direct Measure HDL 28(L) >=40 mg/dL 03/14/2022 1:46 PM [facility] LDL Cholesterol Calculated 90 <=100 mg/dL 03/14/2022 1:46 PM [facility] Non HDL Cholesterol 156(H) <130 mg/dL 03/14/2022 1:46 PM [facility] Blood STRUCTURE OF RIGHT UPPER LIMB / Unknown Venipuncture / Unknown 03/14/2022 7:51 AM [facility] HEL[employer] P[facility]OT 03/14/2022 8:00 AM [facility] Narrative [facility] - 03/14/2022 1:46 PM [facility] Cholesterol Desirable: <200 mg/dL Triglycerides Normal: Less [...] BLOOD ORDERABLES Final R esult [facility] [place] Core Lab [address] [facility] [address] [facility], Room [address] [place] [address], [facility] [phone] * (ABNORMAL) Hemoglobin A1c (03/13/2022 2:49 PM [facility] HEL[facility] P[facility]) Hemoglobin A1C 14.4(H) <5.7 % 03/13/2022 7:14 PM [facility] LABORATORY Comment: Normal <5.7% Prediabetes 5.7-6.4% Diabetes 6.5% or higher Note: Adopted from ADA consensus guidelines. Blood BLOOD SPECIMEN / Unknown Venipuncture / Unknown 03/13/2022 2:49 PM [facility] P[facility]OT 03/13/2022 3:06 PM [employer] HEL[employer] P[employer]OT us Parish Rios MD LAB - BLOOD ORDERABLES Final Res ult LABORATORY [facility] [address] Lab (1st floor, no room number) [place] [address], [facility] [phone] from Last 3 Months or Most Recently Relevant to Health Maintenance Insurance [facility] OTHER Advance Directives For more information, please contact: [phone] * Full Code (Latest Code Status on File) Date Activated Date Inactivated Comments 03/13/2022 9:46 PM 03/17/2022 6:08 PM All basic and advanced life-sustaining interventions are performed as appropriate Question Answer Comments Code status determined by: Discussion with leobardo nt/ legal decision maker Care Teams Support Group Manager Relationship Specialty Start Date End Date Royce Weiner [address] [place] [address] PCP - General 05/26/20
== END 2024-02-03 15:24 | disposition home or self-care (01) ==
LOC: WOUND 15:23
PROVIDERS: PCP Internal Medicine; Visit Provider Nurse Practitioner Family
DX: E11.621 Type 2 diabetes mellitus with foot ulcer (principal); L97.418 Non-pressure chronic ulcer of right heel and midfoot with other specified severity; L97.428 Non-pressure chronic ulcer of left heel and midfoot with other specified severity; J41.1 Mucopurulent chronic bronchitis; Z79.4 Long term (current) use of insulin
CPT/HCPCS: 11042; 96372; 97597; G0463; J0696

== ENCOUNTER 2024-02-03 16:09 | Outpatient (CLI) | payer OTHER, SELFPAY ==
--- OUTSIDE RECORDS SUMMARY | 2024-02-03 16:12 | XMS_ITS | Continuity of Care Document ---
Author Organization [facility] Address [address] [facility] [address] [place] [address] Phone Care Team Providers Care Distributor Sales Consultant Name Role Phone Elizabeth Peterson CNP Unavailable [...] Offic/outpt E&m Estab Low-mod [facility], [address] [facility] [address], [place], [place], [id number], tel:[phone] [facility] No Information 9 Kristen Johnson. [address], [address], [place], [place], [id number], [place]. tel:[phone] Referring Provider: Reggie Geiger MD J, [address] [facility], [place], [address]. tel:[phone] Offic/outpt E&m Estab Low-mod [facility], [address] [facility] [address], [place], [place], [id number], [place] tel:[phone] [facility] No Information 9200 9 Budnick Elizabeth. [address] , [address], [place], [place], [id number], [place]. tel:[phone] Referring Provider: Reggie Rock, [address] [place], [address]. tel:[phone] Offic/outpt E&m Estab Mod-hi 2 Amrik, [facility], [address], [place], [place], [id number], [place] tel:[phone] [facility] No Information 9 Budnick Elizabeth. [address] , [address], [place], [place], [id number], [place]. tel:[phone] Referring Provider: Reggie Rock, [address] [place], [address]. tel:[phone] Offic/outpt E&m Estab Low-mod Amrik, [facility], [address] [facility] [address], [place], [id number], [place] tel:[phone] [facility] No Information 9 Juanjo Paredes. [address], [place], [address], [place]. tel:[phone] Referring Provider: REFERRAL SELF, ISRAEL. Offic/outpt E&m Estab Low-mod Amrik, [facility], [address] [facility] [address], [place], [place], [id number], [place] tel:[phone] [facility] No Information 9 Juanjo Paredes. [address], [place], [address], [place]. tel:[phone] Referring Provider: REFERRAL SELF, ISRAEL. [facility], [address] [facility] [address], [place], [id number], [place] tel:[phone] [facility] No Information 9 Juanjo LOZA Reggie. [address], [place], [place], [facility], [place]. [phone] Referring Provider: REFERRAL SELF, ISRAEL. Offic/outpt E&m Estab Mod-hi 2 [facility], [facility], [address] [facility] [address], [place], [place], [id number], [phone] [facility] No Information 9 Juanjo LOZA Reggie. [address], [place], [place], [facility], [place]. tel:[phone] Referring Provider: REFERRAL SELFISRAEL. Offic Cons New/estab Mod-hi 60 Amrik, [facility], [address] [facility] [address], [place], [place], [id number], [phone] [facility] No Information 9 Tor [address] [facility]. [address] [place], [place], [facility], . Family History Family Member Type Diagnosis [...]
--- OUTSIDE RECORDS SUMMARY | 2024-02-03 16:12 | XMS_ITS | Clinical Summary ---
Author Organization [facility] Address [place], [place] [address] Care Team Providers Care Athletic Equipment Manager Name Role Phone Karthik Sanz MD Primary Care Provider [phone] Allergies Active Allergy Reactions Criticality Noted Date [...] Description 12/19/2023 1:00 PM CDT Office Visit [facility] [address] [place] [address] Eran Campa MD Follow Up from Last 3 Months Immunizations Name Administration Dates Next Due AMB Influenza, IIV4 PF (=>6 mos Flulaval,Fluzone Fluarix)(Flu Clinic Only) 12/12/2018 COVID-19 vaccine (Vigiglobe-Bio NTech 30mcg/0.3mL) 12YO+ BIVALENT PF, MDV 01/26/2022 [...] - 199 mg/dL 09/07/2023 7:39 AM CDT [facility] Comment: Cholesterol, Total Reference Ranges Desirable <200 mg/dL Borderline 200-239 mg/dL High >=240 mg/dL TRIGLYCERIDES 212(H) <150 mg/dL 09/07/2023 7:39 AM CDT [facility] HDL CHOLESTEROL 37(L) >40 mg/dL 7:39 AM CDT [facility] NON-HDL CHOLESTEROL 188(H) <145 mg/dl 09/07/2023 7:39 AM CDT [facility] CHOL/HDL RATIO 6.08(H) <4.50 09/07/2023 7:39 AM CDT [facility] LDL CHOLESTEROL 146(H) <=130 mg/dL 09/07/2023 7:39 AM CDT [facility] VLDL CHOLESTEROL 42(H) <=30 mg/dL 09/07/2023 7:39 AM CDT [facility] PROVIDER ORDERED STATUS RANDOM 09/07/2023 7:39 AM CDT [facility] Blood BLOOD SPECIMEN / Unknown Venipuncture / Unknown 09/07/2023 7:01 AM CDT 09/07/2023 7:13 AM CDT Melita Lopez MD CHEMISTRY [facility] [address] [place] [address], from Last 3 Months or Most Recently Relevant to Health Maintenance Advance Directives * Full Code (Latest Code Status on File) Date Activated Date Inactivated Comments 09/06/2023 9:15 AM 09/11/2023 7:27 PM Question Answer Comments Code Status Discussion: Unable to Assess Preferences, Provider to review later * Full Code Date Activated Date Inactivated Comments 05/20/2019 5:20 PM 05/21/2019 8:24 PM Care Teams Athletic Equipment Manager Relationship Specialty Start Date End Date Karthik Sanz MD [address] [place] [address] PCP - General Internal Medicine 06/24/20
--- OUTSIDE RECORDS SUMMARY | 2024-02-03 16:12 | XMS_ITS | Referral Summary ---
Author Organization [facility] Address [address] [place] [address] Care Team Providers Care Jig And Fixture Maker Name Role Phone Royce Weiner Primary Care Provider [phone] Allergies Active Allergy Reactions Criticality Noted Date Comments Amoxicillin 09/29/2019 Celecoxib 09/29/2019 Penicillins Anaphylaxis High 09/29/2019 TOLERATED MEROPENEM Medications venlafaxine (EFFEXOR XR) 75 MG 24 hr capsule Take 4 capsules by mouth daily 01/27/20 22 Active gabapentin (NEURONTIN) 600 MG tablet Take 1,200 mg by mouth 3 times daily 01/27/20 22 Active Continuous Blood Gluc Sensor (Axine Water TechnologiesSTYLE WILFRED 2 SENSOR) MISCIndications:H yperglycemia,Type 2 diabetes mellitus with diabetic polyneuropathy, with long-term current use of insulin (H) 1 each every 14 days Use 1 sensor every 14 days. Use to read blood sugars per coordinator of placement's instructions. 2 each 5 03/17/20 22 Active [...] Comments Blood Pressure 166/95 03/17/2022 7:29 AM MALT ROASTER Pulse 88 03/17/2022 7:28 AM MALT ROASTER Temperature 36.8 C (98.3 F) 03/17/2022 7:28 AM MALT ROASTER Respiratory Rate 20 03/17/2022 7:28 AM MALT ROASTER Oxygen Saturation 94% 03/17/2022 9:36 AM MALT ROASTER Inhaled Oxygen Concentration - - Weight 125.5 kg (276 lb 9.6 oz) 03/17/2022 5:12 AM MALT ROASTER Height 180.3 cm (5' 11) 03/14/2022 9:55 AM MALT ROASTER Body Mass Index 38.58 03/14/2022 9:55 AM MALT ROASTER Plan of Treatment Not on file Procedures Procedure Name Priority Date/Time Associated Diagnosis Comments BASIC METABOLIC PANEL Routine 03/15/2022 7:49 AM MALT ROASTER LIPID REFLEX TO DIRECT LDL PANEL Add-On 03/14/2022 7:51 AM MALT ROASTER HEMOGLOBIN A1C Add-On 03/13/2022 2:49 PM MALT ROASTER from Last 3 Months or Most Recently Relevant to Health Maintenance Results * (ABNORMAL) Basic metabolic panel (03/15/2022 7:49 AM MALT ROASTER) Sodium 137 136 - 145 mmol/L 03/15/2022 8:38 AM [facility] Potassium 4.6 3.4 - 5.3 mmol/L 03/15/2022 8:38 AM [facility] Comment:Specimen slightly he molyzed, potassium may be falsely elevated. Chloride 100 98 - 107 mmol/L 03/15/2022 8:38 AM [facility] Carbon Dioxide (CO2) 27 22 - 29 mmol/L 03/15/2022 8:38 AM [facility] Anion Gap 10 7 - 15 mmol/L 03/15/2022 8:38 AM [facility] Urea Nitrogen 14.0 6.0 - 20.0 mg/dL 03/15/2022 8:38 AM [facility] Creatinine 0.55(L) 0.67 - 1.17 mg/dL 03/15/2022 8:38 AM [facility] Calcium 9.5 8.6 - 10.0 mg/dL 03/15/2022 8:38 AM [facility] Glucose 103(H) 70 - 99 mg/dL 03/15/2022 8:38 AM [facility] GFR Estimate >90 >60 mL/min/1.7 3m2 03/15/2022 8:38 AM [facility] Comment:Effective February 162020 eGFRcr in adults is calculated using the 2020 CKD-EPI creatinine equation which includes age and gender (Bridgett et al., NEJM, DOI: 10.1056/UYWOft5875008) Blood STRUCTURE OF RIGHT UPPER LIMB / Unknown Venipuncture / Unknown 03/15/2022 7:49 AM MALT ROASTER 03/15/2022 8:04 AM MALT ROASTER us Axel Calderón MD LAB - BLOOD ORDERABLES Final Re sult LABORATORY [facility] Acute Care Lab [address] Lab (1st floor, no room number) [place] [address], [facility] [phone] * (ABNORMAL) Lipid panel reflex to direct LDL (03/14/2022 7:51 AM MALT ROASTER) Cholesterol 184 <200 mg/dL 03/14/2022 1:46 PM M[facility] Triglycerides 331(H) <150 mg/dL 03/14/2022 1:46 PM M[facility] RO[facility] Direct Measure HDL 28(L) >=40 mg/dL 03/14/2022 1:46 PM M[facility] RO[facility] LDL Cholesterol Calculated 90 <=100 mg/dL 03/14/2022 1:46 PM [facility] RO[facility] Non HDL Cholesterol 156(H) <130 mg/dL 03/14/2022 1:46 PM [facility] RO[facility] Blood STRUCTURE OF RIGHT UPPER LIMB / Unknown Venipuncture / Unknown 03/14/2022 7:51 AM MALT ROASTER 03/14/2022 8:00 AM MALT ROASTER Narrative [facility] - 03/14/2022 1:46 PM MALT ROASTER Cholesterol Desirable: <200 mg/dL Triglycerides Normal: Less [...] BLOOD ORDERABLES Final R esult [facility]U LABORATORY [facility] [place] Core Lab [address], [address] [place] [address], [facility] [phone] * (ABNORMAL) Hemoglobin A1c (03/13/2022 2:49 PM MALT ROASTER) Hemoglobin A1C 14.4(H) <5.7 % 03/13/2022 7:14 PM [facility]ORY Comment: Normal <5.7% Prediabetes 5.7-6.4% Diabetes 6.5% or higher Note: Adopted from ADA consensus guidelines. Blood BLOOD SPECIMEN / Unknown Venipuncture / Unknown 03/13/2022 2:49 PM MALT ROASTER 03/13/2022 3:06 PM MALT ROASTER us Parish Rios MD LAB - BLOOD ORDERABLES Final Res ult [facility] Acute Care Lab [address] [facility] Lab (1st floor, no room number) [place] [address], [facility] [phone] from Last 3 Months or Most Recently Relevant to Health Maintenance Insurance [facility] OTHER Advance Directives For more information, please contact: [phone] * Full Code (Latest Code Status on File) Date Activated Date Inactivated Comments 03/13/2022 9:46 PM 03/17/2022 6:08 PM All basic and advanced life-sustaining interventions are performed as appropriate Question Answer Comments Code status determined by: Discussion with leobardo nt/ legal decision maker Care Teams Jig And Fixture Maker Relationship Specialty Start Date End Date Royce Weiner [address] [place] [address] PCP - General 05/26/20
--- OUTSIDE RECORDS SUMMARY | 2024-02-03 16:12 | XMS_ITS | Clinical Summary ---
Author Organization [facility] Address [address] [place] [address] Care Team Providers Care Seismograph Recorder Name Role Phone Royce Weiner Primary Care Provider [phone] Allergies Active Allergy Reactions Criticality Noted Date Comments Amoxicillin 09/29/2019 Celecoxib 09/29/2019 Penicillins Anaphylaxis High 09/29/2019 TOLERATED MEROPENEM Medications venlafaxine (EFFEXOR XR) 75 MG 24 hr capsule Take 4 capsules by mouth daily 01/27/20 22 Active gabapentin (NEURONTIN) 600 MG tablet Take 1,200 mg by mouth 3 times daily 01/27/20 22 Active Continuous Blood Gluc Sensor (TextinglySTYLE WILFRED 2 SENSOR) MISCIndications:H yperglycemia,Type 2 diabetes mellitus with diabetic polyneuropathy, with long-term current use of insulin (H) 1 each every 14 days Use 1 sensor every 14 days. Use to read blood sugars per microcomputer technician's instructions. 2 each 5 03/17/20 22 Active [...] Comments Blood Pressure 166/95 03/17/2022 7:29 AM TRUCK CATERER Pulse 88 03/17/2022 7:28 AM TRUCK CATERER Temperature 36.8 C (98.3 F) 03/17/2022 7:28 AM TRUCK CATERER Respiratory Rate 20 03/17/2022 7:28 AM TRUCK CATERER Oxygen Saturation 94% 03/17/2022 9:36 AM TRUCK CATERER Inhaled Oxygen Concentration - - Weight 125.5 kg (276 lb 9.6 oz) 03/17/2022 5:12 AM TRUCK CATERER Height 180.3 cm (5' 11) 03/14/2022 9:55 AM TRUCK CATERER Body Mass Index 38.58 03/14/2022 9:55 AM TRUCK CATERER Plan of Treatment Health Maintenance Due Date [...] BASIC METABOLIC PANEL Routine 03/15/2022 7:49 AM TRUCK CATERER LIPID REFLEX TO DIRECT LDL PANEL Add-On 03/14/2022 7:51 AM TRUCK CATERER HEMOGLOBIN A1C Add-On 03/13/2022 2:49 PM TRUCK CATERER from Last 3 Months or Most Recently Relevant to Health Maintenance Results * (ABNORMAL) Basic metabolic panel (03/15/2022 7:49 AM TRUCK CATERER) Sodium 137 136 - 145 mmol/L 03/15/2022 8:38 AM [facility] Potassium 4.6 3.4 - 5.3 mmol/L 03/15/2022 8:38 AM [facility] Comment:Specimen slightly he molyzed, potassium may be falsely elevated. Chloride 100 98 - 107 mmol/L 03/15/2022 8:38 AM [facility] Carbon Dioxide (CO2) 27 22 - 29 mmol/L 03/15/2022 8:38 AM [facility] Anion Gap 10 7 - 15 mmol/L 03/15/2022 8:38 AM [facility] Urea Nitrogen 14.0 6.0 - 20.0 mg/dL 03/15/2022 8:38 AM [facility] Creatinine 0.55(L) 0.67 - 1.17 mg/dL 03/15/2022 8:38 AM [facility] Calcium 9.5 8.6 - 10.0 mg/dL 03/15/2022 8:38 AM [facility] Glucose 103(H) 70 - 99 mg/dL 03/15/2022 8:38 AM [facility] GFR Estimate >90 >60 mL/min/1.7 3m2 03/15/2022 8:38 AM [facility] Comment:Effective February 162020 eGFRcr in adults is calculated using the 2020 CKD-EPI creatinine equation which includes age and gender (Bridgett et al., NEJM, DOI: 10.1056/YFGXwo2036226) Blood STRUCTURE OF RIGHT UPPER LIMB / Unknown Venipuncture / Unknown 03/15/2022 7:49 AM TRUCK CATERER 03/15/2022 8:04 AM TRUCK CATERER us Axel Calderón MD LAB - BLOOD ORDERABLES Final Re sult LABORATORY [facility] Acute Care Lab [address] [facility] Lab (1st floor, no room number) [place] [address], [facility] [phone] * (ABNORMAL) Lipid panel reflex to direct LDL (03/14/2022 7:51 AM TRUCK CATERER) Cholesterol 184 <200 mg/dL 03/14/2022 1:46 PM TRUCK CATERER [facility] Triglycerides 331(H) <150 mg/dL 03/14/2022 1:46 PM TRUCK CATERER [facility] Direct Measure HDL 28(L) >=40 mg/dL 03/14/2022 1:46 PM TRUCK CATERER [facility] LDL Cholesterol Calculated 90 <=100 mg/dL 03/14/2022 1:46 PM TRUCK CATERER [facility] Non HDL Cholesterol 156(H) <130 mg/dL 03/14/2022 1:46 PM TRUCK CATER[facility] Blood STRUCTURE OF RIGHT UPPER LIMB / Unknown Venipuncture / Unknown 03/14/2022 7:51 AM TRUCK CATERER 03/14/2022 8:00 AM TRUCK CATERER Narrative [facility] - 03/14/2022 1:46 PM TRUCK CATERER Cholesterol Desirable: <200 mg/dL Triglycerides Normal: Less [...] BLOOD ORDERABLES Final R esult [facility] LABORATORY [facility] [place] Core Lab [address] [facility] [address] [facility], Room [address] [place] [address], [facility] [phone] * (ABNORMAL) Hemoglobin A1c (03/13/2022 2:49 PM TRUCK CATERER) Hemoglobin A1C 14.4(H) <5.7 % 03/13/2022 7:14 PM TRUCK CATERER LABORATORY Comment: Normal <5.7% Prediabetes 5.7-6.4% Diabetes 6.5% or higher Note: Adopted from ADA consensus guidelines. Blood BLOOD SPECIMEN / Unknown Venipuncture / Unknown 03/13/2022 2:49 PM TRUCK CATERER 03/13/2022 3:06 PM TRUCK CATERER us Parish Rios MD LAB - BLOOD ORDERABLES Final Res ult LABORATORY [facility] Acute Care Lab [address] Lab (1st floor, no room number) [place] [address], [facility] [phone] from Last 3 Months or Most Recently Relevant to Health Maintenance Insurance ON LICENSE OF [facility] OTHER Advance Directives For more information, please contact: [phone] * Full Code (Latest Code Status on File) Date Activated Date Inactivated Comments 03/13/2022 9:46 PM 03/17/2022 6:08 PM All basic and advanced life-sustaining interventions are performed as appropriate Question Answer Comments Code status determined by: Discussion with leobardo nt/ legal decision maker Care Teams Seismograph Recorder Relationship Specialty Start Date End Date Royce Weiner [address] [place] [address] PCP - General 05/26/20
--- NOTE | 2024-02-03 16:15 | CRLHL7_ITS ---
For Patients: As a result of the Cures Act, medical imaging exams and procedure reports are released immediately into your electronic medical record. You may view this report before your referring provider. If you have questions, please contact your health care provider. INDICATION: acute bronchitis, unspecified TECHNIQUE: Chest 2 views COMPARISON: 01/29/2024 FINDINGS: Old left 5th and 6th rib fracture deformities. Chronic displaced fracture of the left proximal humerus. Mild tortuosity of the aorta. Cardiac silhouette upper limits normal. Mild chronic scarring/bronchiectasis left lower lobe. IMPRESSION: No acute findings. Dictated by Eran Wilhelm MD @ 02/04/2024 10:10:46 AM (Electronically Signed)
== END 2024-02-03 16:10 | disposition home or self-care (01) ==
LOC: RAD 16:09
PROVIDERS: PCP Internal Medicine; Visit Provider Nurse Practitioner Family
DX: J20.9 Acute bronchitis, unspecified (principal)
CPT/HCPCS: 71046

== ENCOUNTER 2024-02-10 15:11 | Outpatient (CLI) | payer OTHER, SELFPAY ==
--- OUTSIDE RECORDS SUMMARY | 2024-02-10 15:13 | XMS_ITS | Continuity of Care Document ---
Author Organization A[facility]RELL Row[facility] Address [address] [place] [address] Phone Care Team Providers Care Hop Worker Name Role Phone Elizabeth Peterson CNP [...] E&m Estab Low-mod [facility], [address] [facility] [address] [facility] [address], [place], [place], [id number], tel:[phone] [facility] No Information 9 Kristen Johnson. [address], [address], [place], [place], [address], [place]. tel:[phone] Referring Provider: Reggie Geiger MD J, [address] [facility], [place], [address]. tel:[phone] Offic/outpt E&m Estab Low-mod D[facility]RE[facility] Row[facility], [address] [facility] [address] [facility] [address], [place], [place], [id number], [place] tel:[phone] [facility] No Information 9200 9 Budnick Elizabeth. [address] , [address], [place], [place], [address], [place]. tel:[phone] Referring Provider: Reggie Rock, [address] [place], [address]. tel:[phone] Offic/outpt E&m Estab Mod-hi 2 Amrik, [facility], [address], [place], [place], [address], [place] tel:[phone] [facility] No Information 9 Budnick Elizabeth. [address] , [address], [place], [place], [address], [place]. tel:[phone] Referring Provider: Reggie Rock, [address] [place], [address]. tel:[phone] Offic/outpt E&m Estab Low-mod Amrik, [facility], [address] [facility] [address], [place], [address], [place] tel:[phone] [facility] No Information 9 Juanjo Paredes. [address], [place], [address], [place]. tel:[phone] Referring Provider: REFERRAL SELF, ISRAEL. Offic/outpt E&m Estab Low-mod Amrik, [facility], [address] [facility] [address], [place], [place], [address], [place] tel:[phone] [facility] No Information 9 Juanjo Paredes. [address], [place], [address], [place]. tel:[phone] Referring Provider: REFERRAL SELF, ISRAEL. [facility], [address] [facility] [address], [place], [address], [place] tel:[phone] [facility] No Information 9 Juanjo LOZA Reggie. [address], [place], [place], [facility], [place]. [phone] Referring Provider: REFERRAL SELF, ISRAEL. Offic/outpt E&m Estab Mod-hi 2 [facility], [facility], [address] [facility], [place], [place], [address], [phone] [facility] No Information 9 Juanjo LOZA Reggie. [address], [place], [place], [facility], [place]. tel:[phone] Referring Provider: REFERRAL SELFISRAEL. Offic Cons New/estab Mod-hi 60 Amrik, [facility], [address] [facility] [address], [place], [place], [address], [phone] [facility] No Information 9 Tor Vega [facility]. [address] [place], [place], [facility], . Family History Family Member Type [...]
--- OUTSIDE RECORDS SUMMARY | 2024-02-10 15:14 | XMS_ITS | Clinical Summary ---
Author Organization [place] Address [address] [place] [address] Care Team Providers Care Mold Stripper Name Role Phone Royce Weiner Primary Care Provider [phone] Allergies Active Allergy Reactions Criticality Noted Date Comments Amoxicillin 09/29/2019 Celecoxib 09/29/2019 Penicillins Anaphylaxis High 09/29/2019 TOLERATED MEROPENEM Medications venlafaxine (EFFEXOR XR) 75 MG 24 hr capsule Take 4 capsules by mouth daily 01/27/20 22 Active gabapentin (NEURONTIN) 600 MG tablet Take 1,200 mg by mouth 3 times daily 01/27/20 22 Active Continuous Blood Gluc Sensor (EdgarSTYLE WILFRED 2 SENSOR) MISCIndications:H yperglycemia,Type 2 diabetes mellitus with diabetic polyneuropathy, with long-term current use of insulin (H) 1 each every 14 days Use 1 sensor every 14 days. Use to read blood sugars per first responder's instructions. 2 each 5 03/17/20 22 Active [...] Comments Blood Pressure 166/95 03/17/2022 7:29 AM SENIOUR INSIGHT MANAGER Pulse 88 03/17/2022 7:28 AM SENIOUR INSIGHT MANAGER Temperature 36.8 C (98.3 F) 03/17/2022 7:28 AM SENIOUR INSIGHT MANAGER Respiratory Rate 20 03/17/2022 7:28 AM SENIOUR INSIGHT MANAGER Oxygen Saturation 94% 03/17/2022 9:36 AM SENIOUR INSIGHT MANAGER Inhaled Oxygen Concentration - - Weight 125.5 kg (276 lb 9.6 oz) 03/17/2022 5:12 AM SENIOUR INSIGHT MANAGER Height 180.3 cm (5' 11) 03/14/2022 9:55 AM SENIOUR INSIGHT MANAGER Body Mass Index 38.58 03/14/2022 9:55 AM SENIOUR INSIGHT MANAGER Plan of Treatment Health Maintenance Due [...] BASIC METABOLIC PANEL Routine 03/15/2022 7:49 AM SENIOUR INSIGHT MANAGER LIPID REFLEX TO DIRECT LDL PANEL Add-On 03/14/2022 7:51 AM SENIOUR INSIGHT MANAGER HEMOGLOBIN A1C Add-On 03/13/2022 2:49 PM SENIOUR INSIGHT MANAGER from Last 3 Months or Most Recently Relevant to Health Maintenance Results * (ABNORMAL) Basic metabolic panel (03/15/2022 7:49 AM SENIOUR INSIGHT MANAGER) Sodium 137 136 - 145 mmol/L 03/15/2022 8:38 AM [facility] Potassium 4.6 3.4 - 5.3 mmol/L 03/15/2022 8:38 AM [facility] Comment:Specimen slightly he molyzed, potassium may be falsely elevated. Chloride 100 98 - 107 mmol/L 03/15/2022 8:38 AM [facility] Carbon Dioxide (CO2) 27 22 - 29 mmol/L 03/15/2022 8:38 AM [facility] Anion Gap 10 7 - 15 mmol/L 03/15/2022 8:38 AM [facility] Urea Nitrogen 14.0 6.0 - 20.0 mg/dL 03/15/2022 8:38 AM [facility] Creatinine 0.55(L) 0.67 - 1.17 mg/dL 03/15/2022 8:38 AM [facility] Calcium 9.5 8.6 - 10.0 mg/dL 03/15/2022 8:38 AM [facility] Glucose 103(H) 70 - 99 mg/dL 03/15/2022 8:38 AM [facility] GFR Estimate >90 >60 mL/min/1.7 3m2 03/15/2022 8:38 AM [facility] Comment:Effective February 162020 eGFRcr in adults is calculated using the 2020 CKD-EPI creatinine equation which includes age and gender (Bridgett et al., NEJM, DOI: 10.1056/[id number]) Blood STRUCTURE OF RIGHT UPPER LIMB / Unknown Venipuncture / Unknown 03/15/2022 7:49 AM SENIOUR INSIGHT MANAGER 03/15/2022 8:04 AM SENIOUR INSIGHT MANAGER us Axel Calderón MD LAB - BLOOD ORDERABLES Final Re sult LABORATORY [facility] Acute Care Lab [address] [facility] Lab (1st floor, no room number) [place] [address], [facility] [phone] * (ABNORMAL) Lipid panel reflex to direct LDL (03/14/2022 7:51 AM SENIOUR INSIGHT MANAGER) Cholesterol 184 <200 mg/dL 03/14/2022 1:46 PM SENIOUR INSIGHT MANAGER [facility] Triglycerides 331(H) <150 mg/dL 03/14/2022 1:46 PM SENIOUR INSIGHT MANAGER [facility] Direct Measure HDL 28(L) >=40 mg/dL 03/14/2022 1:46 PM SENIOUR INSIGHT MANAGER [facility] LDL Cholesterol Calculated 90 <=100 mg/dL 03/14/2022 1:46 PM SENIOUR INSIGHT MANAGER [facility] Non HDL Cholesterol 156(H) <130 mg/dL 03/14/2022 1:46 PM SENIOUR INSIGHT MANAGER [facility] Blood STRUCTURE OF RIGHT UPPER LIMB / Unknown Venipuncture / Unknown 03/14/2022 7:51 AM SENIOUR INSIGHT MANAGER 03/14/2022 8:00 AM SENIOUR INSIGHT MANAGER Narrative [facility] - 03/14/2022 1:46 PM SENIOUR INSIGHT MANAGER Cholesterol Desirable: <200 mg/dL Triglycerides Normal: Less [...] BLOOD ORDERABLES Final R esult [facility] [place] [facility] [address] [facility] [address] [facility], [address] [place] [address], [facility] [phone] * (ABNORMAL) Hemoglobin A1c (03/13/2022 2:49 PM SENIOUR INSIGHT MANAGER) Hemoglobin A1C 14.4(H) <5.7 % 03/13/2022 7:14 PM SENIOUR INSIGHT MANAGER LABORATORY Comment: Normal <5.7% Prediabetes 5.7-6.4% Diabetes 6.5% or higher Note: Adopted from ADA consensus guidelines. Blood BLOOD SPECIMEN / Unknown Venipuncture / Unknown 03/13/2022 2:49 PM SENIOUR INSIGHT MANAGER 03/13/2022 3:06 PM SENIOUR INSIGHT MANAGER us Parish Rios MD LAB - BLOOD ORDERABLES Final Res ult LABORATORY [facility] Acute Care Lab [address] Lab (1st floor, no room number) [place] [address], [facility] [phone] from Last 3 Months or Most Recently Relevant to Health Maintenance Insurance [facility] OTHER Advance Directives For more information, please contact: [phone] * Full Code (Latest Code Status on File) Date Activated Date Inactivated Comments 03/13/2022 9:46 PM 03/17/2022 6:08 PM All basic and advanced life-sustaining interventions are performed as appropriate Question Answer Comments Code status determined by: Discussion with leobardo nt/ legal decision maker Care Teams Mold Stripper Relationship Specialty Start Date End Date Royce Weiner [address] [place] [address] PCP - General 05/26/20
--- OUTSIDE RECORDS SUMMARY | 2024-02-10 15:14 | XMS_ITS | Referral Summary ---
Author Organization [place] Address [address] [place] [address] Care Team Providers Care Horseradish Grinder Name Role Phone Royce Weiner Primary Care Provider [phone] Allergies Active Allergy Reactions Criticality Noted Date Comments Amoxicillin 09/29/2019 Celecoxib 09/29/2019 Penicillins Anaphylaxis High 09/29/2019 TOLERATED MEROPENEM Medications venlafaxine (EFFEXOR XR) 75 MG 24 hr capsule Take 4 capsules by mouth daily 01/27/20 22 Active gabapentin (NEURONTIN) 600 MG tablet Take 1,200 mg by mouth 3 times daily 01/27/20 22 Active Continuous Blood Gluc Sensor (Nfocus NeuromedicalSTYLE WILFRED 2 SENSOR) MISCIndications:H yperglycemia,Type 2 diabetes mellitus with diabetic polyneuropathy, with long-term current use of insulin (H) 1 each every 14 days Use 1 sensor every 14 days. Use to read blood sugars per riveting machine operator tape control's instructions. 2 each 5 03/17/20 22 Active [...] Comments Blood Pressure 166/95 03/17/2022 7:29 AM SILK CREPE MACHINE OPERATOR Pulse 88 03/17/2022 7:28 AM SILK CREPE MACHINE OPERATOR Temperature 36.8 C (98.3 F) 03/17/2022 7:28 AM SILK CREPE MACHINE OPERATOR Respiratory Rate 20 03/17/2022 7:28 AM SILK CREPE MACHINE OPERATOR Oxygen Saturation 94% 03/17/2022 9:36 AM SILK CREPE MACHINE OPERATOR Inhaled Oxygen Concentration - - Weight 125.5 kg (276 lb 9.6 oz) 03/17/2022 5:12 AM SILK CREPE MACHINE OPERATOR Height 180.3 cm (5' 11) 03/14/2022 9:55 AM SILK CREPE MACHINE OPERATOR Body Mass Index 38.58 03/14/2022 9:55 AM SILK CREPE MACHINE OPERATOR Plan of Treatment Not on file Procedures Procedure Name Priority Date/Time Associated Diagnosis Comments BASIC METABOLIC PANEL Routine 03/15/2022 7:49 AM SILK CREPE MACHINE OPERATOR LIPID REFLEX TO DIRECT LDL PANEL Add-On 03/14/2022 7:51 AM SILK CREPE MACHINE OPERATOR HEMOGLOBIN A1C Add-On 03/13/2022 2:49 PM SILK CREPE MACHINE OPERATOR from Last 3 Months or Most Recently Relevant to Health Maintenance Results * (ABNORMAL) Basic metabolic panel (03/15/2022 7:49 AM SILK CREPE MACHINE OPERATOR) Sodium 137 136 - 145 mmol/L 03/15/2022 8:38 AM [facility] Potassium 4.6 3.4 - 5.3 mmol/L 03/15/2022 8:38 AM [facility] Comment:Specimen slightly he molyzed, potassium may be falsely elevated. Chloride 100 98 - 107 mmol/L 03/15/2022 8:38 AM [facility] Carbon Dioxide (CO2) 27 22 - 29 mmol/L 03/15/2022 8:38 AM [facility] Anion Gap 10 7 - 15 mmol/L 03/15/2022 8:38 AM [facility] Urea Nitrogen 14.0 6.0 - 20.0 mg/dL 03/15/2022 8:38 AM [facility] Creatinine 0.55(L) 0.67 - 1.17 mg/dL 03/15/2022 8:38 AM [facility] Calcium 9.5 8.6 - 10.0 mg/dL 03/15/2022 8:38 AM [facility] Glucose 103(H) 70 - 99 mg/dL 03/15/2022 8:38 AM [facility] GFR Estimate >90 >60 mL/min/1.7 3m2 03/15/2022 8:38 AM [facility] Comment:Effective February 162020 eGFRcr in adults is calculated using the 2020 CKD-EPI creatinine equation which includes age and gender (Bridgett et al., NEJM, DOI: 10.1056/[id number]) Blood STRUCTURE OF RIGHT UPPER LIMB / Unknown Venipuncture / Unknown 03/15/2022 7:49 AM SILK CREPE MACHINE OPERATOR 03/15/2022 8:04 AM SILK CREPE MACHINE OPERATOR us Axel Calderón MD LAB - BLOOD ORDERABLES Final Re sult LABORATORY [facility] Acute Care Lab [address] Lab (1st floor, no room number) [place] [address], [facility] [phone] * (ABNORMAL) Lipid panel reflex to direct LDL (03/14/2022 7:51 AM SILK CREPE MACHINE OPERATOR) Cholesterol 184 <200 mg/dL 03/14/2022 1:46 PM SILK CREPE MACHINE OPERATOR [facility] Triglycerides 331(H) <150 mg/dL 03/14/2022 1:46 PM SILK CREPE MACHINE OPERATOR [facility] Direct Measure HDL 28(L) >=40 mg/dL 03/14/2022 1:46 PM SILK CREPE MACHINE OPERATOR [facility] LDL Cholesterol Calculated 90 <=100 mg/dL 03/14/2022 1:46 PM SILK CREPE MACHINE OPERATOR [facility] Non HDL Cholesterol 156(H) <130 mg/dL 03/14/2022 1:46 PM SILK CREPE MACHINE OPERATOR [facility] Blood STRUCTURE OF RIGHT UPPER LIMB / Unknown Venipuncture / Unknown 03/14/2022 7:51 AM SILK CREPE MACHINE OPERATOR 03/14/2022 8:00 AM SILK CREPE MACHINE OPERATOR Narrative [facility] - 03/14/2022 1:46 PM SILK CREPE MACHINE OPERATOR Cholesterol Desirable: <200 mg/dL Triglycerides Normal: Less [...] BLOOD ORDERABLES Final R esult [facility] LABORATORY [facility] [place] [facility] [address], [address] [place] [address], [facility] [phone] * (ABNORMAL) Hemoglobin A1c (03/13/2022 2:49 PM SILK CREPE MACHINE OPERATOR) Hemoglobin A1C 14.4(H) <5.7 % 03/13/2022 7:14 PM SILK CREPE MACHINE OPERATOR LABORATORY Comment: Normal <5.7% Prediabetes 5.7-6.4% Diabetes 6.5% or higher Note: Adopted from ADA consensus guidelines. Blood BLOOD SPECIMEN / Unknown Venipuncture / Unknown 03/13/2022 2:49 PM SILK CREPE MACHINE OPERATOR 03/13/2022 3:06 PM SILK CREPE MACHINE OPERATOR us Parish Rios MD LAB - BLOOD ORDERABLES Final Res ult [facility] Acute Care Lab [address] [facility] [facility] Lab (1st floor, no room number) [place] [address], [facility] [phone] from Last 3 Months or Most Recently Relevant to Health Maintenance Insurance [facility] OTHER Advance Directives For more information, please contact: [phone] * Full Code (Latest Code Status on File) Date Activated Date Inactivated Comments 03/13/2022 9:46 PM 03/17/2022 6:08 PM All basic and advanced life-sustaining interventions are performed as appropriate Question Answer Comments Code status determined by: Discussion with leobardo nt/ legal decision maker Care Teams Horseradish Grinder Relationship Specialty Start Date End Date Royce Weiner [address] [place] [address] PCP - General 05/26/20
--- OUTSIDE RECORDS SUMMARY | 2024-02-10 15:14 | XMS_ITS | Clinical Summary ---
Author Organization [employer] Address [place], [place] [address] Care Team Providers Care Maintenance Trainer Name Role Phone Karthik Sanz MD Primary [...] Description 12/19/2023 1:00 PM CDT Office Visit [facility] [address] [place] [address] Eran Campa MD Follow Up from Last 3 Months Immunizations Name Administration Dates Next Due AMB Influenza, IIV4 PF (=>6 mos Flulaval,Fluzone Fluarix)(Flu Clinic Only) 12/12/2018 COVID-19 vaccine ([employer] NT[employer] 30mcg/0.3mL) 12YO+ BIVALENT PF, MDV 01/26/2022 [...] 09/07/2023 7:39 AM CDT [facility] Comment: Cholesterol, Total Reference Ranges Desirable <200 mg/dL Borderline 200-239 mg/dL High >=240 mg/dL TRIGLYCERIDES 212(H) <150 mg/dL 09/07/2023 7:39 AM CDT [facility] HDL CHOLESTEROL 37(L) >40 mg/dL 7:39 AM CDT [facility] NON-HDL CHOLESTEROL 188(H) <145 mg/dl 09/07/2023 7:39 AM CDT [facility] CHOL/HDL RATIO 6.08(H) <4.50 09/07/2023 7:39 AM CDT [facility] LDL CHOLESTEROL 146(H) <=130 mg/dL 09/07/2023 7:39 AM CDT [facility] VLDL CHOLESTEROL 42(H) <=30 mg/dL 09/07/2023 7:39 AM CDT [facility] PROVIDER ORDERED STATUS RANDOM 09/07/2023 7:39 AM CDT [facility] Blood BLOOD SPECIMEN / Unknown Venipuncture / Unknown 09/07/2023 7:01 AM CDT 09/07/2023 7:13 AM CDT Melita Lopez MD CHEMISTRY [facility] [address] [place] [address], from Last 3 Months or Most Recently Relevant to Health Maintenance Advance Directives * Full Code (Latest Code Status on File) Date Activated Date Inactivated Comments 09/06/2023 9:15 AM 09/11/2023 7:27 PM Question Answer Comments Code Status Discussion: Unable to Assess Preferences, Provider to review later * Full Code Date Activated Date Inactivated Comments 05/20/2019 5:20 PM 05/21/2019 8:24 PM Care Teams Maintenance Trainer Relationship Specialty Start Date End Date Karthik Sanz MD [address] [place] [address] PCP - General Internal Medicine 06/24/20
== END 2024-02-10 15:12 | disposition home or self-care (01) ==
LOC: WOUND 15:12
PROVIDERS: PCP Internal Medicine; Visit Provider Nurse Practitioner Family
DX: E11.621 Type 2 diabetes mellitus with foot ulcer (principal); L97.418 Non-pressure chronic ulcer of right heel and midfoot with other specified severity; Z79.4 Long term (current) use of insulin
CPT/HCPCS: 11042

== ENCOUNTER 2024-02-17 15:28 | Outpatient (CLI) | payer OTHER, SELFPAY ==
--- OUTSIDE RECORDS SUMMARY | 2024-02-17 15:30 | XMS_ITS | Continuity of Care Document ---
Author Organization [facility] Address [address] [place] [address] Phone Care Team Providers Care Gasoline Pump Installer Name Role Phone Elizabeth Peterson CNP Unavailable [...] Low-mod [facility], [address] [facility] [address], [place], [place], [id number], tel:[phone] [facility] No Information 9 Kristen Johnson. [address], [address], [place], [place], [address], [place]. tel:[phone] Referring Provider: Reggie Geiger MD J, [address] [facility], [place], [address]. tel:[phone] Offic/outpt E&m Estab Low-mod [facility], [address] [facility] [address], [place], [place], [id number], [place] tel:[phone] [facility] No Information 9200 9 Budnick Elizabeth. [address] , [address], [place], [place], [id number], [place]. tel:[phone] Referring Provider: Reggie Rock, [address] [place], [address]. tel:[phone] Offic/outpt E&m Estab Mod-hi 2 Amrik, [facility], [address], [place], [place], [id number], [place] tel:[phone] [facility] No Information 9 Budnick Elizabeth. [address], [place], [place], [address], [place]. tel:[phone] Referring Provider: Reggie Rock, [address] [place], [address]. tel:[phone] Offic/outpt E&m Estab Low-mod Amrik, [facility], [address] [facility] [address], [place], [address], [place] tel:[phone] [facility] No Information 9 Juanjo Paredes. [address], [place], [address], [place]. tel:[phone] Referring Provider: REFERRAL SELF, ISRAEL. Offic/outpt E&m Estab Low-mod Amrik, [facility], [address] [facility], [place], [place], [address], [place] tel:[phone] [facility] No Information 9 Juanjo Paredes. [address], [place], [address], [place]. tel:[phone] Referring Provider: REFERRAL SELF, ISRA[place]. [facility], [address] [facility] [address], [place], [id number], [place] [phone] [facility] No Information 9 Juanjo LOZA Reggie. [address], [place], [place], [facility], [place]. [phone] Referring Provider: REFERRAL SELF, ISRAEL. Offic/outpt E&m Estab Mod-hi 2 [facility], [facility], [address] [facility] [address], [place], [place], [id number], [phone] [facility] No Information 9 Juanjo LOZA Reggie. [address], [place], [facility], [place]. tel:[phone] Referring Provider: REFERRAL SELFISRAEL. Offic Cons New/estab Mod-hi 60 Amrik, [facility], [address] [facility] [address], [place], [place], [address], tel:[phone] [facility] No Information 9 Tor V[address] [facility]. [address] [place], [place], [facility], [...]
--- OUTSIDE RECORDS SUMMARY | 2024-02-17 15:30 | XMS_ITS | Referral Summary ---
Author Organization [place] Address [address] [place] [address] Care Team Providers Care Chief Internal Auditor Name Role Phone Royce Weiner Primary Care Provider [phone] Allergies Active Allergy Reactions Criticality Noted Date Comments Amoxicillin 09/29/2019 Celecoxib 09/29/2019 Penicillins Anaphylaxis High 09/29/2019 TOLERATED MEROPENEM Medications venlafaxine (EFFEXOR XR) 75 MG 24 hr capsule Take 4 capsules by mouth daily 01/27/20 22 Active gabapentin (NEURONTIN) 600 MG tablet Take 1,200 mg by mouth 3 times daily 01/27/20 22 Active Continuous Blood Gluc Sensor (YoopaySTYLE WILFRED 2 SENSOR) MISCIndications:H yperglycemia,Type 2 diabetes mellitus with diabetic polyneuropathy, with long-term current use of insulin (H) 1 each every 14 days Use 1 sensor every 14 days. Use to read blood sugars per biotechnologist's instructions. 2 each 5 03/17/20 22 Active [...] Comments Blood Pressure 166/95 03/17/2022 7:29 AM VACUUM CASTER Pulse 88 03/17/2022 7:28 AM VACUUM CASTER Temperature 36.8 C (98.3 F) 03/17/2022 7:28 AM VACUUM CASTER Respiratory Rate 20 03/17/2022 7:28 AM VACUUM CASTER Oxygen Saturation 94% 03/17/2022 9:36 AM VACUUM CASTER Inhaled Oxygen Concentration - - Weight 125.5 kg (276 lb 9.6 oz) 03/17/2022 5:12 AM VACUUM CASTER Height 180.3 cm (5' 11) 03/14/2022 9:55 AM VACUUM CASTER Body Mass Index 38.58 03/14/2022 9:55 AM VACUUM CASTER Plan of Treatment Not on file Procedures Procedure Name Priority Date/Time Associated Diagnosis Comments BASIC METABOLIC PANEL Routine 03/15/2022 7:49 AM VACUUM CASTER LIPID REFLEX TO DIRECT LDL PANEL Add-On 03/14/2022 7:51 AM VACUUM CASTER HEMOGLOBIN A1C Add-On 03/13/2022 2:49 PM VACUUM CASTER from Last 3 Months or Most Recently Relevant to Health Maintenance Results * (ABNORMAL) Basic metabolic panel (03/15/2022 7:49 AM VACUUM CASTER) Sodium 137 136 - 145 mmol/L 03/15/2022 8:38 AM [facility] Potassium 4.6 3.4 - 5.3 mmol/L 03/15/2022 8:38 AM [facility] Comment:Specimen slightly he molyzed, potassium may be falsely elevated. Chloride 100 98 - 107 mmol/L 03/15/2022 8:38 AM [facility] Carbon Dioxide (CO2) 27 22 - 29 mmol/L 03/15/2022 8:38 AM [facility] Anion Gap 10 7 - 15 mmol/L 03/15/2022 8:38 AM [facility] Urea Nitrogen 14.0 6.0 - 20.0 mg/dL 03/15/2022 8:38 AM [facility] Creatinine 0.55(L) 0.67 - 1.17 mg/dL 03/15/2022 8:38 AM [facility] Calcium 9.5 8.6 - 10.0 mg/dL 03/15/2022 8:38 AM [facility] Glucose 103(H) 70 - 99 mg/dL 03/15/2022 8:38 AM [facility] GFR Estimate >90 >60 mL/min/1.7 3m2 03/15/2022 8:38 AM [facility] Comment:Effective February 162020 eGFRcr in adults is calculated using the 2020 CKD-EPI creatinine equation which includes age and gender (Bridgett et al., NEJM, DOI: 10.1056/MSVQjb1892132) Blood STRUCTURE OF RIGHT UPPER LIMB / Unknown Venipuncture / Unknown 03/15/2022 7:49 AM VACUUM CASTER 03/15/2022 8:04 AM VACUUM CASTER us Axel Calderón MD LAB - BLOOD ORDERABLES Final Re sult LABORATORY [facility] Acute Care Lab [address] Lab (1st floor, no room number) [place] [address], [facility] [phone] * (ABNORMAL) Lipid panel reflex to direct LDL (03/14/2022 7:51 AM VACUUM CASTER) Cholesterol 184 <200 mg/dL 03/14/2022 1:46 PM VACUUM CASTER [facility] Triglycerides 331(H) <150 mg/dL 03/14/2022 1:46 PM VACUUM CASTER [facility] Direct Measure HDL 28(L) >=40 mg/dL 03/14/2022 1:46 PM VACUUM CASTER [facility] LDL Cholesterol Calculated 90 <=100 mg/dL 03/14/2022 1:46 PM VACUUM CASTER [facility] Non HDL Cholesterol 156(H) <130 mg/dL 03/14/2022 1:46 PM VACUUM CASTER [facility] Blood STRUCTURE OF RIGHT UPPER LIMB / Unknown Venipuncture / Unknown 03/14/2022 7:51 AM VACUUM CASTER 03/14/2022 8:00 AM VACUUM CASTER Narrative [facility] - 03/14/2022 1:46 PM VACUUM CASTER Cholesterol Desirable: <200 mg/dL Triglycerides Normal: Less [...] BLOOD ORDERABLES Final R esult [facility] LAB[facility]AT[facility] [place] Core Lab [address], [address] [place] [address], [facility] [phone] * (ABNORMAL) Hemoglobin A1c (03/13/2022 2:49 PM VACUUM CASTER) Hemoglobin A1C 14.4(H) <5.7 % 03/13/2022 7:14 PM VACUUM CASTER LABORATORY Comment: Normal <5.7% Prediabetes 5.7-6.4% Diabetes 6.5% or higher Note: Adopted from ADA consensus guidelines. Blood BLOOD SPECIMEN / Unknown Venipuncture / Unknown 03/13/2022 2:49 PM VACUUM CASTER 03/13/2022 3:06 PM VACUUM CASTER us Parish Rios MD LAB - BLOOD ORDERABLES Final Res ult [facility] Acute Care Lab [address] [facility] Lab (1st floor, no room number) [place] [address], [facility] [phone] from Last 3 Months or Most Recently Relevant to Health Maintenance Insurance [facility] OTHER Advance Directives For more information, please contact: [phone] * Full Code (Latest Code Status on File) Date Activated Date Inactivated Comments 03/13/2022 9:46 PM 03/17/2022 6:08 PM All basic and advanced life-sustaining interventions are performed as appropriate Question Answer Comments Code status determined by: Discussion with leobardo nt/ legal decision maker Care Teams Chief Internal Auditor Relationship Specialty Start Date End Date oRyce Weiner [address] [place] [address] PCP - General 05/26/20
--- OUTSIDE RECORDS SUMMARY | 2024-02-17 15:30 | XMS_ITS | Clinical Summary ---
Author Organization [facility] Address [place], [place] [address] Care Team Providers Care Circuit Manager Name Role Phone Karthik Sanz MD [...] Office Visit [facility] [address] [place] [address] Eran Campa MD Follow Up from Last 3 Months Immunizations Name Administration Dates Next Due AMB Influenza, IIV4 PF (=>6 mos Flulaval,Fluzone Fluarix)(Flu Clinic Only) 12/12/2018 COVID-19 vaccine (Giftly-Bio NTech 30mcg/0.3mL) 12YO+ BIVALENT PF, MDV 01/26/2022 [...] - 199 mg/dL 09/07/2023 7:39 AM CDT [facility] Comment: Cholesterol, Total Reference Ranges Desirable <200 mg/dL Borderline 200-239 mg/dL High >=240 mg/dL TRIGLYCERIDES 212(H) <150 mg/dL 09/07/2023 7:39 AM CDT [facility] HDL CHOLESTEROL 37(L) >40 mg/dL 7:39 AM CDT [facility] NON-HDL CHOLESTEROL 188(H) <145 mg/dl 09/07/2023 7:39 AM CDT [facility] CHOL/HDL RATIO 6.08(H) <4.50 09/07/2023 7:39 AM CDT [facility] LDL CHOLESTEROL 146(H) <=130 mg/dL 09/07/2023 7:39 AM CDT [facility] VLDL CHOLESTEROL 42(H) <=30 mg/dL 09/07/2023 7:39 AM CDT [facility] PROVIDER ORDERED STATUS RANDOM 09/07/2023 7:39 AM CDT [facility] Blood BLOOD SPECIMEN / Unknown Venipuncture / Unknown 09/07/2023 7:01 AM CDT 09/07/2023 7:13 AM CDT Melita Lopez MD CHEMISTRY [facility] [address] [place] [address], from Last 3 Months or Most Recently Relevant to Health Maintenance Advance Directives * Full Code (Latest Code Status on File) Date Activated Date Inactivated Comments 09/06/2023 9:15 AM 09/11/2023 7:27 PM Question Answer Comments Code Status Discussion: Unable to Assess Preferences, Provider to review later * Full Code Date Activated Date Inactivated Comments 05/20/2019 5:20 PM 05/21/2019 8:24 PM Care Teams Circuit Manager Relationship Specialty Start Date End Date Karthik Sanz MD [address] [place] [id number] PCP - General Internal Medicine 06/24/20
--- OUTSIDE RECORDS SUMMARY | 2024-02-17 15:30 | XMS_ITS | Clinical Summary ---
Author Organization [employer] Address [address] [place] [address] Care Team Providers Care Coffee Plantation Worker Name Role Phone Royce Weiner Primary Care Provider [phone] Allergies Active Allergy Reactions Criticality Noted Date Comments Amoxicillin 09/29/2019 Celecoxib 09/29/2019 Penicillins Anaphylaxis High 09/29/2019 TOLERATED MEROPENEM Medications venlafaxine (EFFEXOR XR) 75 MG 24 hr capsule Take 4 capsules by mouth daily 01/27/20 22 Active gabapentin (NEURONTIN) 600 MG tablet Take 1,200 mg by mouth 3 times daily 01/27/20 22 Active Continuous Blood Gluc Sensor (Solidcore SystemsSTYLE WILFRED 2 SENSOR) MISCIndications:H yperglycemia,Type 2 diabetes mellitus with diabetic polyneuropathy, with long-term current use of insulin (H) 1 each every 14 days Use 1 sensor every 14 days. Use to read blood sugars per admin dir's instructions. 2 each 5 03/17/20 22 Active [...] Comments Blood Pressure 166/95 03/17/2022 7:29 AM FLARING MACHINE OPERATOR Pulse 88 03/17/2022 7:28 AM FLARING MACHINE OPERATOR Temperature 36.8 C (98.3 F) 03/17/2022 7:28 AM FLARING MACHINE OPERATOR Respiratory Rate 20 03/17/2022 7:28 AM FLARING MACHINE OPERATOR Oxygen Saturation 94% 03/17/2022 9:36 AM FLARING MACHINE OPERATOR Inhaled Oxygen Concentration - - Weight 125.5 kg (276 lb 9.6 oz) 03/17/2022 5:12 AM FLARING MACHINE OPERATOR Height 180.3 cm (5' 11) 03/14/2022 9:55 AM FLARING MACHINE OPERATOR Body Mass Index 38.58 03/14/2022 9:55 AM FLARING MACHINE OPERATOR Plan of Treatment Health Maintenance Due Date [...] BASIC METABOLIC PANEL Routine 03/15/2022 7:49 AM FLARING MACHINE OPERATOR LIPID REFLEX TO DIRECT LDL PANEL Add-On 03/14/2022 7:51 AM FLARING MACHINE OPERATOR HEMOGLOBIN A1C Add-On 03/13/2022 2:49 PM FLARING MACHINE OPERATOR from Last 3 Months or Most Recently Relevant to Health Maintenance Results * (ABNORMAL) Basic metabolic panel (03/15/2022 7:49 AM FLARING MACHINE OPERATOR) Sodium 137 136 - 145 mmol/L 03/15/2022 8:38 AM [facility] Potassium 4.6 3.4 - 5.3 mmol/L 03/15/2022 8:38 AM [facility] Comment:Specimen slightly he molyzed, potassium may be falsely elevated. Chloride 100 98 - 107 mmol/L 03/15/2022 8:38 AM [facility] Carbon Dioxide (CO2) 27 22 - 29 mmol/L 03/15/2022 8:38 AM [facility] Anion Gap 10 7 - 15 mmol/L 03/15/2022 8:38 AM [facility] Urea Nitrogen 14.0 6.0 - 20.0 mg/dL 03/15/2022 8:38 AM [facility] Creatinine 0.55(L) 0.67 - 1.17 mg/dL 03/15/2022 8:38 AM [facility] Calcium 9.5 8.6 - 10.0 mg/dL 03/15/2022 8:38 AM [facility] Glucose 103(H) 70 - 99 mg/dL 03/15/2022 8:38 AM [facility] GFR Estimate >90 >60 mL/min/1.7 3m2 03/15/2022 8:38 AM [facility] Comment:Effective February 162020 eGFRcr in adults is calculated using the 2020 CKD-EPI creatinine equation which includes age and gender (Bridgett et al., NEJM, DOI: 10.1056/[id number]) Blood STRUCTURE OF RIGHT UPPER LIMB / Unknown Venipuncture / Unknown 03/15/2022 7:49 AM FLARING MACHINE OPERATOR 03/15/2022 8:04 AM FLARING MACHINE OPERATOR us Axel Calderón MD LAB - BLOOD ORDERABLES Final Re sult LABORATORY [facility] Acute Care Lab [address] [facility] Lab (1st floor, no room number) [place] [address], [facility] [phone] * (ABNORMAL) Lipid panel reflex to direct LDL (03/14/2022 7:51 AM FLARING MACHINE OPERATOR) Cholesterol 184 <200 mg/dL 03/14/2022 1:46 PM FLARING MACHINE OPERATOR [facility] Triglycerides 331(H) <150 mg/dL 03/14/2022 1:46 PM FLARING MACHINE OPERATOR [facility] Direct Measure HDL 28(L) >=40 mg/dL 03/14/2022 1:46 PM FLARING MACHINE OPERATOR [facility] LDL Cholesterol Calculated 90 <=100 mg/dL 03/14/2022 1:46 PM FLARING MACHINE OPERATOR [facility] Non HDL Cholesterol 156(H) <130 mg/dL 03/14/2022 1:46 PM FLARING MACHINE OPERATOR [facility] Blood STRUCTURE OF RIGHT UPPER LIMB / Unknown Venipuncture / Unknown 03/14/2022 7:51 AM FLARING MACHINE OPERATOR 03/14/2022 8:00 AM FLARING MACHINE OPERATOR Narrative [facility] - 03/14/2022 1:46 PM FLARING MACHINE OPERATOR Cholesterol Desirable: <200 mg/dL Triglycerides [...] BLOOD ORDERABLES Final R esult [facility] LABORATORY [facility] [place] Core Lab [address] [facility] [address] [facility], [address] [place] [address], [facility] [phone] * (ABNORMAL) Hemoglobin A1c (03/13/2022 2:49 PM FLARING MACHINE OPERATOR) Hemoglobin A1C 14.4(H) <5.7 % 03/13/2022 7:14 PM FLARING MACHINE OPERATOR LABORATORY Comment: Normal <5.7% Prediabetes 5.7-6.4% Diabetes 6.5% or higher Note: Adopted from ADA consensus guidelines. Blood BLOOD SPECIMEN / Unknown Venipuncture / Unknown 03/13/2022 2:49 PM FLARING MACHINE OPERATOR 03/13/2022 3:06 PM FLARING MACHINE OPERATOR us Parish Rios MD LAB - BLOOD ORDERABLES Final Res ult LABORATORY [facility] Acute Care Lab [address] Lab (1st floor, no room number) [place] [address], [facility] [phone] from Last 3 Months or Most Recently Relevant to Health Maintenance Insurance [facility] OTHER Advance Directives For more information, please contact: [phone] * Full Code (Latest Code Status on File) Date Activated Date Inactivated Comments 03/13/2022 9:46 PM 03/17/2022 6:08 PM All basic and advanced life-sustaining interventions are performed as appropriate Question Answer Comments Code status determined by: Discussion with leobardo nt/ legal decision maker Care Teams Coffee Plantation Worker Relationship Specialty Start Date End Date Royce Weiner [address] [place] [address] PCP - General 05/26/20
== END 2024-02-17 15:29 | disposition home or self-care (01) ==
LOC: WOUND 15:28
PROVIDERS: PCP Internal Medicine; Visit Provider Nurse Practitioner Family
DX: E11.621 Type 2 diabetes mellitus with foot ulcer (principal); L97.418 Non-pressure chronic ulcer of right heel and midfoot with other specified severity; Z79.4 Long term (current) use of insulin
CPT/HCPCS: 11042

== ENCOUNTER 2024-02-24 15:24 | Outpatient (CLI) | payer OTHER, SELFPAY ==
--- OUTSIDE RECORDS SUMMARY | 2024-02-24 15:26 | XMS_ITS | Clinical Summary ---
Author Organization [place] Address [address] [place] [address] Care Team Providers Care Leak Detection Engineer Name Role Phone Royce Weiner Primary Care Provider [phone] Allergies Active Allergy Reactions Criticality Noted Date Comments Amoxicillin 09/29/2019 Celecoxib 09/29/2019 Penicillins Anaphylaxis High 09/29/2019 TOLERATED MEROPENEM Medications venlafaxine (EFFEXOR XR) 75 MG 24 hr capsule Take 4 capsules by mouth daily 01/27/20 22 Active gabapentin (NEURONTIN) 600 MG tablet Take 1,200 mg by mouth 3 times daily 01/27/20 22 Active Continuous Blood Gluc Sensor (Grab MediaSTYLE WILFRED 2 SENSOR) MISCIndications:H yperglycemia,Type 2 diabetes mellitus with diabetic polyneuropathy, with long-term current use of insulin (H) 1 each every 14 days Use 1 sensor every 14 days. Use to read blood sugars per sales agent business services's instructions. 2 each 5 03/17/20 22 Active [...] Comments Blood Pressure 166/95 03/17/2022 7:29 AM MANAGER OF ADMINISTRATION Pulse 88 03/17/2022 7:28 AM MANAGER OF ADMINISTRATION Temperature 36.8 C (98.3 F) 03/17/2022 7:28 AM MANAGER OF ADMINISTRATION Respiratory Rate 20 03/17/2022 7:28 AM MANAGER OF ADMINISTRATION Oxygen Saturation 94% 03/17/2022 9:36 AM MANAGER OF ADMINISTRATION Inhaled Oxygen Concentration - - Weight 125.5 kg (276 lb 9.6 oz) 03/17/2022 5:12 AM MANAGER OF ADMINISTRATION Height 180.3 cm (5' 11) 03/14/2022 9:55 AM MANAGER OF ADMINISTRATION Body Mass Index 38.58 03/14/2022 9:55 AM MANAGER OF ADMINISTRATION Plan of Treatment Health Maintenance Due Date [...] BASIC METABOLIC PANEL Routine 03/15/2022 7:49 AM MANAGER OF ADMINISTRATION LIPID REFLEX TO DIRECT LDL PANEL Add-On 03/14/2022 7:51 AM MANAGER OF ADMINISTRATION HEMOGLOBIN A1C Add-On 03/13/2022 2:49 PM MANAGER OF ADMINISTRATION from Last 3 Months or Most Recently Relevant to Health Maintenance Results * (ABNORMAL) Basic metabolic panel (03/15/2022 7:49 AM MANAGER OF ADMINISTRATION) Sodium 137 136 - 145 mmol/L 03/15/2022 8:38 AM [facility] Potassium 4.6 3.4 - 5.3 mmol/L 03/15/2022 8:38 AM [facility] Comment:Specimen slightly he molyzed, potassium may be falsely elevated. Chloride 100 98 - 107 mmol/L 03/15/2022 8:38 AM [facility] Carbon Dioxide (CO2) 27 22 - 29 mmol/L 03/15/2022 8:38 AM [facility] Anion Gap 10 7 - 15 mmol/L 03/15/2022 8:38 AM [facility] Urea Nitrogen 14.0 6.0 - 20.0 mg/dL 03/15/2022 8:38 AM [facility] Creatinine 0.55(L) 0.67 - 1.17 mg/dL 03/15/2022 8:38 AM [facility] Calcium 9.5 8.6 - 10.0 mg/dL 03/15/2022 8:38 AM [facility] Glucose 103(H) 70 - 99 mg/dL 03/15/2022 8:38 AM [facility] GFR Estimate >90 >60 mL/min/1.7 3m2 03/15/2022 8:38 AM [facility] Comment:Effective February 162020 eGFRcr in adults is calculated using the 2020 CKD-EPI creatinine equation which includes age and gender (Bridgett et al., NEJM, DOI: 10.1056/GUFXxd2681224) Blood STRUCTURE OF RIGHT UPPER LIMB / Unknown Venipuncture / Unknown 03/15/2022 7:49 AM MANAGER OF ADMINISTRATION 03/15/2022 8:04 AM MANAGER OF ADMINISTRATION us Axel Calderón MD LAB - BLOOD ORDERABLES Final Re sult LABORATORY [facility] Acute Care Lab [address] [facility] Lab (1st floor, no room number) [place] [address], [facility] [phone] * (ABNORMAL) Lipid panel reflex to direct LDL (03/14/2022 7:51 AM MANAGER OF ADMINISTRATION) Cholesterol 184 <200 mg/dL 03/14/2022 1:46 PM MANAGER OF ADMINISTRATION [facility] Triglycerides 331(H) <150 mg/dL 03/14/2022 1:46 PM MANAGER OF ADMINISTRATION [facility] Direct Measure HDL 28(L) >=40 mg/dL 03/14/2022 1:46 PM MANAGER OF ADMINISTRATION [facility] LDL Cholesterol Calculated 90 <=100 mg/dL 03/14/2022 1:46 PM MANAGER OF ADMINISTRATION [facility] Non HDL Cholesterol 156(H) <130 mg/dL 03/14/2022 1:46 PM MANAGER OF ADMINISTRATION [facility] Blood STRUCTURE OF RIGHT UPPER LIMB / Unknown Venipuncture / Unknown 03/14/2022 7:51 AM MANAGER OF ADMINISTRATION 03/14/2022 8:00 AM MANAGER OF ADMINISTRATION Narrative [facility] - 03/14/2022 1:46 PM MANAGER OF ADMINISTRATION Cholesterol Desirable: <200 mg/dL Triglycerides Normal: Less [...] esult [facility] LAB[facility]ATORY [facility] [place] Core Lab [address] [facility] [address] [facility], Room [address] [place] [address], [facility] [phone] * (ABNORMAL) Hemoglobin A1c (03/13/2022 2:49 PM MANAGER OF ADMINISTRATION) Hemoglobin A1C 14.4(H) <5.7 % 03/13/2022 7:14 PM MANAGER OF ADMINISTRATION LABORATORY Comment: Normal <5.7% Prediabetes 5.7-6.4% Diabetes 6.5% or higher Note: Adopted from ADA consensus guidelines. Blood BLOOD SPECIMEN / Unknown Venipuncture / Unknown 03/13/2022 2:49 PM MANAGER OF ADMINISTRATION 03/13/2022 3:06 PM MANAGER OF ADMINISTRATION us Parish Rios MD LAB - BLOOD ORDERABLES Final Res ult LABORATORY [facility] Acute Care Lab [address] Lab (1st floor, no room number) [place] [address], [facility] [phone] from Last 3 Months or Most Recently Relevant to Health Maintenance Insurance [facility] OTHER Advance Directives For more information, please contact: [phone] * Full Code (Latest Code Status on File) Date Activated Date Inactivated Comments 03/13/2022 9:46 PM 03/17/2022 6:08 PM All basic and advanced life-sustaining interventions are performed as appropriate Question Answer Comments Code status determined by: Discussion with leobardo nt/ legal decision maker Care Teams Leak Detection Engineer Relationship Specialty Start Date End Date Royce Weiner [address] [place] [address] PCP - General 05/26/20
--- OUTSIDE RECORDS SUMMARY | 2024-02-24 15:26 | XMS_ITS | Continuity of Care Document ---
Author Organization [facility] Address [address] [place] [address] Phone Care Team Providers Care Vp Digital Marketing Name Role Phone Elizabeth Peterson CNP Unavailable [...] Offic/outpt E&m Estab Low-mod [facility], [address], [place], [place], [id number], tel:[phone] [facility] No Information 9 Kristen Johnson. [address], [address], [place], [place], [id number], [place]. tel:[phone] Referring Provider: Reggie Geiger MD J, [address] [facility], [place], [address]. tel:[phone] Offic/outpt E&m Estab Low-mod [facility], [address], [place], [place], [id number], [place] tel:[phone] [facility] No Information 9200 [address] Budnick Elizabeth. [address] , [address], [place], [place], [id number], [place]. tel:[phone] Referring Provider: Reggie Rock, [address] [place], [address]. tel:[phone] Offic/outpt E&m Estab Mod-hi 2 Amrik, [facility], [address], [place], [place], [id number], [place] tel:[phone] [facility] No Information 9 Budnick Elizabeth. [address] , [address], [place], [place], [id number], [place]. tel:[phone] Referring Provider: Reggie Rock, [address] [place], [address]. tel:[phone] Offic/outpt E&m Estab Low-mod Amrik, [facility], [address] [facility] [address], [place], [id number], [place] tel:[phone] [facility] No Information 9 Juanjo Paredes. [address], [place], [address], [place]. tel:[phone] Referring Provider: REFERRAL SELF, ISRA[place]. Offic/outpt E&m Estab Low-mod Amrik, [facility], [address] [facility] [address], [place], [place], [id number], [place] tel:[phone] [facility] No Information 9 Juanjo Paredes. [address], [place], [address], [place]. tel:[phone] Referring Provider: REFERRAL SELF, ISRA[place]. [facility], [address] [facility] [address], [place], [id number], [place] tel:[phone] [facility] No Information 9 Juanjo LOZA Reggie. [address], [place], [place], [facility], [place]. [phone] Referring Provider: REFERRAL SELF, ISRAEL. Offic/outpt E&m Estab Mod-hi 2 [facility], [facility], [address], [place], [place], [id number], [phone] [facility] No Information 9 Juanjo LOZA Reggie. [address], [place], [place], [facility], [place]. tel:[phone] Referring Provider: REFERRAL SELFISRAEL. Offic Cons New/estab Mod-hi 60 Amrik, [facility], [address], [place], [place], [id number], tel:[phone] [facility] No Information 9 Tor Vega [facility]. [address] [place], [place], [facility], . Family History Family Member Type Diagnosis [...]
--- OUTSIDE RECORDS SUMMARY | 2024-02-24 15:26 | XMS_ITS | Referral Summary ---
Author Organization [facility] Address [address] [place] [address] Care Team Providers Care Transfer And Pumphouse Operator Chief Name Role Phone Royce Weiner Primary Care Provider [phone] Allergies Active Allergy Reactions Criticality Noted Date Comments Amoxicillin 09/29/2019 Celecoxib 09/29/2019 Penicillins Anaphylaxis High 09/29/2019 TOLERATED MEROPENEM Medications venlafaxine (EFFEXOR XR) 75 MG 24 hr capsule Take 4 capsules by mouth daily 01/27/20 22 Active gabapentin (NEURONTIN) 600 MG tablet Take 1,200 mg by mouth 3 times daily 01/27/20 22 Active Continuous Blood Gluc Sensor (Allurion TechnologiesSTYLE WILFRED 2 SENSOR) MISCIndications:H yperglycemia,Type 2 diabetes mellitus with diabetic polyneuropathy, with long-term current use of insulin (H) 1 each every 14 days Use 1 sensor every 14 days. Use to read blood sugars per press tender incendiary grenade's instructions. 2 each 5 03/17/20 22 Active [...] Comments Blood Pressure 166/95 03/17/2022 7:29 AM FURNACE CONVERTER Pulse 88 03/17/2022 7:28 AM FURNACE CONVERTER Temperature 36.8 C (98.3 F) 03/17/2022 7:28 AM FURNACE CONVERTER Respiratory Rate 20 03/17/2022 7:28 AM FURNACE CONVERTER Oxygen Saturation 94% 03/17/2022 9:36 AM FURNACE CONVERTER Inhaled Oxygen Concentration - - Weight 125.5 kg (276 lb 9.6 oz) 03/17/2022 5:12 AM FURNACE CONVERTER Height 180.3 cm (5' 11) 03/14/2022 9:55 AM FURNACE CONVERTER Body Mass Index 38.58 03/14/2022 9:55 AM FURNACE CONVERTER Plan of Treatment Not on file Procedures Procedure Name Priority Date/Time Associated Diagnosis Comments BASIC METABOLIC PANEL Routine 03/15/2022 7:49 AM FURNACE CONVERTER LIPID REFLEX TO DIRECT LDL PANEL Add-On 03/14/2022 7:51 AM FURNACE CONVERTER HEMOGLOBIN A1C Add-On 03/13/2022 2:49 PM FURNACE CONVERTER from Last 3 Months or Most Recently Relevant to Health Maintenance Results * (ABNORMAL) Basic metabolic panel (03/15/2022 7:49 AM FURNACE CONVERTER) Sodium 137 136 - 145 mmol/L 03/15/2022 [...] and gender (Bridgett et al., NEJM, DOI: 10.1056/[id number]) Blood STRUCTURE OF RIGHT UPPER LIMB / Unknown Venipuncture / Unknown 03/15/2022 7:49 AM FURNACE CONVERTER 03/15/2022 8:04 AM FURNACE CONVERTER us Axel Calderón MD LAB - BLOOD ORDERABLES Final Re sult LABORATORY [facility] [address] Lab (1st floor, no room number) [place] [address], [facility] [phone] * (ABNORMAL) Lipid panel reflex to direct LDL (03/14/2022 7:51 AM FURNACE CONVERTER) Cholesterol 184 <200 mg/dL 03/14/2022 1:46 PM FURNACE CONVERTER [facility] Triglycerides 331(H) <150 mg/dL 03/14/2022 1:46 PM FURNACE CONVERTER [facility] Direct Measure HDL 28(L) >=40 mg/dL 03/14/2022 1:46 PM FURNACE CONVERTER [facility] LDL Cholesterol Calculated 90 <=100 mg/dL 03/14/2022 1:46 PM FURNACE CONVERTER [facility] Non HDL Cholesterol 156(H) <130 mg/dL 03/14/2022 1:46 PM FURNACE CONVERTER [facility] Blood STRUCTURE OF RIGHT UPPER LIMB / Unknown Venipuncture / Unknown 03/14/2022 7:51 AM FURNACE CONVERTER 03/14/2022 8:00 AM FURNACE CONVERTER Narrative [facility] - 03/14/2022 1:46 PM FURNACE CONVERTER Cholesterol Desirable: <200 mg/dL Triglycerides Normal: Less [...] R esult [facility] LAB[facility] [place] [facility] [address], [address] [place] [address], [facility] [phone] * (ABNORMAL) Hemoglobin A1c (03/13/2022 2:49 PM FURNACE CONVERTER) Hemoglobin A1C 14.4(H) <5.7 % 03/13/2022 7:14 PM FURNACE CONVERTER LABORATORY Comment: Normal <5.7% Prediabetes 5.7-6.4% Diabetes 6.5% or higher Note: Adopted from ADA consensus guidelines. Blood BLOOD SPECIMEN / Unknown Venipuncture / Unknown 03/13/2022 2:49 PM FURNACE CONVERTER 03/13/2022 3:06 PM FURNACE CONVERTER us Parish Rios MD LAB - BLOOD ORDERABLES Final Res ult [facility] Acute Care Lab [address] [facility] Lab (1st floor, no room number) [place] [address], [facility] [phone] from Last 3 Months or Most Recently Relevant to Health Maintenance Insurance [facility] OTHER Advance Directives For more information, please contact: [phone] * Full Code (Latest Code Status on File) Date Activated Date Inactivated Comments 03/13/2022 9:46 PM 03/17/2022 6:08 PM All basic and advanced life-sustaining interventions are performed as appropriate Question Answer Comments Code status determined by: Discussion with leobardo nt/ legal decision maker Care Teams Transfer And Pumphouse Operator Chief Relationship Specialty Start Date End Date Royce Weiner [address] [place] [address] PCP - General 05/26/20
--- OUTSIDE RECORDS SUMMARY | 2024-02-24 15:26 | XMS_ITS | Clinical Summary ---
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 0 12/01/19 17 Active medication order composerIndication s:MICHA (obstructive sleep apnea) New CPAP supplies: Humidifier Chamber x1, mask with cushion x1, Heated hose x1, Headgear x1, Disposable filters X1; 1 unit 12/17/19 18 Active gabapentin (NEURONTIN) 600 mg tabletIndications: Pain Take 2 Tablets (1,200 mg) by mouth three times daily. 540 Tablet 3 05/09/19 24 Active prazosin (MINIPRESS) 1 mg capsuleIndications :PTSD (post-traumatic stress disorder) Take 1 Capsule (1 mg) by mouth at bedtime. 30 Capsule 09/02/19 24 Active QUEtiapine (SEROQUEL) 25 mg tabletIndications: Mood disorder (HC) Take 1-2 Tablets (25-50 mg) by mouth four times daily. 240 Tablet 4 11:19 AM CDT 09/11/19 24 Active venlafaxine (EFFEXOR XR) 150 mg Extended-Release capsuleIndications :Mood disorder (HC) Take 2 Capsules (300 mg) by mouth once daily with a meal. 60 Capsule 4 11:19 AM CDT 09/11/19 24 Active atorvastatin (LIPITOR) 10 mg tabletIndications: Mixed hyperlipidemia Take 1 Tablet (10 mg) by mouth at bedtime. 30 Tablet 4 11:19 AM CDT 09/11/19 24 Active bacitracin 500 unit/g ointmentIndication s:Frequent falls Apply topically to affected area(s) two times daily. 28 g 4 11:19 AM CDT 09/11/19 24 Active divalproex (DEPAKOTE ER) 500 mg Extended-Release tabletIndications: Mood disorder (HC) Take 3 Tablets (1,500 mg) by mouth once daily. 90 Tablet 4 11:19 AM CDT 09/11/19 24 Active lidocaine 4 % topical patchIndications:D iabetic polyneuropathy associated with type 2 diabetes mellitus (HC) Apply to intact skin to cover most painful area for max 12hr per 24hr period. 30 Patch 4 11:19 AM CDT 09/11/19 24 Active propranoloL (INDERAL) 10 mg tabletIndications: AFUA (generalized anxiety disorder),Mood disorder (HC) Take 1 Tablet (10 mg) by mouth two times daily. 60 Tablet 4 11:19 AM CDT 09/11/19 24 Active traZODone (DESYREL) 50 mg tabletIndications: Mood disorder (HC) Take 1 Tablet (50 mg) by mouth at bedtime if needed, may repeat once for Sleep. 60 Tablet 4 11:19 AM CDT 09/11/19 24 Active WalkerIndications: Gait instability Walker with wheels,seat,hand brakes,and basket for home use. 1 Each 09/11/19 24 Active insulin NPH isophane, U-100, (HUMULIN-N PEN, NOVOLIN N FLEXPEN) 100 unit/mL (3 mL) penIndications:Dorina betic polyneuropathy associated with type 2 diabetes mellitus (HC) Inject 35 units subcutaneous two times daily before meals. 09/11/19 Active insulin regular, U-100, human (NOVOLIN R FLEXPEN) 100 unit/mL (3 mL) penIndications:Dorina betic polyneuropathy associated with type 2 diabetes mellitus (HC) Inject 25 units subcutaneously in the morning with breakfast, 20 units with lunch and 35 units with supper. Increase by 5 units as needed to achieve glucoses of 100 to 170 on average. 09/11/19 Active Active Problems Problem Noted Date Diagnosed [...] PM CDT Office Visit [facility] [address] [place] [address] Eran Campa MD Follow Up from Last 3 Months Immunizations Name Administration Dates Next Due AMB Influenza, IIV4 PF (=>6 mos Flulaval,Fluzone Fluarix)(Flu Clinic Only) 12/12/2018 COVID-19 vaccine (Citrus NTLokalite 30mcg/0.3mL) 12YO+ BIVALENT PF, MDV 01/26/2022 Hepatitis [...] at Not on file Legal Sex Male 6:13 AM CLINICAL MANAGER Gender Identity Not on file Sexual Orientation [...] AM CDT [facility] TRAL LABORATORY Comment: Cholesterol, Total Reference Ranges Desirable <200 mg/dL Borderline 200-239 mg/dL High >=240 mg/dL TRIGLYCERIDES 212(H) <150 mg/dL 09/07/2023 7:39 AM CDT [facility] HDL CHOLESTEROL 37(L) >40 mg/dL 7:39 AM T [facility] TRAL LABORATORY NON-HDL CHOLESTEROL 188(H) <145 mg/dl 09/07/2023 7:39 AM CDT [facility] CHOL/HDL RATIO 6.08(H) <4.50 09/07/2023 7:39 AM CDT [facility] LDL CHOLESTEROL 146(H) <=130 mg/dL 09/07/2023 7:39 AM T [facility] TRAL [facility]ORY VLDL CHOLESTEROL 42(H) <=30 mg/dL 09/07/2023 7:39 AM T [facility] TRAL [facility] PROVIDER ORDERED STATUS RANDOM 09/07/2023 7:39 AM CDT [facility] TR[facility]ORY Blood BLOOD SPECIMEN / Unknown Venipuncture / Unknown 09/07/2023 7:01 AM CDT 09/07/2023 7:13 AM CDT us Melita Lopez MD CHEMISTRY Final Result [facility] [address] [place] [address], from Last 3 Months or Most Recently Relevant to Health Maintenance Insurance MEDICARE PART A HB ONLY MEDICARE ADVANTAGE MR * Guarantor: JONATHAN MICHEL JR Account Type Relation to Patient Date of Phone Billing Address Personal/Family [address] [place] [address] MEDICARE PART B HB ONLY [place] HB ONLY WC WORKERS COMP [employer] PROGRESSIVE CASUALTY INS [employer] Advance Directives * Full Code (Latest Code Status on File) Date Activated Date Inactivated Comments 09/06/2023 9:15 AM 09/11/2023 7:27 PM Question Answer Comments Code Status Discussion: Unable to Assess Preferences, Provider to review later * Full Code Date Activated Date Inactivated Comments 05/20/2019 5:20 PM 05/21/2019 8:24 PM Care Teams Needle Process Felt Goods Supervisor Relationship Specialty Start Date End Date Karthik Sanz MD [address] [place] [id number] PCP - General Internal Medicine 06/24/20
== END 2024-02-24 15:25 | disposition home or self-care (01) ==
LOC: WOUND 15:24
PROVIDERS: PCP Internal Medicine; Visit Provider Nurse Practitioner Family
DX: E11.621 Type 2 diabetes mellitus with foot ulcer (principal); L97.418 Non-pressure chronic ulcer of right heel and midfoot with other specified severity; Z79.4 Long term (current) use of insulin
CPT/HCPCS: 11042

== ENCOUNTER 2024-03-02 15:16 | Outpatient (CLI) | payer OTHER, SELFPAY | END 2024-03-02 15:17 | disposition home or self-care (01) | LOC: WOUND 15:16 | PROVIDERS: PCP Internal Medicine; Visit Provider Nurse Practitioner Family | DX: E11.621 Type 2 diabetes mellitus with foot ulcer (principal); L97.418 Non-pressure chronic ulcer of right heel and midfoot with other specified severity; Z79.4 Long term (current) use of insulin | CPT/HCPCS: 11042 ==

== ENCOUNTER 2024-03-16 12:54 | Outpatient (CLI) | payer OTHER, SELFPAY | END 2024-03-16 12:55 | disposition home or self-care (01) | LOC: WOUND 12:54 | PROVIDERS: PCP Internal Medicine; Visit Provider Nurse Practitioner Family | DX: E11.621 Type 2 diabetes mellitus with foot ulcer (principal); L97.412 Non-pressure chronic ulcer of right heel and midfoot with fat layer exposed; I89.0 Lymphedema, not elsewhere classified; T23.271A Burn of second degree of right wrist, initial encounter; Z79.4 Long term (current) use of insulin | CPT/HCPCS: 11042; G0463 ==

== ENCOUNTER 2024-03-23 15:17 | Outpatient (CLI) | payer OTHER, SELFPAY | END 2024-03-23 15:18 | disposition home or self-care (01) | PROVIDERS: PCP Internal Medicine; Visit Provider Nurse Practitioner Family | DX: E11.621 Type 2 diabetes mellitus with foot ulcer (principal); L97.412 Non-pressure chronic ulcer of right heel and midfoot with fat layer exposed; I89.0 Lymphedema, not elsewhere classified; T23.271A Burn of second degree of right wrist, initial encounter; R41.82 Altered mental status, unspecified; Z79.4 Long term (current) use of insulin | CPT/HCPCS: 82962; 97597; 97602; G0463 ==

== ENCOUNTER 2024-03-30 15:23 | Outpatient (CLI) | payer OTHER, SELFPAY | END 2024-03-30 15:24 | disposition home or self-care (01) | LOC: WOUND 15:23 | PROVIDERS: PCP Internal Medicine; Visit Provider Nurse Practitioner Family | DX: E11.621 Type 2 diabetes mellitus with foot ulcer (principal); L97.412 Non-pressure chronic ulcer of right heel and midfoot with fat layer exposed; I89.0 Lymphedema, not elsewhere classified; Z79.4 Long term (current) use of insulin | CPT/HCPCS: 97597 ==

== ENCOUNTER 2024-04-06 11:00 | Outpatient (CLI) | payer OTHER, SELFPAY | END 2024-04-06 11:01 | disposition home or self-care (01) | LOC: WOUND 11:00 | PROVIDERS: PCP Internal Medicine; Visit Provider Nurse Practitioner Family | DX: E11.621 Type 2 diabetes mellitus with foot ulcer (principal); L97.418 Non-pressure chronic ulcer of right heel and midfoot with other specified severity; I89.0 Lymphedema, not elsewhere classified; Z87.828 Personal history of other (healed) physical injury and trauma; Z79.4 Long term (current) use of insulin | CPT/HCPCS: G0463 ==

== ENCOUNTER 2024-04-14 14:27 | Outpatient (CLI) | payer OTHER, SELFPAY | END 2024-04-14 14:28 | disposition home or self-care (01) | LOC: WOUND 14:27 | PROVIDERS: PCP Internal Medicine; Visit Provider Nurse Practitioner Family | DX: Z09 Encounter for follow-up examination after completed treatment for conditions other than malignant neoplasm (principal); Z86.31 Personal history of diabetic foot ulcer | CPT/HCPCS: G0463 ==

== ENCOUNTER 2024-08-19 16:00 | Outpatient (RCR) | payer OTHER, SELFPAY ==
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
--- NOTE | 2023-12-26 17:37 | PT.OPDNX ---
Please review and sign the attached PT recertification note. Most recent patient visit on 12/26/23. Thank you. PT [place] [facility] Daily Note PT [facility] Out[facility] Daily Note Start: 10/04/23 08:32 Freq: Status: Active Protocol: Document 12/26/23 12:02 TLQ (Rec: 12/26/23 17:33 TLQ [id number]) E-signed By Stephanie Das DPT PT OP Daily Progress Note Visit Information Note Type Daily Note,Recert/Progress Note Visit Number 10 Insurance Information Recert Due Date 01/05/24 Insurance Name [employer],Medicare B Insurance Information/Comments Medicare Advantage [employer] Medical Diagnosis Type 2 diabetes mellitus with hyperglycemia E11.65 Unsteady gait R26.81 Treating Diagnosis Impaired balance R26.81 Muscle weakness M62.81 Falls R29.6 Referring MD Karthik Sanz MD Subjective Preferred Name Gerry Subjective Denies any new falls over the past week. States he has been having some pain in the back of his right leg, feels like the muscles are tight and won' t relax. This is making it difficult to sleep. Has been using his pedal bike up to 20 minutes at a time, two times a day. Date of Last Physician Visit 12/19/23 Precautions Treatment Precautions/Contraindications Latex allergy PMHx: HTN, T2DM, depression, hyperlipidemia, CAD, CVA, cerebellar infarct, TBI, peripheral neuropathy, sciatica Home Exercise Home Exercise Comments Access Code: [email or web address] URL: [email or web address] [employer]/ Date: 12/26/2023 Prepared by: Stephanie Das Exercises: - Sit to Stand with Arms Crossed - 1-2 x daily - 5 reps - Forward Backward Weight Shift with Counter Support - 1-2 x daily - 10 reps - Seated Long Arc Quad - 1-2 x daily - 10 reps - 5 seconds hold - Seated Gluteal Sets - 1-2 x daily - 10 reps - 5 seconds hold - Seated Hip Adduction Isometrics with Ball - 1-2 x daily - 10 reps - Seated Ankle Plantar Flexion with Resistance Loop - 1-2 x daily - 10 reps - Forearm Pronation with Resistance - 1-2 x daily - 10 reps - Seated Hamstring Stretch - 1-2 x daily - 3 reps - 15-20 seconds hold Objective Other/Pertinent Objective BALANCE 30 second STS: 4 reps with use of BL UE --> 6 reps with BL UE Romberg: eyes open 43 seconds, postural sway with fatigue Dudley Balance Scale: 16/56 (<45 /56 indicates increased risk of falls) - reassessed front page on 01/08, score: 24 points GAIT ambulates with use of 4WW TRANSFERS slow transitions, requires use of hands and 4WW sit to stand: able to complete without UE assist as of Patient Instructed in Risks/Benefits Yes Therapeutic Exercise Therapeutic Exercise Minutes (minutes) 28 Therapeutic Exercise: To Restore - seated hamstring stretch x15 Functional Status -20 second holds - seated calf stretch with strap x15-20 second holds - seated forearm pronation using pinch fisher spear with YTB x10 reps each, more difficult on L - seated tricep push-ups from chair x10 reps - seated toe raises x10 reps x5 second holds each - seated ankle plantarflexion with YTB x10 reps each - seated hip adduction squeeze with ball x10 reps - seated hip abduction with YTB x10 reps - sit to stand at 4WW 2x5 reps without UE assist - NuStep (seat 12) L2 x4 minutes, seated recovery, not completed today Other Interventions Provided Other Interventions Provided Reassessed 30 second STS Reassessed BBS - front page, will complete back page at upcoming visit Other Interventions Untimed Minutes 10 Treatment Minutes Untimed Code Treatment Minutes 10 Timed Code Treatment Minutes 28 Total Treatment Time 38 Billing Units Therapeutic Exercise Units 2 Assessment/Impression Assessment/Impression Gerry has been attending weekly PT over the past two months to address strength, balance and endurance. Over this time he has improved management of his blood sugars and is experiencing a significant decrease in fall frequency at home. Continues to use his 4WW for mobility outside of the home. Demonstrates improved tolerance to strength interventions during PT, limited progression to weightbearing strength interventions due to healing wounds on bilateral feet. Wounds are actively monitored at weekly wound care appointments. Patient also demonstrates improved endurance indicated by increased duration completed on the NuStep in clinic. Patient has acquired a floor pedal bike for cycling use at home. Over the past few weeks Gerry has demonstrated improved functional strength for sit <> stand transitions, no longer relies on UE support. Reassessed 30 second STS and front page of BBS today, improvement in performance present with both. Patient fatigued quickly with static balance assessments on BBS, required SBA to complete safely. Continue skilled PT interventions to address strength, endurance, and balance for decreased risk of falls. Plan of Care Physical Therapy Goals In 6 weeks: - Patient will demonstrate safe gait using 4WW up to 100 feet with supervision for improved ambulatory endurance in his home environment. MET - Patient/spouse will report a decrease in falls to <4x/day. MET In 12 weeks: - Patient will complete 5 reps during 30 second STS to demonstrate improvements in functional strength to complete safe transitional movements. MET - Patient will ambulate up to 300 feet with use of 4WW with supervision for improved safety with mobility while navigating community environments. PROGRESSING - Patient/spouse will report a decrease in frequency of falls to <2x/day. PROGRESSING - Score on BBS will improve by 5 points (MDC) to indicate decreased risk of falls since starting POC. PROGRESSING Daily Plan of Care Continue per POC Daily Plan of Care Comments POC: Strength Balance Gait Endurance Recertification Information Initial Certification Date 10/07/23 Recertification Start Date 01/05/24 Recertification Due Date 04/04/24 Reasons to Continue Skilled Therapy see assessment above Rehabilitation Potential Fair - multiple comorbidities Continued Plan of Care and Interventions Therapeutic exercise Therapeutic activity Gait training Neuromuscular re-education Patient education Provider Signature Shows Agreement With POC & Medical Necessity Physician Comment/Change Comment or Changes Physician NPI Number #
--- OUTSIDE RECORDS SUMMARY | 2024-03-19 16:06 | XMS_ITS | Referral Summary ---
Author Organization [facility] Address [address] [place] [address] Care Team Providers Care Earth Science Technical Officer Name Role Phone Royce Weiner Primary Care [...] 01/27/20 22 Active Continuous Blood Gluc Sensor (YingYangSTYLE WILFRED 2 SENSOR) MISCIndications:H yperglycemia,Type 2 diabetes mellitus with diabetic polyneuropathy, with long-term current use of insulin (H) 1 each every 14 days Use 1 sensor every 14 days. Use to read blood sugars per earth science technical officer's instructions. 2 each 5 03/17/20 22 [...] Comments Blood Pressure 166/95 03/17/2022 7:29 AM LINE OUT MAN Pulse 88 03/17/2022 7:28 AM LINE OUT MAN Temperature 36.8 C (98.3 F) 03/17/2022 7:28 AM LINE OUT MAN Respiratory Rate 20 03/17/2022 7:28 AM LINE OUT MAN Oxygen Saturation 94% 03/17/2022 9:36 AM LINE OUT MAN Inhaled Oxygen Concentration - - Weight 125.5 kg (276 lb 9.6 oz) 03/17/2022 5:12 AM LINE OUT MAN Height 180.3 cm (5' 11) 03/14/2022 9:55 AM LINE OUT MAN Body Mass Index 38.58 03/14/2022 9:55 AM LINE OUT MAN Plan of Treatment Not on file Procedures Procedure Name Priority Date/Time Associated Diagnosis Comments BASIC METABOLIC PANEL Routine 03/15/2022 7:49 AM LINE OUT MAN LIPID REFLEX TO DIRECT LDL PANEL Add-On 03/14/2022 7:51 AM LINE OUT MAN HEMOGLOBIN A1C Add-On 03/13/2022 2:49 PM LINE OUT MAN from Last 3 Months or Most Recently Relevant to Health Maintenance Results * (ABNORMAL) Basic metabolic panel (03/15/2022 7:49 AM LINE OUT MAN) Sodium 137 136 - 145 mmol/L 03/15/2022 8:38 AM [facility] Potassium 4.6 3.4 - 5.3 mmol/L 03/15/2022 8:38 AM [facility] Comment:Specimen slightly he molyzed, potassium may be falsely elevated. Chloride 100 98 - 107 mmol/L 03/15/2022 8:38 AM [facility] Carbon Dioxide (CO2) 27 22 - 29 mmol/L 03/15/2022 8:38 AM [facility] Anion Gap 10 7 - 15 mmol/L 03/15/2022 8:38 AM [facility] Urea Nitrogen 14.0 6.0 - 20.0 mg/dL 03/15/2022 8:38 AM [facility] Creatinine 0.55(L) 0.67 - 1.17 mg/dL 03/15/2022 8:38 AM [facility] Calcium 9.5 8.6 - 10.0 mg/dL 03/15/2022 8:38 AM [facility] Glucose 103(H) 70 - 99 mg/dL 03/15/2022 8:38 AM [facility] GFR Estimate >90 >60 mL/min/1.7 3m2 03/15/2022 8:38 AM [facility] Comment:Effective February 162020 eGFRcr in adults is calculated using the 2020 CKD-EPI creatinine equation which includes age and gender (Bridgett et al., NEJM, DOI: 10.1056/[id number]) Blood STRUCTURE OF RIGHT UPPER LIMB / Unknown Venipuncture / Unknown 03/15/2022 7:49 AM LINE OUT MAN 03/15/2022 8:04 AM LINE OUT MAN us Axel Calderón MD LAB - BLOOD ORDERABLES Final Re sult LABORATORY [facility] Acute Care Lab [address] Lab (1st floor, no room number) [place] [address], [facility] [phone] * (ABNORMAL) Lipid panel reflex to direct LDL (03/14/2022 7:51 AM LINE OUT MAN) Cholesterol 184 <200 mg/dL 03/14/2022 1:46 PM LINE OUT MAN [facility] Triglycerides 331(H) <150 mg/dL 03/14/2022 1:46 PM LINE OUT MAN [facility] Direct Measure HDL 28(L) >=40 mg/dL 03/14/2022 1:46 PM LINE OUT MAN [facility] LDL Cholesterol Calculated 90 <=100 mg/dL 03/14/2022 1:46 PM LINE OUT MAN [facility] Non HDL Cholesterol 156(H) <130 mg/dL 03/14/2022 1:46 PM LINE OUT MAN [facility] Blood STRUCTURE OF RIGHT UPPER LIMB / Unknown Venipuncture / Unknown 03/14/2022 7:51 AM LINE OUT MAN 03/14/2022 8:00 AM LINE OUT MAN Narrative [facility] - 03/14/2022 1:46 PM LINE OUT MAN Cholesterol Desirable: <200 mg/dL Triglycerides Normal: Less [...] ORDERABLES Final R esult [facility] [place] [facility] [address], Room [address] [place] [address], [facility] [phone] * (ABNORMAL) Hemoglobin A1c (03/13/2022 2:49 PM LINE OUT MAN) Hemoglobin A1C 14.4(H) <5.7 % 03/13/2022 7:14 PM LINE OUT MAN LABORATORY Comment: Normal <5.7% Prediabetes 5.7-6.4% Diabetes 6.5% or higher Note: Adopted from ADA consensus guidelines. Blood BLOOD SPECIMEN / Unknown Venipuncture / Unknown 03/13/2022 2:49 PM LINE OUT MAN 03/13/2022 3:06 PM LINE OUT MAN us Parish Rios MD LAB - BLOOD ORDERABLES Final Res ult [facility] Acute Care Lab [address] [facility] Lab (1st floor, no room number) [place] [address], [facility] [phone] from Last 3 Months or Most Recently Relevant to Health Maintenance Insurance [facility] OTHER Advance Directives For more information, please contact: [phone] * Full Code (Latest Code Status on File) Date Activated Date Inactivated Comments 03/13/2022 9:46 PM 03/17/2022 6:08 PM All basic and advanced life-sustaining interventions are performed as appropriate Question Answer Comments Code status determined by: Discussion with leobardo nt/ legal decision maker Care Teams Earth Science Technical Officer Relationship Specialty Start Date End Date Royce Weiner [address] [place] [address] PCP - General 05/26/20
--- OUTSIDE RECORDS SUMMARY | 2024-03-19 16:06 | XMS_ITS | Clinical Summary ---
Author Organization [facility] Address [address] [place] [address] Care Team Providers Care Plastic Welding Machine Operator Name Role Phone Royce Weiner Primary Care Provider [phone] Allergies Active Allergy Reactions Criticality Noted Date Comments Amoxicillin 09/29/2019 Celecoxib 09/29/2019 Penicillins Anaphylaxis High 09/29/2019 TOLERATED MEROPENEM Medications venlafaxine (EFFEXOR XR) 75 MG 24 hr capsule Take 4 capsules by mouth daily 01/27/20 22 Active gabapentin (NEURONTIN) 600 MG tablet Take 1,200 mg by mouth 3 times daily 01/27/20 22 Active Continuous Blood Gluc Sensor (What They LikeSTYLE WILFRED 2 SENSOR) MISCIndications:H yperglycemia,Type 2 diabetes mellitus with diabetic polyneuropathy, with long-term current use of insulin (H) 1 each every 14 days Use 1 sensor every 14 days. Use to read blood sugars per rn licensed practical's instructions. 2 each 5 03/17/20 22 Active [...] Comments Blood Pressure 166/95 03/17/2022 7:29 AM FIELD REP Pulse 88 03/17/2022 7:28 AM FIELD REP Temperature 36.8 C (98.3 F) 03/17/2022 7:28 AM FIELD REP Respiratory Rate 20 03/17/2022 7:28 AM FIELD REP Oxygen Saturation 94% 03/17/2022 9:36 AM FIELD REP Inhaled Oxygen Concentration - - Weight 125.5 kg (276 lb 9.6 oz) 03/17/2022 5:12 AM FIELD REP Height 180.3 cm (5' 11) 03/14/2022 9:55 AM FIELD REP Body Mass Index 38.58 03/14/2022 9:55 AM FIELD REP Plan of Treatment Health Maintenance Due Date [...] IMMUNIZATION (1 of 2) 02/10/2016 Pneumococcal Vaccine: 50+ Years (2 of 2 - PCV) 12/01/2016 12/02/2015, [...] BASIC METABOLIC PANEL Routine 03/15/2022 7:49 AM FIELD REP LIPID REFLEX TO DIRECT LDL PANEL Add-On 03/14/2022 7:51 AM FIELD REP HEMOGLOBIN A1C Add-On 03/13/2022 2:49 PM FIELD REP from Last 3 Months or Most Recently Relevant to Health Maintenance Results * (ABNORMAL) Basic metabolic panel (03/15/2022 7:49 AM FIELD REP) Sodium 137 136 - 145 mmol/L 03/15/2022 8:38 AM [facility] Potassium 4.6 3.4 - 5.3 mmol/L 03/15/2022 8:38 AM [facility] Comment:Specimen slightly he molyzed, potassium may be falsely elevated. Chloride 100 98 - 107 mmol/L 03/15/2022 8:38 AM [facility] Carbon Dioxide (CO2) 27 22 - 29 mmol/L 03/15/2022 8:38 AM [facility] Anion Gap 10 7 - 15 mmol/L 03/15/2022 8:38 AM [facility] Urea Nitrogen 14.0 6.0 - 20.0 mg/dL 03/15/2022 8:38 AM [facility] Creatinine 0.55(L) 0.67 - 1.17 mg/dL 03/15/2022 8:38 AM [facility] Calcium 9.5 8.6 - 10.0 mg/dL 03/15/2022 8:38 AM [facility] Glucose 103(H) 70 - 99 mg/dL 03/15/2022 8:38 AM [facility] GFR Estimate >90 >60 mL/min/1.7 3m2 03/15/2022 8:38 AM [facility] Comment:Effective February 162020 eGFRcr in adults is calculated using the 2020 CKD-EPI creatinine equation which includes age and gender (Bridgett et al., NEJ, DOI: 10.1056/[id number]) Blood STRUCTURE OF RIGHT UPPER LIMB / Unknown Venipuncture / Unknown 03/15/2022 7:49 AM FIELD REP 03/15/2022 8:04 AM FIELD REP us Axel Calderón MD LAB - BLOOD ORDERABLES Final Re sult LABORATORY [facility] Acute Care Lab [address] [facility] Lab (1st floor, no room number) [place] [address], [facility] [phone] * (ABNORMAL) Lipid panel reflex to direct LDL (03/14/2022 7:51 AM FIELD REP) Cholesterol 184 <200 mg/dL 03/14/2022 1:46 PM FIELD REP [facility] Triglycerides 331(H) <150 mg/dL 03/14/2022 1:46 PM FIELD REP [facility] Direct Measure HDL 28(L) >=40 mg/dL 03/14/2022 1:46 PM FIELD REP [facility] LDL Cholesterol Calculated 90 <=100 mg/dL 03/14/2022 1:46 PM FIELD REP [facility] Non HDL Cholesterol 156(H) <130 mg/dL 03/14/2022 1:46 PM FIELD REP [facility] Blood STRUCTURE OF RIGHT UPPER LIMB / Unknown Venipuncture / Unknown 03/14/2022 7:51 AM FIELD REP 03/14/2022 8:00 AM FIELD REP Narrative [facility] - 03/14/2022 1:46 PM FIELD REP Cholesterol Desirable: <200 mg/dL Triglycerides Normal: Less [...] ORDERABLES Final R esult [facility] [place] [facility] [address] [facility] [address] [facility], [address] [place] [address], [place] [phone] * (ABNORMAL) Hemoglobin A1c (03/13/2022 2:49 PM FIELD REP) Hemoglobin A1C 14.4(H) <5.7 % 03/13/2022 7:14 PM FIELD REP [facility] Comment: Normal <5.7% Prediabetes 5.7-6.4% Diabetes 6.5% or higher Note: Adopted from ADA consensus guidelines. Blood BLOOD SPECIMEN / Unknown Venipuncture / Unknown 03/13/2022 2:49 PM FIELD REP 03/13/2022 3:06 PM FIELD REP us Parish Rios MD LAB - BLOOD ORDERABLES Final Res ult LABORATORY [facility] [address] [facility] ([facility] floor, no room number) [place] [address], [facility] [phone] from Last 3 Months or Most Recently Relevant to Health Maintenance Insurance [facility] OTHER Advance Directives For more information, please contact: [phone] * Full Code (Latest Code Status on File) Date Activated Date Inactivated Comments 03/13/2022 9:46 PM 03/17/2022 6:08 PM All basic and advanced life-sustaining interventions are performed as appropriate Question Answer Comments Code status determined by: Discussion with patie nt/ legal decision maker Care Teams Plastic Welding Machine Operator Relationship Specialty Start Date End Date Royce Weiner [address] [place] [address] PCP - General 05/26/20
--- OUTSIDE RECORDS SUMMARY | 2024-03-19 16:06 | XMS_ITS | Clinical Summary ---
Author Organization [employer] [facility] Address [place], [place] [address] Care Team Providers Care Rubber Worker Name Role Phone Karthik Sanz MD Primary [...] Description 12/19/2023 1:00 PM CDT Office Visit [facility] [address] [place] [address] Eran Campa MD Follow Up from Last 3 Months Immunizations Name Administration Dates Next Due AMB Influenza, IIV4 PF (=>6 mos Flulaval,Fluzone Fluarix)(Flu Clinic Only) 12/12/2018 COVID-19 vaccine ([place] NTdatatracker 30mcg/0.3mL) 12YO+ BIVALENT PF, MDV 01/26/2022 Hepatitis [...] = 0.6 oz pur e alcohol) rare [facility] Utilities Answer Date Recorded Do you have trouble paying f or utilities (for example, heat, electricity, water, phone)? Yes 09/06/2023 PHQ-2 Answer Date Recorded PHQ-2 TOTAL SCORE [...] is your housing situation today? 1 09/06/2023 Interpersonal Safety Answer Date Record ed Are you being hit, kicked, p ushed or yelled at (see row info)? 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 Gender Identity Not on file Sexual Orientation [...] of 2) 02/10/2016 Pneumococcal series for age 50+ (2 of 2 - PCV) 11/24/2016 11/25/2015 [...] - 199 mg/dL 09/07/2023 7:39 AM CDT [facility] [employer] Comment: Cholesterol, Total Reference Ranges Desirable <200 mg/dL Borderline 200-239 mg/dL High >=240 mg/dL TRIGLYCERIDES 212(H) <150 mg/dL 09/07/2023 7:39 AM CDT [facility] [employer] HDL CHOLESTEROL 37(L) >40 mg/dL 7:39 AM CDT [facility] NON-HDL CHOLESTEROL 188(H) <145 mg/dl 09/07/2023 7:39 AM CDT [facility] CHOL/HDL RATIO 6.08(H) <4.50 09/07/2023 7:39 AM CDT [facility] LDL CHOLESTEROL 146(H) <=130 mg/dL 09/07/2023 7:39 AM CDT [facility] VLDL CHOLESTEROL 42(H) <=30 mg/dL 09/07/2023 7:39 AM CDT [facility] PROVIDER ORDERED STATUS RANDOM 09/07/2023 7:39 AM CDT [facility] Blood BLOOD SPECIMEN / Unknown Venipuncture / Unknown 09/07/2023 7:01 AM CDT 09/07/2023 7:13 AM CDT us Melita Lopez MD CHEMISTRY Final Result [facility] [address] [place] [address], from Last 3 Months or Most Recently Relevant to Health Maintenance Insurance [place] [id number] MEDICARE PART A HB ONLY MEDICARE ADVANTAGE [place] [id number] * Guarantor: JONATHAN MICHEL JR Account Type Relation to Patient Date of Phone Billing Address Personal/Family [address] [place] [address] MEDICARE PART B HB ONLY [place] [id number] [place] [id number] [employer] Member Subscriber Plan / Payer (Ef fective 2016-Present) Name:Jonathan Michel Jr. Relation to Subscriber:Self Name:MichelJonathan ramos Jr. Payer ID:Not on file Group ID:Not on file Type:Not on file Address: [address] [place] [id number] [employer] Advance Directives * Full Code (Latest Code Status on File) Date Activated Date Inactivated Comments 09/06/2023 9:15 AM 09/11/2023 7:27 PM Question Answer Comments Code Status Discussion: Unable to Assess Preferences, Provider to review later * Full Code Date Activated Date Inactivated Comments 05/20/2019 5:20 PM 05/21/2019 8:24 PM Care Teams Rubber Worker Relationship Specialty Start Date End Date Karthik Sanz MD [address] [place] [id number] PCP - General Internal Medicine 06/24/20
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
--- NOTE | 2024-08-03 14:59 | SLP.DPN ---
ICING MAKER Daily Progress Note ICING MAKER Daily Progress Note Start: 06/12/24 15:22 Freq: Status: Active Protocol: Document 07/29/24 16:07 PRASHANTH (Rec: 07/29/24 17:09 [email or web address] [id number]) E-signed By Jesus Domingo, ICING MAKER ICING MAKER Daily Progress Note Subjective Note Type Daily Note,Recertification Note Visit Number 8 Subjective/Pain Comments Patient invited his spouse to attend session today as the past few weeks she has not attended. Gerry feels like he is having a good day today. Whitney reports that his anxiety has been very high and she feels that his medication needs to be adjusted. She reports concern with him remembering to take meds on time but he can often get frustrated with her when she reminds him. Pain Since Last Visit None Patient and Insurance Information Insurance Name Other; Enter in Comments Insurance Information/Comments [facility] Daily Treatment Information Interventions Provided Today ICING MAKER provided therapeutic listening to Gerry and Whitney about concerns with medications, anxiety and mental health issues. Both are asking for ideas to help with medications and together we discussed and collaborated on strategies he has tried and some new ideas. They liked the idea of having signs for each time of day he takes him medications (9AM, 3PM and 9PM) and listing out eat medication with a picture. Whitney will email ICING MAKER the list of medications and ICING MAKER will develop an external support. Gerry did endorse that he is struggling with past trauma and he would benefit from giving counseling/therapy another try. He has done in the past but has not found the right person that he connects with and feels is helpful. Patient was able to name unfamiliar pictures (advanced from personally relevant words that he chose) with 100% accuracy with independent use of SFA strategy on 50% of words. Advanced to conversation where he was able to answer conversation starter questions with some hesitations but able to get his meaning across with use of strategies. He was more fluent today and got less frustrated when he had word finding difficulties. Whitney has noted when his anxiety is bad, his communication skills are affected. Total Treatment Time (Minutes) 60 Query Text:Eval and Treatment total time Goals/Functional Outcomes Goals/Functional Outcomes Patients goal: Better communication. LTG: Patient will improve his word finding for daily communication at home and in the community. Will be measured by patient and spouse report as well as an improved score on the Communication Effectiveness Survey (CETI). By 07/10/24... STG: Patient will use SFA to retrieve the target word with 90% accuracy when presented with a picture or written word , across 2 consecutive sessions, with minimal assistance. Goal met. During structured tasks, with both personally relevant words and new words, Gerry is able to either name the picture or use SFA strategies to come up with the word 90% or more of the time with minimal to no cues needed. STG: Patient will use SFA to describe a picture or object with 3-4 features, with 90% accuracy across 2 consecutive sessions. Goal met. Gerry is able to consistently describe pictures with 4 or more salient features with minimal to no assistance. STG: Patient will generalize the use of SFA to retrieve untrained words related to a target topic, with 90% accuracy across 3 sessions. Goal met. During structured tasks Gerry is able to either name untrained pictures or use SFA strategies to come up with the word 90% or more of the time with minimal to no cues needed. UPDATED GOALS to be met by 02/09. STG 1: Gerry will use SFA strategy for word finding during structured conversation tasks 90% of the time with minimal assistance. STG 2: Gerry, spouse Whitney and ICING MAKER will collaborate to find an external memory strategy to improve Gerry's ability to take his medications on time. Daily Assessment/POC Assessment Gerry is making progress with his communication and word finding but it continues to vary day by day and is negatively impacted by his mental health and anxiety. Gerry has longstanding cognitive issues that are also negatively impacted by his anxiety. They both would like him to be able to take his medications independently and are seeking assistance with finding a solution that would help. Teaching Methods Verbal Daily Plan of Care Continue Per POC Treating Therapist's Name & License Jesus Domingo MS [facility]-ICING MAKER # Number [id number] Recertification Information Review Period 06/12/24-07/29/24 Current Treatment Frequency 1x/week Attendance Since Last Review 8 sessions with no cancellations Onset Date of Patient's Chief Complaint 06/12/24 Progress Summary Gerry has been making slow but steady progress with his ability to use Semantic Feature Analysis (SFA) as a strategy for word finding and communicative effectiveness. In structured treatment tasks, he is able to use SFA with minimal to no assistance to come up with the desired word and this has carried over to non-practiced words. He has noticed that he has started to find himself using the strategy at home a little. Gerry 's spouse, Whitney, has seen him use the strategy minimally at home but she also noted that his anxiety has been high and that has been negatively impacting his communication as well as cognitive function. They are also struggling with medications and would like help finding strategies that may improve his ability to take his medications independently (with spouse setting them up). Rehab Potential/Disability [place] Good potential for progress based on family support and motivation. Function is negatively impacted by anxiety and the patient and family plan to talk with Gerry's PCP about changing his anxiety medications. Interventions Provided During Treatment Evaluation Comments Education Semantic Feature Analysis treatment Frequency/Duration 1x/week Patient Will Be Discharged From Therapy Completion of LTG(s),Skills When Plateau Medical Necessity Justification of Progressing Towards Goals Continued Skilled Service Initial Certification Date (Date of 06/12/24 First Visit to Therapy) Most Recent Visit 07/22/24 Recertification Start Date 07/30/24 Recertification Due Date 08/31/24 Reasons to Continue Skilled Therapeutic Continue therapy to continue Intervention to work on carryover of SFA to conversation and assess effectiveness of different external memory strategies for medication management. Continued Plan of Care & Interventions, Continue with speech therapy Frequency/Duration 1x/week for 4 weeks to continue to work on carryover of SFA to conversation and assess effectiveness of different external memory strategies for medication management. I Certify That I Have Established, All Therapy Services/Plan Provided, & Supervised Therapist Signature & License Number Jesus Domingo MS [facility]-ICING MAKER # [id number] Clinic Certification # #[id number] Physician Signature Shows Agreement with Dates & Medical Necessity Treatment Plan/Cert Physician Comment/Change Comment or Changes Physician Signature & Date Required Please Sign/Date Here Speech/Language Pathology Billing Units Billing Units Speech/Hearing Therapy Indiv 1
--- NOTE | 2024-08-21 12:09 | SLP.DPN ---
MACHINE MAINTENANCE SERVICER Daily Progress Note MACHINE MAINTENANCE SERVICER Daily Progress Note Start: 06/12/24 15:22 Freq: Status: Active Protocol: Document 08/19/24 16:06 PRASHANTH (Rec: 08/19/24 17:14 PRASHANTH [id number]) E-signed By Jesus Domingo, MACHINE MAINTENANCE SERVICER MACHINE MAINTENANCE SERVICER Daily Progress Note Subjective Note Type Daily Note,Discharge Note Visit Number 10 Subjective/Pain Gerry feels like he is doing better with medications. He Comments has his external memory aides near his medications and feels that has been helpful. Pain Since Last Same Visit Patient and Insurance Information Insurance Name [facility] [employer] Daily Treatment Information Interventions Gerry completed the Communicative Effectiveness Survey Provided Today with a score of 21 which was an improvement from his initial score of 9 (max score=32). His spouse, Whitney, completed a partner interaction scale with a score of 3 .5 (previous was 2.5) and transaction scale with a score of 2.5 (previous score was 1.5). Both scales have a max score of 4. Both Gerry and Whitney have noted improvements in his communication abilities and better carryover of compensatory word-finding strategies. Therapeutic listening to their concerns about his mental health and accepting his disability and limitations. Encouraged them to seek mental health therapy and to find ways that Gerry can start to interact in the community, such as [address] [place] [address]. If he is nervous about communication, finding community events that he can participate in but not have to talk to a lot of other people would be a great place to start. Total Treatment Time 45 (Minutes) Query Text:Eval and Treatment total time Goals/Functional Outcomes Goals/Functional Patients goal: Better communication. Outcomes LTG: Patient will improve his word finding for daily communication at home and in the community. Will be measured by patient and spouse report as well as an improved score on the Communication Effectiveness Survey (CETI). Goal met (see above for scores on these PROMs). STG 1: Gerry will use SFA strategy for word finding during structured conversation tasks 90% of the time with minimal assistance. Goal met. Gerry is able to used SFA with minimal cues during conversation activities with +90% accuracy. He has been noted to stop and take a breath when he become dysfluent and then can better continue with his communication. STG 2: Gerry, spouse Whitney and MACHINE MAINTENANCE SERVICER will collaborate to find an external memory strategy to improve Gerry's ability to take his medications on time. Goal met. External memory aides were made and Gerry has placed in his bedroom where he takes his medications. Both Gerry and Whitney note an improvement in his consistency with taking him medications. Daily Assessment/POC Assessment Gerry has made steady progress toward his goals. All long and short term goals have been met. Daily Plan of Care Discharge Treating Therapist's Jesus Domingo MS CCC-MACHINE MAINTENANCE SERVICER #[id number] Name & License Number Discharge Information Date of First Visit 06/12/24 for Therapy Date of Last Visit 08/19/24 for Therapy Total Number of 10 Visits Initial Primary Reduced word-finding skills making communication Functional difficulty, especially out in the community. Limitations/Concerns Comments Regarding Gerry has made steading improvements in his communication Expected Functional abilities and has shown carry-over of SFA at home but Outcomes still requires some reminders from family. Interventions Evaluation Provided During Education Treatment Comments Semantic Feature Analysis treatment External memory aides Reasons for Met All Therapy Goals Discharge Discharge Continue with reminders from family to use compensatory Instructions word-finding strategies at home. Speech/Language Pathology Billing Units Billing Units Speech/Hearing 1 Therapy Indiv
== END 2024-08-21 12:16 | disposition home or self-care (01) ==
PROVIDERS: PCP Internal Medicine; Visit Provider Internal Medicine
DX: R41.89 Other symptoms and signs involving cognitive functions and awareness (principal); E11.65 Type 2 diabetes mellitus with hyperglycemia; R29.6 Repeated falls; R26.81 Unsteadiness on feet; G89.29 Other chronic pain; S06.9XAD Unspecified intracranial injury with loss of consciousness status unknown, subsequent encounter; M62.81 Muscle weakness (generalized); Z51.89 Encounter for other specified aftercare
CPT/HCPCS: 92507; 96125; 97110; 97112; 97162; 97165; 97168; 97530; 97535; G0463; X5282

== ENCOUNTER 2024-09-12 17:30 | Outpatient (CLI) | payer OTHER, SELFPAY ==
--- OUTSIDE RECORDS SUMMARY | 2009-02-27 19:00 | XMS_ITS | Continuity of Care Document ---
Author Organization DARRELL Rowley Address [address] [facility] [address] [place] [address] Phone Care Team Providers Care Palliative Care Nurse Practitioner Name Role Phone Elizabeth Peterson CNP Unavailable [...] Offic/outpt E&m Estab Low-mod DARRELL Rowley, [address] [facility] [address], [place], [place], [address], tel:[phone] [facility] No Information 9 Kristen Johnson. [address] [facility], [address], [place], [place], [address], [place]. tel:[phone] Referring Provider: Reggie Geiger MD J, [address] [facility], [place], [address]. tel:[phone] Offic/outpt E&m Estab Low-mod DARRELL Rowley, [address] [facility] [address], [place], [place], [address], [place] tel:[phone] [facility] No Information 9200 9 Budnick Elizabeth. [address] , [address], [place], [place], [address], [place]. tel:[phone] Referring Provider: Reggie Rock, [address] [place], [address]. tel:[phone] Offic/outpt E&m Estab Mod-hi 2 Amrik, [facility], [address], [place], [place], [address], [place] tel:[phone] [facility] No Information 9 Budnick Elizabeth. [address] , [address], [place], [place], [address], [place]. tel:[phone] Referring Provider: Reggie Rock, [address] [place], [address]. tel:[phone] Offic/outpt E&m Estab Low-mod Amrik, [facility], [address] [facility] [address], [place], [address], [place] tel:[phone] [facility] No Information 9 Juanjo Paredes. [address], [place], [address], [place]. tel:[phone] Referring Provider: REFERRAL SELF, ISRAEL. Offic/outpt E&m Estab Low-mod Amrik, [facility], [address] [facility], [place], [place], [address], [place] tel:[phone] [facility] No Information 9 Juanjo Paredes. [address], [place], [address], [place]. tel:[phone] Referring Provider: REFERRAL SELF, ISRA[place]. [facility], [address] [facility] [address], [place], [address], [place] tel:[phone] [facility] No Information 9 Juanjo LOZA Reggie. [address], [place], [place], [facility], [place]. [phone] Referring Provider: REFERRAL SELF, ISRAEL. Offic/outpt E&m Estab Mod-hi 2 [facility], [facility], [address] [facility] [address], [place], [place], [address], tel:[phone] [facility] No Information 9 Juanjo LOZA Reggie. [address], [place], [place], [facility], [place]. tel:[phone] Referring Provider: REFERRAL SELFISRAEL. Offic Cons New/estab Mod-hi 60 Amrik, [facility], [address] [facility] [address], [place], [place], [address], [phone] [facility] No Information 9 oTr Vega [facility]. [address] [place], [place], [facility], . Family History Family Member Type Diagnosis Age At Onset No Information Payers Payer name Insurance type Covered green party ID Authoriza tion(s) No Information Social [...]
--- OUTSIDE RECORDS SUMMARY | 2009-02-27 19:00 | XMS_ITS | Continuity of Care Document ---
Author Organization DARRELL Rowley Address [address] [facility] [address] [place] [address] Phone Care Team Providers Care Loan Analyst Name Role Phone Elizabeth Peterson CNP Unavailable [...] Offic/outpt E&m Estab Low-mod DARRELL Rowley, [address] [facility] [address], [place], [place], [address], tel:[phone] [facility] No Information [address] [facility], [address], [place], [place], [address], [place]. tel:[phone] Referring Provider: Reggie Geiger MD J, [address] [facility], [place], [address]. tel:[phone] Offic/outpt E&m Estab Low-mod DARRELL Rowley, [address] [facility] [address], [place], [place], [address], [place] tel:[phone] [facility] No Information 9200 9 Budnick Elizabeth. [address], [place], [place], [address], [place]. tel:[phone] Referring Provider: Reggie Rock, [address] [place], [address]. tel:[phone] Offic/outpt E&m Estab Mod-hi 2 Amrik, [facility], [address], [place], [place], [address], [place] tel:[phone] [facility] No Information 9 Budnick Elizabeth. [address], [place], [place], [address], [place]. tel:[phone] Referring Provider: Reggie Rock, [address] [place], [address]. tel:[phone] Offic/outpt E&m Estab Low-mod Amrik, [facility], [address] [facility] [address], [place], [address], [place] tel:[phone] [facility] No Information 9 Juanjo Paredes. [address], [place], [address], [place]. tel:[phone] Referring Provider: REFERRAL SELF, ISRAEL. Offic/outpt E&m Estab Low-mod Amrik, [facility], [address] [facility], [place], [place], [address], [place] tel:[phone] [facility] No Information 9 Juanjo Paredes. [address], [place], [address], [place]. tel:[phone] Referring Provider: REFERRAL SELF, ISRA[place]. [facility], [address] [facility] [address], [place], [address], [place] tel:[phone] [facility] No Information 9 Juanjo LOZA Reggie. [address], [place], [place], [facility], [place]. [phone] Referring Provider: REFERRAL SELF, ISRAEL. Offic/outpt E&m Estab Mod-hi 2 [facility], [facility], [address] [facility] [address], [place], [place], [address], tel:[phone] [facility] No Information 9 Juanjo LOZA Reggie. [address], [place], [place], [facility], [place]. tel:[phone] Referring Provider: REFERRAL SELFISRAEL. Offic Cons New/estab Mod-hi 60 Amrik, [facility], [address] [facility] [address], [place], [place], [address], tel:[phone] [facility] No Information 9 Tor Vega [facility]. [address] [place], [place], [facility], . Family History Family Member [...]
--- OUTSIDE RECORDS SUMMARY | 2024-09-14 16:46 | XMS_ITS | Clinical Summary ---
Author Organization [facility] Address [address] [place] [address] Care Team Providers Care Retail Operations Manager Name Role Phone Karthik Sanz MD [...] Encounters Date Type Department Care Team Description 09/13/2024 10:00 AM CDT Ancillary Procedure [facility] [address] [place] [address] Arrived 09/13/2024 Office Visit [facility] [address] [place] [phone] Sit, Kendrick Beard MD 09/13/2024 Travel 09/12/2024 Office Visit [facility] [address] [place] [phone] Stefany Ojeda MD Telehealth ([facility] - telephone consultation only - no video) 07/23/2024 Telephone [facility] [address] [place] [address] Royce Weiner MD Follow Up 07/21/2024 Refill [facility] [address] [place] [address] Royce Weiner MD Refill Request (Gabapentin) from Last 3 Months Immunizations Immunization Administration Dates Next Due AMB Influenza, IIV4 PF (=>6 mos Flulaval,Fluzone Fluarix)(Flu Clinic Only) 12/12/2018 COVID-19 vaccine (Avancert-Bio NTech 30mcg/0.3mL) 12YO+ BIVALENT PF, MDV 01/26/2022 Hepatitis B (Adult) 01/29/2018,11/30/2016,2015 Influenza Virus, Unspecified 03/27/2014 Influenza, IIV3 (Age >=3 years) 01/07/20 12,12/07/2008,01/28/2007,2004 Influenza, IIV4 01/26/2022,,01/29/2018,2015,02/01/2015 Influenza, IIV4 (=>6mos) V 11/30/2016 Pneumococcal Poly,23-Valent (Pneumovax) 11/25/2015 Td (Age [...] on file 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 Gender Identity Not on file Sexual Orientation [...] Procedure Name Priority Date/Time Associated Diagnosis Comments ECHO TTE COMPLETE W CONTRAST W BUBBLE Routine 09/13/2024 11:09 AM CDT Hemiparesis (HC) Abnormal EKG LIPID PANEL Early AM 09/07/2023 7:01 AM CDT from Last 3 Months or Most Recently Relevant to Health Maintenance Results * ECHO TTE COMPLETE W CONTRAST W BUBBLE (09/13/2024 11:09 AM CDT) AORTIC VALVE MEAN PG 7 mmHg EJECTION FRACTION 64 % LVEDD 4.6 cm EJECTION FRACTION 60 - 65% Anatomical Region Laterality Modality Ultrasound 09/13/2024 9:52 AM CDT Narrative 09/13/2024 12:34 PM CDT ECHOCARDIOGRAM JONATHAN MICHEL JR. : 1965 59 years Study Date: 09/13/2024 9:52:08 AM Gender: M BP: 146/84 mmHg Height: 180.00 cm BSA: 2.43 m Weight: 127.00 kg Tech: [facility] Referring MD: THOMAS STEEN Site: [facility] Reading Location: MOBILE IP Patient Location: Inpatient. Procedure: 2D w/ Bubbles, 2D w/ Contrast, Color Doppler and Spectral Doppler. Indication for study: Hemiparesis (HC); Abnormal EKG Cardiac Rhythm: Regular.Study quality: Fair. Imaging limitations: This study was subject to imaging limitations due to body habitus. Final Impressions: 1. Normal LV size, mildly increased wall thickness, normal global systolic function with an estimated EF of 60 - 65%. 2. Right ventricular cavity size is mildly enlarged, global systolic RV function is normal. 3. Mildly enlarged left atrium. 4. The aortic valve is calcified (cannot rule out bicuspid valve, leaflets not well visualized), no stenosis and no regurgitation. 5. Dilated sinus of Valsalva, diameter of 4.2 cm. 6. Dilated ascending aorta, diameter of 4.6 cm. 7. Bubble study was technically challenging given limited acoustic windows but no obvious right to left shunt at rest or with valslava. 8. Echo contrast was administered to enhance visualization of all left ventricular segments. Chamber Sizes and Function Normal left ventricular size, mildly increased wall thickness, normal global systolic function with an estimated EF of 60 - 65%. No resting regional wall motion abnormality visualized. Left atrial size is mildly enlarged. Right ventricular cavity size is mildly enlarged, global systolic RV function is normal. The right atrium is normal. Right atrial volume index is 26 ml/m . Right atrial area is 21 cm . The pulmonary artery is of normal size and origin. The sinus of Valsalva is dilated. The ascending aorta is dilated. Valves, RV Pressures and Diastolic Function The aortic valve is calcified, no stenosis and no regurgitation. The mitral valve is normal in structure, no mitral regurgitation. Diastolic function assessment not performed. The tricuspid valve is normal in structure, regurgitation is not evident tricuspid regurgitation. Unable to assess right ventricular systolic pressure. The pulmonic valve is normal. No pulmonary regurgitation. Masses, Effusion, Shunts There is no pericardial effusion. The inferior vena cava is normal sized, respiratory size variation greater than 50%. Agitated saline injection showed no right to left shunt at rest or following Valsalva manuever. No left to right shunting was detected by limited color flow Doppler interrogation of the interatrial septum. MEASUREMENTS AND CALCULATIONS 2-D Measurements and LV Function: LVID (d) 4.6 cm LV FS% (2D) 29 % LVID (s) 3.3 cm LVOT diameter 2.4 cm IVS (d) 1.3 cm HR 84 bpm LVPW (d) 1.2 cm LA Vol index 40 ml/m2 Ao Sinus 4.2 cm RA Vol index 26 ml/m2 Ao Sinus ULN 4.1 cm * RA area 21 cm Asc Ao 4.6 cm RV Basal Diam 4.9 cm Asc Ao ULN 4.1 cm * * Input BSA outside of range, reported values correspond to BSA = 2.1 Diastology: Mitral Tissue Doppler E Peak 0.8 m/s e', Lateral 0.04 m/s A Peak 1.0 m/s E/A 0.8 DT 182 msec Aortic Valve: Vmax 1.7 m/s SHANELL (V) 3.12 cm VTI 0.36 m SHANELL (I) 2.78 cm LVOT V max 1.2 m/s Max PG 12 mmHg LVOT VTI 0.21 m Mean PG 7 mmHg SV 99 ml Dim Index 0.59 SV index 41 ml/m CO 8.3 l/min CI 3.4 l/min/m Mitral Valve: MVA 4.2 cm MV P 1/2 53 msec Tricuspid Valve and estimated PA pressures: TAPSE 1.7 cm Contrast documentation: 4 ml diluted Definity, lot #[id number], [facility]# [id number] was administered peripherally to enhance visualization of all left ventricular segments. . This study was interpreted by an [facility] accredited facility. CC: HIM (med records) [facility], Med/Surg - IP [facility]. Final Procedure Note Vasiliy Encarnacion MD - 09/13/2024 ECHOCARDIOGRAM JONATHAN MICHEL JR. : 1965 59 years Study Date: 09/13/2024 9:52:08 AM Gender: M BP: 146/84 mmHg Height: 180.00 cm BSA: 2.43 m Weight: 127.00 kg Tech: [facility] Referring MD: THOMAS STEEN Site: [facility] Reading Location: MOBILE IP Patient Location: Inpatient. Procedure: 2D w/ Bubbles, 2D w/ Contrast, Color Doppler and SpectralDoppler. Indication for study: Hemiparesis (HC); Abnormal EKG Cardiac Rhythm: Regular.Study quality: Fair. Imaging limitations: This study was subject to imaging limitations due tobody habitus. Final Impressions: 1. Normal LV size, mildly increased wall thickness, normal globalsystolic function with an estimated EF of 60 - 65%. 2. Right ventricular cavity size is mildly enlarged, global systolic RVfunction is normal. 3. Mildly enlarged left atrium. 4. The aortic valve is calcified (cannot rule out bicuspid valve,leaflets not well visualized), no stenosis and no regurgitation. 5. Dilated sinus of Valsalva, diameter of 4.2 cm. 6. Dilated ascending aorta, diameter of 4.6 cm. 7. Bubble study was technically challenging given limited acousticwindows but no obvious right to left shunt at rest or with valslava. 8. Echo contrast was administered to enhance visualization of all leftventricular segments. Chamber Sizes and Function Normal left ventricular size, mildly increased wall thickness, normalglobal systolic function with an estimated EF of 60 - 65%. No restingregional wall motion abnormality visualized. Left atrial size is mildlyenlarged. Right ventricular cavity size is mildly enlarged, globalsystolic RV function is normal. The right atrium is normal. Right atrialvolume index is 26 ml/m . Right atrial area is 21 cm . The pulmonaryartery is of normal size and origin. The sinus of Valsalva is dilated. Theascending aorta is dilated. Valves, RV Pressures and Diastolic Function The aortic valve is calcified, no stenosis and no regurgitation. Themitral valve is normal in structure, no mitral regurgitation. Diastolicfunction assessment not performed. The tricuspid valve is normal instructure, regurgitation is not evident tricuspid regurgitation. Unable toassess right ventricular systolic pressure. The pulmonic valve is normal.No pulmonary regurgitation. Masses, Effusion, Shunts There is no pericardial effusion. The inferior vena cava is normal sized,respiratory size variation greater than 50%. Agitated saline injectionshowed no right to left shunt at rest or following Valsalva manuever. Noleft to right shunting was detected by limited color flow Dopplerinterrogation of the interatrial septum. MEASUREMENTS AND CALCULATIONS 2-D Measurements and LV Function: LVID (d) 4.6 cm LV FS% (2D) 29% LVID (s) 3.3 cm LVOT diameter2.4 cm IVS (d) 1.3 cm HR 84bpm LVPW (d) 1.2 cm LA Vol index 40ml/m2 Ao Sinus 4.2 cm RA Vol index 26ml/m2 Ao Sinus ULN 4.1 cm * RA area 21cm Asc Ao 4.6 cm RV Basal Diam4.9 cm Asc Ao ULN 4.1 cm * * Input BSA outside of range, reported values correspond to BSA = 2.1 Diastology: Mitral Tissue Doppler E Peak 0.8 m/s e', Lateral 0.04 m/s A Peak 1.0 m/s E/A 0.8 DT 182 msec Aortic Valve: Vmax 1.7 m/s SHANELL (V) 3.12 cm VTI 0.36 m SHANELL (I) 2.78 cm LVOT V max 1.2 m/s Max PG 12 mmHg LVOT VTI 0.21 m Mean PG 7 mmHg SV 99 ml Dim Index 0.59 SV index 41 ml/m CO 8.3 l/min CI 3.4 l/min/m Mitral Valve: MVA 4.2 cm MV P 1/2 53 msec Tricuspid Valve and estimated PA pressures: TAPSE 1.7 cm Contrast documentation: 4 ml diluted Definity, lot #[id number], [facility]#[id number] was administered peripherally to enhance visualization of allleft ventricular segments. . This study was interpreted by an [facility] accredited facility. CC: HIM (med records) [facility], Med/Surg - IP [facility]. Final us Thomas Steen MD ECHO ORD Final Resu lt * (ABNORMAL) LIPID PANEL (09/07/2023 7:01 AM CDT) CHOLESTEROL,TOTAL 225(H) 100 - 199 mg/dL 09/07/2023 7:39 AM CDT [facility] [employer] Comment: Cholesterol, Total Reference Ranges Desirable <200 mg/dL Borderline 200-239 mg/dL High >=240 mg/dL TRIGLYCERIDES 212(H) <150 mg/dL 09/07/2023 7:39 AM CDT [facility] [employer] LABORATORY-[facility] HDL CHOLESTEROL 37(L) >40 mg/dL 7:39 AM CDT [facility] NON-HDL CHOLESTEROL 188(H) <145 mg/dl 09/07/2023 7:39 AM CDT [facility] CHOL/HDL RATIO 6.08(H) <4.50 09/07/2023 7:39 AM CDT [facility] LDL CHOLESTEROL 146(H) <=130 mg/dL 09/07/2023 7:39 AM CDT [facility] VLDL CHOLESTEROL 42(H) <=30 mg/dL 09/07/2023 7:39 AM CDT [facility] [employer] PROVIDER ORDERED STATUS RANDOM 09/07/2023 7:39 AM CDT [facility] Blood BLOOD SPECIMEN / Unknown Venipuncture / Unknown 09/07/2023 7:01 AM CDT 09/07/2023 7:13 AM CDT us Melita Lopez MD CHEMISTRY Final Result [facility] [address] [place] [address], from Last 3 Months or Most Recently Relevant to Health Maintenance Insurance MEDICARE PART A HB ONLY MEDICARE ADVANTAGE MR * Guarantor: JONATHAN MICHEL JR Account Type Relation to Patient Date of Phone Billing Address Personal/Family [address] [place] [address] MEDICARE PART B HB ONLY [place] ONLY [place] [id number] [place] [id number] WORK[employer] CASUAL[employer] INS [employer] Advance Directives * Full Code (Latest Code Status on File) Date Activated Date Inactivated Comments 09/06/2023 9:15 AM 09/11/2023 7:27 PM Question Answer Comments Code Status Discussion: Unable to Assess Preferences, Provider to review later * Full Code Date Activated Date Inactivated Comments 05/20/2019 5:20 PM 05/21/2019 8:24 PM Care Teams Retail Operations Manager Relationship Specialty Start Date End Date Karthik Sanz MD [address] [place] [id number] PCP - General Internal Medicine 06/24/20
--- OUTSIDE RECORDS SUMMARY | 2024-09-14 16:46 | XMS_ITS | Clinical Summary ---
Author Organization [facility] Address [address] [place] [address] Care Team Providers Care Program Writer Name Role Phone Royce Weiner Primary Care Provider [phone] Allergies Active Allergy Reactions Criticality Noted Date Comments Amoxicillin 09/29/2019 Celecoxib 09/29/2019 Penicillins Anaphylaxis High 09/29/2019 TOLERATED MEROPENEM Medications venlafaxine (EFFEXOR XR) 75 MG 24 hr capsule Take 4 capsules by mouth daily 01/27/20 22 Active gabapentin (NEURONTIN) 600 MG tablet Take 1,200 mg by mouth 3 times daily 01/27/20 22 Active Continuous Blood Gluc Sensor (Royalty ExchangeSTYLE WILFRED 2 SENSOR) MISCIndications:H yperglycemia,Type 2 diabetes mellitus with diabetic polyneuropathy, with long-term current use of insulin (H) 1 each every 14 days Use 1 sensor every 14 days. Use to read blood sugars per manager of internal audit's instructions. 2 each 5 03/17/20 22 Active [...] Comments Blood Pressure 166/95 03/17/2022 7:29 AM CASH APPLICATION REPRESENTATIVE Pulse 88 03/17/2022 7:28 AM CASH APPLICATION REPRESENTATIVE Temperature 36.8 C (98.3 F) 03/17/2022 7:28 AM CASH APPLICATION REPRESENTATIVE Respiratory Rate 20 03/17/2022 7:28 AM CASH APPLICATION REPRESENTATIVE Oxygen Saturation 94% 03/17/2022 9:36 AM CASH APPLICATION REPRESENTATIVE Inhaled Oxygen Concentration - - Weight 125.5 kg (276 lb 9.6 oz) 03/17/2022 5:12 AM CASH APPLICATION REPRESENTATIVE Height 180.3 cm (5' 11) 03/14/2022 9:55 AM CASH APPLICATION REPRESENTATIVE Body Mass Index 38.58 03/14/2022 9:55 AM CASH APPLICATION REPRESENTATIVE Plan of Treatment Health Maintenance Due Date [...] BASIC METABOLIC PANEL Routine 03/15/2022 7:49 AM CASH APPLICATION REPRESENTATIVE LIPID REFLEX TO DIRECT LDL PANEL Add-On 03/14/2022 7:51 AM CASH APPLICATION REPRESENTATIVE HEMOGLOBIN A1C Add-On 03/13/2022 2:49 PM CASH APPLICATION REPRESENTATIVE from Last 3 Months or Most Recently Relevant to Health Maintenance Results * (ABNORMAL) Basic metabolic panel (03/15/2022 7:49 AM CASH APPLICATION REPRESENTATIVE) Sodium 137 136 - 145 mmol/L 03/15/2022 8:38 AM [facility] Potassium 4.6 3.4 - 5.3 mmol/L 03/15/2022 8:38 AM [facility] Comment:Specimen slightly he molyzed, potassium may be falsely elevated. Chloride 100 98 - 107 mmol/L 03/15/2022 8:38 AM [facility] Carbon Dioxide (CO2) 27 22 - 29 mmol/L 03/15/2022 8:38 AM [facility] Anion Gap 10 7 - 15 mmol/L 03/15/2022 8:38 AM [facility] Urea Nitrogen 14.0 6.0 - 20.0 mg/dL 03/15/2022 8:38 AM [facility] Creatinine 0.55(L) 0.67 - 1.17 mg/dL 03/15/2022 8:38 AM [facility] Calcium 9.5 8.6 - 10.0 mg/dL 03/15/2022 8:38 AM [facility] Glucose 103(H) 70 - 99 mg/dL 03/15/2022 8:38 AM [facility] GFR Estimate >90 >60 mL/min/1.7 3m2 03/15/2022 8:38 AM [facility] Comment:Effective February 162020 eGFRcr in adults is calculated using the 2020 CKD-EPI creatinine equation which includes age and gender (Bridgett et al., NEJ, DOI: 10.1056/TNBDpw6298974) Blood STRUCTURE OF RIGHT UPPER LIMB / Unknown Venipuncture / Unknown 03/15/2022 7:49 AM CASH APPLICATION REPRESENTATIVE 03/15/2022 8:04 AM CASH APPLICATION REPRESENTATIVE us Axel Calderón MD LAB - BLOOD ORDERABLES Final Re sult LABORATORY [facility] [address] Lab (1st floor, no room number) [place] [address], [facility] [phone] * (ABNORMAL) Lipid panel reflex to direct LDL (03/14/2022 7:51 AM CASH APPLICATION REPRESENTATIVE) Cholesterol 184 <200 mg/dL 03/14/2022 1:46 PM CASH APPLICATION REPRESENTATIVE [facility] Triglycerides 331(H) <150 mg/dL 03/14/2022 1:46 PM CASH APPLICATION REPRESENTATIVE [facility] Direct Measure HDL 28(L) >=40 mg/dL 03/14/2022 1:46 PM CASH APPLICATION REPRESENTATIVE [facility] LDL Cholesterol Calculated 90 <=100 mg/dL 03/14/2022 1:46 PM CASH APPLICATION REPRESENTATIVE [facility] Non HDL Cholesterol 156(H) <130 mg/dL 03/14/2022 1:46 PM CASH APPLICATION REPRESENTATIVE [facility] Blood STRUCTURE OF RIGHT UPPER LIMB / Unknown Venipuncture / Unknown 03/14/2022 7:51 AM CASH APPLICATION REPRESENTATIVE 03/14/2022 8:00 AM CASH APPLICATION REPRESENTATIVE Narrative [facility] - 03/14/2022 1:46 PM CASH APPLICATION REPRESENTATIVE Cholesterol Desirable: <200 mg/dL Triglycerides Normal: Less [...] BLOOD ORDERABLES Final R esult [facility] [address] [facility] [place] [address], [facility] [phone] * (ABNORMAL) Hemoglobin A1c (03/13/2022 2:49 PM CASH APPLICATION REPRESENTATIVE) Hemoglobin A1C 14.4(H) <5.7 % 03/13/2022 7:14 PM CASH APPLICATION REPRESENTATIVE [facility] Comment: Normal <5.7% Prediabetes 5.7-6.4% Diabetes 6.5% or higher Note: Adopted from ADA consensus guidelines. Blood BLOOD SPECIMEN / Unknown Venipuncture / Unknown 03/13/2022 2:49 PM CASH APPLICATION REPRESENTATIVE 03/13/2022 3:06 PM CASH APPLICATION REPRESENTATIVE us Parish Rios MD LAB - BLOOD ORDERABLES Final Res ult [facility] [address] [facility] Lab (1st floor, no room number) [place] [address], [facility] [phone] from Last 3 Months or Most Recently Relevant to Health Maintenance [facility] OTHER Advance Directives For more information, please contact: [phone] * Full Code (Latest Code Status on File) Date Activated Date Inactivated Comments 03/13/2022 9:46 PM 03/17/2022 6:08 PM All basic and advanced life-sustaining interventions are performed as appropriate Question Answer Comments Code status determined by: Discussion with leobardo nt/ legal decision maker Care Teams Program Writer Relationship Specialty Start Date End Date Royce Weiner [address] [place] [address] PCP - General 05/26/20
--- OUTSIDE RECORDS SUMMARY | 2024-09-15 01:56 | XMS_ITS | Clinical Summary ---
Author Organization [facility] Address [address] [place] [address] Care Team Providers Care Docent Coordinator Name Role Phone Royce Weiner Primary Care Provider [phone] Allergies Active Allergy Reactions Criticality Noted Date Comments Amoxicillin 09/29/2019 Celecoxib 09/29/2019 Penicillins Anaphylaxis High 09/29/2019 TOLERATED MEROPENEM Medications venlafaxine (EFFEXOR XR) 75 MG 24 hr capsule Take 4 capsules by mouth daily 01/27/20 22 Active gabapentin (NEURONTIN) 600 MG tablet Take 1,200 mg by mouth 3 times daily 01/27/20 22 Active Continuous Blood Gluc Sensor ([employer] Solutions[employer]YLE WILFRED 2 SENSOR) MISCIndications:H yperglycemia,Type 2 diabetes mellitus with diabetic polyneuropathy, with long-term current use of insulin (H) 1 each every 14 days Use 1 sensor every 14 days. Use to read blood sugars per extrusion engineer's instructions. 2 each 5 03/17/20 22 Active [...] Comments Blood Pressure 166/95 03/17/2022 7:29 AM FIRST AID OFFICER Pulse 88 03/17/2022 7:28 AM FIRST AID OFFICER Temperature 36.8 C (98.3 F) 03/17/2022 7:28 AM FIRST AID OFFICER Respiratory Rate 20 03/17/2022 7:28 AM FIRST AID OFFICER Oxygen Saturation 94% 03/17/2022 9:36 AM FIRST AID OFFICER Inhaled Oxygen Concentration - - Weight 125.5 kg (276 lb 9.6 oz) 03/17/2022 5:12 AM FIRST AID OFFICER Height 180.3 cm (5' 11) 03/14/2022 9:55 AM FIRST AID OFFICER Body Mass Index 38.58 03/14/2022 9:55 AM FIRST AID OFFICER Plan of Treatment Health Maintenance Due Date [...] BASIC METABOLIC PANEL Routine 03/15/2022 7:49 AM FIRST AID OFFICER LIPID REFLEX TO DIRECT LDL PANEL Add-On 03/14/2022 7:51 AM FIRST AID OFFICER HEMOGLOBIN A1C Add-On 03/13/2022 2:49 PM FIRST AID OFFICER from Last 3 Months or Most Recently Relevant to Health Maintenance Results * (ABNORMAL) Basic metabolic panel (03/15/2022 7:49 AM FIRST AID OFFICER) Sodium 137 136 - 145 mmol/L 03/15/2022 8:38 AM [facility] Potassium 4.6 3.4 - 5.3 mmol/L 03/15/2022 8:38 AM [facility] Comment:Specimen slightly he molyzed, potassium may be falsely elevated. Chloride 100 98 - 107 mmol/L 03/15/2022 8:38 AM [facility] Carbon Dioxide (CO2) 27 22 - 29 mmol/L 03/15/2022 8:38 AM [facility] Anion Gap 10 7 - 15 mmol/L 03/15/2022 8:38 AM [facility] Urea Nitrogen 14.0 6.0 - 20.0 mg/dL 03/15/2022 8:38 AM [facility] Creatinine 0.55(L) 0.67 - 1.17 mg/dL 03/15/2022 8:38 AM [facility] Calcium 9.5 8.6 - 10.0 mg/dL 03/15/2022 8:38 AM [facility] Glucose 103(H) 70 - 99 mg/dL 03/15/2022 8:38 AM [facility] GFR Estimate >90 >60 mL/min/1.7 3m2 03/15/2022 8:38 AM [facility] Comment:Effective February 162020 eGFRcr in adults is calculated using the 2020 CKD-EPI creatinine equation which includes age and gender (Bridgett et al., NEJ, DOI: 10.1056/DVYHrr9814819) Blood STRUCTURE OF RIGHT UPPER LIMB / Unknown Venipuncture / Unknown 03/15/2022 7:49 AM FIRST AID OFFICER 03/15/2022 8:04 AM FIRST AID OFFICER us Axel Calderón MD LAB - BLOOD ORDERABLES Final Re sult LABORATORY [facility] [address] Lab (1st floor, no room number) [place] [address], [facility] [phone] * (ABNORMAL) Lipid panel reflex to direct LDL (03/14/2022 7:51 AM FIRST AID OFFICER) Cholesterol 184 <200 mg/dL 03/14/2022 1:46 PM FIRST AID OFFICER [facility] Triglycerides 331(H) <150 mg/dL 03/14/2022 1:46 PM FIRST AID OFFICER [facility] Direct Measure HDL 28(L) >=40 mg/dL 03/14/2022 1:46 PM FIRST AID OFFICER [facility] LDL Cholesterol Calculated 90 <=100 mg/dL 03/14/2022 1:46 PM FIRST AID OFFICER [facility] Non HDL Cholesterol 156(H) <130 mg/dL 03/14/2022 1:46 PM FIRST AID OFFICER [facility] Blood STRUCTURE OF RIGHT UPPER LIMB / Unknown Venipuncture / Unknown 03/14/2022 7:51 AM FIRST AID OFFICER 03/14/2022 8:00 AM FIRST AID OFFICER Narrative [facility] - 03/14/2022 1:46 PM FIRST AID OFFICER Cholesterol Desirable: <200 mg/dL Triglycerides Normal: Less [...] Final R esult [facility] [address] [facility], [address] [place] [address], [facility] [phone] * (ABNORMAL) Hemoglobin A1c (03/13/2022 2:49 PM FIRST AID OFFICER) Hemoglobin A1C 14.4(H) <5.7 % 03/13/2022 7:14 PM FIRST AID OFFICER [facility] Comment: Normal <5.7% Prediabetes 5.7-6.4% Diabetes 6.5% or higher Note: Adopted from ADA consensus guidelines. Blood BLOOD SPECIMEN / Unknown Venipuncture / Unknown 03/13/2022 2:49 PM FIRST AID OFFICER 03/13/2022 3:06 PM FIRST AID OFFICER us Parish Rios MD LAB - BLOOD ORDERABLES Final Res ult [facility] [address] [facility] Lab (1st floor, no room number) [place] [address], [facility] [phone] from Last 3 Months or Most Recently Relevant to Health Maintenance [facility] OTHER Advance Directives For more information, please contact: [phone] * Full Code (Latest Code Status on File) Date Activated Date Inactivated Comments 03/13/2022 9:46 PM 03/17/2022 6:08 PM All basic and advanced life-sustaining interventions are performed as appropriate Question Answer Comments Code status determined by: Discussion with leobardo nt/ legal decision maker Care Teams Docent Coordinator Relationship Specialty Start Date End Date Royce Weiner [address] [place] [address] PCP - General 05/26/20
--- OUTSIDE RECORDS SUMMARY | 2024-09-15 01:56 | XMS_ITS | Clinical Summary ---
Author Organization [facility] [employer] [facility] [employer] [facility] [facility] Address [address] [place] [address] Care Team Providers Care Uke Operator Name Role Phone Karthik Sanz MD [...] Description 09/13/2024 10:00 AM CDT Ancillary Procedure [facility] [address] [place] [address] Arrived 09/13/2024 Office Visit [facility] [address] [place] [phone] Sit, Kendrick Beard MD 09/13/2024 Travel 09/12/2024 Office Visit [facility] [address] [place] [phone] Stefany Ojeda MD Telehealth ([facility] - telephone consultation only - no video) 07/23/2024 Telephone [facility] [address] [place] [address] Royce Weiner MD Follow Up 07/21/2024 Refill [facility] [address] [place] [address] Royce Weiner MD Refill Request (Gabapentin) from Last 3 Months Immunizations Immunization Administration Dates Next Due AMB Influenza, IIV4 PF (=>6 mos Flulaval,Fluzone Fluarix)(Flu Clinic Only) 12/12/2018 COVID-19 vaccine ([employer] NTech 30mcg/0.3mL) 12YO+ BIVALENT PF, MDV 01/26/2022 [...] on file Legal Sex Male 6:13 AM CHIEF TECHNOLOGY OFFICER Gender Identity Not on file Sexual Orientation [...] BSA: 2.43 m Weight: 127.00 kg Tech: [facility] Referring MD: THOMAS STEEN Site: [facility] Reading Location: MOBILE IP Patient [...] documentation: 4 ml diluted Definity, lot #[id number], [facility]# [id number] was administered peripherally to enhance visualization of all left ventricular segments. . This study was interpreted by an [facility] accredited facility. CC: HIM (med records) [facility], Med/Surg - IP [facility]. Final Procedure Note Vasiliy Encarnacion MD - 09/13/2024 ECHOCARDIOGRAM JONATHAN MICHEL JR. : 1965 59 years Study Date: 09/13/2024 9:52:08 AM Gender: M BP: 146/84 mmHg Height: 180.00 cm BSA: 2.43 m Weight: 127.00 kg Tech: MTS Referring MD: THOMAS STEEN Site: [facility] Reading Location: MOBILE IP Patient [...] documentation: 4 ml diluted Definity, lot #[id number], [facility]#[id number] was administered peripherally to enhance visualization of allleft ventricular segments. . This study was interpreted by an [facility] accredited facility. CC: HIM (med records) [facility], Med/Surg - IP [facility]. Final us Thomas Steen MD ECHO ORD Final Resu lt * (ABNORMAL) LIPID PANEL (09/07/2023 7:01 AM CDT) CHOLESTEROL,TOTAL 225(H) 100 - 199 mg/dL 09/07/2023 7:39 AM CDT [facility] Comment: Cholesterol, Total Reference Ranges Desirable <200 mg/dL Borderline 200-239 mg/dL High >=240 mg/dL TRIGLYCERIDES 212(H) <150 mg/dL 09/07/2023 7:39 AM CDT [facility] HDL CHOLESTEROL 37(L) >40 mg/dL 7:39 AM CDT [facility] NON-HDL CHOLESTEROL 188(H) <145 mg/dl 09/07/2023 7:39 AM CDT [facility] CHOL/HDL RATIO 6.08(H) <4.50 09/07/2023 7:39 AM CDT [facility] LDL CHOLESTEROL 146(H) <=130 mg/dL 09/07/2023 7:39 AM CDT [facility] VLDL CHOLESTEROL 42(H) <=30 mg/dL 09/07/2023 7:39 AM CDT [facility] PROVIDER ORDERED STATUS RANDOM 09/07/2023 7:39 AM CDT [facility] Blood BLOOD SPECIMEN / Unknown Venipuncture / Unknown 09/07/2023 7:01 AM CDT 09/07/2023 7:13 AM CDT us Melita Lopez MD CHEMISTRY Final Result [facility] [address] [place] [address], from Last 3 Months or Most Recently Relevant to Health Maintenance Insurance MEDICARE PART A HB ONLY MEDICARE ADVANTAGE MR * Guarantor: JONATHAN MICHEL JR Account Type Relation to Patient Date of Phone Billing Address Personal/Family [address] [place] [address] MEDICARE PART B HB ONLY [place] HB ONLY [place] [id number] [place] [id number] [employer] MVA PROGRESSIVE CASUALTY INS MVA PROGRESS[employer] INS Advance Directives * Full Code (Latest Code Status on File) Date Activated Date Inactivated Comments 09/06/2023 9:15 AM 09/11/2023 7:27 PM Question Answer Comments Code Status Discussion: Unable to Assess Preferences, Provider to review later * Full Code Date Activated Date Inactivated Comments 05/20/2019 5:20 PM 05/21/2019 8:24 PM Care Teams Uke Operator Relationship Specialty Start Date End Date Karthik Sanz MD [address] [place] [address] PCP - General Internal Medicine 06/24/20
== END 2024-09-12 17:31 | disposition home or self-care (01) ==
PROVIDERS: PCP Internal Medicine; Visit Provider Emergency Medicine Emergency Medical Services
DX: R53.1 Weakness (principal)
CPT/HCPCS: A0425; A0427

== ENCOUNTER 2024-09-12 18:00 | Inpatient (IN) | payer OTHER, SELFPAY ==
--- OUTSIDE RECORDS SUMMARY | 2009-02-27 19:00 | XMS_ITS | Continuity of Care Document ---
Author Organization DARRELL Rowley Address [address] [facility] [address] [place] [address] Phone Care Team Providers Care Loss Prevention Guard Name Role Phone Elizabeth Peterson CNP Unavailable Unavailable Procedures Procedure Date Offic/outpt E&m Estab Low-mod 9 Offic/outpt E&m Estab Low-mod 9 Offic/outpt E&m Estab Mod-hi 2 09 Offic/outpt E&m Estab Low-mod 9 Offic/outpt E&m Estab Low-mod 9 Offic/outpt E&m Estab Mod-hi 2 09 Offic Cons New/estab Mod-hi 60 09 Advance Directives Directive Yes / No Effective Date File Name No Information Encounters Encounter Description Practice Location Reason(s) For Visit Diagnoses Date Provider Providers Copied on Encounter Offic/outpt E&m Estab Low-mod DARRELL Rowley, [address] [facility] [address], [place], [place], [address], tel:[phone] [facility] No Information 9 Kristen Johnson. [address] [facility], [address], [place], [place], [address], [place]. tel:[phone] Referring Provider: Reggie Geiger MD J, [address] [facility], [place], [address]. tel:[phone] Offic/outpt E&m Estab Low-mod DARRELL Rowley, [address] [facility] [address], [place], [place], [address], [place] tel:[phone] [facility] No Information 9200 9 Budnick Elizabeth. [address], [place], [place], [address], [place]. tel:[phone] Referring Provider: Reggie Rock, [address] [place], [address]. tel:[phone] Offic/outpt E&m Estab Mod-hi 2 Amrik, [facility], [address], [place], [place], [address], [place] tel:[phone] [facility] No Information 9 Budnick Elizabeth. [address] , [address], [place], [place], [address], [place]. tel:[phone] Referring Provider: Reggie Rock, [address] [place], [address]. tel:[phone] Offic/outpt E&m Estab Low-mod Amrik, [facility], [address] [facility] [address], [place], [address], [place] tel:[phone] [facility] No Information 9 Juanjo Paredes. [address], [place], [address], [place]. tel:[phone] Referring Provider: REFERRAL SELF, ISRAEL. Offic/outpt E&m Estab Low-mod Amrik, [facility], [address] [facility], [place], [place], [address], [place] tel:[phone] [facility] No Information 9 Juanjo Paredes. [address], [place], [address], [place]. tel:[phone] Referring Provider: REFERRAL SELF, ISRAEL. [facility], [address] [facility] [address], [place], [address], [place] tel:[phone] [facility] No Information 9 Juanjo LOZA Reggie. [address], [place], [place], [facility], [place]. [phone] Referring Provider: REFERRAL SELF, ISRAEL. Offic/outpt E&m Estab Mod-hi 2 [facility], [facility], [address] [facility] [address], [place], [place], [address], tel:[phone] [facility] No Information 9 Juanjo LOZA Reggie. [address], [place], [place], [facility], [place]. tel:[phone] Referring Provider: REFERRAL SELFISRAEL. Offic Cons New/estab Mod-hi 60 Amrik, [facility], [address] [facility] [address], [place], [place], [address], tel:[phone] [facility] No Information 9 Tor Vega [facility]. [address] [place], [place], [facility], . Family History Family Member Type Diagnosis Age At Onset No Information Payers Payer name Insurance type Covered libertarian ID Authoriza tion(s) No Information Social History Type Description Quantity Date Captured Comments Sex Male Smoking Status No Information Chief Complaint And Reason For Visit No Information Reason For Referral Reason For Referral No Information History Of Present Illness Encounter Date Complaint History Of Prese nt Illness No Information Functional Status Date Functional Assessmen t No Information Instructions Date Instruction Additional Infor mation No Information Assessments Type Assessment Date No Information Patient Care Teams Name Effective Dates (start - stop) Status Members No Information
--- OUTSIDE RECORDS SUMMARY | 2009-02-27 19:00 | XMS_ITS | Continuity of Care Document ---
Author Organization DARRELL Rowley Address [address] [facility] [address] [place] [address] Phone Care Team Providers Care Cnc Operator Name Role Phone Elizabeth Peterson CNP Unavailable [...] Offic/outpt E&m Estab Low-mod DARRELL Rowley, [address] [facility] [address], [place], [place], [address], tel:[phone] [facility] No Information 9 Kristen Johnson. [address] [facility], [address], [place], [place], [address], [place]. tel:[phone] Referring Provider: Reggie Geiger MD J, [address] [facility], [place], [address]. tel:[phone] Offic/outpt E&m Estab Low-mod DARRELL Rowley, [address] [facility] [address], [place], [place], [address], [place] tel:[phone] [facility] No Information 9200 9 Budnick Elizabeth. [address] , [address], [place], [place], [address], [place]. tel:[phone] Referring Provider: Reggie Rcok, [address] [place], [address]. tel:[phone] Offic/outpt E&m Estab Mod-hi 2 Amrik, [facility], [address], [place], [place], [address], [place] tel:[phone] [facility] No Information 9 Budnick Elizabeth. [address] , [address], [place], [place], [address], [place]. tel:[phone] Referring Provider: Reggie Rock, [address] [place], [address]. tel:[phone] Offic/outpt E&m Estab Low-mod Amrik, [facility], [address] [facility] [address], [place], [address], [place] tel:[phone] [facility] No Information 9 Juanjo Paredes. [address], [place], [address], [place]. tel:[phone] Referring Provider: REFERRAL SELF, ISRAEL. Offic/outpt E&m Estab Low-mod Amrik, [facility], [address] [facility], [place], [place], [address], [place] tel:[phone] [facility] No Information 9 Juanjo Paredes. [address], [place], [address], [place]. tel:[phone] Referring Provider: REFERRAL SELF, ISRAEL. [facility], [address] [facility] [address], [place], [address], [place] tel:[phone] [facility] No Information 9 Juanjo LOZA Reggie. [address], [place], [place], [facility], [place]. [phone] Referring Provider: REFERRAL SELF, ISRAEL. Offic/outpt E&m Estab Mod-hi 2 [facility], [facility], [address] [facility] [address], [place], [place], [address], tel:[phone] [facility] No Information 9 Juanjo LOZA Reggie. [address], [place], [place], [facility], [place]. tel:[phone] Referring Provider: REFERRAL SELFISRAEL. Offic Cons New/estab Mod-hi 60 Amrik, [facility], [address] [facility] [address], [place], [place], [address], [phone] [facility] No Information [address] [facility]. [address] [place], [place], [facility], . Family History Family Member Type Diagnosis Age At Onset No Information Payers Payer name Insurance type Covered constitution party ID Authoriza tion(s) No Information Social History [...]
--- OUTSIDE RECORDS SUMMARY | 2024-09-12 18:03 | XMS_ITS | Clinical Summary ---
Author Organization [facility] Address [address] [place] [id number] Care Team Providers Care Chemical Processing Equipment Repairer Name Role Phone Royce Weiner Primary Care Provider [phone] Allergies Active Allergy Reactions Criticality Noted Date Comments Amoxicillin 09/29/2019 Celecoxib 09/29/2019 Penicillins Anaphylaxis High 09/29/2019 TOLERATED MEROPENEM Medications venlafaxine (EFFEXOR XR) 75 MG 24 hr capsule Take 4 capsules by mouth daily 01/27/20 22 Active gabapentin (NEURONTIN) 600 MG tablet Take 1,200 mg by mouth 3 times daily 01/27/20 22 Active Continuous Blood Gluc Sensor (QBuySTYLE WILFRED 2 SENSOR) MISCIndications:H yperglycemia,Type 2 diabetes mellitus with diabetic polyneuropathy, with long-term current use of insulin (H) 1 each every 14 days Use 1 sensor every 14 days. Use to read blood sugars per track announcer's instructions. 2 each 5 03/17/20 22 Active [...] cified altered mental status type 03/13/2022 Immunizations Immunization Administration Dates Next Due Influenza Vaccine >6 [...] Comments Blood Pressure 166/95 03/17/2022 7:29 AM BIN CLEANER Pulse 88 03/17/2022 7:28 AM BIN CLEANER Temperature 36.8 C (98.3 F) 03/17/2022 7:28 AM BIN CLEANER Respiratory Rate 20 03/17/2022 7:28 AM BIN CLEANER Oxygen Saturation 94% 03/17/2022 9:36 AM BIN CLEANER Inhaled Oxygen Concentration - - Weight 125.5 kg (276 lb 9.6 oz) 03/17/2022 5:12 AM BIN CLEANER Height 180.3 cm (5' 11) 03/14/2022 9:55 AM BIN CLEANER Body Mass Index 38.58 03/14/2022 9:55 AM BIN CLEANER Plan of Treatment Health Maintenance Due Date Last Done Comments ADVANCE CARE PLANNING 1966 ANNUAL REVIEW OF HM ORDERS 1966 CT COLONOGRAPHY 1966 DIABETIC FOOT EXAM 1966 EYE EXAM 1966 FIT 1966 FLEX SIG 1966 MICROALBUMIN 1966 sDNA (Cologuard) 1966 COLONOSCOPY 02/10/1976 COLORECTAL CANCER SCREENING 02/10/1976 HIV SCREENING 1981 HEPATITIS C SCREENING 02/10/1984 MEDICARE ANNUAL WELLNESS VISIT 02/10/1984 ZOSTER VACCINE (1 of 2) 02/10/2016 PNEUMOCOCCAL VACCINE 50+ YEARS (2 of 2 - PCV) 12/01/2016 12/02/2015, 11/25/2015 A1C 06/11/2022 03/13/2022 LIPID 03/14/2023 03/14/2022 BMP 03/15/2023 03/15/2022, 02/16, 03/14/2022, Additional history exists COVID-19 VACCINE ( season) 2023 01/26/2022, 04/03/2021, 08/21/2020, Additional history exists PHQ-2 (once per calendar year) 2024 INFLUENZA VACCINE (Season Ended) 2024 01/26/2022, 02/08/2021, 02/03/2021, Additional history exists DTAP/TDAP/TD VACCINE (2 - Td or Tdap) 11/24/2025 11/25/2015, 01/23/2005 HEPATITIS B VACCINE Completed 01/29/2018, 11/30/2016, 11/25/2015 HPV VACCINE Aged Out No longer eligi ble based on patient's age to complete this topic MENINGITIS VACCINE Aged Out No longer eligible based on patient's age to complete this topic Procedures Procedure Name Priority Date/Time Associated Diagnosis Comments BASIC METABOLIC PANEL Routine 03/15/2022 7:49 AM BIN CLEANER LIPID REFLEX TO DIRECT LDL PANEL Add-On 03/14/2022 7:51 AM BIN CLEANER HEMOGLOBIN A1C Add-On 03/13/2022 2:49 PM BIN CLEANER from Last 3 Months or Most Recently Relevant to Health Maintenance Results * (ABNORMAL) Basic metabolic panel (03/15/2022 7:49 AM BIN CLEANER) Sodium 137 136 - 145 mmol/L 03/15/2022 8:38 AM [facility] Potassium 4.6 3.4 - 5.3 mmol/L 03/15/2022 8:38 AM [facility] Comment:Specimen slightly he molyzed, potassium may be falsely elevated. Chloride 100 98 - 107 mmol/L 03/15/2022 8:38 AM [facility] Carbon Dioxide (CO2) 27 22 - 29 mmol/L 03/15/2022 8:38 AM [facility] Anion Gap 10 7 - 15 mmol/L 03/15/2022 8:38 AM [facility] Urea Nitrogen 14.0 6.0 - 20.0 mg/dL 03/15/2022 8:38 AM [facility] Creatinine 0.55(L) 0.67 - 1.17 mg/dL 03/15/2022 8:38 AM [facility] Calcium 9.5 8.6 - 10.0 mg/dL 03/15/2022 8:38 AM [facility] Glucose 103(H) 70 - 99 mg/dL 03/15/2022 8:38 AM [facility] GFR Estimate >90 >60 mL/min/1.7 3m2 03/15/2022 8:38 AM [facility] Comment:Effective February 162020 eGFRcr in adults is calculated using the 2020 CKD-EPI creatinine equation which includes age and gender (Bridgett et al., NEJ, DOI: 10.1056/EPRLgv4210119) Blood STRUCTURE OF RIGHT UPPER LIMB / Unknown Venipuncture / Unknown 03/15/2022 7:49 AM BIN CLEANER 03/15/2022 8:04 AM BIN CLEANER us Axel Calderón MD LAB - BLOOD ORDERABLES Final Re sult LABORATORY [facility] [address] Lab (1st floor, no room number) [place] [address], [facility] [phone] * (ABNORMAL) Lipid panel reflex to direct LDL (03/14/2022 7:51 AM BIN CLEANER) Cholesterol 184 <200 mg/dL 03/14/2022 1:46 PM BIN CLEANER [facility] Triglycerides 331(H) <150 mg/dL 03/14/2022 1:46 PM BIN CLEANER [facility] Direct Measure HDL 28(L) >=40 mg/dL 03/14/2022 1:46 PM BIN CLEANER [facility] LDL Cholesterol Calculated 90 <=100 mg/dL 03/14/2022 1:46 PM BIN CLEANER [facility] Non HDL Cholesterol 156(H) <130 mg/dL 03/14/2022 1:46 PM BIN CLEANER [facility] Blood STRUCTURE OF RIGHT UPPER LIMB / Unknown Venipuncture / Unknown 03/14/2022 7:51 AM BIN CLEANER 03/14/2022 8:00 AM BIN CLEANER Narrative [facility] - 03/14/2022 1:46 PM BIN CLEANER Cholesterol Desirable: <200 mg/dL Triglycerides Normal: Less [...] R esult [facility] [address] [facility], [address] [place] [address], [facility] [phone] * (ABNORMAL) Hemoglobin A1c (03/13/2022 2:49 PM BIN CLEANER) Hemoglobin A1C 14.4(H) <5.7 % 03/13/2022 7:14 PM BIN CLEANER [facility] Comment: Normal <5.7% Prediabetes 5.7-6.4% Diabetes 6.5% or higher Note: Adopted from ADA consensus guidelines. Blood BLOOD SPECIMEN / Unknown Venipuncture / Unknown 03/13/2022 2:49 PM BIN CLEANER 03/13/2022 3:06 PM BIN CLEANER us Parish Rios MD LAB - BLOOD ORDERABLES Final Res ult [facility] Lab [address] [facility] Lab (1st floor, no room number) [place] [address], [facility] [phone] from Last 3 Months or Most Recently Relevant to Health Maintenance Insurance [facility] OTHER Advance Directives For more information, please contact: [phone] * Full Code (Latest Code Status on File) Date Activated Date Inactivated Comments 03/13/2022 9:46 PM 03/17/2022 6:08 PM All basic and advanced life-sustaining interventions are performed as appropriate Question Answer Comments Code status determined by: Discussion with leobardo nt/ legal decision maker Care Teams Chemical Processing Equipment Repairer Relationship Specialty Start Date End Date Royce Weiner [address] [place] [address] PCP - General 05/26/20
[2024-09-12 18:13] VITALS: BP 100/71; PULSE 98; RESP 20; TEMP 36.8; O2SAT 93
--- NOTE | 2024-09-12 18:17 | CRLHL7_ITS ---
For Patients: As a result of the Century Cures Act, medical imaging exams and procedure reports are released immediately into your electronic medical record. You may view this report before your referring provider. If you have questions, please contact your health care provider. INDICATION: Weakness, fall TECHNIQUE: Noncontrast axial CT of the head. Coronal and sagittal reformats. Bone and soft tissue algorithms. COMPARISON: CT head 10/24/2023 FINDINGS: Ventricles and cortical sulci appear stable in configuration. No midline shift, mass effect, hydrocephalus or herniation. Preserved goetz-white matter differentiation. Redemonstration of a chronic right cerebellar infarct. Unremarkable midline structures. Calcific intracranial atherosclerotic plaquing. Intact calvarium. Clear paranasal sinuses. Leftward nasal septal deviation, with bone spur deforming the left inferior turbinate. Partially paradoxical right middle turbinate. Trace nonspecific fluid at the mastoid tips. Unremarkable orbits. IMPRESSION: 1. No CT evidence of acute intracranial abnormality. 2. Chronic right cerebellar infarct redemonstrated. Please note that all CT scans at this facility use dose modulation, iterative reconstruction, and/or weight-based dosing when appropriate to reduce radiation dose to as low as reasonably achievable. Dictated by Karlee Polanco MD @ 09/12/2024 6:48:17 PM (Electronically Signed)
--- NOTE | 2024-09-12 18:20 | ED.NEUROSD ---
HPI - Neuro Symptoms/Deficit General Chief Complaint: Neuro Symptoms/Altered Deficit Stated Complaint: Weakness Time Seen by Provider: 09/12/24 18:03 History of Present Illness HPI Narrative: This 59-year-old male comes in by ambulance because of left-sided weakness that began last night at about 8:00 p.m.. His is on the phone and states that he had fallen a couple times over the past 3 or 4 days. He did fall again last night and she states that since then he has been unable to move his left leg. He does have a history of some cognitive impairment with word-finding difficulty that is not new. He does not have any facial asymmetry. His states that his left sided weakness and anesthesia is new. He is unable to move his leg and has no feeling in his leg. 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 He states that he did not feel anything when the ambulance personnel put the IV in his left arm. Related Data Home Medications ?Medication ?Instructions ?Recorded ?Confirmed lidocaine 4 % topical patch 1 patch topical DAILY PRN 09/18/23 04/29/24 (Lidocaine Pain Relief) Previous Rx's ?Medication ?Instructions ?Recorded acetaminophen 500 mg tablet 500 - 1,000 mg (1 - 2 x 500 mg) PO 10/17/22 Q6H PRN pain #100 tabs gabapentin 600 mg tablet 1,200 mg (2 x 600 mg) PO TID #180 10/09/23 tabs flash glucose sensor (FreeStyle #10 ea 12/02/23 Luis 2 Sensor kit) insulin aspart U-100 100 unit/mL 15 unit (0.15 mL) subcut TIDWM #45 12/30/23 (3 mL) subcutaneous pen (Novolog mL FlexPen U-100 Insulin aspart) insulin glargine 100 unit/mL (3 40 unit (0.4 mL) subcut DAILY #45 12/30/23 mL) subcutaneous pen (Lantus mL Solostar U-100 Insulin) pen needle, diabetic 32 gauge x #100 ea 04/08/24 (Pen Needle) venlafaxine 75 mg capsule,extended 300 mg (4 x 75 mg) PO DAILY #360 05/26/24 release 24 hr caps aspirin 81 mg tablet,delayed 81 mg PO BID #60 tabs 05/29/24 release atorvastatin 10 mg tablet 10 mg PO HS #90 tabs 05/29/24 propranolol 10 mg tablet 10 mg PO BID #180 tabs 05/29/24 quetiapine 25 mg tablet 25 mg PO TID #120 tabs 05/29/24 divalproex 500 mg tablet,extended 1,500 mg (3 x 500 mg) PO DAILY #90 07/30/24 release 24 hr (Depakote ER) tabs prazosin 1 mg capsule 1 mg PO HS #90 caps 08/01/24 trazodone 50 mg tablet 50 mg PO QHS insomnia #90 tabs 08/01/24 Allergies Allergy/AdvReac Type Severity Reaction Status Date / Time amoxicillin Allergy Intermediate Unknown Verified 09/12/24 18:21 celecoxib Allergy Intermediate Unknown Verified 09/12/24 18:21 Sulfa (Sulfonamide Allergy Intermediate Hives Verified 09/12/24 18:21 Antibiotics) Penicillins Allergy Unknown Verified 09/12/24 18:21 sulfasalazine Allergy Unknown Verified 09/12/24 18:21 latex Allergy Hives Verified 09/12/24 18:21 Review of Systems Status of ROS: Reports: 10 or more systems reviewed and unremarkable except as noted in History and below Narrative: Constitutional: No fevers, no weight gain or loss. Eyes: No discharge. No vision changes. HENT: No congestion, no sore throat, no ear pain. Cardiovascular: No chest pain, no palpitations. Respiratory: No shortness of breath, no wheezes, no cough. Gastrointestinal: No abdominal pain, no vomiting, no diarrhea. Genitourinary: No dysuria, no hematuria. Musculoskeletal: Unable to move his left leg and decreased strength in his left arm. Skin: No rashes, no pruritis. Neurological: No dizziness. Unable to move the left leg and decreased strength in left arm. He does not have any sensation in his left leg or arm. Endo/Heme/Allergies: No bruising or bleeding. No polydipsia. Pysch: no suicidality, no anxiety, no insomnia. All other systems reviewed and are negative. [facility] Medical History Heart failure with preserved ejection fraction ?I50.30 - Unspecified diastolic (congestive) heart failure (ICD-10) Hypertension ?I10 - Essential (primary) hypertension (ICD-10) Type 2 diabetes mellitus with hyperglycemia ?E11.65 - Type 2 diabetes mellitus with hyperglycemia (ICD-10) Hyperlipemia ?E78.5 - Hyperlipidemia, unspecified (ICD-10) Chronic neck and back pain ?M54.2 - Cervicalgia (ICD-10) ?M54.9 - Dorsalgia, unspecified (ICD-10) ?G89.29 - Other chronic pain (ICD-10) MICHA (obstructive sleep apnea) ?G47.33 - Obstructive sleep apnea (adult) (pediatric) (ICD-10) CAD (coronary artery disease) ?I25.10 - Atherosclerotic heart disease of [place] coronary artery without angina pectoris (ICD-10) Peripheral polyneuropathy ?G62.9 - Polyneuropathy, unspecified (ICD-10) Bilateral carpal tunnel syndrome ?G56.03 - Carpal tunnel syndrome, bilateral upper limbs (ICD-10) History of traumatic brain injury ?Z87.820 - Personal history of traumatic brain injury (ICD-10) Cerebellar infarct ?I63.9 - Cerebral infarction, unspecified (ICD-10) Cognitive impairment ?R41.89 - Other symptoms and signs involving cognitive functions and awareness (ICD-10) Decubitus ulcer of heel, bilateral ?L89.619 - Pressure ulcer of right heel, unspecified stage (ICD-10) ?L89.629 - Pressure ulcer of left heel, unspecified stage (ICD-10) Surgical History History of lumbar fusion (1994) ?Z98.1 - Arthrodesis status (ICD-10) Family History Mother High blood pressure Depression Stroke Father Alcohol dependence Other Diabetes Social History Narrative: He lives with his in [place]. He is disabled. He is a former smoker having 30 pack-year history. Occasionally drinks alcohol. In their home he lives with his and 2 daughters and 2 granddaughters ages 2 and 6. 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 One of the daughters also works at school where her 6-year-old daughter will attend school. Other daughter works at a preschool where the her 2-year-old daughter will attend preschool. What is your current living situation?: I presently have a place to live Problems where you live: no known problems Problems where you live details: n/a In the past 12 months, utilities in danger of being shut off: no In past 12 months, lack of transportation kept you from medical appts, meetings, work, or getting things needed for daily living: no In the past 12 mos, have been you worried that your food would run out before you had money to buy more?: never true In the past 12 mos, the food you bought just didn't last and you didn't have money to buy more?: never true Highest level of school completed/degree received: high school graduate Smoking Status: Former smoker What tobacco products do you use: cigarettes Smoking quit date/years: >15 years ago Do you use any of these nicotine containing products: None Second hand tobacco smoke exposure: No How often do you have a drink containing alcohol: never How often do you have six or more drinks on one occasion: Never AUDIT-C Alcohol total score: 0 Non-prescribed substance use: denies use Caffeine: Yes (Mt dew) How often does anyone, including family, friends and others, physically hurt you: never How often does anyone, including family, friends and others, insult or talk down to you: never How often does anyone, including family, friends and others, threaten you with harm: never How often does anyone, including family, friends and others, scream or curse at you: never service: No Exam Narrative: Exam Narrative: Constitutional: Well-developed, well-nourished, no acute distress. HEENT: Normocephalic, atraumatic. Dry mouth. Neck: Normal range of motion. Nontender. Supple. Heart: Regular. No murmurs. Normal rate. Intact distal pulses. Lungs: Clear to auscultation. No chest discomfort. No wheezes, rhonchi, or rales. Abdomen: Normal bowel sounds. Nontender. No rebound tenderness. Genitalia: Deferred. Back: No midline tenderness. Normal range of motion. Extremities: No sign of injury. No report of pain. Skin: Intact. No rash. Warm. No erythema or pallor. Neurologic: No facial asymmetry. Tongue is midline. [id number] is normal. 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 He is able to raise his right leg from the bed. He has no sense of movement or sensation in the left leg. His left arm also is void of sensation but he does have some ability to squeeze is hand. Psychiatric: No suicidality. No anxiety or depression. No insomnia. Nursing notes and vitals signs are reviewed. Const: Vital Signs, click to edit/add: Vital Signs - 24 hr 09/12/24 18:13 09/12/24 19:00 09/12/24 20:27 Temperature 98.2 F Pulse Rate [Left P ulse Oximeter] Pulse Rate [Pulse Oximeter] 98 86 Respiratory Rate 20 16 17 Blood Pressure [Le ft Arm] Blood Pressure [Ri ght Upper Arm] 100/71 179/82 H Pulse Oximetry 93 90 97 Oxygen Delivery Me thod Nasal Cannula Nasal Cannula Nasal Cannula Oxygen Flow Rate 3 3 3 09/12/24 20:40 Temperature 97.6 F Pulse Rate [Left P ulse Oximeter] 94 Pulse Rate [Pulse Oximeter] Respiratory Rate 17 Blood Pressure [Le ft Arm] 158/98 H Blood Pressure [Ri ght Upper Arm] Pulse Oximetry 97 Oxygen Delivery Me thod Nasal Cannula Oxygen Flow Rate 3 Course Vital Signs Vital signs: Initial Vital Signs Temperature 98.2 F 09/12/24 18:13 Temperature Source Temporal Artery Scan 09/12/24 18:13 Pulse Rate 98 09/12/24 18:13 Respiratory Rate 20 09/12/24 18:13 Blood Pressure 100/71 09/12/24 18:13 Blood Pressure Mean 80 09/12/24 18:13 Pulse Oximetry 93 09/12/24 18:13 Oxygen Delivery Method Nasal Cannula 09/12/24 18:13 Oxygen Flow Rate 3 09/12/24 18:13 Vital Signs Temperature 98.2 F 09/12/24 18:13 Pulse Rate 98 09/12/24 18:13 Respiratory Rate 20 09/12/24 18:13 Blood Pressure 100/71 09/12/24 18:13 Pulse Oximetry 93 09/12/24 18:13 Oxygen Delivery Method Nasal Cannula 09/12/24 18:13 Oxygen Flow Rate 3 09/12/24 18:13 Temperature 97.5 F L 09/12/24 23:00 Pulse Rate 95 09/12/24 23:00 Respiratory Rate 15 09/12/24 23:00 Blood Pressure 136/72 06/28/25 23:00 Pulse Oximetry 95 09/12/24 23:00 Oxygen Delivery Method Nasal Cannula 09/12/24 23:00 Oxygen Flow Rate 3 09/12/24 23:00 Medications Administered Medications: Generic Name Dose Route Start Last Admin Trade Name Josy PRN Reason Stop Dose Admin Atorvastatin Calcium 20 mg 09/12/24 21:00 09/12/24 22:54 Atorvastatin Calcium 10 Mg Tablet PO 20 mg HS RICHARD Administration Divalproex Sodium 1,500 mg 09/12/24 23:15 09/12/24 23:17 Divalproex Sodium Er Tab 250 Mg PO 1,500 mg DAILY@2100 RICHARD Administration Gabapentin 1,200 mg 09/12/24 21:00 09/12/24 22:54 Gabapentin 600 Mg Tablet PO 1,200 mg TID RICHARD Administration Insulin Aspart 0 unit 09/12/24 21:00 09/12/24 23:23 Insulin Aspart 100 Unit/Ml SUBCUT Not Given ACHS RICHARD Protocol Prazosin HCl 1 mg 09/12/24 21:00 09/12/24 23:26 Prazosin Hcl 1 Mg Capsule PO Not Given HS RICHARD Propranolol HCl 10 mg 09/12/24 21:00 09/12/24 22:55 Propranolol 20 Mg Tablet PO 10 mg BID RICHARD Administration Quetiapine Fumarate 25 mg 09/12/24 21:00 09/12/24 22:57 Quetiapine 25 Mg Tablet PO 25 mg TID RICHARD Administration Sodium Chloride 5 ml 09/12/24 21:00 09/12/24 22:37 Sodium Chloride 0.9 % (Flush) 10 Ml Syringe IVF Not Given BID RICHARD Trazodone HCl 50 mg 09/12/24 20:45 09/12/24 22:52 Trazodone Hcl 50 Mg Tablet PO Not Given HS RICHARD Discontinued Medications Generic Name Dose Route Start Last Admin Trade Name Josy PRN Reason Stop Dose Admin Aspirin 324 mg 09/12/24 19:20 09/12/24 19:53 Aspirin 81 Mg Tab.Chew PO 09/12/24 19:21 324 mg ONCE ONE Administration Clopidogrel Bisulfate 300 mg 09/12/24 19:20 09/12/24 19:54 Clopidogrel 300 Mg Tablet PO 09/12/24 19:21 300 mg ONCE ONE Administration Dextrose 25 gm 09/12/24 20:51 09/12/24 21:13 Dextrose 50 % Syringe IVP 09/12/24 20:52 25 gm ONCE ONE Administration Glucagon 1 mg 09/12/24 20:42 09/12/24 20:58 Glucagon,Human Recombinant 1 Mg/Ml Vial IV 09/12/24 20:43 1 mg ONCE ONE Administration Sodium Chloride 500 mls @ 500 mls/hr 09/12/24 18:17 09/12/24 20:09 0.9 % Sodium Chloride 500 Ml IV 09/12/24 19:16 Infused .Q1H ONE Infusion Sodium Chloride 1,000 mls @ 1,000 mls/hr 09/12/24 19:45 09/12/24 23:11 0.9 % Sodium Chloride 1000 Ml IV 09/12/24 20:44 Infused .Q1H RICHARD Infusion MDM - Neuro Symptoms/Deficit Lab Data Labs: Lab Results 09/12/24 09/12/24 Range/Units 18:18 18:55 WBC 8.89 (4.50-11.00) K/uL RBC 4.77 (4.30-5.90) m/uL Hgb 13.5 (13.5-17.5) gm/dL Hct 41.6 (37.0-53.0) % MCV 87 (80-100) fL MCH 28 (26-34) pg MCHC 33 (32-36) gm/dL RDW Coeff of Radha 12.2 (11.5-15.5) % Plt Count 194 (140-440) K/uL Neut % (Auto) 56.4 (42.0-72.0) % Lymph % (Auto) 29.4 (20-44) % Scurry % (Auto) 10.0 (0.0-11.0) % Eos % (Auto) 2.9 (0.0-7.0) % Baso % (Auto) 0.3 (0.0-3.0) % Neut # (Auto) 5.01 (1.7-7.0) K/uL Lymph # (Auto) 2.61 (0.90-2.90) K/uL Scurry # (Auto) 0.90 (0.00-0.90) K/UL Eos # (Auto) 0.26 (0.00-0.50) K/uL Baso # (Auto) 0.03 (0.00-0.30) K/uL Abs Immat Gran (auto) 0.09 (0.00-0.30) K/uL Imm/Tot Granulo (auto) 1.0 % Sodium 135 (135-149) mmol/L Potassium 3.7 (3.6-5.1) mmol/L Chloride 101 (96-114) mmol/L Carbon Dioxide 26 (20-32) mmol/L Anion Gap 8 (7-15) mEq/L BUN 74 H (7-30) mg/dL Creatinine 2.2 H (0.5-1.5) mg/dL Estimated GFR 34 ml/min Glucose 107 (60-115) mg/dL Calcium 8.6 (8.4-10.6) mg/dL POC Troponin I 0.03 (0.01-0.04) ng/ml ECG Data Attestation: I personally reviewed and interpreted this ECG as follows: Interpretation: Sinus rhythm with PVCs. There are no specific ST or T-wave abnormalities. Rate is 96 beats per minute. Discharge Plan Discharge Patient Disposition: Admitted As Observation Discharge Location: [facility]
[2024-09-12] MEDS: 0.9 % SODIUM CHLORIDE 500 ML 500 ML IV (18:54)
[2024-09-12 19:00] VITALS: BP 179/82; PULSE 86; RESP 16; O2SAT 90
[2024-09-12 19:02] LABS: Hematocrit 41.6 % (37.0-53.0); Hemoglobin* 13.5 gm/dL (13.5-17.5); Immature Granulocytes Abs Auto 0.09 K/uL (0.00-0.30); Immature Granulocytes Pct Auto 1.0 %; Lymphocytes Absolute Auto 2.61 K/uL (0.90-2.90); Mean Corpuscular HGB Conc 33 gm/dL (32-36); Mean Corpuscular Hemoglobin 28 pg (26-34); Mean Corpuscular Volume 87 fL (80-100); RDW Coefficient of Variation % 12.2 % (11.5-15.5); Red Blood Count 4.77 m/uL (4.30-5.90); White Blood Count* 8.89 K/uL (4.50-11.00)
[2024-09-12 19:04] LABS: Slide Review Reflex No
[2024-09-12 19:13] LABS: Chloride* 101 mmol/L (96-114)
[2024-09-12 19:14] LABS: Potassium* 3.7 mmol/L (3.6-5.1); Sodium* 135 mmol/L (135-149)
[2024-09-12 19:16] LABS: Blood Urea Nitrogen* 74 mg/dL (7-30); Creatinine* 2.2 mg/dL (0.5-1.5); Estimated Glomerular Filt Rate 34 ml/min
[2024-09-12 19:17] LABS: Anion Gap 8 mEq/L (7-15); Calcium* 8.6 mg/dL (8.4-10.6); Carbon Dioxide* 26 mmol/L (20-32); Glucose* 107 mg/dL (60-115)
[2024-09-12 19:18] LABS: Troponin, Point-of-Care* 0.03 ng/ml (0.01-0.04)
--- NOTE | 2024-09-12 19:23 | CRLHL7_ITS ---
For Patients: As a result of the Century Cures Act, medical imaging exams and procedure reports are released immediately into your electronic medical record. You may view this report before your referring provider. If you have questions, please contact your health care provider. INDICATION: Acute stroke. TECHNIQUE: CTA head with contrast bolus tracking, 3D angiographic rendering using maximum intensity projection (MIP) and images permanently archived. FINDINGS: There is extensive scattered intracranial atherosclerotic disease. There is a severe very distal right ANTONY stenosis. There is a moderate left M1 stenosis. There is no large vessel occlusion. No aneurysm is identified. IMPRESSION: No large vessel occlusion. Please note that all CT scans at this facility use dose modulation, iterative reconstruction, and/or weight-based dosing when appropriate to reduce radiation dose to as low as reasonably achievable. Dictated by Dean Tabor MD @ 09/12/2024 9:40:37 PM (Electronically Signed)
--- NOTE | 2024-09-12 19:23 | CRLHL7_ITS ---
For Patients: As a result of the Century Cures Act, medical imaging exams and procedure reports are released immediately into your electronic medical record. You may view this report before your referring provider. If you have questions, please contact your health care provider. INDICATION: Acute stroke. TECHNIQUE: CTA neck with contrast bolus tracking, 3D angiographic rendering using maximum intensity projection (MIP) and images permanently archived. FINDINGS: There is carotid atherosclerosis bilaterally. There is atherosclerotic plaque in the proximal right ICA resulting in a mild stenosis, less than 50% by NASCET. There is no significant left carotid artery stenosis or dissection. The right vertebral artery is occluded proximally. There is no significant left vertebral artery stenosis or dissection. The soft tissues of the neck are within normal limits. The cervical spine is in normal alignment. Degenerative changes are noted in the cervical spine. IMPRESSION: Mild proximal right ICA stenosis, less than 50% by NASCET. Right vertebral artery occlusion. Please note that all CT scans at this facility use dose modulation, iterative reconstruction, and/or weight-based dosing when appropriate to reduce radiation dose to as low as reasonably achievable. Dictated by Dean Tabor MD @ 09/12/2024 9:43:06 PM (Electronically Signed)
[2024-09-12] MEDS: ASPIRIN 81 MG TAB.CHEW 324 MG PO (19:53)
[2024-09-12] MEDS: CLOPIDOGREL 300 MG TABLET PO (19:54)
--- OUTSIDE RECORDS SUMMARY | 2024-09-12 19:55 | XMS_ITS | Clinical Summary ---
Author Organization [facility] Address [address] [place] [id number] Care Team Providers Care Data Architect Name Role Phone Karthik Sanz MD Primary [...] QUEtiapine (SEROQUEL) 25 mg tabletIndications: Mood disorder Take 1-2 Tablets (25-50 mg) by mouth four times daily. 240 Tablet 4 11:19 AM CDT 09/11/19 24 Active venlafaxine (EFFEXOR XR) 150 mg Extended-Release capsuleIndications :Mood disorder Take 2 Capsules (300 mg) by mouth [...] ER) 500 mg Extended-Release tabletIndications: Mood disorder Take 3 Tablets (1,500 mg) by mouth [...] mg tabletIndications: AFUA (generalized anxiety disorder),Mood disorder Take 1 Tablet (10 mg) by mouth two times daily. 60 Tablet 4 11:19 AM CDT 09/11/19 24 Active traZODone (DESYREL) 50 mg tabletIndications: Mood disorder Take 1 Tablet (50 mg) by mouth [...] of 100 to 170 on average. 09/11/19 24 Active Active Problems Problem Noted Date Diagnosed [...] Encounters Date Type Department Care Team Description 07/23/2024 Telephone [facility] [address] [place] [address] Royce Weiner MD Follow Up 07/21/2024 Refill [facility] [address] [place] [address] Royce Weiner MD Refill Request (Gabapentin) from Last 3 Months Immunizations Immunization Administration Dates Next Due AMB Influenza, IIV4 PF (=>6 mos Flulaval,Fluzone Fluarix)(Flu Clinic Only) 12/12/2018 COVID-19 vaccine (Yunno NTEdicy 30mcg/0.3mL) 12YO+ BIVALENT PF, MDV 01/26/2022 Hepatitis [...] Ambulatory Vulnerability No t on file 09/06/2023 Utilities Answer Date Recorded Do you have trouble paying f or utilities (for example, heat, electricity, water, phone)? 1 09/06/2023 Sex and Gender Information Value Date Recorded Sex Assigned at Not on file Legal Sex Male 6:13 AM JIGSAWYER Gender Identity Not on file Sexual Orientation [...] 2023 01/26/2023, 01/26/2022, 04/03/2021, Additional history exists Depression screening for age 12+ 09/07/2024 09/08/2023, 09/07/2023, 09/06/2023, Additional history exists Influenza Vaccine (Season Ended) 2024 01/26/2022, 02/08/2021, 12/12/2018, Additional history exists Lipids for age 45-75 09/06/2028 09/07/2023, 01/22/2018, 01/22/2018, Additional history exists Tetanus booster 09/04/2033 09/05/2023, 11/2015, 01/23/2005 Hepatitis B series for 19+ Completed 01/29, 11/30/2016, 11/25/2015 Tdap Completed 09/05/2023, 11/25/2015 Procedures Procedure Name Priority Date/Time Associated Diagnosis Comments LIPID PANEL Early AM 09/07/2023 7:01 AM CDT from Last 3 Months or Most Recently Relevant to Health Maintenance Results * (ABNORMAL) LIPID PANEL (09/07/2023 7:01 AM CDT) CHOLESTEROL,TOTAL 225(H) 100 - 199 mg/dL 09/07/2023 7:39 AM CDT [facility] Comment: Cholesterol, Total Reference Ranges Desirable <200 mg/dL Borderline 200-239 mg/dL High >=240 mg/dL TRIGLYCERIDES 212(H) <150 mg/dL 09/07/2023 7:39 AM CDT [facility] HDL CHOLESTEROL 37(L) >40 mg/dL 7:39 AM CDT [facility] NON-HDL CHOLESTEROL 188(H) <145 mg/dl 09/07/2023 7:39 AM CDT [facility] CHOL/HDL RATIO 6.08(H) <4.50 09/07/2023 7:39 AM CDT [facility] LDL CHOLESTEROL 146(H) <=130 mg/dL 09/07/2023 7:39 AM CDT [facility] VLDL CHOLESTEROL 42(H) <=30 mg/dL 09/07/2023 7:39 AM CDT [facility] PROVIDER ORDERED STATUS RANDOM 09/07/2023 7:39 AM CDT [facility] Blood BLOOD SPECIMEN / Unknown Venipuncture / Unknown 09/07/2023 7:01 AM CDT 09/07/2023 7:13 AM CDT us Melita Lopez MD CHEMISTRY Final Result [facility] [address] [place] [id number], from Last 3 Months or Most Recently Relevant to Health Maintenance Insurance MEDICARE PART A HB ONLY MEDICARE ADVANTAGE [place] [id number] * Guarantor: OJNATHAN MICHEL JR Account Type Relation to Patient Date of Phone Billing Address Personal/Family [address] [place] [id number] MEDICARE PART B HB ONLY [place] [id number] [place] [id number] [employer] CASUAL[employer] INS [employer] Advance Directives * Full Code (Latest Code Status on File) Date Activated Date Inactivated Comments 09/06/2023 9:15 AM 09/11/2023 7:27 PM Question Answer Comments Code Status Discussion: Unable to Assess Preferences, Provider to review later * Full Code Date Activated Date Inactivated Comments 05/20/2019 5:20 PM 05/21/2019 8:24 PM Care Teams Data Architect Relationship Specialty Start Date End Date Karthik Sanz MD [address] [place] [id number] PCP - General Internal Medicine 06/24/20
[2024-09-12 20:27] VITALS: RESP 17; O2SAT 97
[2024-09-12 20:40] VITALS: BP 158/98; PULSE 94; RESP 17; TEMP 36.4; O2SAT 97
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
[2024-09-12] MEDS: GLUCAGON,HUMAN RECOMBINANT 1 MG/ML VIAL IV (20:58)
[2024-09-12] MEDS: DEXTROSE 50 % SYRINGE IVP (21:13)
[2024-09-12] MEDS: GABAPENTIN 600 MG TABLET 1200 MG PO (22:54)
[2024-09-12] MEDS: ATORVASTATIN CALCIUM 10 MG TABLET 20 MG PO (22:54)
[2024-09-12] MEDS: PROPRANOLOL 20 MG TABLET 10 MG PO (22:55)
[2024-09-12] MEDS: QUETIAPINE 25 MG TABLET PO (22:57)
[2024-09-12 23:00] VITALS: BP 136/72; PULSE 95; RESP 15; TEMP 36.4; O2SAT 95; O2SAT 96
[2024-09-12] MEDS: DIVALPROEX SODIUM ER TAB 250 MG 1500 MG PO (23:17)
[2024-09-13] VITALS (9 sets, daily range): BP systolic 128–161; BP diastolic 70–95; PULSE 67–97; RESP 16–20; TEMP 36.3–37.2; O2SAT 90–94
[2024-09-13 06:13] LABS: HCO3 VBG 28 mmol/L (21-28); Lactate* 1.1 mmol/L (0.5-1.9); PCO2 VBG 56 mmHG (40-50); PO2 VBG 50.0 mmHG (25-47); pH VBG 7.312 (7.32-7.43)
[2024-09-13 06:19] LABS: Hematocrit 41.4 % (37.0-53.0); Hemoglobin* 13.1 gm/dL (13.5-17.5); Mean Corpuscular HGB Conc 32 gm/dL (32-36); Mean Corpuscular Hemoglobin 28 pg (26-34); Mean Corpuscular Volume 88 fL (80-100); Red Blood Count 4.69 m/uL (4.30-5.90); White Blood Count* 10.12 K/uL (4.50-11.00)
[2024-09-13 06:21] LABS: Slide Review Reflex No
[2024-09-13 06:35] LABS: Chloride* 101 mmol/L (96-114); Sodium* 135 mmol/L (135-149)
[2024-09-13 06:36] LABS: Potassium* 4.8 mmol/L (3.6-5.1)
[2024-09-13 06:38] LABS: Blood Urea Nitrogen* 70 mg/dL (7-30); Creatinine* 1.6 mg/dL (0.5-1.5); Estimated Glomerular Filt Rate 50 ml/min
[2024-09-13 06:39] LABS: Anion Gap 7 mEq/L (7-15); Calcium* 8.6 mg/dL (8.4-10.6); Carbon Dioxide* 27 mmol/L (20-32); Cholesterol* 171 mg/dL (90-199); Glucose* 153 mg/dL (60-115); Triglycerides* 224 mg/dL (40-149)
[2024-09-13 06:40] LABS: HDL Cholesterol* 29 mg/dL (>=40)
[2024-09-13 06:52] LABS: NT Pro B Type NatriureticPept* 488 pg/mL (See Note)
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
--- NOTE | 2024-09-13 08:13 | PC.NURSE ---
Shift note ([id number]): Patient admitted from ED at 2019. Pt pleasant, alert and oriented. Patient requested BS be taken as he felt so tired. BS 46 at that time. Charge nurse and MD updated. Pt given pudding, juice, and a sandwich. New orders given. BS 52 after glucagon administration. New orders for Dextrose IVP given. Recheck BS 189. BS were re-checked through night and were stable. Patient reported feeling and movement on left side of body was increasing throughout night. This morning patient able to stand at bedside to use urinal with walker, gait belt and?assist of two. Pt denied pain.?
[2024-09-13] MEDS: ASPIRIN 81 MG TABLET EC PO (08:18)
[2024-09-13] MEDS: CLOPIDOGREL 75 MG TABLET PO (08:18)
[2024-09-13] MEDS: PROPRANOLOL 20 MG TABLET 10 MG PO ×2 (08:19→21:40)
[2024-09-13] MEDS: QUETIAPINE 25 MG TABLET PO ×3 (08:19→21:43)
[2024-09-13] MEDS: VENLAFAXINE ER 75 MG CAPSULE 300 MG PO (08:19)
[2024-09-13] MEDS: GABAPENTIN 600 MG TABLET 1200 MG PO ×3 (08:19→21:46)
[2024-09-13] MEDS: SODIUM CHLORIDE 0.9 % (FLUSH) 10 ML SYRINGE 5 ML IVF ×2 (08:19→21:47)
[2024-09-13] MEDS: PERFLUTREN LIPID MICROSPHERES 2 ML VIAL IVP (10:57)
[2024-09-13] MEDS: INSULIN ASPART 100 UNIT/ML SUBCUT ×3 (13:36→21:55)
--- NOTE | 2024-09-13 19:40 | PC.NURSE ---
End of shift [id number] - Pt alert, oriented, cooperative. Noted to have difficulty with word finding and speech was noted to be mildly garbled. Pt denied pain, SOB, n/v. Tolerating RA and regular diet/fluids. Up with x1 assist and walker/gait belt. L sided upper and lower extremity range of motion and strength continue to improve. Pt reports feeling continued numbness in L arm and blurriness of L eye vision that pt states has been present since pre-hospital episode. Up in chair during shift. Appears to be resting at end of shift with call light within reach.
[2024-09-13] MEDS: ONDANSETRON ODT 4 MG TAB PO (20:46)
[2024-09-13] MEDS: ATORVASTATIN CALCIUM 10 MG TABLET 40 MG PO (21:41)
[2024-09-13] MEDS: TRAZODONE HCL 50 MG TABLET PO (21:43)
[2024-09-13] MEDS: DIVALPROEX SODIUM ER TAB 250 MG 1500 MG PO (21:43)
[2024-09-13] MEDS: PRAZOSIN HCL 1 MG CAPSULE PO (21:54)
[2024-09-14] VITALS (13 sets, daily range): BP systolic 114–198; BP diastolic 71–112; PULSE 80–96; RESP 16–20; TEMP 36.4–37.1; O2SAT 86–96
--- NOTE | 2024-09-14 06:02 | PC.NURSE ---
Shift note ([id number]): Patient pleasant, alert and oriented.?Ambulated to bathroom with walker. Gait belt and assist of one. 6 Units SS Novolog given at HS for BS of 236. Given scheduled Gabapentin for c/o back pain rated 8/10. Unable to flush IV to left wrist. IV dc?d and new IV placed in right wrist. ?
[2024-09-14 06:56] LABS: HCO3 VBG 29 mmol/L (21-28); PCO2 VBG 51 mmHG (40-50); PO2 VBG 61.7 mmHG (25-47); pH VBG 7.360 (7.32-7.43)
[2024-09-14 06:59] LABS: Hematocrit 40.1 % (37.0-53.0); Hemoglobin* 12.5 gm/dL (13.5-17.5); Immature Granulocytes Abs Auto 0.07 K/uL (0.00-0.30); Immature Granulocytes Pct Auto 1.0 %; Lymphocytes Absolute Auto 2.19 K/uL (0.90-2.90); Mean Corpuscular HGB Conc 31 gm/dL (32-36); Mean Corpuscular Hemoglobin 28 pg (26-34); Mean Corpuscular Volume 91 fL (80-100); RDW Coefficient of Variation % 12.5 % (11.5-15.5); Red Blood Count 4.43 m/uL (4.30-5.90); White Blood Count* 7.28 K/uL (4.50-11.00)
[2024-09-14 07:02] LABS: Slide Review Reflex No
[2024-09-14 07:12] LABS: Chloride* 102 mmol/L (96-114)
[2024-09-14 07:13] LABS: Potassium* 4.9 mmol/L (3.6-5.1); Sodium* 136 mmol/L (135-149)
--- NOTE | 2024-09-14 07:15 | CRLHL7_ITS ---
For Patients: As a result of the Century Cures Act, medical imaging exams and procedure reports are released immediately into your electronic medical record. You may view this report before your referring provider. If you have questions, please contact your health care provider. Indication: Cerebrovascular accident. Technique: Multiplanar multisequence noncontrast MR images of the brain. Comparison: CT brain 09/12/2024. Findings: Small focus of diffusion restriction and FLAIR hyperintensity within the ventral right medulla (series 5, image 29), compatible with acute to subacute infarction. Mild diffuse cerebral volume loss. No mass effect or midline shift. Scattered FLAIR hyperintensities in the supratentorial white matter, typical for minimal chronic microvascular ischemic changes. Moderate chronic infarction posterior right cerebellar hemisphere demonstrating susceptibility in the infarct bed compatible with hemosiderin. No recent intracranial hemorrhage or pathologic extra-axial fluid collection. Major arterial flow voids of the skull base are preserved. Globes are symmetric. Minimal paranasal sinus mucosal thickening. Trace bilateral mastoid effusions. Impression: 1. Small acute to subacute infarction within the ventral right medulla. 2. Chronic infarction right cerebellar hemisphere. 3. Mild diffuse cerebral volume loss and minimal chronic microvascular ischemic changes. Dictated by Vasiliy Perez MD @ 09/14/2024 11:05:43 AM (Electronically Signed)
[2024-09-14 07:16] LABS: Anion Gap 6 mEq/L (7-15); Blood Urea Nitrogen* 48 mg/dL (7-30); Calcium* 8.8 mg/dL (8.4-10.6); Carbon Dioxide* 28 mmol/L (20-32); Creatinine* 1.3 mg/dL (0.5-1.5); Estimated Glomerular Filt Rate 64 ml/min; Glucose* 203 mg/dL (60-115)
[2024-09-14] MEDS: INSULIN ASPART 100 UNIT/ML SUBCUT ×4 (08:31→21:27)
[2024-09-14] MEDS: QUETIAPINE 25 MG TABLET PO ×3 (08:51→21:20)
[2024-09-14] MEDS: PROPRANOLOL 20 MG TABLET 10 MG PO ×2 (08:51→21:21)
[2024-09-14] MEDS: GABAPENTIN 600 MG TABLET 1200 MG PO ×3 (08:51→21:21)
[2024-09-14] MEDS: CLOPIDOGREL 75 MG TABLET PO (08:51)
[2024-09-14] MEDS: VENLAFAXINE ER 75 MG CAPSULE 300 MG PO (08:51)
[2024-09-14] MEDS: ASPIRIN 81 MG TABLET EC PO (08:51)
[2024-09-14] MEDS: SODIUM CHLORIDE 0.9 % (FLUSH) 10 ML SYRINGE 5 ML IVF ×2 (08:55→21:22)
--- NOTE | 2024-09-14 10:03 | P.IMPN_ITS ---
Assessment and Plan Assessment and plan (1) Acute left hemiparesis: Problem comment: - 09/12/2024: acute lower extremity greater than upper extremity weakness in addition to sensory deficit, possibly started 1-3 days prior to presentation - likely secondary to new CVA, acute versus subacute - in ER, Dr. Marcial spoke with Dr. Hardy of stroke Neurology at [facility]: recommends admit, ASA 325/Plavix 300x 1 09/12; 09/13 start 81mg ASA and 75mg of Plavis - ordered: MRI, TTE, labs, therapy evaluations to assist with dispo - A1C 10.2, LDL 97 (atorvastatin increased from 10 ->20mg 09/12) - he must continue to use his diabetic shoes when ambulating here in the hospital Status: Acute (2) Cerebrovascular disease: Problem comment: - 09/12/2024: CTA of head: 1. No intracranial large vessel occlusion or critical stenosis. 2. Moderately severe stenosis A3 segment right anterior cerebral artery. 3. Mild narrowing left M1 segment MCA. CTA neck: 1. 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 2. Patent dominant left vertebral artery. 3. Mild (less than 50%) narrowing of the right proximal ICA. Status: Acute (3) Cerebellar infarct: Problem comment: - remote history of R cerebellar infarct, patient doesn't recall this, likely contributing to falls. 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 On Propranolol as an outpatient - adding low dose Lisinopril 09/14 given SBP>180 and DM2 (continue to follow creatinine given MARI) Status: Chronic (6) Heart failure with preserved ejection fraction: Problem comment: - TTE 09/14 consistent with chronic HFpEF, no evidence of exacerbation - dilated ascending aorta is chronic/stable Final Impressions: 1. Normal LV size, mildly increased wall thickness, normal global systolic function with an estimated EF of 60 - 65%. 2. Right ventricular cavity size is mildly enlarged, global systolic RV function is normal. 3. Mildly enlarged left atrium. 4. The aortic valve is calcified (cannot rule out bicuspid valve, leaflets not well visualized), no stenosis and no regurgitation. 5. Dilated sinus of Valsalva, diameter of 4.2 cm. 6. Dilated ascending aorta, diameter of 4.6 cm. 7. Bubble study was technically challenging given limited acoustic windows but no obvious right to left shunt at rest or with Valsalva. 8. Echo contrast was administered to enhance visualization of all left ventricular segments. Status: Chronic (7) MICHA (obstructive sleep apnea): Problem comment: - 03/24/12 AHI=70. Untreated. - noted to have elevated CO2, will utilize caution with supplemental oxygen given risk for Co2 narcosis Status: Chronic (8) Type 2 diabetes mellitus with hyperglycemia: Problem comment: - Poorly managed type 2 DM - A1C 10.2 09/12/24; continue 40mg HS Glargine and Aspart with meals + SSI Status: Chronic (9) Hyperlipidemia: Problem comment: - atorvastatin increased from 10 ->40mg on 09/13/24 Status: Acute (10) MARI (acute kidney injury): Problem comment: - 09/12: Creatinine 2.2 (baseline creatinine of 0.7-0.8) - 09/13: Creatinine 1.6 - 09/14: Creatinine 1.3, adding Lisinopril for SBP persistently >180 - continue to follow Status: Acute Plan - per above - awaiting TCU placement - updated bedside, questions answered Subjective Date Seen: 09/14/24 Interval history: Saman was admitted to the hospital on 09/12 for left-sided weakness and sensory deficits, chronicity unclear. Had multiple falls at home in 3-4 days prior to presentation, was unable to get up after a fall and EMS called for assist. Comorbidities include previous TBI with cognitive impairment, previous CVA, poorly controlled IDDM2, untreated MICHA, HFpEF, and CAD. In ER, Head CT negative for acute abnormalities (chronic R cerebellar infarct noted), head/neck CTA revealed mild proximal R ICA stenosis (<50%) and R vertebral artery occlusion. Stroke Neurology consulted and following. Working with therapies, still has some L sided weakness. Tolerating po intake without evidence of aspiration, following accuchecks, treating with insulin. Denies any concerns for me this morning. MRI today exhibited a small acute to subacute infarction in the ventral R medulla. Currently, TCU stay recommended. Has been following with Dr. Mcintosh of Stroke Neurology, recommendations from 09/13/24 virtual visit below (written prior to obtaining MRI): - Continuous cardiac monitoring - ASA 81 mg and Plavix 75 mg daily for 90 days, then monotherapy with Plavix - Permissive hypertension to goal BP <180/100 until 09/21/24, then goal BP <130/80 - NS for hydration - MRI Brain w/o contrast - TTE to screen for cardiac source - Lipid Panel - Increase atorvastatin from 10->40mg QHS (given ICAD on CTA) - PT/OT/Speech consult and PM&R - Frequent neuro checks - SCDs - reason for no lytic: out of time window - reason for no MI: no LVO on CTA - Follow-up with stroke clinic in 1 month: Please place an ambulatory consult to neurology discharge order and choose vascular (stroke/tia) as the service ? Exam Narrative: Exam Narrative: GEN: Alert and oriented, sitting comfortably in bedside chair HEENT: Normal external ears, EOMIs bilaterally, no scleral icterus CV: RRR R: LCTA bilaterally without concerning wheezing Ab: Protuberant, no ttp or concerning masses Ext: hyperpigmentation c/w PVD, foot ulcers not formally examined, BLE edema is symmetric/baseline/stable Skin: No concerning skin lesions or rashes on exposed skin Neuro: Mild weakness of LUE and LLE, opens eyes fully, no facial droop, no resting tremor Psych: Appropriate Const: Vital Signs, click to edit/add: Vital Signs - 24 hr 09/13/24 11:00 09/13/24 15:00 09/13/24 15:00 Temperature 97.6 F 98.9 F Pulse Rate Pulse Rate [Left P ulse Oximeter] 85 89 Respiratory Rate 20 18 18 Blood Pressure [Le ft Arm] 161/90 H 149/79 H Pulse Oximetry 90 91 91 Oxygen Delivery Me thod Room Air Room Air Room Air Oxygen Flow Rate 09/13/24 15:10 09/13/24 20:52 09/13/24 22:03 Temperature 97.4 F L 98.2 F Pulse Rate 89 Pulse Rate [Left P ulse Oximeter] 97 97 Respiratory Rate 17 17 Blood Pressure [Le ft Arm] 138/79 128/70 Pulse Oximetry 91 90 Oxygen Delivery Me thod Nasal Cannula Nasal Cannula Oxygen Flow Rate 1 1 09/13/24 22:09 09/14/24 02:12 09/14/24 08:35 Temperature 98.2 F 98.7 F Pulse Rate Pulse Rate [Left P ulse Oximeter] 86 90 Respiratory Rate 17 18 18 Blood Pressure [Le ft Arm] 114/71 149/88 H Pulse Oximetry 90 91 90 Oxygen Delivery Me thod Nasal Cannula Room Air Room Air Oxygen Flow Rate 1 09/14/24 08:35 Temperature Pulse Rate Pulse Rate [Left P ulse Oximeter] Respiratory Rate 18 Blood Pressure [Le ft Arm] Pulse Oximetry 90 Oxygen Delivery Me thod Room Air Oxygen Flow Rate Labs Labs: Laboratory Results - last 24 hr 09/14/24 06:48 WBC 7.28 RBC 4.43 Hgb 12.5 L Hct 40.1 MCV 91 MCH 28 MCHC 31 L RDW Coeff of Radha 12.5 Plt Count 183 Neut % (Auto) 51.5 Lymph % (Auto) 30.1 [place] % (Auto) 11.1 H Eos % (Auto) 5.8 Baso % (Auto) 0.5 Neut # (Auto) 3.75 Lymph # (Auto) 2.19 [place] # (Auto) 0.80 Eos # (Auto) 0.42 Baso # (Auto) 0.04 Abs Immat Gran (auto) 0.07 Imm/Tot Granulo (auto) 1.0 VBG pH 7.360 VBG pCO2 51 H VBG pO2 61.7 H VBG HCO3 29 H Sodium 136 Potassium 4.9 Chloride 102 Carbon Dioxide 28 Anion Gap 6 L BUN 48 H Creatinine 1.3 Estimated GFR 64 Glucose 203 H Calcium 8.8 Magnesium 2.4
--- NOTE | 2024-09-14 10:36 | REH.SLP ---
UPHOLSTERY CUTTER orders received, chart reivewed and discussed case with RN and MD. Patient is familiar to this song writer as he was recently seen in outpatient therapy. Gerry has baseline word-finding and cognitive deficits. MD reported patient was tolerating a Regular diet and RN noted him to eat fast and take big bites. Swallow screen completed-oral motor exam WFL and patient observed with thin liquids via straw with no overt s/s of aspiration. Safe swallow strategies include upright for all po, remain upright for one hour after meals, small bites/sips at a slow pace. Recommend UPHOLSTERY CUTTER at next level of care (TCU) for cognition.
[2024-09-14] MEDS: ACETAMINOPHEN 325 MG TABLET 650 MG PO (11:06)
--- NOTE | 2024-09-14 12:06 | NUTR.NU ---
RDN with MD consult for Type 2 Diabetes Mellitus, hypertension, hyperlipidemia, stroke, and obesity. RDN attempted to visit with patient x 3, but patient asked RDN to return at a later time. RDN will attempt to visit with patient at a later date. RDN will continue to monitor and follow.
--- NOTE | 2024-09-14 14:28 | PC.SOCIAL ---
Addendum entered by CALDERON Pineda 09/14/24 16:01: Phone call to patient's and provided update. Patient's would like update on discharge plan. Patient's would like information on if there are any out of pocket costs. Explained that when a SNF accepts, they will run insurance and provide that information. Addendum entered by CALDERON Pineda 09/14/24 15:15: Received a message from Mari Sierra and [facility] is declining patient d/t age and no available bed. Received a message from [facility] and they will have the Tim review referral and will reach out with a decision. Completed PAS and NO level II is needed. PAS Confirmation #[id number]. Senior Linkage line will need to be updated with admitting SNF and admitting date to SNF. Original Note: Discharge planning- Per therapy, patient will need SNF for short term rehab. Met with patient bedside and provided update. Provided patient with list of area SNF's. Patient is agreeable to referrals being sent to the following facilities. Patient has a strong preference to stay in [place] and admit to [facility]. 1. [facility]- Referral e-mailed to Maadlyn Kelly. 2. [facility]- Referral e-mailed to Mari Sierra. 3. [facility]- Referral e-mailed to Hernando Shah. Social work will continue to follow up on referrals for short term rehab.
--- NOTE | 2024-09-14 14:33 | PC.NURSE ---
End of Shift: Patient pleasant and cooperative, alert and oriented, could not identify year. Patient vitally stable, lungs clear, BS WNL, IV SL and intact. Patient denies pain but was given tylenol for a headache. Patient's extremity strength is at baseline, but patient is not completely stable on his feet, balance is off. Patient reports complete left eye blurred vision, he could not identify how many finger this television script writer was holding up. Patient tolerating regular diet, urinating well, No BM. Blood sugars 180 and 248. Tele = SA with BBB.
[2024-09-14 18:33] LABS: HCO3 VBG 27 mmol/L (21-28); PCO2 VBG 45 mmHG (40-50); PO2 VBG 74.7 mmHG (25-47); pH VBG 7.394 (7.32-7.43)
[2024-09-14 18:50] LABS: Chloride* 101 mmol/L (96-114); Sodium* 136 mmol/L (135-149)
[2024-09-14 18:51] LABS: Potassium* 4.8 mmol/L (3.6-5.1)
[2024-09-14 18:53] LABS: Blood Urea Nitrogen* 43 mg/dL (7-30); Creatinine* 1.4 mg/dL (0.5-1.5); Estimated Glomerular Filt Rate 58 ml/min
[2024-09-14 18:54] LABS: Anion Gap 8 mEq/L (7-15); Calcium* 9.0 mg/dL (8.4-10.6); Carbon Dioxide* 27 mmol/L (20-32); Glucose* 280 mg/dL (60-115)
[2024-09-14] MEDS: ATORVASTATIN CALCIUM 40 MG TABLET PO (21:17)
[2024-09-14] MEDS: DIVALPROEX SODIUM ER TAB 250 MG 1500 MG PO (21:18)
[2024-09-14] MEDS: TRAZODONE HCL 50 MG TABLET PO (21:23)
[2024-09-14] MEDS: PRAZOSIN HCL 1 MG CAPSULE PO (21:28)
[2024-09-15] VITALS (7 sets, daily range): BP systolic 129–175; BP diastolic 57–101; PULSE 71–92; RESP 12–18; TEMP 36.4–36.8; O2SAT 90–96
[2024-09-15 06:33] LABS: Hematocrit 41.7 % (37.0-53.0); Hemoglobin* 13.0 gm/dL (13.5-17.5); Immature Granulocytes Abs Auto 0.07 K/uL (0.00-0.30); Immature Granulocytes Pct Auto 1.0 %; Lymphocytes Absolute Auto 2.66 K/uL (0.90-2.90); Mean Corpuscular HGB Conc 31 gm/dL (32-36); Mean Corpuscular Hemoglobin 28 pg (26-34); Mean Corpuscular Volume 91 fL (80-100); RDW Coefficient of Variation % 12.4 % (11.5-15.5); Red Blood Count 4.61 m/uL (4.30-5.90); White Blood Count* 6.75 K/uL (4.50-11.00)
[2024-09-15 06:35] LABS: Slide Review Reflex No
[2024-09-15 06:56] LABS: Chloride* 104 mmol/L (96-114); Potassium* 4.6 mmol/L (3.6-5.1); Sodium* 140 mmol/L (135-149)
[2024-09-15 06:59] LABS: Anion Gap 6 mEq/L (7-15); Blood Urea Nitrogen* 41 mg/dL (7-30); Calcium* 9.1 mg/dL (8.4-10.6); Carbon Dioxide* 30 mmol/L (20-32); Creatinine* 1.1 mg/dL (0.5-1.5); Estimated Glomerular Filt Rate 78 ml/min; Glucose* 107 mg/dL (60-115)
--- NOTE | 2024-09-15 06:59 | PC.NURSE ---
End of shift note [id number]: Pt alert & oriented to person, place and time. He is transferring/ambulating with SBA using FWW and gait belt. Pt has been denying pain when asked throughout the shift. Pt has been on 1 LPM oxygen via NC throughout the shift in order to maintain O2 sats per order. Pt on tele with sinus arrhythmia with first degree AV block and BBB noted. He was noted to be diaphoretic twice this shift though no hypoglycemic or hyperglycemic noted when blood glucose assessed at times of diaphoresis- see blood glucose assessment values. Bed bath given due to odor and diaphoresis. VSS- pt has been afebrile. Pt has bilateral lymphedema wraps that are removed at HS and put on in AM. No new vision changes- pt has reported blurriness to L eye vision since before hospitalization. Bed alarm on and call light within reach.
[2024-09-15 07:28] LABS: Free T4 Free Thyroxine* 1.14 ng/dL (0.70-1.85)
[2024-09-15] MEDS: GABAPENTIN 600 MG TABLET 1200 MG PO ×3 (09:15→20:46)
[2024-09-15] MEDS: VENLAFAXINE ER 75 MG CAPSULE 300 MG PO (09:15)
[2024-09-15] MEDS: QUETIAPINE 25 MG TABLET PO ×3 (09:15→20:46)
[2024-09-15] MEDS: PROPRANOLOL 20 MG TABLET 10 MG PO ×2 (09:15→20:46)
[2024-09-15] MEDS: SODIUM CHLORIDE 0.9 % (FLUSH) 10 ML SYRINGE 5 ML IVF ×2 (09:16→20:47)
[2024-09-15] MEDS: ASPIRIN 81 MG TABLET EC PO (09:16)
[2024-09-15] MEDS: CLOPIDOGREL 75 MG TABLET PO (09:16)
--- NOTE | 2024-09-15 10:48 | PM.IMPN1 ---
Assessment and Plan Assessment and plan (1) Acute left hemiparesis: Problem comment: - 09/12/2024: acute lower extremity greater than upper extremity weakness in addition to sensory deficit, possibly started 1-3 days prior to presentation - likely secondary to new CVA, acute versus subacute - in ER, Dr. Marcial spoke with Dr. Hardy of stroke Neurology at [facility]: recommends admit, ASA 325/Plavix 300x 1 09/12; 09/13 start 81mg ASA and 75mg of Plavis - ordered: MRI, TTE, labs, therapy evaluations to assist with dispo - A1C 10.2, LDL 97. Atorvastatin increased to 40 mg q.h.s. given ICAD and CTA - he must continue to use his diabetic shoes when ambulating here in the hospital 09/15: MRI shows Small acute to subacute infarction within the ventral right medulla Speech for video swallow tomorrow morning, 09/16 Awaiting placement, [facility] assessing Status: Acute (2) Cerebrovascular disease: Problem comment: - 09/12/2024: CTA of head: 1. No intracranial large vessel occlusion or critical stenosis. 2. Moderately severe stenosis A3 segment right anterior cerebral artery. 3. Mild narrowing left M1 segment MCA. CTA neck: 1. 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 2. Patent dominant left vertebral artery. 3. Mild (less than 50%) narrowing of the right proximal ICA. Atorvastatin increased to 40 mg q.h.s. Status: Acute (3) Cerebellar infarct: Problem comment: - remote history of R cerebellar infarct, patient doesn't recall this, likely contributing to falls. See scanned 03/13/22-03/17/22 [facility] Discharge Sum Status: Chronic (4) History of traumatic brain injury: Problem comment: - Multiple head injuries and old stroke resulting in cognitive deficits Status: Chronic (5) Hypertension: Problem comment: - noted 09/12/24; as an outpatient, typically has age appropriate control. On Propranolol as an outpatient - per Neurology, allow permissive hypertension to goal BP <180/100 until 09/21/2024, then goal BP <130/80. PCP to follow and manage following discharge I do not see that lisinopril has yet been started. Continue to monitor Status: Chronic (6) Heart failure with preserved ejection fraction: Problem comment: - TTE 09/14 consistent with chronic HFpEF, no evidence of exacerbation - dilated ascending aorta is chronic/stable Final Impressions: 1. Normal LV size, mildly increased wall thickness, normal global systolic function with an estimated EF of 60 - 65%. 2. Right ventricular cavity size is mildly enlarged, global systolic RV function is normal. 3. Mildly enlarged left atrium. 4. The aortic valve is calcified (cannot rule out bicuspid valve, leaflets not well visualized), no stenosis and no regurgitation. 5. Dilated sinus of Valsalva, diameter of 4.2 cm. 6. Dilated ascending aorta, diameter of 4.6 cm. 7. Bubble study was technically challenging given limited acoustic windows but no obvious right to left shunt at rest or with Valsalva. 8. Echo contrast was administered to enhance visualization of all left ventricular segments. Status: Chronic (7) MICHA (obstructive sleep apnea): Problem comment: - 03/24/12 AHI=70. Untreated. - noted to have elevated CO2, will utilize caution with supplemental oxygen given risk for Co2 narcosis Outpatient follow-up Status: Chronic (8) Type 2 diabetes mellitus with hyperglycemia: Problem comment: - Poorly managed type 2 DM - A1C 10.2 09/12/24; continue 40mg HS Glargine and Aspart with meals + SSI Status: Chronic (9) Hyperlipidemia: Problem comment: - atorvastatin increased from 10 ->40mg on 09/13/24 Status: Acute (10) MARI (acute kidney injury): Problem comment: - 09/12: Creatinine 2.2 (baseline creatinine of 0.7-0.8) - 09/13: Creatinine 1.6 - 09/14: Creatinine 1.3 - 09/15: Creatinine 1.1 - continue to follow Status: Acute Total Time Spent Total Time Spent: Today I spent 75 minutes seeing the patient, reviewing Expanse and EPIC notes/diagnostics, discussing the care plan with our care time that includes social work, PT/OT, pharmacy, RT, fci and documenting my impressions and plan in the medical record. Subjective Date Seen: 09/15/24 Interval history: Patient is seen sitting up in a chair this morning. Speech and thought process are somewhat slowed. Denies headache or dizziness. Denies chest pain. Remains afebrile. When asked, patient reports coughing when eating warm/hot foods. Otherwise denies choking episodes. Awaiting SNF placement following acute CVA. Exam Narrative: Exam Narrative: PHYSICAL EXAM General: Pleasant, appears in NAD HEENT: Normocephalic, atraumatic, sclera white, EOMI, oral mucosa moist Cardiovascular: RRR, S1S2. No pitting edema Pulmonary: CTA bilaterally without rhonchi, rales, expiratory wheezes. No dyspnea on room air Neurological: Alert, slow response otherwise answering questions appropriately, decreased strength LUE/LLE compared to right. Slowed Extremities: No gross joint deformity or swelling. Neurovascularly intact Skin: Warm, dry. Const: Vital Signs, click to edit/add: Vital Signs - 24 hr 09/14/24 10:49 09/14/24 10:49 09/14/24 10:54 Temperature 98.4 F Pulse Rate Pulse Rate [Left P ulse Oximeter] 90 95 96 Respiratory Rate 18 18 Blood Pressure [Le ft Arm] 173/104 H 192/111 H Blood Pressure [Ri ght Arm] Pulse Oximetry 91 Oxygen Delivery Me thod Room Air Oxygen Flow Rate 09/14/24 11:36 09/14/24 14:43 09/14/24 15:00 Temperature Pulse Rate 85 Pulse Rate [Left P ulse Oximeter] 95 Respiratory Rate 18 Blood Pressure [Le ft Arm] 198/112 H Blood Pressure [Ri ght Arm] Pulse Oximetry Oxygen Delivery Me thod Oxygen Flow Rate 09/14/24 15:00 09/14/24 15:00 09/14/24 19:00 Temperature 98.4 F 97.6 F Pulse Rate Pulse Rate [Left P ulse Oximeter] 81 86 Respiratory Rate 18 18 16 Blood Pressure [Le ft Arm] 163/90 H 175/97 H Blood Pressure [Ri ght Arm] Pulse Oximetry 94 96 94 Oxygen Delivery Me thod Room Air Room Air Room Air Oxygen Flow Rate 1 09/14/24 22:42 09/14/24 22:44 09/14/24 22:50 Temperature Pulse Rate 80 Pulse Rate [Left P ulse Oximeter] 86 Respiratory Rate 16 Blood Pressure [Le ft Arm] Blood Pressure [Ri ght Arm] Pulse Oximetry 86 L Oxygen Delivery Me thod Room Air Oxygen Flow Rate 09/14/24 23:00 09/14/24 23:00 09/15/24 03:12 Temperature 97.5 F L 97.6 F Pulse Rate Pulse Rate [Left P ulse Oximeter] 81 71 Respiratory Rate 20 20 16 Blood Pressure [Le ft Arm] 154/86 H 142/90 H Blood Pressure [Ri ght Arm] Pulse Oximetry 94 94 96 Oxygen Delivery Me thod Nasal Cannula Nasal Cannula Nasal Cannula Oxygen Flow Rate 1 1 1 09/15/24 09:23 09/15/24 09:23 09/15/24 09:23 Temperature 97.5 F L Pulse Rate Pulse Rate [Left P ulse Oximeter] 92 92 Respiratory Rate 12 12 12 Blood Pressure [Le ft Arm] Blood Pressure [Ri ght Arm] 151/92 H Pulse Oximetry 90 90 Oxygen Delivery Me thod Room Air Room Air Oxygen Flow Rate 09/15/24 10:21 Temperature Pulse Rate 83 Pulse Rate [Left P ulse Oximeter] Respiratory Rate Blood Pressure [Le ft Arm] Blood Pressure [Ri ght Arm] Pulse Oximetry Oxygen Delivery Me thod Oxygen Flow Rate Labs Labs: Laboratory Results - last 24 hr 09/14/24 09/15/24 18:25 05:59 WBC 6.75 RBC 4.61 Hgb 13.0 L Hct 41.7 MCV 91 MCH 28 MCHC 31 L RDW Coeff of Radha 12.4 Plt Count 187 Neut % (Auto) 40.5 L Lymph % (Auto) 39.4 Morrison % (Auto) 12.6 H Eos % (Auto) 5.9 Baso % (Auto) 0.6 Neut # (Auto) 2.70 Lymph # (Auto) 2.66 Morrison # (Auto) 0.90 Eos # (Auto) 0.40 Baso # (Auto) 0.04 Abs Immat Gran (auto) 0.07 Imm/Tot Granulo (auto) 1.0 VBG pH 7.394 VBG pCO2 45 VBG pO2 74.7 H VBG HCO3 27 Sodium 136 140 Potassium 4.8 4.6 Chloride 101 104 Carbon Dioxide 27 30 Anion Gap 8 6 L BUN 43 H 41 H Creatinine 1.4 1.1 Estimated GFR 58 78 Glucose 280 H 107 Calcium 9.0 9.1 Free T4 1.14
[2024-09-15] MEDS: ACETAMINOPHEN 325 MG TABLET 650 MG PO (11:06)
[2024-09-15] MEDS: INSULIN ASPART 100 UNIT/ML SUBCUT ×3 (12:06→20:47)
--- NOTE | 2024-09-15 12:10 | NUTR.NU ---
RDN with MD consult for type 2 diabetes mellitus, hyperlipidemia, hypertension, stroke, and obesity. Patient admitted with a small acute to subacute infarction in the ventral right medulla and acute left hemiparesis. Medical history including, but not limited to cerebrovascular disease, cerebellar infarct, TBI, hypertension, heart failure, MICHA, depression, and hyperlipidemia. Hgb A1C 10.2% 09/12/24. Per documentation designer, patient is consuming 100% of most meals recorded since admission. Per weight history, no significant weight change noted at this time. Current weight 277lbs 09/15/24, 278lbs 04/29/24, 272lbs 03/06/24. RDN visited with patient and his Whitney via phone on this day. Patient has received outpatient diabetes education with RDN on 12/18/23 and 01/22/24. Patient's reports they know what they should be doing, but it is a matter of actually following a diabetic diet at home. Possible discharge to SNF for rehab following hospitalization. Patient and accepting of heart healthy consistent carbohydrate nutrition therapy at this time. Heart healthy and diabetic diet education provided. Reviewed the basics of carbohydrate counting including carbohydrates, serving sizes, and label reading. Discussed using the plate method for carbohydrate controlled, Mediterranean-style diet, and balanced meals that include ? plate non-starchy vegetables, ? plate healthy protein (fish, poultry, nuts/seeds), and 3-4 servings of carbohydrates per meal (fruit, whole grains, legumes, milk, yogurt) and 1-2 per snack. Discussed limiting saturated fat and sodium intake. Handouts provided to support discussion. RDN contact information provided and encouraged patient and his to call with questions. RDN to follow up as needed.
--- NOTE | 2024-09-15 15:56 | PC.SOCIAL ---
Discharge planning: KIRSTY secure emailed Madalyn at [facility] to see if there are any updates around referral for patient. Madalyn responded with acceptance and information regarding copays - $214 per day after day 20 until OOP max is met. KIRSTY informed patient of this who states that SW should talk with as he feels he can't make decisions right now. SW contacted patient's and informed her of acceptance and copays. Patient's had questions for Madalyn about the 20 days. SW explained that she will contact Madalyn and have her reach out so those questions could be answered. SW informed Madalyn that the family has questions and provided the 's information to her. SW was informed by Madalyn that the patient and family accept. SW provided PAS number to Madalyn after calling the [facility] to update with where the patient will be discharging to. SW spoke with patient's to arrange transportation. SW spoke with the about other resources as had some financial concerns, however, didn't want any support with this at this time. SW inquired about any community services or waiver programs the patient is on. states he isn't on any, but expressed interest in learning more. SW discussed Brain Injury waivers and that they could be something to look into, however, patient would need to be eligible for MA. SW also discussed the Disability [facility] as a resource. SW asked if she would like these printed or emailed to her. asked for them to be printed. SW printed these and left them in patient's room. SW discussed transportation with and she states that she can transport him. states she can transport at 1:00 PM. had no additional questions at this time. KIRSTY informed Madalyn at [facility] of discharge time. SW to send Madalyn discharge orders and summary in the morning.
--- NOTE | 2024-09-15 19:45 | PC.NURSE ---
Addendum entered by Jaqueline Lorenzana RN 09/15/24 19:53: Tele=A/fib with first degree HB. Blood sugars were 111,237,178. Original Note: End of Shift: Patient pleasant and cooperative, alert and oriented x3. Patient vitally stable, lungs clear, BS WNL, IV SL and intact. Patient given tylenol once for back discomfort. Patient sba w/walker. Patient tolerating regular diet, and urinating well, and has had multiple BMs.
[2024-09-15] MEDS: ATORVASTATIN CALCIUM 40 MG TABLET PO (20:46)
[2024-09-15] MEDS: DIVALPROEX SODIUM ER TAB 250 MG 1500 MG PO (20:46)
[2024-09-15] MEDS: TRAZODONE HCL 50 MG TABLET PO (20:46)
[2024-09-15] MEDS: PRAZOSIN HCL 1 MG CAPSULE PO (20:47)
[2024-09-16 00:56] VITALS: PULSE 78
[2024-09-16 02:15] VITALS: BP 98/69; PULSE 80; RESP 18; TEMP 36.7; O2SAT 92
--- NOTE | 2024-09-16 05:24 | PC.NURSE ---
Pt alert and oriented x3. Afebrile. VSS. Pt is up SBA with walker and gait belt, voiding and tolerating a therapeutic diet. Night uneventful. ?
[2024-09-16 08:24] VITALS: PULSE 92
[2024-09-16 08:34] VITALS: BP 193/118; PULSE 93; RESP 20; TEMP 36.4; O2SAT 95
[2024-09-16] MEDS: CLOPIDOGREL 75 MG TABLET PO (08:48)
[2024-09-16] MEDS: PROPRANOLOL 20 MG TABLET 10 MG PO (08:48)
[2024-09-16] MEDS: ASPIRIN 81 MG TABLET EC PO (08:48)
[2024-09-16] MEDS: GABAPENTIN 600 MG TABLET 1200 MG PO (08:48)
[2024-09-16] MEDS: VENLAFAXINE ER 75 MG CAPSULE 300 MG PO (08:48)
[2024-09-16] MEDS: QUETIAPINE 25 MG TABLET PO (08:48)
--- NOTE | 2024-09-16 11:15 | CRLHL7_ITS ---
For Patients: As a result of the 21st Century Cures Act, medical imaging exams and procedure reports are released immediately into your electronic medical record. You may view this report before your referring provider. If you have questions, please contact your health care provider. INDICATION: Brainstem stroke TECHNIQUE: Modified barium swallow. Fluoroscopic time 2 minutes. FINDINGS/IMPRESSION: Spontaneous aspiration occurred with thin barium at the beginning of the examination with associated cough reflex. With head flexion maneuver, thicker consistencies of barium were tolerated better without additional aspiration. Some decreased clearance of barium from the vallecula and piriform sinuses. Dictated by Eran Wilhelm MD @ 09/16/2024 11:43:17 AM (Electronically Signed)
--- NOTE | 2024-09-16 11:24 | PM.DS1 ---
DS: Providers Provider Date Seen: 09/16/24 Date of admission: 09/12/24 20:52 Primary care physician: Karthik Sanz MD Admitting Clinician: Nitin Steen MD Consults: 09/12/24 20:52 Consult to Nutrition [CONS] Routine Comment: Reason for consult:: Miscellaneous Comment: DM type ii, HTN, HLD, stroke, obesity Consult to Physical Therapy [CONS] Routine Comment: Reason(s) for PT Consult:: Evaluate and Treat Any Restrictions?:: No Restrictions Consult to Meeting Planner [CONS] Routine Comment: Reason for Consult:: Discharge Planning Needs Consult to Speech Therapy [CONS] Routine Comment: Reason(s) for Speech Consult:: Speech/Swallowing Eval 09/12/24 20:55 Consult to Occupational Therapy [CONS] Routine Comment: Reason(s) for OT Consult:: Evaluate and Treat Any Restrictions?:: No Restrictions Attending Physician on discharge: JORGE Heard, [facility] Date of Discharge: 09/16/24 DS: Diagnosis Discharge Diagnosis (1) Acute left hemiparesis: Status: Acute Problem details: - 09/12/2024: acute lower extremity greater than upper extremity weakness in addition to sensory deficit, possibly started 1-3 days prior to presentation - likely secondary to new CVA, acute versus subacute - in ER, Dr. Marcial spoke with Dr. Hardy of stroke Neurology at [facility]: recommends admit, ASA 325/Plavix 300x 1 09/12; 09/13 start 81mg ASA and 75mg of Plavis - ordered: MRI, TTE, labs, therapy evaluations to assist with dispo - A1C 10.2, LDL 97. Atorvastatin increased to 40 mg q.h.s. given ICAD and CTA - he must continue to use his diabetic shoes when ambulating here in the hospital Patient is discharged to [facility] to continue therapies following CVA. (2) CVA (cerebral vascular accident): Status: Acute Problem details: MRI shows Small acute to subacute infarction within the ventral right medulla As above Patient is discharged to [facility] to continue therapies following CVA. Atorvastatin increased to 40 mg q.h.s.. Continue aspirin 81 mg daily. Plavix 75 mg for a total of 90 days. Outpatient follow-up neurology stroke clinic (3) Cerebrovascular disease: Status: Acute Problem details: - 09/12/2024: CTA of head: 1. No intracranial large vessel occlusion or critical stenosis. 2. Moderately severe stenosis A3 segment right anterior cerebral artery. 3. Mild narrowing left M1 segment MCA. CTA neck: 1. 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 2. Patent dominant left vertebral artery. 3. Mild (less than 50%) narrowing of the right proximal ICA. Atorvastatin increased to 40 mg q.h.s.. Continue aspirin 81 mg daily. Plavix 75 mg for a total of 90 days. (4) Cerebellar infarct: Status: Chronic Problem details: - remote history of R cerebellar infarct, patient doesn't recall this, likely contributing to falls. See scanned 03/13/22-03/17/22 [facility] Discharge Sum (5) History of traumatic brain injury: Status: Chronic Problem details: - Multiple head injuries and old stroke resulting in cognitive deficits (6) Hypertension: Status: Chronic Problem details: - noted 09/12/24; as an outpatient, typically has age appropriate control. On Propranolol as an outpatient - per Neurology, allow permissive hypertension to goal BP <180/100 until 09/21/2024, then goal BP <130/80. Continue home medications on discharge. Lisinopril has been added. Monitor and adjust as necessary. (7) Heart failure with preserved ejection fraction: Status: Chronic Problem details: - TTE 09/14 consistent with chronic HFpEF, no evidence of exacerbation - dilated ascending aorta is chronic/stable Final Impressions: 1. Normal LV size, mildly increased wall thickness, normal global systolic function with an estimated EF of 60 - 65%. 2. Right ventricular cavity size is mildly enlarged, global systolic RV function is normal. 3. Mildly enlarged left atrium. 4. The aortic valve is calcified (cannot rule out bicuspid valve, leaflets not well visualized), no stenosis and no regurgitation. 5. Dilated sinus of Valsalva, diameter of 4.2 cm. 6. Dilated ascending aorta, diameter of 4.6 cm. 7. Bubble study was technically challenging given limited acoustic windows but no obvious right to left shunt at rest or with Valsalva. 8. Echo contrast was administered to enhance visualization of all left ventricular segments. (8) MICHA (obstructive sleep apnea): Status: Chronic Problem details: - 03/24/12 AHI=70. Untreated. - noted to have elevated CO2, will utilize caution with supplemental oxygen given risk for Co2 narcosis Outpatient follow-up (9) Type 2 diabetes mellitus with hyperglycemia: Status: Chronic Problem details: - Poorly managed type 2 DM - A1C 10.2 09/12/24; continue 40mg HS Glargine and Aspart with meals + SSI Outpatient management with PCP (10) Hyperlipidemia: Status: Acute Problem details: - atorvastatin increased from 10 ->40mg on 09/13/24 (11) MARI (acute kidney injury): Status: Acute Problem details: - 09/12: Creatinine 2.2 (baseline creatinine of 0.7-0.8) - 09/13: Creatinine 1.6 - 09/14: Creatinine 1.3 - 09/15: Creatinine 1.1 DS: Summary Hospital Course Hospital Course: Course of care and details as noted above. Patient is discharged to [facility] to continue therapies. Medication changes as above. Outpatient follow-up with Neurology Stroke Clinic to follow Status at Discharge Overall status at discharge: patient is progressing back to baseline Time Spent with Patient Time attestation: Total time spent providing and/or coordinating discharge services: Time spent: Greater than 30 minutes Exam Narrative: Exam Narrative: PHYSICAL EXAM General: Appears brighter this morning, NAD Cardiovascular: RRR Pulmonary: No dyspnea Neurological: Alert, answering questions appropriately, speech not quite as slow this morning. Left-sided deficits noted Skin: Warm, dry. Const: Vital Signs, click to edit/add: Vital Signs - 24 hr 09/15/24 16:23 09/15/24 16:23 09/15/24 16:23 Temperature 98 F Pulse Rate Pulse Rate [Left P ulse Oximeter] 81 81 Pulse Rate [Left R adial] Respiratory Rate 14 14 14 Blood Pressure [Le ft Arm] Blood Pressure [Ri ght Arm] 167/100 H Pulse Oximetry 90 90 Oxygen Delivery Me thod Room Air Room Air 09/15/24 19:44 09/15/24 23:15 09/15/24 23:15 Temperature 98.3 F Pulse Rate Pulse Rate [Left P ulse Oximeter] 85 78 Pulse Rate [Left R adial] 78 Respiratory Rate 16 18 Blood Pressure [Le ft Arm] Blood Pressure [Ri ght Arm] 175/101 H Pulse Oximetry 94 93 Oxygen Delivery Me thod Room Air Room Air 09/15/24 23:15 09/16/24 00:56 09/16/24 02:15 Temperature 97.6 F 98.0 F Pulse Rate 78 Pulse Rate [Left P ulse Oximeter] 78 80 Pulse Rate [Left R adial] 78 80 Respiratory Rate 18 18 Blood Pressure [Le ft Arm] 129/85 98/69 Blood Pressure [Ri ght Arm] Pulse Oximetry 93 92 Oxygen Delivery Me thod Room Air Room Air 09/16/24 08:24 09/16/24 08:34 09/16/24 08:34 Temperature 97.5 F L Pulse Rate 92 Pulse Rate [Left P ulse Oximeter] Pulse Rate [Left R adial] 93 Respiratory Rate 20 20 Blood Pressure [Le ft Arm] Blood Pressure [Ri ght Arm] 193/118 H Pulse Oximetry 95 95 Oxygen Delivery Me thod Room Air Room Air Discharge Plan Discharge Disposition: Xfer [facility] Discharge Location: [facility] Date of Admission: 09/12/24 20:52 Attending Provider on Discharge: Teena Reagan Primary Care Provider: Karthik Sanz Condition: Stable Anticipated Discharge Date/Time: 09/16/24 11:02 Discharge Medications: New atorvastatin 40 mg Tablet 40 mg PO HS Qty: 30 0RF clopidogrel 75 mg Tablet 75 mg PO DAILY 86 Days Qty: 86 0RF lisinopril 10 mg tablet 10 mg PO DAILY Qty: 30 0RF Continued lidocaine [Lidocaine Pain Relief] 4 % adhesive patch,medicated 1 patch topical DAILY PRN gabapentin 600 mg tablet 1,200 mg PO TID Qty: 180 3RF acetaminophen 500 mg tablet 500 - 1,000 mg PO Q6H PRN (Reason: pain) Qty: 100 0RF (DME) FreeStyle Luis 2 Sensor Kit See Rx Instructions .Route Qty: 10 5RF Rx Instructions: As directed insulin aspart U-100 [Novolog FlexPen U-100 Insulin] 100 unit/mL (3 mL) insulin pen 15 unit subcut TIDWM Qty: 45 2RF Patient Comments: 25units am, 20 units noon, 35 units pm insulin glargine [Lantus Solostar U-100 Insulin] 100 unit/mL (3 mL) insulin pen 40 unit subcut DAILY Qty: 45 2RF (DME) pen needle, diabetic [Pen Needle] 32 gauge x 5/32 needle See Rx Instructions .Route Qty: 100 3RF Rx Instructions: Patient to use with insulin pen- QID Issue with 8mm needle w/32 gauge venlafaxine 75 mg capsule,extended release 24hr 300 mg PO DAILY Qty: 360 1RF aspirin 81 mg tablet,delayed release (DR/EC) 81 mg PO BID Qty: 60 3RF propranolol 10 mg tablet 10 mg PO BID Qty: 180 1RF quetiapine 25 mg tablet 25 mg PO TID Qty: 120 2RF prazosin 1 mg capsule 1 mg PO HS Qty: 90 0RF trazodone 50 mg tablet 50 mg PO QHS Qty: 90 0RF divalproex [Depakote ER] 500 mg tablet extended release 24 hr 1,500 mg PO DAILY Qty: 90 0RF Discontinued atorvastatin 10 mg tablet 10 mg PO HS Qty: 90 2RF Discharge Orders: Discharge Order (Routine); Ordered 09/16/24 Ordered By: Teena Reagan Additional Instructions: New medications as above Activity Level: No Restrictions and Activity as Tolerated Activity Detail: per PT/OT Discharge Diet: Diabetic Diet Detail: TECHNOLOGY ADOPTION MANAGER to fax over final recommendations Dysphagia Food: Level 4- Pureed Dysphagia Liquid: Level 3- Moderately Thick (Honey) Follow Up Appointments: Karthik Sanz MD [Primary Care Provider, Internal Medicine] Forms: [facility] Info Instructions Admit to: SNF Discharge Potential: Good Length of Stay: <30 days Can use facility standing orders?: Yes Code Status: Full Code TEDs: N/A Rehab Potential: Good Therapy: Physical Therapy, Occupational Therapy and Speech Therapy Therapy Orders: Evaluate and Treat Oxygen: No Urinary Catheter: No Orders are good >30 days: No Signature: JORGE Heard, PA-C [facility]
[2024-09-16] MEDS: INSULIN ASPART 100 UNIT/ML SUBCUT (11:50)
--- NOTE | 2024-09-16 13:29 | PC.SOCIAL ---
Discharge planning: SW reviewed Important Medicare Rights with patient and provided patient with this form. Patient had no questions about this. Patient reports that he is feeling nervous about going to [facility]. SW validated patient's feelings and assisted patient in processing these. Patient inquired about being able to leave on 10/03 to go to his step-mom's celebration of life. KIRSTY informed that this question needs to be asked to the staff at [facility] as SW does not know their policy around leaving and coming back. Patient's came to transport and had questions about where to go at [facility], SW explained where they should go. Patient and had no further questions. KIRSTY secure emailed Madalyn at [facility] the orders and discharge summary. KIRSTY updated Madalyn that patient's lunch was arriving late and that he would arrive around 130/140.
--- NOTE | 2024-09-16 13:52 | PC.NURSE ---
Pt. transferred to [facility]. [id number] report given to Nurse Yanique at [facility].
== END 2024-09-16 13:50 | DRG 64 ==
LOC: ED 19:53 → MEDSURG 20:14
PROVIDERS: Family Medicine; Admitting Provider Internal Medicine; Emergency Provider Emergency Medicine Emergency Medical Services; PCP Internal Medicine; Visit Provider Internal Medicine
DX: I63.521 Cerebral infarction due to unspecified occlusion or stenosis of right anterior cerebral artery (principal); I63.211 Cerebral infarction due to unspecified occlusion or stenosis of right vertebral artery; G81.94 Hemiplegia, unspecified affecting left nondominant side; I50.32 Chronic diastolic (congestive) heart failure; N17.9 Acute kidney failure, unspecified; I11.0 Hypertensive heart disease with heart failure; E11.65 Type 2 diabetes mellitus with hyperglycemia; E11.42 Type 2 diabetes mellitus with diabetic polyneuropathy; Z87.820 Personal history of traumatic brain injury; G47.33 Obstructive sleep apnea (adult) (pediatric); Z79.4 Long term (current) use of insulin; I25.10 Atherosclerotic heart disease of native coronary artery without angina pectoris; E78.5 Hyperlipidemia, unspecified; Z87.891 Personal history of nicotine dependence; Z91.81 History of falling
CPT/HCPCS: 36415; 70450; 70496; 70498; 70551; 74230; 80048; 80061; 82803; 82962; 83036; 83605; 83735; 83880; 84100; 84439; 84443; 84484; 85025; 85027; 86140; 92611; 93005; 93306; 96374; 97112; 97116; 97162; 97165; 97530; 97535; 99284; 99285; G0426; A9270; J1610; J1815; J7030; Q9957; Q9967

== ENCOUNTER 2024-09-19 22:10 | Outpatient (CLI) | payer OTHER, SELFPAY | END 2024-09-19 22:11 | disposition home or self-care (01) | LOC: AMB 09-21 16:00 | PROVIDERS: PCP Internal Medicine; Visit Provider Emergency Medicine Emergency Medical Services | DX: R03.0 Elevated blood-pressure reading, without diagnosis of hypertension (principal) | CPT/HCPCS: A0425; A0429 ==

== ENCOUNTER 2024-09-19 22:20 | Emergency (ER) | payer OTHER, SELFPAY ==
--- OUTSIDE RECORDS SUMMARY | 2009-02-27 19:00 | XMS_ITS | Continuity of Care Document ---
Author Organization DARRELL Rowley Address [address] [facility] [address] [place] [address] Phone Care Team Providers Care Biological Sciences Instructor Name Role Phone Elizabeth Peterson CNP Unavailable [...] Offic/outpt E&m Estab Low-mod DARRELL Rowley, [address] [facility] [address], [place], [place], [address], tel:[phone] [facility] No Information [address] [facility], [address], [place], [place], [address], [place]. tel:[phone] Referring Provider: Reggie Geiger MD J, [address] [facility], [place], [address]. tel:[phone] Offic/outpt E&m Estab Low-mod DARRELL Rowley, [address] [facility] [address], [place], [place], [address], [place] tel:[phone] [facility] No Information 9200 9 Budnick Elizabeth. [address] , [address], [place], [place], [address], [place]. tel:[phone] Referring Provider: Reggie Rock, [address] [place], [address]. tel:[phone] Offic/outpt E&m Estab Mod-hi 2 Amrik, [facility], [address], [place], [place], [address], [place] tel:[phone] [facility] No Information 9 Budnick Elizabeth. [address], [place], [place], [address], [place]. tel:[phone] Referring Provider: Reggie Rock, [address] [place], [address]. tel:[phone] Offic/outpt E&m Estab Low-mod Amrik, [facility], [address] [facility] [address], [place], [address], [place] tel:[phone] [facility] No Information 9 Juanjo Paredes. [address], [place], [address], [place]. tel:[phone] Referring Provider: REFERRAL SELF, ISRAEL. Offic/outpt E&m Estab Low-mod Amrik, [facility], [address] [facility], [place], [place], [address], [place] tel:[phone] [facility] No Information 9 Juanjo Paredes. [address], [place], [address], [place]. tel:[phone] Referring Provider: REFERRAL SELF, ISRA[place]. [facility], [address] [facility] [address], [place], [address], [place] tel:[phone] [facility] No Information 9 Juanjo LOZA Reggie. [address], [place], [place], [facility], [place]. [phone] Referring Provider: REFERRAL SELF, ISRAEL. Offic/outpt E&m Estab Mod-hi 2 [facility], [facility], [address] [facility] [address], [place], [place], [address], tel:[phone] [facility] No Information 9 Juanjo LOZA Reggie. [address], [place], [place], [facility], [place]. tel:[phone] Referring Provider: REFERRAL SELFISRAEL. Offic Cons New/estab Mod-hi 60 Amrik, [facility], [address] [facility] [address], [place], [place], [address], tel:[phone] [facility] No Information 9 Tor Vega [facility]. [address] [place], [place], [facility], . Family History Family Member Type Diagnosis Age At Onset No Information Payers Payer name Insurance type Covered democrat ID Authoriza tion(s) No Information Social History [...]
--- OUTSIDE RECORDS SUMMARY | 2009-02-27 19:00 | XMS_ITS | Continuity of Care Document ---
Author Organization [facility] Address [address] [place] [address] Phone Care Team Providers Care Head Trimmer Name Role Phone Elizabeth Peterson CNP Unavailable [...] Offic/outpt E&m Estab Low-mod [facility], [address], [place], [place], [id number], tel:[phone] [facility] No Information 9 Kristen Johnson. [address], [address], [place], [place], [id number], [place]. tel:[phone] Referring Provider: Reggie Geiger MD J, [address] [facility], [place], [address]. tel:[phone] Offic/outpt E&m Estab Low-mod [facility], [address], [place], [place], [id number], [place] tel:[phone] [facility] No Information 9200 9 Budnick Elizabeth. [address] , [address], [place], [place], [id number], [place]. tel:[phone] Referring Provider: Reggie Rock, [address] [place], [address]. tel:[phone] Offic/outpt E&m Estab Mod-hi 2 Amrik, [facility], [address], [place], [place], [id number], [place] tel:[phone] [facility] No Information 9 Budnick Elizabeth. [address] , [address], [place], [place], [id number], [place]. tel:[phone] Referring Provider: Reggie Rock, [address] [place], [address]. tel:[phone] Offic/outpt E&m Estab Low-mod Amrik, [facility], [address] [facility] [address], [place], [id number], [place] tel:[phone] [facility] No Information 9 Juanjo Paredes. [address], [place], [address], [place]. tel:[phone] Referring Provider: REFERRAL SELF, [place]. Offic/outpt E&m Estab Low-mod Amrik, [facility], [address] [facility] [address], [place], [place], [id number], [place] tel:[phone] [facility] No Information 9 Juanjo Paredes. [address], [place], [address], [place]. tel:[phone] Referring Provider: REFERRAL SELF, [place]. [facility], [address] [facility] [address], [place], [id number], [place] tel:[phone] [facility] No Information 9 Juanjo LOZA Reggie. [address], [place], [place], [facility], [place]. [phone] Referring Provider: REFERRAL SELF, [place]. Offic/outpt E&m Estab Mod-hi 2 [facility], [facility], [address], [place], [place], [id number], tel:[phone] [facility] No Information 9 Juanjo LOZA Reggie. [address], [place], [place], [facility], [place]. tel:[phone] Referring Provider: REFERRAL SELFISRAEL. Offic Cons New/estab Mod-hi 60 Amrik, [facility], [address], [place], [place], [id number], tel:[phone] [facility] No Information 9 [facility]. [address] [place], [place], [facility], . Family History Family Member [...]
[2024-09-19] VITALS (14 sets, daily range): BP systolic 93–156; BP diastolic 64–97; PULSE 72–75; RESP 14; TEMP 36.1; O2SAT 73–98; BMI 38.8
--- OUTSIDE RECORDS SUMMARY | 2024-09-19 22:23 | XMS_ITS | Clinical Summary ---
Author Organization [facility] Address [address] [place] [address] Care Team Providers Care Dip Guider Stoves Name Role Phone Royce Weiner Primary Care Provider [phone] Allergies Active Allergy Reactions Criticality Noted Date Comments Amoxicillin 09/29/2019 Celecoxib 09/29/2019 Penicillins Anaphylaxis High 09/29/2019 TOLERATED MEROPENEM Medications venlafaxine (EFFEXOR XR) 75 MG 24 hr capsule Take 4 capsules by mouth daily 01/27/20 22 Active gabapentin (NEURONTIN) 600 MG tablet Take 1,200 mg by mouth 3 times daily 01/27/20 22 Active Continuous Blood Gluc Sensor (Initiate SystemsSTYLE WILFRED 2 SENSOR) MISCIndications:H yperglycemia,Type 2 diabetes mellitus with diabetic polyneuropathy, with long-term current use of insulin (H) 1 each every 14 days Use 1 sensor every 14 days. Use to read blood sugars per flower planter's instructions. 2 each 5 03/17/20 22 Active [...] Comments Blood Pressure 166/95 03/17/2022 7:29 AM RESEARCH ANIMAL ATTENDANT Pulse 88 03/17/2022 7:28 AM RESEARCH ANIMAL ATTENDANT Temperature 36.8 C (98.3 F) 03/17/2022 7:28 AM RESEARCH ANIMAL ATTENDANT Respiratory Rate 20 03/17/2022 7:28 AM RESEARCH ANIMAL ATTENDANT Oxygen Saturation 94% 03/17/2022 9:36 AM RESEARCH ANIMAL ATTENDANT Inhaled Oxygen Concentration - - Weight 125.5 kg (276 lb 9.6 oz) 03/17/2022 5:12 AM RESEARCH ANIMAL ATTENDANT Height 180.3 cm (5' 11) 03/14/2022 9:55 AM RESEARCH ANIMAL ATTENDANT Body Mass Index 38.58 03/14/2022 9:55 AM RESEARCH ANIMAL ATTENDANT Plan of Treatment Health Maintenance Due Date [...] BASIC METABOLIC PANEL Routine 03/15/2022 7:49 AM RESEARCH ANIMAL ATTENDANT LIPID REFLEX TO DIRECT LDL PANEL Add-On 03/14/2022 7:51 AM RESEARCH ANIMAL ATTENDANT HEMOGLOBIN A1C Add-On 03/13/2022 2:49 PM RESEARCH ANIMAL ATTENDANT from Last 3 Months or Most Recently Relevant to Health Maintenance Results * (ABNORMAL) Basic metabolic panel (03/15/2022 7:49 AM RESEARCH ANIMAL ATTENDANT) Sodium 137 136 - 145 mmol/L 03/15/2022 8:38 AM [facility] Potassium 4.6 3.4 - 5.3 mmol/L 03/15/2022 8:38 AM [facility] Comment:Specimen slightly he molyzed, potassium may be falsely elevated. Chloride 100 98 - 107 mmol/L 03/15/2022 8:38 AM [facility] Carbon Dioxide (CO2) 27 22 - 29 mmol/L 03/15/2022 8:38 AM [facility] Anion Gap 10 7 - 15 mmol/L 03/15/2022 8:38 AM [facility] Urea Nitrogen 14.0 6.0 - 20.0 mg/dL 03/15/2022 8:38 AM [facility] Creatinine 0.55(L) 0.67 - 1.17 mg/dL 03/15/2022 8:38 AM [facility] Calcium 9.5 8.6 - 10.0 mg/dL 03/15/2022 8:38 AM [facility] Glucose 103(H) 70 - 99 mg/dL 03/15/2022 8:38 AM [facility] GFR Estimate >90 >60 mL/min/1.7 3m2 03/15/2022 8:38 AM [facility] Comment:Effective February 162020 eGFRcr in adults is calculated using the 2020 CKD-EPI creatinine equation which includes age and gender (Bridgett et al., NEJ, DOI: 10.1056/BROJic2859911) Blood STRUCTURE OF RIGHT UPPER LIMB / Unknown Venipuncture / Unknown 03/15/2022 7:49 AM RESEARCH ANIMAL ATTENDANT 03/15/2022 8:04 AM RESEARCH ANIMAL ATTENDANT us Axel Calderón MD LAB - BLOOD ORDERABLES Final Re sult LABORATORY [facility] Acute Care Lab [address] Lab (1st floor, no room number) [place] [address], [facility] [phone] * (ABNORMAL) Lipid panel reflex to direct LDL (03/14/2022 7:51 AM RESEARCH ANIMAL ATTENDANT) Cholesterol 184 <200 mg/dL 03/14/2022 1:46 PM RESEARCH ANIMAL ATTENDANT [facility] Triglycerides 331(H) <150 mg/dL 03/14/2022 1:46 PM RESEARCH ANIMAL ATTENDANT [facility] Direct Measure HDL 28(L) >=40 mg/dL 03/14/2022 1:46 PM RESEARCH ANIMAL ATTENDANT [facility] LDL Cholesterol Calculated 90 <=100 mg/dL 03/14/2022 1:46 PM RESEARCH ANIMAL ATTENDANT [facility] Non HDL Cholesterol 156(H) <130 mg/dL 03/14/2022 1:46 PM RESEARCH ANIMAL ATTENDANT [facility] Blood STRUCTURE OF RIGHT UPPER LIMB / Unknown Venipuncture / Unknown 03/14/2022 7:51 AM RESEARCH ANIMAL ATTENDANT 03/14/2022 8:00 AM RESEARCH ANIMAL ATTENDANT Narrative [facility] - 03/14/2022 1:46 PM RESEARCH ANIMAL ATTENDANT Cholesterol Desirable: <200 mg/dL Triglycerides Normal: Less [...] BLOOD ORDERABLES Final R esult [facility] [address] [facility] [place] [address], [facility] [phone] * (ABNORMAL) Hemoglobin A1c (03/13/2022 2:49 PM RESEARCH ANIMAL ATTENDANT) Hemoglobin A1C 14.4(H) <5.7 % 03/13/2022 7:14 PM RESEARCH ANIMAL ATTENDANT [facility] Comment: Normal <5.7% Prediabetes 5.7-6.4% Diabetes 6.5% or higher Note: Adopted from ADA consensus guidelines. Blood BLOOD SPECIMEN / Unknown Venipuncture / Unknown 03/13/2022 2:49 PM RESEARCH ANIMAL ATTENDANT 03/13/2022 3:06 PM RESEARCH ANIMAL ATTENDANT us Parish Rios MD LAB - BLOOD ORDERABLES Final Res ult [facility] Acute Care Lab [address] [facility] Lab (1st floor, no room number) [place] [address], [facility] [phone] from Last 3 Months or Most Recently Relevant to Health Maintenance [facility] OTHER Advance Directives For more information, please contact: [phone] * Full Code (Latest Code Status on File) Date Activated Date Inactivated Comments 03/13/2022 9:46 PM 03/17/2022 6:08 PM All basic and advanced life-sustaining interventions are performed as appropriate Question Answer Comments Code status determined by: Discussion with leobardo nt/ legal decision maker Care Teams Dip Guider Stoves Relationship Specialty Start Date End Date Royce Weiner [address] [place] [address] PCP - General 05/26/20
--- OUTSIDE RECORDS SUMMARY | 2024-09-19 22:23 | XMS_ITS | Clinical Summary ---
Author Organization [facility] [email or web address] Address [address] [place] [address] Care Team Providers Care Power Hair Clipper Name Role Phone Karthik Sanz MD Primary Care Provider [phone] Allergies Active Allergy Reactions Criticality Noted Date [...] Encounters Date Type Department Care Team Description 09/15/2024 Office Visit [facility] [address] [facility] [facility] [address] [place] [address] Deion Man MD Telehealth ([place] [facility] - Telestroke) 09/13/2024 10:00 AM CDT Ancillary Procedure Sealy Heart Isaban at [facility] [address] [place] [address] 09/13/2024 Office Visit [facility] [address] [facility] [address] [address] [place] [address] Kendrick Calvin MD 09/13/2024 Travel 09/12/2024 Office Visit [facility] [address] [facility] [address] [place] [address] Stefany Ojeda MD Telehealth ([facility] - telephone consultation only - no video) 07/23/2024 Telephone [facility] [address] [place] [address] Royce Weiner MD Follow Up 07/21/2024 Refill [facility] [address] [place] [address] Royce Weiner MD Refill Request (Gabapentin) from Last 3 Months Immunizations Immunization Administration Dates Next Due AMB Influenza, IIV4 PF (=>6 mos Flulaval,Fluzone Fluarix)(Flu Clinic Only) 12/12/2018 COVID-19 vaccine (AddIn Social NT2Peer (Qlipso) 30mcg/0.3mL) 12YO+ BIVALENT PF, MDV 01/26/2022 Hepatitis [...] on file Legal Sex Male 6:13 AM CONSULTING IT ARCHITECT Gender Identity Not on file Sexual Orientation [...] 09/07/2023, 09/06/2023, Additional history exists Influenza Vaccine (#1) 2024 , 02/08/2021, 12/12/2018, Additional history exists Lipids for age 45-75 09/06/2028 09/07/2023, 01/22/2018, 01/22/2018, Additional history exists Tetanus booster 09/04/2033 09/05/2023, 11/2015, 01/23/2005 Hepatitis B series for 19+ Completed 01/29, 11/30/2016, 11/25/2015 Procedures Procedure Name Priority Date/Time Associated [...] 09/13/2024 12:34 PM CDT ECHOCARDIOGRAM JONATHAN MICHEL : 1965 59 years Study Date: 09/13/2024 9:52:08 AM Gender: M BP: 146/84 mmHg Height: 180.00 cm BSA: 2.43 m Weight: 127.00 kg Tech: MTS Referring MD: THOMAS STEEN Site: [facility] Reading Location: MOBILE IP [...] documentation: 4 ml diluted Definity, lot #[id number], [facility]# [id number] was administered peripherally to enhance visualization of all left ventricular segments. . This study was interpreted by an [facility] accredited facility. CC: HIM (med records) [facility], Med/Surg - IP [facility]. Final Procedure Note Vasiliy Encarnacion MD - 09/13/2024 ECHOCARDIOGRAM JONATHAN MICHEL . : 1965 59 years Study Date: 09/13/2024 9:52:08 AM Gender: M BP: 146/84 mmHg Height: 180.00 cm BSA: 2.43 m Weight: 127.00 kg Tech: [facility] Referring MD: THOMAS STEEN Site: [facility] Reading Location: MOBILE IP [...] documentation: 4 ml diluted Definity, lot #[id number], [facility]#[id number] was administered peripherally to enhance visualization of allleft ventricular segments. . This study was interpreted by an [facility] accredited facility. CC: HIM (med records) [facility] Final us Thomas Steen MD ECHO ORD Final Resu lt * (ABNORMAL) LIPID PANEL (09/07/2023 7:01 AM CDT) CHOLESTEROL,TOTAL 225(H) 100 - 199 mg/dL 09/07/2023 7:39 AM T [facility] Comment: Cholesterol, Total Reference Ranges Desirable <200 mg/dL Borderline 200-239 mg/dL High >=240 mg/dL TRIGLYCERIDES 212(H) <150 mg/dL 09/07/2023 7:39 AM CDT [facility] TR[facility] HDL CHOLESTEROL 37(L) >40 mg/dL 7:39 AM T [facility] NON-HDL CHOLESTEROL 188(H) <145 mg/dl 09/07/2023 7:39 AM T [facility] CHOL/HDL RATIO 6.08(H) <4.50 09/07/2023 7:39 AM T [facility] LDL CHOLESTEROL 146(H) <=130 mg/dL 09/07/2023 7:39 AM T [facility] VLDL CHOLESTEROL 42(H) <=30 mg/dL 09/07/2023 7:39 AM T [facility] [employer] PROVIDER ORDERED STATUS RANDOM 09/07/2023 7:39 AM T [facility] Blood BLOOD SPECIMEN / Unknown Venipuncture / Unknown 09/07/2023 7:01 AM CDT 09/07/2023 7:13 AM CDT Melita Lopez MD CHEMISTRY Final Result [facility] [address] [place] [address], [place] from Last 3 Months or Most Recently Relevant to Health Maintenance Insurance MEDICARE PART A HB ONLY MEDICARE ADVANTAGE [place] [id number] * Guarantor: JONATHAN MICHEL JR Account Type Relation to Patient Date of Phone Billing Address Personal/Family [address] [place] [address] MEDICARE PART B HB ONLY [place] [id number] [employer]IVE [employer] Advance Directives * Full Code (Latest Code Status on File) Date Activated Date Inactivated Comments 09/06/2023 9:15 AM 09/11/2023 7:27 PM Question Answer Comments Code Status Discussion: Unable to Assess Preferences, Provider to review later * Full Code Date Activated Date Inactivated Comments 05/20/2019 5:20 PM 05/21/2019 8:24 PM Care Teams Power Hair Clipper Relationship Specialty Start Date End Date Karthik Sanz MD [address] [place] [phone] PCP - General Internal Medicine 06/24/20
--- NOTE | 2024-09-19 23:02 | ED_ITS ---
HPI - General Adult General Chief complaint: Unspecified Complaint, Adult Stated complaint: Hypertension Time Seen by Provider: 09/19/24 22:55 History of Present Illness HPI narrative: This 59-year-old male is in a rehab facility recovering from cerebrovascular accident. He has had previous stroke prior to this more recent 1. He has been recovering as expected. He comes in here because the nurse measured his blood pressure and was concerned when it returned for a systolic value of 180. The nurse thought that he he might have another stroke with his blood pressure. Since then he has taken his evening medications and arrives here with systolic blood pressure 110. He is not reporting any new symptoms. Related Data Home Medications ?Medication ?Instructions ?Recorded ?Confirmed lidocaine 4 % topical patch 1 patch topical DAILY PRN 09/18/23 04/29/24 (Lidocaine Pain Relief) Previous Rx's ?Medication ?Instructions ?Recorded acetaminophen 500 mg tablet 500 - 1,000 mg (1 - 2 x 50 0 mg) PO 10/17/22 Q6H PRN pain #100 tabs gabapentin 600 mg tablet 1,200 mg (2 x 600 mg) PO TID #180 10/09/23 tabs flash glucose sensor (FreeStyle #10 ea 12/02/23 Luis 2 Sensor kit) insulin aspart U-100 100 unit/mL 15 unit (0.15 mL) sub cut TIDWM #45 12/30/23 (3 mL) subcutaneous pen (Novolog mL FlexPen U-100 Insulin aspart) insulin glargine 100 unit/mL (3 40 unit (0.4 mL) subcu t DAILY #45 12/30/23 mL) subcutaneous pen (Lantus mL Solostar U-100 Insulin) pen needle, diabetic 32 gauge x #100 ea 04/08/24 (Pen Needle) venlafaxine 75 mg capsule,extended 300 mg (4 x 75 mg) PO DAILY #360 05/26/24 release 24 hr caps aspirin 81 mg tablet,delayed 81 mg PO BID #60 tabs release propranolol 10 mg tablet 10 mg PO BID #180 tabs 05/29 quetiapine 25 mg tablet 25 mg PO TID #120 tabs 05/29 prazosin 1 mg capsule 1 mg PO HS #90 caps 08/01/24 trazodone 50 mg tablet 50 mg PO QHS insomnia #90 ta bs 08/01/24 divalproex 500 mg tablet,extended 1,500 mg (3 x 500 mg ) PO DAILY #90 09/15/24 release 24 hr (Depakote ER) tabs atorvastatin 40 mg tablet 40 mg PO HS #30 tabs 5 clopidogrel 75 mg tablet 75 mg PO DAILY 86 days #86 t abs 09/16/24 lisinopril 10 mg tablet 10 mg PO DAILY #30 tabs 05/12 Allergies Allergy/AdvReac Type Severity Reaction Status Date / Time amoxicillin Allergy Intermediate Unknown Verified 09/12/24 18:21 celecoxib Allergy Intermediate Unknown Verified 09/12/24 18:21 Sulfa (Sulfonamide Allergy Intermediate Hives Verified 09/12/24 18:21 Antibiotics) Penicillins Allergy Unknown Verified 09/12/24 18:21 sulfasalazine Allergy Unknown Verified 09/12/24 18:21 latex Allergy Hives Verified 09/12/24 18:21 Review of Systems Status of ROS: Reports: 10 or more systems reviewed and unremarkable except as noted in History and below Narrative: Constitutional: No fevers, no weight gain or loss. Eyes: No discharge. No vision changes. HENT: No congestion, no sore throat, no ear pain. Cardiovascular: No chest pain, no palpitations. Respiratory: No shortness of breath, no wheezes, no cough. Gastrointestinal: No abdominal pain, no vomiting, no diarrhea. Genitourinary: No dysuria, no hematuria. Musculoskeletal: Normal range of motion. Skin: No rashes, no pruritis. Neurological: Neurologic deficits from previous strokes. No new symptoms. Endo/Heme/Allergies: No bruising or bleeding. No polydipsia. Pysch: no suicidality, no anxiety, no insomnia. All other systems reviewed and are negative. [facility] Medical History (Updated 09/19/24 @ 23:05 by Jacoby Marcial MD) Hyperlipidemia ?E78.5 - Hyperlipidemia, unspecified (ICD-10) Heart failure with preserved ejection fraction ?I50.30 - Unspecified diastolic (congestive) heart failure (ICD-10) Hypertension ?I10 - Essential (primary) hypertension (ICD-10) Type 2 diabetes mellitus with hyperglycemia ?E11.65 - Type 2 diabetes mellitus with hyperglycemia (ICD-10) Chronic neck and back pain ?M54.2 - Cervicalgia (ICD-10) ?M54.9 - Dorsalgia, unspecified (ICD-10) ?G89.29 - Other chronic pain (ICD-10) MICHA (obstructive sleep apnea) ?G47.33 - Obstructive sleep apnea (adult) (pediatric) (ICD-10) CAD (coronary artery disease) ?I25.10 - Atherosclerotic heart disease of [place] coronary artery without angina pectoris (ICD-10) Peripheral polyneuropathy ?G62.9 - Polyneuropathy, unspecified (ICD-10) Bilateral carpal tunnel syndrome ?G56.03 - Carpal tunnel syndrome, bilateral upper limbs (ICD-10) History of traumatic brain injury ?Z87.820 - Personal history of traumatic brain injury (ICD-10) Cerebellar infarct ?I63.9 - Cerebral infarction, unspecified (ICD-10) Cognitive impairment ?R41.89 - Other symptoms and signs involving cognitive functions and awareness (ICD-10) Decubitus ulcer of heel, bilateral ?L89.619 - Pressure ulcer of right heel, unspecified stage (ICD-10) ?L89.629 - Pressure ulcer of left heel, unspecified stage (ICD-10) Surgical History History of lumbar fusion (1994) ?Z98.1 - Arthrodesis status (ICD-10) Family History Mother High blood pressure Depression Stroke Father Alcohol dependence Other Diabetes Social History Narrative: He lives with his in [place]. He is disabled. He is a former smoker having 30 pack-year history. Occasionally drinks alcohol. In their home he lives with his and 2 daughters and 2 granddaughters ages 2 and 6. 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 One of the daughters also works at school where her 6-year-old daughter will attend school. Other daughter works at a preschool where the her 2-year-old daughter will attend preschool. What is your current living situation?: I presently have a place to live Problems where you live: no known problems Problems where you live details: n/a In the past 12 months, utilities in danger of being shut off: no In past 12 months, lack of transportation kept you from medical appts, meetings, work, or getting things needed for daily living: no In the past 12 mos, have been you worried that your food would run out before you had money to buy more?: never true In the past 12 mos, the food you bought just didn't last and you didn't have money to buy more?: never true Highest level of school completed/degree received: high school graduate Smoking Status: Former smoker What tobacco products do you use: cigarettes Smoking quit date/years: >15 years ago Do you use any of these nicotine containing products: None Second hand tobacco smoke exposure: No How often do you have a drink containing alcohol: never How often do you have six or more drinks on one occasion: Never AUDIT-C Alcohol total score: 0 Non-prescribed substance use: denies use Caffeine: Yes ([place] diamond) How often does anyone, including family, friends and others, physically hurt you : never How often does anyone, including family, friends and others, insult or talk down to you: never How often does anyone, including family, friends and others, threaten you with harm: never How often does anyone, including family, friends and others, scream or curse at you: never service: No Exam Narrative: Exam Narrative: Constitutional: Well-developed, well-nourished, no acute distress. HEENT: Normocephalic, atraumatic. Neck: Normal range of motion. Nontender. Supple. Heart: Regular. No murmurs. Normal rate. Intact distal pulses. Lungs: Clear to auscultation. No chest discomfort. No wheezes, rhonchi, or rales. Abdomen: Normal bowel sounds. Nontender. No rebound tenderness. Genitalia: Deferred. Back: No midline tenderness. Normal range of motion. Extremities: Normal range of motion. No injury. Skin: Intact. No rash. Warm. No erythema or pallor. Neurologic: Alert and oriented. No new neurologic deficits. Psychiatric: No suicidality. No anxiety or depression. No insomnia. Nursing notes and vitals signs are reviewed. Const: Vital Signs, click to edit/add: Vital Signs - 24 hr 09/19/24 22:34 Temperature 97.0 F L Pulse Rate [Left] 72 Respiratory Rate 14 Blood Pressure [Ri ght Upper Arm] 101/64 Pulse Oximetry 73 L Oxygen Delivery Me thod Room Air Course Vital Signs Vital signs: Initial Vital Signs Temperature 97.0 F L 09/19/24 22:34 Temperature Source Temporal Artery Scan 09/19/24 22:34 Pulse Rate 72 09/19/24 22:34 Respiratory Rate 14 09/19/24 22:34 Blood Pressure 101/64 09/19/24 22:34 Blood Pressure Mean 76 09/19/24 22:34 Blood Pressure Position Supine 09/19/24 22:34 Pulse Oximetry 73 L 09/19/24 22:34 Oxygen Delivery Method Room Air 09/19/24 22:34 Vital Signs Temperature 97.0 F L 09/19/24 22:34 Pulse Rate 72 09/19/24 22:34 Respiratory Rate 14 09/19/24 22:34 Blood Pressure 101/64 09/19/24 22:34 Pulse Oximetry 73 L 09/19/24 22:34 Oxygen Delivery Method Room Air 09/19/24 22:34 Temperature 97.0 F L 09/19/24 22:34 Pulse Rate 72 09/19/24 22:34 Respiratory Rate 14 09/19/24 22:34 Blood Pressure 101/64 09/19/24 22:34 Pulse Oximetry 73 L 09/19/24 22:34 Oxygen Delivery Method Room Air 09/19/24 22:34 Medical Decision Making MDM Narrative Medical decision making narrative: This patient is sent here because someone at his care facility was concerned about his elevated blood pressure. Since then he has taken his regular evening meds and his blood pressure has normalized. He does not report any new symptoms. He is okay to return home and should continue current plans. Discharge Plan Discharge Clinical Impression: Feared condition not demonstrated Patient Disposition: Home w/ Parent or Adult Condition: Stable Additional Instructions: Continue current plans and medications. Follow up with MD return if worsening. Prescriptions: No Action lidocaine [Lidocaine Pain Relief] 4 % adhesive patch,medicated 1 patch topical DAILY PRN gabapentin 600 mg tablet 1,200 mg PO TID Qty: 180 3RF atorvastatin 40 mg Tablet 40 mg PO HS Qty: 30 0RF clopidogrel 75 mg Tablet 75 mg PO DAILY 86 Days Qty: 86 0RF lisinopril 10 mg tablet 10 mg PO DAILY Qty: 30 0RF acetaminophen 500 mg tablet 500 - 1,000 mg PO Q6H PRN (Reason: pain) Qty: 100 0RF (DME) FreeStyle Luis 2 Sensor Kit See Rx Instructions .Route Qty: 10 5RF Rx Instructions: As directed insulin aspart U-100 [Novolog FlexPen U-100 Insulin] 100 unit/mL (3 mL) insulin pen 15 unit subcut TIDWM Qty: 45 2RF Patient Comments: 25units am, 20 units noon, 35 units pm insulin glargine [Lantus Solostar U-100 Insulin] 100 unit/mL (3 mL) insulin pen 40 unit subcut DAILY Qty: 45 2RF (DME) pen needle, diabetic [Pen Needle] 32 gauge x 5/32 needle See Rx Instructions .Route Qty: 100 3RF Rx Instructions: Patient to use with insulin pen- QID Issue with 8mm needle w/32 gauge venlafaxine 75 mg capsule,extended release 24hr 300 mg PO DAILY Qty: 360 1RF aspirin 81 mg tablet,delayed release (DR/EC) 81 mg PO BID Qty: 60 3RF propranolol 10 mg tablet 10 mg PO BID Qty: 180 1RF quetiapine 25 mg tablet 25 mg PO TID Qty: 120 2RF prazosin 1 mg capsule 1 mg PO HS Qty: 90 0RF trazodone 50 mg tablet 50 mg PO QHS Qty: 90 0RF divalproex [Depakote ER] 500 mg tablet extended release 24 hr 1,500 mg PO DAILY Qty: 90 0RF Follow Up/Referrals: Karthik Sanz MD [Primary Care Provider, Internal Medicine] Stand Alone Forms: [facility] Info Instructions
== END 2024-09-19 23:58 | disposition home or self-care (01) ==
LOC: ED 23:13
PROVIDERS: Emergency Provider Emergency Medicine Emergency Medical Services; PCP Internal Medicine
DX: I10 Essential (primary) hypertension (principal)
CPT/HCPCS: 99283; 99284

== ENCOUNTER 2024-09-19 23:51 | Outpatient (CLI) | payer OTHER, SELFPAY | END 2024-09-19 23:52 | disposition home or self-care (01) | LOC: AMB 09-21 16:05 | PROVIDERS: PCP Internal Medicine; Visit Provider Emergency Medicine Emergency Medical Services | DX: R03.0 Elevated blood-pressure reading, without diagnosis of hypertension (principal) | CPT/HCPCS: A0425; A0428 ==

== ENCOUNTER 2024-10-04 12:29 | Outpatient (CLI) | payer OTHER, SELFPAY | END 2024-10-04 12:30 | disposition home or self-care (01) | PROVIDERS: PCP Internal Medicine; Visit Provider Family Medicine | DX: R41.82 Altered mental status, unspecified (principal) | CPT/HCPCS: A0425; A0427 ==

== ENCOUNTER 2024-10-04 12:59 | Inpatient (IN) | payer OTHER, SELFPAY ==
--- OUTSIDE RECORDS SUMMARY | 2009-02-27 19:00 | XMS_ITS | Continuity of Care Document ---
Author Organization DARRELL Rowley Address [address] [facility] [address] [place] [address] Phone Care Team Providers Care Manufacture Specialist Name Role Phone Elizabeth Peterson CNP Unavailable [...] Offic/outpt E&m Estab Low-mod DARRELL Rowley, [address] [facility] [address], [place], [place], [address], tel:[phone] [facility] No Information 9 Kristen Johnson. [address] [facility], [address], [place], [place], [address], [place]. tel:[phone] Referring Provider: Reggie Geiger MD J, [address] [facility], [place], [address]. tel:[phone] Offic/outpt E&m Estab Low-mod DARRELL Rowley, [address] [facility] [address], [place], [place], [address], [place] tel:[phone] [facility] No Information 9200 9 Budnick Elizabeth. [address], [place], [place], [address], [place]. tel:[phone] Referring Provider: Reggie Rock, [address] [place], [address]. tel:[phone] Offic/outpt E&m Estab Mod-hi 2 Amrik, [facility], [address], [place], [place], [address], [place] tel:[phone] [facility] No Information 9 Budnick Elizabeth. [address], [place], [place], [address], [place]. tel:[phone] Referring Provider: Reggie Rock, [address] [place], [address]. tel:[phone] Offic/outpt E&m Estab Low-mod Amrik, [facility], [address] [facility] [address], [place], [address], [place] tel:[phone] [facility] No Information 9 Juanjo Paredes. [address], [place], [address], [place]. tel:[phone] Referring Provider: REFERRAL SELF, ISRAEL. Offic/outpt E&m Estab Low-mod Amrik, [facility], [address] [facility], [place], [place], [address], [place] tel:[phone] [facility] No Information 9 Juanjo Paredes. [address], [place], [address], [place]. tel:[phone] Referring Provider: REFERRAL SELF, ISRA[place]. [facility], [address] [facility] [address], [place], [address], [place] tel:[phone] [facility] No Information 9 Juanjo LOZA Reggie. [address], [place], [place], [facility], [place]. [phone] Referring Provider: REFERRAL SELF, ISRAEL. Offic/outpt E&m Estab Mod-hi 2 [facility], [facility], [address] [facility] [address], [place], [place], [address], [phone] [facility] No Information 9 Juanjo LOZA Reggie. [address], [place], [facility], [place]. tel:[phone] Referring Provider: REFERRAL SELFISRAEL. Offic Cons New/estab Mod-hi 60 Amrik, [facility], [address] [facility] [address], [place], [place], [address], tel:[phone] [facility] No Information 9 Tor Vega [facility]. [address] [place], [place], [facility], . Family History Family Member Type Diagnosis Age At Onset No Information Payers Payer name Insurance type Covered alliance party ID Authoriza tion(s) No Information Social [...]
--- OUTSIDE RECORDS SUMMARY | 2009-02-27 19:00 | XMS_ITS | Continuity of Care Document ---
Author Organization DARRELL Rowley Address [address] [facility] [address] [place] [address] Phone Care Team Providers Care Highway Technician Name Role Phone Elizabeth Peterson CNP Unavailable [...] Offic/outpt E&m Estab Low-mod DARRELL Rowley, [address] [facility] [address], [place], [place], [address], tel:[phone] [facility] No Information 9 Kristen Johnson. [address] [facility], [address], [place], [place], [address], [place]. tel:[phone] Referring Provider: Reggie Geiger MD J, [address] [facility], [place], [address]. tel:[phone] Offic/outpt E&m Estab Low-mod DARRELL Rowley, [address] [facility] [address], [place], [place], [address], [place] tel:[phone] [facility] No Information 9200 9 Budnick Elizabeth. [address], [place], [place], [address], [place]. tel:[phone] Referring Provider: Reggie Rock, [address] [place], [address]. tel:[phone] Offic/outpt E&m Estab Mod-hi 2 Amrik, [facility], [address], [place], [place], [address], [place] tel:[phone] [facility] No Information 9 Budnick Elizabeth. [address] , [address], [place], [place], [address], [place]. tel:[phone] Referring Provider: Reggie Rock, [address] [place], [address]. tel:[phone] Offic/outpt E&m Estab Low-mod Amrik, [facility], [address] [facility] [address], [place], [address], [place] tel:[phone] [facility] No Information 9 Juanjo Paredes. [address], [place], [address], [place]. tel:[phone] Referring Provider: REFERRAL SELF, ISRAEL. Offic/outpt E&m Estab Low-mod Amrik, [facility], [address] [facility], [place], [place], [address], [place] tel:[phone] [facility] No Information 9 Juanjo Paredes. [address], [place], [address], [place]. tel:[phone] Referring Provider: REFERRAL SELF, ISRA[place]. [facility], [address] [facility] [address], [place], [address], [place] tel:[phone] [facility] No Information 9 Juanjo LOZA Reggie. [address], [place], [place], [facility], [place]. [phone] Referring Provider: REFERRAL SELF, ISRAEL. Offic/outpt E&m Estab Mod-hi 2 [facility], [facility], [address] [facility] [address], [place], [place], [address], [phone] [facility] No Information 9 Juanjo LOZA Reggie. [address], [place], [place], [facility], [place]. tel:[phone] Referring Provider: REFERRAL SELFISRAEL. Offic Cons New/estab Mod-hi 60 Amrik, [facility], [address] [facility] [address], [place], [place], [address], tel:[phone] [facility] No Information 9 Tor Vega [facility]. [address] [place], [place], [facility], . Family History Family Member Type Diagnosis [...]
--- OUTSIDE RECORDS SUMMARY | 2024-10-04 13:01 | XMS_ITS | Clinical Summary ---
Author Organization [facility] Address [address] [place] [id number] Care Team Providers Care Die Trouble Shooter Name Role Phone Royce Weiner Primary Care Provider [phone] Allergies Active Allergy Reactions Criticality Noted Date Comments Amoxicillin 09/29/2019 Celecoxib 09/29/2019 Penicillins Anaphylaxis High 09/29/2019 TOLERATED MEROPENEM Medications venlafaxine (EFFEXOR XR) 75 MG 24 hr capsule Take 4 capsules by mouth daily 01/27/20 22 Active gabapentin (NEURONTIN) 600 MG tablet Take 1,200 mg by mouth 3 times daily 01/27/20 22 Active Continuous Blood Gluc Sensor (ImmunotEGGSTYLE WILFRED 2 SENSOR) MISCIndications:H yperglycemia,Type 2 diabetes mellitus with diabetic polyneuropathy, with long-term current use of insulin (H) 1 each every 14 days Use 1 sensor every 14 days. Use to read blood sugars per yeast distiller's instructions. 2 each 5 03/17/20 22 Active [...] Comments Blood Pressure 166/95 03/17/2022 7:29 AM AUDIO VISUAL COORDINATOR Pulse 88 03/17/2022 7:28 AM AUDIO VISUAL COORDINATOR Temperature 36.8 C (98.3 F) 03/17/2022 7:28 AM AUDIO VISUAL COORDINATOR Respiratory Rate 20 03/17/2022 7:28 AM AUDIO VISUAL COORDINATOR Oxygen Saturation 94% 03/17/2022 9:36 AM AUDIO VISUAL COORDINATOR Inhaled Oxygen Concentration - - Weight 125.5 kg (276 lb 9.6 oz) 03/17/2022 5:12 AM AUDIO VISUAL COORDINATOR Height 180.3 cm (5' 11) 03/14/2022 9:55 AM AUDIO VISUAL COORDINATOR Body Mass Index 38.58 03/14/2022 9:55 AM AUDIO VISUAL COORDINATOR Plan of Treatment Health Maintenance Due Date [...] (once per calendar year) 2024 INFLUENZA VACCINE (#1) 2024 , 02/08/2021, 02/03/2021, Additional history exists DTAP/TDAP/TD VACCINE [...] BASIC METABOLIC PANEL Routine 03/15/2022 7:49 AM AUDIO VISUAL COORDINATOR LIPID REFLEX TO DIRECT LDL PANEL Add-On 03/14/2022 7:51 AM AUDIO VISUAL COORDINATOR HEMOGLOBIN A1C Add-On 03/13/2022 2:49 PM AUDIO VISUAL COORDINATOR from Last 3 Months or Most Recently Relevant to Health Maintenance Results * (ABNORMAL) Basic metabolic panel (03/15/2022 7:49 AM AUDIO VISUAL COORDINATOR) Sodium 137 136 - 145 mmol/L 03/15/2022 8:38 AM [facility] Potassium 4.6 3.4 - 5.3 mmol/L 03/15/2022 8:38 AM [facility] Comment:Specimen slightly he molyzed, potassium may be falsely elevated. Chloride 100 98 - 107 mmol/L 03/15/2022 8:38 AM [facility] Carbon Dioxide (CO2) 27 22 - 29 mmol/L 03/15/2022 8:38 AM [facility] Anion Gap 10 7 - 15 mmol/L 03/15/2022 8:38 AM [facility] Urea Nitrogen 14.0 6.0 - 20.0 mg/dL 03/15/2022 8:38 AM [facility] Creatinine 0.55(L) 0.67 - 1.17 mg/dL 03/15/2022 8:38 AM [facility] Calcium 9.5 8.6 - 10.0 mg/dL 03/15/2022 8:38 AM [facility] Glucose 103(H) 70 - 99 mg/dL 03/15/2022 8:38 AM [facility] GFR Estimate >90 >60 mL/min/1.7 3m2 03/15/2022 8:38 AM [facility] Comment:Effective February 162020 eGFRcr in adults is calculated using the 2020 CKD-EPI creatinine equation which includes age and gender (Bridgett et al., NEJ, DOI: 10.1056/XAYGtt4159449) Blood STRUCTURE OF RIGHT UPPER LIMB / Unknown Venipuncture / Unknown 03/15/2022 7:49 AM AUDIO VISUAL COORDINATOR 03/15/2022 8:04 AM AUDIO VISUAL COORDINATOR us Axel Calderón MD LAB - BLOOD ORDERABLES Final Re sult LABORATORY [facility] [address] Lab (1st floor, no room number) [place] [address], [facility] [phone] * (ABNORMAL) Lipid panel reflex to direct LDL (03/14/2022 7:51 AM AUDIO VISUAL COORDINATOR) Cholesterol 184 <200 mg/dL 03/14/2022 1:46 PM AUDIO VISUAL COORDINATOR [facility] Triglycerides 331(H) <150 mg/dL 03/14/2022 1:46 PM AUDIO VISUAL COORDINATOR [facility] Direct Measure HDL 28(L) >=40 mg/dL 03/14/2022 1:46 PM AUDIO VISUAL COORDINATOR [facility] LDL Cholesterol Calculated 90 <=100 mg/dL 03/14/2022 1:46 PM AUDIO VISUAL COORDINATOR [facility] Non HDL Cholesterol 156(H) <130 mg/dL 03/14/2022 1:46 PM AUDIO VISUAL COORDINATOR [facility] Blood STRUCTURE OF RIGHT UPPER LIMB / Unknown Venipuncture / Unknown 03/14/2022 7:51 AM AUDIO VISUAL COORDINATOR 03/14/2022 8:00 AM AUDIO VISUAL COORDINATOR Narrative [facility] - 03/14/2022 1:46 PM AUDIO VISUAL COORDINATOR Cholesterol Desirable: <200 mg/dL Triglycerides Normal: Less [...] R esult [facility] [place] [facility] [address] [facility] [place] [address], [facility] [phone] * (ABNORMAL) Hemoglobin A1c (03/13/2022 2:49 PM AUDIO VISUAL COORDINATOR) Hemoglobin A1C 14.4(H) <5.7 % 03/13/2022 7:14 PM AUDIO VISUAL COORDINATOR [facility] Comment: Normal <5.7% Prediabetes 5.7-6.4% Diabetes 6.5% or higher Note: Adopted from ADA consensus guidelines. Blood BLOOD SPECIMEN / Unknown Venipuncture / Unknown 03/13/2022 2:49 PM AUDIO VISUAL COORDINATOR 03/13/2022 3:06 PM AUDIO VISUAL COORDINATOR us Parish Rios MD LAB - BLOOD ORDERABLES Final Res ult [facility] Lab [address] [facility] Lab (1st floor, no room number) [place] [address], [facility] [phone] from Last 3 Months or Most Recently Relevant to Health Maintenance Insurance [facility] OTHER Advance Directives For more information, please contact: [phone] * Full Code (Latest Code Status on File) Date Activated Date Inactivated Comments 03/13/2022 9:46 PM 03/17/2022 6:08 PM All basic and advanced life-sustaining interventions are performed as appropriate Question Answer Comments Code status determined by: Discussion with leobardo nt/ legal decision maker Care Teams Die Trouble Shooter Relationship Specialty Start Date End Date Royce Weiner [address] [place] [address] PCP - General 05/26/20
--- OUTSIDE RECORDS SUMMARY | 2024-10-04 13:01 | XMS_ITS | Clinical Summary ---
Author Organization [facility] Address [address] [place] [id number] Care Team Providers Care Institutional Research Director Name Role Phone Karthik Sanz MD Primary [...] renal manifest ation 02/13/2005 Overview (02/01/2015): diagnosis 2002 albuminuria mild lower extremity neuropathy Hypertensive disease 02/13/2005 HYPERLIPIDEMIA - MIXED 02/13/2005 Backache, unspecified Proteinuria Elevated coronary artery calcium score Resolved Problems Problem Noted Date Diagnosed Date Resolved Date Uncontrolled type 2 diabetes with renal manifestation 02/01/2015 04/23/2016 MICHA (obstructive sleep apnea) 04/19/2012 09/07/2016 Overview (04/19/2012): sleep study March 2012 [facility] lung Obesity, unspecified 017 Encounters Date Type Department Care Team Description 10/01/2024 Lab Requisition [facility] [phone] Karina Lund NP 09/22/2024 Lab Requisition [facility] [phone] Eleuterio Diaz MD 09/15/2024 Office Visit [facility] [address] [place] [phone] Deion Man MD Telehealth ([facility] - Telestroke) 09/13/2024 10:00 AM CDT Ancillary Procedure [facility] [address] [place] [address] 09/13/2024 Office Visit [facility] [address] [place] [phone] Kendrick Calvin MD 09/13/2024 Travel 09/12/2024 Office Visit [facility] [address] [place] [phone] Stefany Ojeda MD Telehealth ([facility] - telephone consultation only - no video) 07/23/2024 Telephone [facility] [address] [place] [address] Royce Weiner MD Follow Up 07/21/2024 Refill [facility] [address] [place] [address] Royce Weiner MD Refill Request (Gabapentin) from Last 3 Months Immunizations Immunization Administration Dates Next Due AMB Influenza, IIV4 PF (=>6 mos Flulaval,Fluzone Fluarix)(Flu Clinic Only) 12/12/2018 COVID-19 vaccine ([employer] NT[employer] 30mcg/0.3mL) 12YO+ BIVALENT PF, MDV 01/26/2022 [...] on file Legal Sex Male 6:13 AM [employer] Gender Identity Not on file Sexual [...] Procedure Name Priority Date/Time Associated Diagnosis Comments CBC WITH AUTO DIFFERENTIAL Routine 09/29/2024 9:00 AM CDT Essential (primary) hypertension Type 2 diabetes mellitus with hyperglycemia (HC) CBC WITH AUTO DIFFERENTIAL Routine 09/29/2024 9:00 AM CDT Essential (primary) hypertension Type 2 diabetes mellitus with hyperglycemia (HC) BASIC METABOLIC PANEL Routine 09/29/2024 9:00 AM CDT Essential (primary) hypertension Type 2 diabetes mellitus with hyperglycemia (HC) ECHO TTE COMPLETE W CONTRAST W BUBBLE Routine 09/13/2024 11:09 AM CDT Hemiparesis (HC) Abnormal EKG LIPID PANEL Early AM 09/07/2023 7:01 AM CDT from Last 3 Months or Most Recently Relevant to Health Maintenance Results * CBC WITH AUTO DIFFERENTIAL (09/29/2024 9:00 AM CDT) Pathologist [facility] WHITE BLOOD COUNT 09/29/2024 10:05 AM [facility] Comment:Canceled- Quantity n ot sufficient(QNS) RED BLOOD COUNT 10:05 AM [facility] Comment:Canceled- Quantity n ot sufficient(QNS) HEMOGLOBIN 09/29/2024 10:05 AM [facility] Comment:Canceled- Quantity n ot sufficient(QNS) HEMATOCRIT 09/29/2024 10:05 AM [facility] Comment:Canceled- Quantity n ot sufficient(QNS) MCV 09/29/2024 10:05 AM [facility] Comment:Canceled- Quantity n ot sufficient(QNS) MCH 09/29/2024 10:05 AM [facility] Comment:Canceled- Quantity n ot sufficient(QNS) MCHC 09/29/2024 10:05 AM [facility] Comment:Canceled- Quantity n ot sufficient(QNS) RDW 09/29/2024 10:05 AM [facility] Comment:Canceled- Quantity n ot sufficient(QNS) PLATELET COUNT 09/29/2024 10:05 AM [facility] Comment:Canceled- Quantity n ot sufficient(QNS) MPV 09/29/2024 10:05 AM [facility] Comment:Canceled- Quantity n ot sufficient(QNS) Blood BLOOD SPECIMEN / Unknown Butterfly / Unknown 09/29/2024 9:00 AM CDT 09/29/2024 9:39 AM CDT us Eleuterio Diaz MD HEMATOLOGY Final Result Performing Organization Address City/[facility]/ZIP Co de Phone Number [facility] [address] [place] [address] * (ABNORMAL) BASIC METABOLIC PANEL (09/29/2024 9:00 AM CDT) SODIUM 140 136 - 145 mmol/L 09/29/2024 10:15 AM [facility] POTASSIUM 5.8(H) 3.5 - 5.1 mmol/L 09/29/2024 10:15 AM [facility] CHLORIDE 104 98 - 107 mmol/L 09/29/2024 10:15 AM [facility] CO2,TOTAL 21(L) 22 - 29 mmol/L 09/29/2024 10:15 AM [facility] ANION GAP 15 5 - 18 09/29/2024 10:15 AM [facility] GLUCOSE 159(H) 70 - 99 mg/dL 09/29/2024 10:15 AM [facility] CALCIUM 8.3(L) 8.8 - 10.4 mg/dL 09/29/2024 10:15 AM [facility] Comment: Reference ranges for this test were updated on 01/21/2024 to reflect our healthy population more accurately. Reference range changes are not retroactively applied to results, but previous results using the same methodology can be interpreted in the context of the new reference range. BUN 24(H) 6 - 20 mg/dL 09/29/2024 10:15 AM CDT [facility] CREATININE 1.29(H) 0.70 - 1.20 mg/dL 09/29/2024 10:15 AM T [facility] BUN/CREAT RATIO 19 10 - 20 10:15 AM T [facility] eGFR 64(L) >90 mL/min/1. 73m2 09/29/2024 10:15 AM T [facility] Comment:As of 2021, eG FR is calculated by the CKD-EPI creatinine equation without race adjustment. eGFR can be influenced by muscle mass, exercise, and diet. The reported eGFR is an estimation only and is only applicable if the renal function is stable. Blood BLOOD SPECIMEN / Unknown Butterfly / Unknown 09/29/2024 9:00 AM CDT 09/29/2024 9:39 AM CDT us Eleuterio Diaz MD CHEMISTRY Final Result [facility] [address] [place] [address] * ECHO TTE COMPLETE W CONTRAST W BUBBLE (09/13/2024 11:09 AM CDT) AORTIC VALVE MEAN PG 7 mmHg EJECTION FRACTION 64 % LVEDD 4.6 cm EJECTION FRACTION 60 - 65% Anatomical Region Laterality Modality Ultrasound 09/13/2024 9:52 AM CDT Narrative 09/13/2024 12:34 PM CDT ECHOCARDIOGRAM JONATHAN GRULLONBOONE GIVENS : 1965 59 years Study Date: 09/13/2024 9:52:08 AM Gender: M BP: 146/84 mmHg Height: 180.00 cm BSA: 2.43 m Weight: 127.00 kg Tech: [facility] Referring MD: THOMAS STEEN Site: [facility] Reading Location: MOBILE IP Patient [...] documentation: 4 ml diluted Definity, lot #[id number], [facility]# [id number] was administered peripherally to enhance visualization of all left ventricular segments. . This study was interpreted by an [facility] accredited facility. CC: HIM (med records) [facility], Med/Surg - IP [facility]. Final Procedure Note Vasiliy Encarnacion MD - 09/13/2024 ECHOCARDIOGRAM JONATHAN MICHEL JR. : 1965 59 years Study Date: 09/13/2024 9:52:08 AM Gender: M BP: 146/84 mmHg Height: 180.00 cm BSA: 2.43 m Weight: 127.00 kg Tech: [facility] Referring MD: THOMAS STEEN Site: [facility] Reading Location: MOBILE IP Patient [...] documentation: 4 ml diluted Definity, lot #[id number], [facility]#[id number] was administered peripherally to enhance visualization of allleft ventricular segments. . This study was interpreted by an [facility] accredited facility. CC: HIM (med records) [facility], Med/Surg - IP [facility]. Final us Thomas Steen MD ECHO ORD Final Resu lt * (ABNORMAL) LIPID PANEL (09/07/2023 7:01 AM CDT) CHOLESTEROL,TOTAL 225(H) 100 - 199 mg/dL 09/07/2023 7:39 AM CDT [facility] Comment: Cholesterol, Total Reference Ranges Desirable <200 mg/dL Borderline 200-239 mg/dL High >=240 mg/dL TRIGLYCERIDES 212(H) <150 mg/dL 09/07/2023 7:39 AM CDT [facility] HDL CHOLESTEROL 37(L) >40 mg/dL 7:39 AM CDT [facility] NON-HDL CHOLESTEROL 188(H) <145 mg/dl 09/07/2023 7:39 AM CDT [facility] CHOL/HDL RATIO 6.08(H) <4.50 09/07/2023 7:39 AM CDT [facility] LDL CHOLESTEROL 146(H) <=130 mg/dL 09/07/2023 7:39 AM CDT [facility] VLDL CHOLESTEROL 42(H) <=30 mg/dL 09/07/2023 7:39 AM CDT [facility] PROVIDER ORDERED STATUS RANDOM 09/07/2023 7:39 AM T [facility] Blood BLOOD SPECIMEN / Unknown Venipuncture / Unknown 09/07/2023 7:01 AM CDT 09/07/2023 7:13 AM CDT us Melita Lopez MD CHEMISTRY Final Result [facility] [address] [place] [address], from Last 3 Months or Most Recently Relevant to Health Maintenance Insurance MEDICARE PART A HB ONLY [place] MEDICARE ADVANTAGE [place] [id number] * Guarantor: JONATHAN MICHEL JR Account Type Relation to Patient Date of Phone Billing Address Personal/Family [address] [place] [address] MEDICARE PART B HB ONLY [place] [id number] [place] [id number] [employer] CASUAL[employer] INS [employer] [place] [id number] Advance Directives * Full Code (Latest Code Status on File) Date Activated Date Inactivated Comments 09/06/2023 9:15 AM 09/11/2023 7:27 PM Question Answer Comments Code Status Discussion: Unable to Assess Preferences, Provider to review later * Full Code Date Activated Date Inactivated Comments 05/20/2019 5:20 PM 05/21/2019 8:24 PM Care Teams Institutional Research Director Relationship Specialty Start Date End Date Karthik Sanz MD [address] [place] [id number] PCP - General Internal Medicine 06/24/20
--- NOTE | 2024-10-04 13:02 | CRLHL7_ITS ---
For Patients: As a result of the Cures Act, medical imaging exams and procedure reports are released immediately into your electronic medical record. You may view this report before your referring provider. If you have questions, please contact your health care provider. INDICATION: Left arm weakness. History of stroke TECHNIQUE: Non-contrast CT of the head is submitted. 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 The ventricles, sulci and gyri are of normal size, shape and contour. Midline structures are centrally located. No convincing evidence of intra- or extra-axial fluid collections. IMPRESSION: 1. No radiographic evidence of acute intracranial abnormalities. 2. 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 Please note that all CT scans at this facility use dose modulation, iterative reconstruction, and/or weight-based dosing when appropriate to reduce radiation dose to as low as reasonably achievable. Dictated by Nagi Sullivan MD @ 10/04/2024 1:28:10 PM (Electronically Signed)
--- NOTE | 2024-10-04 13:03 | CRLHL7_ITS ---
For Patients: As a result of the Century Cures Act, medical imaging exams and procedure reports are released immediately into your electronic medical record. You may view this report before your referring provider. If you have questions, please contact your health care provider. INDICATION: Altered mental status. TECHNIQUE: Chest radiograph, 1 view. COMPARISON: Chest radiographs 02/03/2024. FINDINGS: Cardiovascular/Mediastinum: Magnified cardiac silhouette. Unremarkable. Lungs: No focal consolidation. Fall perivascular congestion and interstitial edema. Linear band like opacification lungs bilaterally, likely subsegmental atelectasis and/or scarring. Airways: Trachea remains midline. Pleura: No pleural effusions or pneumothorax. Bones: No acute osseous abnormalities. Upper abdomen: Unremarkable. IMPRESSION: Borderline heart size, magnified due to technique, with mild pulmonary vascular congestion and interstitial edema. Dictated by Jabari Liz MD @ 10/04/2024 1:49:17 PM (Electronically Signed)
--- NOTE | 2024-10-04 13:05 | CRLHL7_ITS ---
For Patients: As a result of the Century Cures Act, medical imaging exams and procedure reports are released immediately into your electronic medical record. You may view this report before your referring provider. If you have questions, please contact your health care provider. INDICATION: Acute stroke. TECHNIQUE: CTA head with contrast bolus tracking, 3D angiographic rendering using maximum intensity projection (MIP) and images permanently archived. FINDINGS: There is scattered intracranial atherosclerotic disease. There is normal opacification of the intracranial vasculature. There is no large vessel occlusion. No aneurysm is identified. IMPRESSION: No acute intracranial abnormality at CTA. Please note that all CT scans at this facility use dose modulation, iterative reconstruction, and/or weight-based dosing when appropriate to reduce radiation dose to as low as reasonably achievable. Dictated by Dean Tabor MD @ 10/05/2024 6:20:17 AM (Electronically Signed)
--- NOTE | 2024-10-04 13:05 | CRLHL7_ITS ---
For Patients: As a result of the Century Cures Act, medical imaging exams and procedure reports are released immediately into your electronic medical record. You may view this report before your referring provider. If you have questions, please contact your health care provider. INDICATION: Acute stroke, new left arm weakness. TECHNIQUE: CTA neck with contrast bolus tracking, 3D angiographic rendering using maximum intensity projection (MIP) and images permanently archived. FINDINGS: There is carotid atherosclerosis bilaterally. There is atherosclerotic plaque in the proximal right ICA resulting in a moderate stenosis, 60% by NASCET. There is no significant left carotid artery stenosis or dissection. The right vertebral artery is occluded proximally. There is no significant left vertebral artery stenosis or dissection. The soft tissues of the neck are within normal limits. The cervical spine is in normal alignment. Degenerative changes are noted in the cervical spine. IMPRESSION: Moderate proximal right ICA stenosis, 60% by NASCET, which may explain the patient`s symptoms. Right vertebral artery occlusion. Please note that all CT scans at this facility use dose modulation, iterative reconstruction, and/or weight-based dosing when appropriate to reduce radiation dose to as low as reasonably achievable. Dictated by Dean Tabor MD @ 10/05/2024 6:35:06 AM (Electronically Signed)
--- NOTE | 2024-10-04 13:12 | ED_ITS ---
HPI - General Adult General Date Seen: 10/04/24 Chief complaint: Neuro Symptoms/Altered Deficit Stated complaint: stroke Time Seen by Provider: 10/04/24 13:02 Source: patient, EMS, RN notes reviewed and old records reviewed Mode of arrival: EMS Limitations: language barrier (Altered speech with slurring) and altered mental status History of Present Illness HPI narrative: This 59-year-old male was brought in stroke code via EMS from [facility] where he is there after reported recent stroke. In review of her records, was hospitalized here 628 with a stroke. He had acute left hemiparesis acute lower extremity worse than the upper extremity, sensory deficit, swallow issues. He initially got a 325 aspirin and loading of Plavix 300 mg. On 09/13 the started aspirin 81 mg and Plavix 75 mg. His MRI showed small acute to subacute infarct within the ventral right medulla. He went to [facility] for therapies following the CVA. The Plavix was to be continued for a total of 90 days. Th ere are was no intracranial large vessel occlusion on the CT of his head, moderately severe stenosis A3 segment right anterior cerebral artery, mild narrowing left M1 segment MCA. 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 Patent dominant left vertebral artery. Mild less than 50% narrowing of the right proximal ICA. He did have a history of a remote right cerebellar infarct which was thought to contribute to his frequent falls. 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 This patient was at lunch today about 12:16 when he was noted to be altered. His speech was noted to be significantly slurred, staff moved him via whole your back to his bed. Patient stated he did not feel right. His glucose per EMS was 162. They [facility]. He normally can lift his left arm but now just has no control of the arm. 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 Did attempt to try to lift his left leg and was successful lifting it very minimally per EMS. Speech was noted to be slurred for them as well, staff at the residential stated he typically is conversive without speech deficits. EMS noted his oxygen saturations to be 90-91% on room air, they did start some supplemental nasal cannula oxygen. Related Data Home Medications ?Medication ?Instructions ?Recorded ?Confirmed lidocaine 4 % topical patch 1 patch topical DAILY PRN 09/18/23 04/29/24 (Lidocaine Pain Relief) Previous Rx's ?Medication ?Instructions ?Recorded acetaminophen 500 mg tablet 500 - 1,000 mg (1 - 2 x 50 0 mg) PO 10/17/22 Q6H PRN pain #100 tabs gabapentin 600 mg tablet 1,200 mg (2 x 600 mg) PO TID #180 10/09/23 tabs flash glucose sensor (FreeStyle #10 ea 12/02/23 Luis 2 Sensor kit) insulin aspart U-100 100 unit/mL 15 unit (0.15 mL) sub cut TIDWM #45 12/30/23 (3 mL) subcutaneous pen (Novolog mL FlexPen U-100 Insulin aspart) insulin glargine 100 unit/mL (3 40 unit (0.4 mL) subcu t DAILY #45 12/30/23 mL) subcutaneous pen (Lantus mL Solostar U-100 Insulin) pen needle, diabetic 32 gauge x #100 ea 04/08/24 (Pen Needle) venlafaxine 75 mg capsule,extended 300 mg (4 x 75 mg) PO DAILY #360 05/26/24 release 24 hr caps aspirin 81 mg tablet,delayed 81 mg PO BID #60 tabs release propranolol 10 mg tablet 10 mg PO BID #180 tabs 05/29 quetiapine 25 mg tablet 25 mg PO TID #120 tabs 05/29 prazosin 1 mg capsule 1 mg PO HS #90 caps 08/01/24 trazodone 50 mg tablet 50 mg PO QHS insomnia #90 ta bs 08/01/24 divalproex 500 mg tablet,extended 1,500 mg (3 x 500 mg ) PO DAILY #90 09/15/24 release 24 hr (Depakote ER) tabs atorvastatin 40 mg tablet 40 mg PO HS #30 tabs 5 clopidogrel 75 mg tablet 75 mg PO DAILY 86 days #86 t abs 09/16/24 lisinopril 10 mg tablet 10 mg PO DAILY #30 tabs 05/12 Allergies Allergy/AdvReac Type Severity Reaction Status Date / Time amoxicillin Allergy Intermediate Unknown Verified 10/04/24 13:35 celecoxib Allergy Intermediate Unknown Verified 10/04/24 13:35 Sulfa (Sulfonamide Allergy Intermediate Hives Verified 10/04/24 13:35 Antibiotics) Penicillins Allergy Unknown Verified 10/04/24 13:35 sulfasalazine Allergy Unknown Verified 10/04/24 13:35 latex Allergy Hives Verified 10/04/24 13:35 [facility] Medical History (Updated 10/04/24 @ 17:16 by Beata Mcdaniels MD) Hyperlipidemia ?E78.5 - Hyperlipidemia, unspecified (ICD-10) Heart failure with preserved ejection fraction ?I50.30 - Unspecified diastolic (congestive) heart failure (ICD-10) Hypertension ?I10 - Essential (primary) hypertension (ICD-10) Type 2 diabetes mellitus with hyperglycemia ?E11.65 - Type 2 diabetes mellitus with hyperglycemia (ICD-10) Chronic neck and back pain ?M54.2 - Cervicalgia (ICD-10) ?M54.9 - Dorsalgia, unspecified (ICD-10) ?G89.29 - Other chronic pain (ICD-10) MICHA (obstructive sleep apnea) ?G47.33 - Obstructive sleep apnea (adult) (pediatric) (ICD-10) CAD (coronary artery disease) ?I25.10 - Atherosclerotic heart disease of [place] coronary artery without angina pectoris (ICD-10) Peripheral polyneuropathy ?G62.9 - Polyneuropathy, unspecified (ICD-10) Bilateral carpal tunnel syndrome ?G56.03 - Carpal tunnel syndrome, bilateral upper limbs (ICD-10) History of traumatic brain injury ?Z87.820 - Personal history of traumatic brain injury (ICD-10) Cerebellar infarct ?I63.9 - Cerebral infarction, unspecified (ICD-10) Cognitive impairment ?R41.89 - Other symptoms and signs involving cognitive functions and awareness (ICD-10) Decubitus ulcer of heel, bilateral ?L89.619 - Pressure ulcer of right heel, unspecified stage (ICD-10) ?L89.629 - Pressure ulcer of left heel, unspecified stage (ICD-10) Surgical History History of lumbar fusion (1994) ?Z98.1 - Arthrodesis status (ICD-10) Family History Mother High blood pressure Depression Stroke Father Alcohol dependence Other Diabetes Social History Narrative: He lives with his in [place]. He is disabled. He is a former smoker having 30 pack-year history. Occasionally drinks alcohol. In their home he lives with his and 2 daughters and 2 granddaughters ages 2 and 6. 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 One of the daughters also works at school where her 6-year-old daughter will attend school. Other daughter works at a preschool where the her 2-year-old daughter will attend preschool. What is your current living situation?: I presently have a place to live Problems where you live: no known problems Problems where you live details: n/a In the past 12 months, utilities in danger of being shut off: no In past 12 months, lack of transportation kept you from medical appts, meetings, work, or getting things needed for daily living: no In the past 12 mos, have been you worried that your food would run out before you had money to buy more?: never true In the past 12 mos, the food you bought just didn't last and you didn't have money to buy more?: never true Highest level of school completed/degree received: high school graduate Smoking Status: Former smoker What tobacco products do you use: cigarettes Smoking quit date/years: >15 years ago Do you use any of these nicotine containing products: None Second hand tobacco smoke exposure: No How often do you have a drink containing alcohol: never How often do you have six or more drinks on one occasion: Never AUDIT-C Alcohol total score: 0 Non-prescribed substance use: denies use Caffeine: Yes ([facility]) How often does anyone, including family, friends and others, physically hurt you : never How often does anyone, including family, friends and others, insult or talk down to you: never How often does anyone, including family, friends and others, threaten you with harm: never How often does anyone, including family, friends and others, scream or curse at you: never service: No Exam Const: Vital Signs, click to edit/add: Vital Signs - 24 hr 10/04/24 13:00 10/04/24 13:50 Temperature 96.3 F L Pulse Rate [Pulse Oximeter] 83 Respiratory Rate 18 Blood Pressure [Le ft Upper Arm] 182/101 H Pulse Oximetry 99 Oxygen Delivery Me thod Nasal Cannula Room Air Oxygen Flow Rate 4 Patient is initially met in the hallway. He is alert and interactive, speech is mumbled and garbled, can make out some of his words. Seems to have symmetrical facial function. 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 He otherwise really is not mobilizing the left arm, if I lift his left arm it literally falls back down. He has full control over his right arm. Breathing easy on room air, lungs anteriorly seem to be clear, no tachypnea. CV regular rate and rhythm, do not hear any significant murmur. Abdomen is obese but soft, nontender, no rebound or guarding. Really is not moving his left leg at this time, does attempt to lift a bit. Difficult to say what really his baseline neurologic status was in his legs. Will wiggle right toes, cannot tell if he can are not on the left at this point. Patient needs imminent head CT and CT scanning with angio given recent history. Will make sure that there is no brain bleed on the head CT before proceeding with angio. He will go directly into CT. He does not need any emergent cardiovascular or airway intervention, stable at this time. Documenting provider has reviewed patient's vital signs: yes Course Course ED Course: Patient was met in the hallway, he is going directly to CT, will be ordering head CT and CT angiogram of head and neck. Will talk to Stroke Neurology a sap. After that, patient will come back to the department and will do full complement of labs, have him on pulse oximetry and cardiac monitoring. I will also be ordering a portable chest x-ray to screen for potential aspiration in this patient. Reevaluation(s) Time of Reevaluation #1: 14:23 Reevaluation #1: Nursing staff had requested to place a Wong in this patient, patient was complaining of need to urinate and discomfort but was not producing any urine. Nursing staff subsequently placed a Wong catheter, patient has had 2100 mL drain out. Did discuss with nursing staff that we should check a urinalysis which was ordered. Consultations Consultation #1: Did talk to Dr. Salazar regarding this patient. We will get the head CT and the CT angiograms. He is not a TNK candidate with his recent stroke at the end of August. 1:32 p.m.: Dr. Salazar did call back. She has not received any of the images. Did review with her the negative head CT for acute abnormality. The CT angio images were pending at the time I talked to her but have now come back showing no acute change. She will be seen the patient. 2:44 p.m.: Did call Dr. Salazar back. She has seen the patient. She states it is a different examination. He is now dyslexic, giving all of his dates backwards. She honestly has not seen this before. Nursing staff reported the same thing to me. His left arm is still flaccid. It sounds as if he is articulating his speech better but he slow. We will put him in the hospital, will need a repeat MRI of his brain tomorrow, no capacity to do this at this time. Time: 13:07 Consultation #2: Did discuss with the hospitalist Dr. Mcdaniels. She accepts this patient as observation at this time. MR of his brain noncontrast has been ordered for the morning or when able to. Have confirmed with Radiology that there is no capacity to get this until tomorrow. Time: 14:50 Vital Signs Vital signs: Initial Vital Signs Oxygen Delivery Method Nasal Cannula 10/04/24 13:00 Oxygen Flow Rate 4 10/04/24 13:00 Vital Signs Oxygen Delivery Method Nasal Cannula 10/04/24 13:00 Oxygen Flow Rate 4 10/04/24 13:00 Temperature 97.6 F 10/04/24 16:31 Pulse Rate 83 10/04/24 16:31 Respiratory Rate 20 10/04/24 16:31 Blood Pressure 193/111 H 10/04/24 16:31 Pulse Oximetry 97 10/04/24 16:31 Oxygen Delivery Method Nasal Cannula 10/04/24 16:31 Oxygen Flow Rate 2 10/04/24 16:31 Medications Administered Medications: Generic Name Dose Route Start Last Admin Trade Name Freq PRN Reason Stop Dose Admin Acetaminophen 500 mg 10/04/24 16:18 10/04/24 17:26 Acetaminophen 500 Mg Tablet PO 500 mg Q6H PRN Administration Pain Sodium Chloride 1,000 mls @ 75 mls/hr 10/04/24 16:18 10/04/24 17:28 0.9 % Sodium Chloride 1000 Ml IV 10/05/24 05:37 75 mls/hr .[id number] RICHARD Administration Insulin Aspart 0 unit 10/04/24 18:00 10/04/24 18:10 Insulin Aspart 100 Unit/Ml SUBCUT Not Given TIDWM [facility] Protocol Discontinued Medications Generic Name Dose Route Start Last Admin Trade Name Freq PRN Reason Stop Dose Admin Furosemide 20 mg 10/04/24 17:18 10/04/24 18:23 Furosemide 10 Mg/Ml Inj IVP 10/04/24 17:19 20 mg ONCE ONE Administration Medical Decision Making Lab Data Labs: Lab Results 10/04/24 10/04/24 10/04/24 Range/Units 13:27 14:19 14:30 WBC 6.01 (4.50-11.00) K/uL RBC 4.44 (4.30-5.90) m/uL Hgb 12.6 L (13.5-17.5) gm/dL Hct 40.3 (37.0-53.0) % MCV 91 (80-100) fL MCH 28 (26-34) pg MCHC 31 L (32-36) gm/dL RDW Coeff of Radha 12.7 (11.5-15.5) % Plt Count 195 (140-440) K/uL Neut % (Auto) 55.2 (42.0-72.0) % Lymph % (Auto) 27.1 (20-44) % [place] % (Auto) 12.0 H (0.0-11.0) % Eos % (Auto) 4.5 (0.0-7.0) % Baso % (Auto) 0.7 (0.0-3.0) % Neut # (Auto) 3.32 (1.7-7.0) K/uL Lymph # (Auto) 1.63 (0.90-2.90) K/uL [place] # (Auto) 0.70 (0.00-0.90) K/UL Eos # (Auto) 0.27 (0.00-0.50) K/uL Baso # (Auto) 0.04 (0.00-0.30) K/uL Abs Immat Gran (auto) 0.03 (0.00-0.30) K/uL Imm/Tot Granulo (auto) 0.5 % VBG pH 7.338 (7.32-7.43) VBG pCO2 54 H (40-50) mmHG VBG pO2 43.7 (25-47) mmHG VBG HCO3 29 H (21-28) mmol/L Sodium 138 (135-149) mmol/L Potassium 5.3 H (3.6-5.1) mmol/L Chloride 104 (96-114) mmol/L Carbon Dioxide 29 (20-32) mmol/L Anion Gap 5 L (7-15) mEq/L BUN 42 H (7-30) mg/dL Creatinine 1.1 (0.5-1.5) mg/dL Estimated GFR 78 ml/min Glucose 143 H (60-115) mg/dL Lactate 1.9 (0.5-1.9) mmol/L Calcium 8.4 (8.4-10.6) mg/dL Total Bilirubin 0.2 (0.1-1.5) mg/dL AST 27 (12-35) U/L ALT 26 (4-50) U/L Alkaline Phosphatase 69 (40-150) U/L Troponin I < 0.01 (0.01-0.04) ng/mL C-Reactive Protein < 0.5 L (0.5-1.0) mg/dL NT-Pro-B Natriuret Pep 180 (See Note) pg/mL Total Protein 6.0 (6.0-8.3) g/dL Albumin 3.6 (3.3-5.0) g/dL Urine Color Light yellow (Yellow) Urine Appearance Clear (Clear) Urine pH 7.5 (5.0-8.5) Ur Specific [place] 1.015 (1.000-1.030) Urine Protein Negative (Negative) Urine Glucose (UA) Negative (Negative) Urine Ketones Negative (Negative) Urine Blood Negative (Negative) Urine Nitrite Negative (Negative) Urine Bilirubin Negative (Negative) Urine Urobilinogen 0.2 (0.2-1.0) Ur Leukocyte Esterase Negative (Negative) Urine RBC 0-2 (0-2) Urine WBC 0-2 (0-5) Ur Squamous Epith Cells None (None-Few) Urine Bacteria None (None) SARS-CoV-2 (PCR) Negative SARS-CoV-2 (Negative) Influenza Type A (PCR) Negative PCR FLU A (Negative) Influenza Type B (PCR) Negative PCR FLU B (Negative) RSV (PCR) Negative PCR RSV (Negative) Imaging Data CT scan - head: Attestation: I have reviewed the pertinent imaging results. Radiologist's impression: Patient: JONATHAN BURRIS JR Facility:?[facility] Patient ID:?[id number] Site Patient ID:?[id number]. Site :?1965 Study:?CT-Head WITHOUT CODE STROKE-10/04/2024 1:23:12 PM Ordering Physician:?Dontae Jimenez Final Report: INDICATION: Left arm weakness. History of stroke TECHNIQUE: Non-contrast CT of the head is submitted. 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 The ventricles, sulci and gyri are of normal size, shape and contour. Midline structures are centrally located. No convincing evidence of intra- or extra-axial fluid collections. IMPRESSION: 1. No radiographic evidence of acute intracranial abnormalities. 2. 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 Please note that all CT scans at this facility use dose modulation, iterative reconstruction, and/or weight-based dosing when appropriate to reduce radiation dose to as low as reasonably achievable. Dictated by Nagi Sullivan MD @ 10/04/2024 1:28:10 PM (Electronic Signature) CT- Other: Attestation: I have reviewed the pertinent imaging results. Radiologist's impression: Patient: JONATHAN BURRIS JR Facility:?[facility] Patient ID:?[id number] Site Patient ID:?[id number]. Site :?1965 Study:?CT-Neck Angio Angio 95CC ISOVUE 370 CODE STROKE-10/04/2024 1:25:00 PM Ordering Physician:?Dontae Jimenez Preliminary Report: FINDINGS: When compared to prior study from September 12, 2024, stable right vertebral artery occlusion. Stable narrowing of the right cervical ICA due to underlying atherosclerotic change. The remainder of the cervical arteries appear patent. No convincing evidence suspicious high-grade narrowing or prominent aneurysm formation. Dictated by Nagi Sullivan MD @ 10/04/2024 1:31:42 PM Read by:?Nagi Sullivan MD @10/04/2024 1:31:44 PM Patient: JONATHAN BURRIS JR Facility:?[facility] Patient ID:?[id number] Site Patient ID:?[id number]. Site :?1965 Study:?CT-Head Angio 95CC ISOVUE 370 CODE STROKE-10/04/2024 1:24:14 PM Ordering Physician:?Dontae Jimenez Preliminary Report: FINDINGS: The visualized 1st and 2nd order intracranial vessels appear patent. No convincing radiographic evidence of large vessel occlusion. Dictated by Nagi Sullivan MD @ 10/04/2024 1:30:24 PM Read by:?Nagi Sullivan MD @10/04/2024 1:30:28 PM Chest x-ray: Attestation: I have reviewed the pertinent imaging results. Radiologist's impression: Patient: JR BURRIS Facility:?[facility] Patient ID:?[id number] Site Patient ID:?[id number]. Site :?1965 Study:?XRay-Chest PORTABLE-10/04/2024 1:34:08 PM Ordering Physician:?Dontae Jimenez Final Report: INDICATION: Altered mental status. TECHNIQUE: Chest radiograph, 1 view. COMPARISON: Chest radiographs 02/03/2024. FINDINGS: Cardiovascular/Mediastinum: Magnified cardiac silhouette. Unremarkable. Lungs: No focal consolidation. Fall perivascular congestion and interstitial edema. Linear band like opacification lungs bilaterally, likely subsegmental atelectasis and/or scarring. Airways: Trachea remains midline. Pleura: No pleural effusions or pneumothorax. Bones: No acute osseous abnormalities. Upper abdomen: Unremarkable. IMPRESSION: Borderline heart size, magnified due to technique, with mild pulmonary vascular congestion and interstitial edema. Dictated by Jabari Liz MD @ 10/04/2024 1:49:17 PM (Electronic Signature) ECG Data Attestation: I personally reviewed and interpreted this ECG as follows: (Normal sinus rhythm, 81 beats per minute. Nonspecific intraventricular conduction delay. Poor R-wave progression anterior precordial leads but no definite ischemia noted.) Prior ECG tracings: available for review Critical Care Time Critical Care Time Total Critical Care Time in Minutes: 30 Procedures ABG Interpretation ABG Results: 10/04/24 13:27 VBG pH 7.338 VBG pCO2 54 H VBG pO2 43.7 VBG HCO3 29 H
[2024-10-04 13:34] LABS: HCO3 VBG 29 mmol/L (21-28); Lactate* 1.9 mmol/L (0.5-1.9); PCO2 VBG 54 mmHG (40-50); PO2 VBG 43.7 mmHG (25-47); pH VBG 7.338 (7.32-7.43)
[2024-10-04 13:38] LABS: Hematocrit 40.3 % (37.0-53.0); Hemoglobin* 12.6 gm/dL (13.5-17.5); Immature Granulocytes Abs Auto 0.03 K/uL (0.00-0.30); Immature Granulocytes Pct Auto 0.5 %; Lymphocytes Absolute Auto 1.63 K/uL (0.90-2.90); Mean Corpuscular HGB Conc 31 gm/dL (32-36); Mean Corpuscular Hemoglobin 28 pg (26-34); Mean Corpuscular Volume 91 fL (80-100); RDW Coefficient of Variation % 12.7 % (11.5-15.5); Red Blood Count 4.44 m/uL (4.30-5.90); White Blood Count* 6.01 K/uL (4.50-11.00)
[2024-10-04 13:44] LABS: Slide Review Reflex No
[2024-10-04 13:50] VITALS: BP 182/101; PULSE 83; RESP 18; TEMP 35.7; O2SAT 99; BMI 40.4
[2024-10-04 13:59] LABS: Albumin* 3.6 g/dL (3.3-5.0); Chloride* 104 mmol/L (96-114); Potassium* 5.3 mmol/L (3.6-5.1); Sodium* 138 mmol/L (135-149)
[2024-10-04 14:02] LABS: Alanine Aminotransferase* 26 U/L (4-50); Alkaline Phosphatase* 69 U/L (40-150); Anion Gap 5 mEq/L (7-15); Aspartate Amino Transferase* 27 U/L (12-35); Bilirubin Total* 0.2 mg/dL (0.1-1.5); Blood Urea Nitrogen* 42 mg/dL (7-30); Carbon Dioxide* 29 mmol/L (20-32); Creatinine* 1.1 mg/dL (0.5-1.5); Estimated Glomerular Filt Rate 78 ml/min
[2024-10-04 14:03] LABS: Calcium* 8.4 mg/dL (8.4-10.6); Glucose* 143 mg/dL (60-115); Total Protein* 6.0 g/dL (6.0-8.3)
[2024-10-04 14:18] LABS: NT Pro B Type NatriureticPept* 180 pg/mL (See Note)
[2024-10-04 14:29] LABS: Appearance Urine Clear (Clear)
[2024-10-04 15:16] LABS: PCR FLU A Negative PCR FLU A (Negative); PCR FLU B Negative PCR FLU B (Negative); PCR RSV Negative PCR RSV (Negative); SARS PCR* Negative SARS-CoV-2 (Negative)
[2024-10-04 16:31] VITALS: BP 193/111; PULSE 83; RESP 20; TEMP 36.4; O2SAT 97; BMI 40.4
--- NOTE | 2024-10-04 16:59 | PM.IMHP1 ---
Assessment and Plan Assessment and plan (1) Cerebrovascular disease: Problem comment: -Hx of multiple strokes including an old cerebellar infarct and a recent right medullary infarct that happened on September 12 for which patient has been on aspirin and was prescribed Plavix for 3 months; the patient and his confirmed that he was compliant with dual antiplatelet treatment. -CT head and CTA head and neck did not show any acute pathology. Tele stroke was contacted and the neurologist states that he is not a candidate for thrombolytics because of his recent stroke - Echo less than a month ago with bubble study was negative. - Neurologist recommendations are: - MRI brain without contrast tomorrow morning - Continue dual antiplatelet therapy with Plavix 75 mg and aspirin 81 mg -in addition his plan includes following: - speech therapy because of difficulty swallowing in addition to dysarthria. - Frequent neurologic exam. Stat CT head if any deterioration in the neurological status of the patient. - Permissive hypertension, treat blood pressure only if systolic BP is above 210 and diastolic blood pressure above 110. - control blood sugar, keep below 180. - DVT prophylaxis with SCDs, avoid chemical prophylaxis until approved by neurologist. - P.T./OT evaluation and treatment. - Consult social science research assistant for DC planning. Status: Acute (2) Cerebellar infarct: Problem comment: - remote history of R cerebellar infarct, patient doesn't recall this, likely contributing to falls. See scanned 03/13/22-03/17/22 [facility] Discharge Sum Status: Chronic (3) Heart failure with preserved ejection fraction: Problem comment: - Heart failure looks compensated, chest x-ray showing mild pulmonary vascular congestion and interstitial edema. - patient states that the doctor at [facility] prescribed a water pill for him, will try to find out which antidiuretic and what dose, for now and due to the mild congestion I am going to give him Lasix IV 20 mg. - TTE 09/14 consistent with chronic HFpEF, no evidence of exacerbation - dilated ascending aorta is chronic/stable Final Impressions: 1. Normal LV size, mildly increased wall thickness, normal global systolic function with an estimated EF of 60 - 65%. 2. Right ventricular cavity size is mildly enlarged, global systolic RV function is normal. 3. Mildly enlarged left atrium. 4. The aortic valve is calcified (cannot rule out bicuspid valve, leaflets not well visualized), no stenosis and no regurgitation. 5. Dilated sinus of Valsalva, diameter of 4.2 cm. 6. Dilated ascending aorta, diameter of 4.6 cm. 7. Bubble study was technically challenging given limited acoustic windows but no obvious right to left shunt at rest or with Valsalva. 8. Echo contrast was administered to enhance visualization of all left ventricular segments. Status: Chronic (4) Type 2 diabetes mellitus with hyperglycemia: Problem comment: - Poorly managed type 2 DM - A1C 10.2 09/12/24; - Will give 20mg HS Glargine as pt is NPO + SSI, but will resume home does in addition to aspart with meals once he is eating. - Outpatient management with PCP Status: Chronic (5) MICHA (obstructive sleep apnea): Problem comment: - 03/24/12 AHI=70. Untreated. - noted to have elevated CO2, will utilize caution with supplemental oxygen given risk for Co2 narcosis Outpatient follow-up Status: Chronic (6) CAD (coronary artery disease): Problem comment: Asymptomatic Status: Chronic (7) Hypertension: Problem comment: - Allow permissive hypertension, treat if systolic blood pressure is above 210 and or diastolic blood pressure is above 110 Status: Chronic (8) Hyperlipidemia: Problem comment: - atorvastatin increased from 10 ->40mg on 09/13/24 Status: Acute (9) History of traumatic brain injury: Problem comment: - Multiple head injuries and old stroke resulting in cognitive deficits Status: Chronic Total Time Spent Total Time Spent: Time spent: Today I spent 75 minutes seeing the patient, discussing the patient with ER staff, reviewing Expanse and EPIC notes/diagnostics, discussing the care plan with our care time that includes social work, PT/OT, pharmacy, RT, long term and documenting my impressions and plan in the medical record. Hospitalist- H&P: HPI History of Present Illness Date Seen: 10/04/24 Chief complaint: stroke Narrative: Saman Michel Jr is a 59 year old male who lives in [facility], With past medical history of hypertension, hyperlipidemia, coronary artery disease and HFpEF, diabetes, MICHA and multiple strokes including an old cerebellar infarct and a recent right medullary infarct that happened on September 12 for which patient has been on aspirin and was prescribed Plavix for 3 months; the patient and his confirmed that he was compliant with dual antiplatelet treatment. Today and during lunch patient started to have acute disorientation and had more weakness in his left arm and leg in addition to dysarthria, which is the same symptoms he had in his previous stroke but got much worse. Patient was at [facility] improving from his previous stroke weakness and he was able to use a walker prior to this event today. No recent infections, patient has been having cough and clear phlegm for more than a month likely secondary to his pulmonary congestion due to history of heart failure. No fevers. At the ED patient was hypertensive. CT head and CTA head and neck did not show any acute pathology. Tele stroke was contacted and the neurologist states that he is not a candidate for thrombolytics because of his recent stroke and found that the patient was dyslexic. Echo less than a month ago with bubble study was negative, ejection fraction was 60-65%. At the ED, Patient was found to have urinary retention and when a Wong was inserted 2.5 L of urine were out. Review of Systems Status of ROS: Reports: 6 or more systems reviewed and unremarkable except as noted in History and below Medical Decision Making Medical Decision Making Has patient completed a Health Care Directive: No PFSH [facility] Medical History (Updated 10/04/24 @ 17:16 by Beata Mcdaniels MD) Hyperlipidemia ?E78.5 - Hyperlipidemia, unspecified (ICD-10) Heart failure with preserved ejection fraction ?I50.30 - Unspecified diastolic (congestive) heart failure (ICD-10) Hypertension ?I10 - Essential (primary) hypertension (ICD-10) Type 2 diabetes mellitus with hyperglycemia ?E11.65 - Type 2 diabetes mellitus with hyperglycemia (ICD-10) Chronic neck and back pain ?M54.2 - Cervicalgia (ICD-10) ?M54.9 - Dorsalgia, unspecified (ICD-10) ?G89.29 - Other chronic pain (ICD-10) MICHA (obstructive sleep apnea) ?G47.33 - Obstructive sleep apnea (adult) (pediatric) (ICD-10) CAD (coronary artery disease) ?I25.10 - Atherosclerotic heart disease of [place] coronary artery without angina pectoris (ICD-10) Peripheral polyneuropathy ?G62.9 - Polyneuropathy, unspecified (ICD-10) Bilateral carpal tunnel syndrome ?G56.03 - Carpal tunnel syndrome, bilateral upper limbs (ICD-10) History of traumatic brain injury ?Z87.820 - Personal history of traumatic brain injury (ICD-10) Cerebellar infarct ?I63.9 - Cerebral infarction, unspecified (ICD-10) Cognitive impairment ?R41.89 - Other symptoms and signs involving cognitive functions and awareness (ICD-10) Decubitus ulcer of heel, bilateral ?L89.619 - Pressure ulcer of right heel, unspecified stage (ICD-10) ?L89.629 - Pressure ulcer of left heel, unspecified stage (ICD-10) Surgical History History of lumbar fusion (1994) ?Z98.1 - Arthrodesis status (ICD-10) Family History Mother High blood pressure Depression Stroke Father Alcohol dependence Other Diabetes Social History Narrative: He lives with his in [place]. He is disabled. He is a former smoker having 30 pack-year history. Occasionally drinks alcohol. In their home he lives with his and 2 daughters and 2 granddaughters ages 2 and 6. 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 One of the daughters also works at school where her 6-year-old daughter will attend school. Other daughter works at a preschool where the her 2-year-old daughter will attend preschool. What is your current living situation?: I presently have a place to live Problems where you live: no known problems Problems where you live details: n/a In the past 12 months, utilities in danger of being shut off: no In past 12 months, lack of transportation kept you from medical appts, meetings, work, or getting things needed for daily living: no In the past 12 mos, have been you worried that your food would run out before you had money to buy more?: never true In the past 12 mos, the food you bought just didn't last and you didn't have money to buy more?: never true Highest level of school completed/degree received: high school graduate Smoking Status: Former smoker What tobacco products do you use: cigarettes Smoking quit date/years: >15 years ago Do you use any of these nicotine containing products: None Second hand tobacco smoke exposure: No How often do you have a drink containing alcohol: never How often do you have six or more drinks on one occasion: Never AUDIT-C Alcohol total score: 0 Non-prescribed substance use: denies use Caffeine: Yes ([place]) How often does anyone, including family, friends and others, physically hurt you: never How often does anyone, including family, friends and others, insult or talk down to you: never How often does anyone, including family, friends and others, threaten you with harm: never How often does anyone, including family, friends and others, scream or curse at you: never service: No Meds Home Medications and Allergies Home Medications ?Medication ?Instructions ?Recorded ?Confirmed ?Type acetaminophen 500 mg tablet 500 - 1,000 mg (1 - 2 x 500 mg) PO 10/17/22 04/29/24 Rx Q6H PRN pain #100 tabs lidocaine 4 % topical patch 1 patch topical DAILY PRN 09/18/23 04/29/24 History (Lidocaine Pain Relief) gabapentin 600 mg tablet 1,200 mg (2 x 600 mg) PO TID #180 10/09/23 04/29/24 Rx tabs flash glucose sensor (FreeStyle #10 ea 12/02/23 04/29/24 Rx Luis 2 Sensor kit) insulin aspart U-100 100 unit/mL 15 unit (0.15 mL) subcut TIDWM #45 12/30/23 09/13/24 Rx (3 mL) subcutaneous pen (Novolog mL FlexPen U-100 Insulin aspart) insulin glargine 100 unit/mL (3 40 unit (0.4 mL) subcut DAILY #45 12/30/23 09/13/24 Rx mL) subcutaneous pen (Lantus mL Solostar U-100 Insulin) pen needle, diabetic 32 gauge x #100 ea 04/08/24 04/29/24 Rx 5/32 (Pen Needle) venlafaxine 75 mg capsule,extended 300 mg (4 x 75 mg) PO DAILY #360 05/26/24 Rx release 24 hr caps aspirin 81 mg tablet,delayed 81 mg PO BID #60 tabs 05/29/24 Rx release propranolol 10 mg tablet 10 mg PO BID #180 tabs 05/29/24 09/13/24 Rx quetiapine 25 mg tablet 25 mg PO TID #120 tabs 05/29/24 09/13/24 Rx prazosin 1 mg capsule 1 mg PO HS #90 caps 08/01/24 09/13/24 Rx trazodone 50 mg tablet 50 mg PO QHS insomnia #90 tabs 08/01/24 09/13/24 Rx divalproex 500 mg tablet,extended 1,500 mg (3 x 500 mg) PO DAILY #90 09/15/24 Rx release 24 hr (Depakote ER) tabs atorvastatin 40 mg tablet 40 mg PO HS #30 tabs 09/16/24 Rx clopidogrel 75 mg tablet 75 mg PO DAILY 86 days #86 tabs 09/16/24 Rx lisinopril 10 mg tablet 10 mg PO DAILY #30 tabs 09/16/24 Rx Allergies Allergy/AdvReac Type Severity Reaction Status Date / Time amoxicillin Allergy Intermediate Unknown Verified 10/04/24 13:35 celecoxib Allergy Intermediate Unknown Verified 10/04/24 13:35 Sulfa (Sulfonamide Allergy Intermediate Hives Verified 10/04/24 13:35 Antibiotics) Penicillins Allergy Unknown Verified 10/04/24 13:35 sulfasalazine Allergy Unknown Verified 10/04/24 13:35 latex Allergy Hives Verified 10/04/24 13:35 Exam Narrative: Exam Narrative: Physical exam GENERAL: Comfortable, no acute distress. HEAD AND NECK: Atraumatic, normocephalic CARDIOVASCULAR: RRR. Normal S1, S2. No murmurs. RESPIRATORY: Clear to auscultation B/L. Good air entry B/L. GASTROINTESTINAL: Obese, not tender to palpation. NEUROLOGY: Alert, awake, oriented X 3. Dysarthria. Weakness of left upper and lower limbs, unable to raise up. Skin: No foot/heel ulcers PSYCH: Normal mood, normal affect. Const: Vital Signs, click to edit/add: Vital Signs - 24 hr 10/04/24 13:00 10/04/24 13:50 Temperature 96.3 F L Pulse Rate [Pulse Oximeter] 83 Respiratory Rate 18 Blood Pressure [Le ft Upper Arm] 182/101 H Pulse Oximetry 99 Oxygen Delivery Me thod Nasal Cannula Room Air Oxygen Flow Rate 4 Hospitalist - H&P: Result Labs Labs: Short CBC 10/04/24 Range/Units 13:27 WBC 6.01 (4.50-11.00) K/uL Hgb 12.6 L (13.5-17.5) gm/dL Hct 40.3 (37.0-53.0) % Plt Count 195 (140-440) K/uL BMP 10/04/24 13:27 Sodium 138 Potassium 5.3 H Chloride 104 Carbon Dioxide 29 BUN 42 H Creatinine 1.1 Glucose 143 H Calcium 8.4 Cardiac Enzymes 10/04/24 Range/Units 13:27 Troponin I < 0.01 (0.01-0.04) ng/mL Liver Function 10/04/24 Range/Units 13:27 Total Bilirubin 0.2 (0.1-1.5) mg/dL AST 27 (12-35) U/L ALT 26 (4-50) U/L Alkaline Phosphatase 69 (40-150) U/L Albumin 3.6 (3.3-5.0) g/dL Urine 10/04/24 Range/Units 14:19 Urine Color Light yellow (Yellow) Urine Appearance Clear (Clear) Urine pH 7.5 (5.0-8.5) Ur Specific [place] 1.015 (1.000-1.030) Urine Protein Negative (Negative) Urine Glucose (UA) Negative (Negative) ECG Attestation: I personally reviewed and interpreted this ECG as follows: ECG interpretation date: 10/04/24 Prior ECG tracings: available for review Interpretation: Normal sinus rhythm with left axis deviation. There is left bundle branch block that is old. Normal QTC. Imaging CT scan - head: Attestation: I have reviewed the pertinent imaging results. Radiologist's impression: TECHNIQUE: Non-contrast CT of the head is submitted. 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 The ventricles, sulci and gyri are of normal size, shape and contour. Midline structures are centrally located. No convincing evidence of intra- or extra-axial fluid collections. IMPRESSION: 1. No radiographic evidence of acute intracranial abnormalities. 2. 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 Please note that all CT scans at this facility use dose modulation, iterative reconstruction, and/or weight-based dosing when appropriate to reduce radiation dose to as low as reasonably achievable. Chest x-ray: Attestation: I have reviewed the pertinent imaging results. Radiologist's impression: TECHNIQUE: Chest radiograph, 1 view. COMPARISON: Chest radiographs 02/03/2024. FINDINGS: Cardiovascular/Mediastinum: Magnified cardiac silhouette. Unremarkable. Lungs: No focal consolidation. Fall perivascular congestion and interstitial edema. Linear band like opacification lungs bilaterally, likely subsegmental atelectasis and/or scarring. Airways: Trachea remains midline. Pleura: No pleural effusions or pneumothorax. Bones: No acute osseous abnormalities. Upper abdomen: Unremarkable. IMPRESSION: Borderline heart size, magnified due to technique, with mild pulmonary vascular congestion and interstitial edema.
[2024-10-04] MEDS: ACETAMINOPHEN 500 MG TABLET PO (17:26)
[2024-10-04] MEDS: FUROSEMIDE 10 MG/ML inj 20 MG IVP (18:23)
[2024-10-04 19:00] VITALS: BP 140/84; PULSE 87; RESP 20; TEMP 37.1; O2SAT 92
--- NOTE | 2024-10-04 19:24 | PC.NURSE ---
End of shift: Patient pleasant and cooperative, A&O. Hypertensive this shift, otherwise all other VSS. SpO2 maintained above 90% on RA. Left arm flaccid this shift, left leg severely weak. PRN Tylenol given due to chronic back pain. Wong patent and draining clear pale yellow urine.
[2024-10-04] MEDS: PROPRANOLOL 20 MG TABLET 10 MG PO (21:56)
[2024-10-04] MEDS: GABAPENTIN 600 MG TABLET PO (21:56)
[2024-10-04] MEDS: DIVALPROEX SODIUM ER TAB 250 MG 1500 MG PO (21:56)
[2024-10-04] MEDS: QUETIAPINE 25 MG TABLET PO (21:57)
[2024-10-04] MEDS: ATORVASTATIN CALCIUM 40 MG TABLET PO (21:57)
[2024-10-04] MEDS: ASPIRIN 81 MG TABLET EC PO (21:58)
[2024-10-04] MEDS: SODIUM CHLORIDE 0.9 % (FLUSH) 10 ML SYRINGE 5 ML IVF (21:58)
[2024-10-04] MEDS: TRAZODONE HCL 50 MG TABLET PO (21:58)
[2024-10-04] MEDS: PRAZOSIN HCL 1 MG CAPSULE PO (22:21)
[2024-10-04 23:00] VITALS: BP 113/67; PULSE 94; RESP 18; TEMP 37.3; O2SAT 90
[2024-10-04 23:41] VITALS: PULSE 94
[2024-10-05] VITALS (7 sets, daily range): BP systolic 77–185; BP diastolic 49–110; PULSE 83–97; RESP 16–18; TEMP 36.6–37; O2SAT 91–94
--- NOTE | 2024-10-05 04:41 | P.CCEN_ITS ---
Critical Care Event Note Summary Narrative: This case had a high probability of a clinically significant, sudden, or life threatening deterioration of this patient's condition which required my full and direct attention, intervention and personal management.mmmmmmmmmmmmmmmmmmmmmmmmmmmmmmmmmmmmmmmmmmmmmmmmmmmmmmm mmmmmmmmmmmmmmmmmmmmmmmmmmmmmmmmmmmmmmmmmmmmmmmmmmmmmmmmmmmmmmmmmmmmmmmmmmmmmmmm mmmmmmmmmmmmmmmmmmmmmmmmmmmmmmmmmmmmmmmmmmmmmmmmmmmmmmmmmmmmmmm
[2024-10-05 06:08] LABS: Hematocrit 35.5 % (37.0-53.0); Hemoglobin* 11.0 gm/dL (13.5-17.5); Mean Corpuscular HGB Conc 31 gm/dL (32-36); Mean Corpuscular Hemoglobin 28 pg (26-34); Mean Corpuscular Volume 91 fL (80-100); Red Blood Count 3.89 m/uL (4.30-5.90); White Blood Count* 6.65 K/uL (4.50-11.00)
[2024-10-05 06:13] LABS: Slide Review Reflex No
[2024-10-05 06:20] LABS: Albumin* 2.9 g/dL (3.3-5.0); Chloride* 107 mmol/L (96-114)
[2024-10-05 06:21] LABS: Potassium* 4.5 mmol/L (3.6-5.1); Sodium* 140 mmol/L (135-149)
[2024-10-05 06:23] LABS: Alanine Aminotransferase* 22 U/L (4-50); Aspartate Amino Transferase* 23 U/L (12-35); Blood Urea Nitrogen* 42 mg/dL (7-30); Creatinine* 1.3 mg/dL (0.5-1.5); Est. Creatinine Clearance* 65.97; Estimated Glomerular Filt Rate 64 ml/min
[2024-10-05 06:24] LABS: Alkaline Phosphatase* 47 U/L (40-150); Anion Gap 1 mEq/L (7-15); Bilirubin Total* 0.2 mg/dL (0.1-1.5); Calcium* 7.9 mg/dL (8.4-10.6); Carbon Dioxide* 32 mmol/L (20-32); Glucose* 101 mg/dL (60-115); Total Protein* 5.1 g/dL (6.0-8.3)
--- NOTE | 2024-10-05 07:41 | PC.NURSE ---
End of shift [id number]: AxOx4, pleasant, and cooperative with cares. Left arm flaccid this shift, no sensation to touch, able to move left arm intermittently, left leg flaccid. Reassessed q4h, no changes. PRN Tylenol given due to chronic back pain. Wong patent and draining. Swallow eval completed by staff writer and passed. MD Mcdaniels okay fluids only and not food. Pt was given juice due to feeling lightheaded with blood sugars. Pts BP rapidly declined and after two different contact calls via telephone, Alejandro Hernandez ordered 1 L bolus. Pt remained symptomatic of lightheadedness and lethargy during both reports to eval. Pt noted feeling better after bolus. MRI Questionnaire complete. Patient appears resting watching television with call light in reach.
--- NOTE | 2024-10-05 08:15 | CRLHL7_ITS ---
For Patients: As a result of the Century Cures Act, medical imaging exams and procedure reports are released immediately into your electronic medical record. You may view this report before your referring provider. If you have questions, please contact your health care provider. Indication: Worsened left arm and speech issues. Technique: Multiplanar, multisequence MRI of the brain was performed without intravenous contrast. Comparison: CT head 10/04/2024. Findings: The corpus callosum, pituitary gland and clivus appear intact. Mild degenerative change visualized upper cervical spine. There is a 7 mm focus of restricted diffusion within the right thalamus. Corresponding T2 FLAIR hyperintensity. Evolving late subacute to chronic infarct at the right ventral medulla. Stable chronic right cerebellar infarct. Mild parenchymal volume loss. Scattered T2 FLAIR hyperintense foci within the subcortical and periventricular white matter, favored to represent chronic ischemic microvascular disease. The ventricles are proportionate to the cerebral sulci. The 4th ventricle appears midline. The basal cisterns appear patent. No abnormal extra-axial fluid collection identified. There is no intracranial mass, abnormal mass-effect or midline shift identified. Major intracranial vascular flow voids appear grossly intact. Both globes are preserved. Mild paranasal sinus mucosal disease. Impression: 1. New small acute/subacute infarct involving the right thalamus. 2. Evolving late subacute to chronic infarct right ventral medulla. 3. Stable chronic right cerebellar infarct. 4. Mild chronic ischemic microvascular disease. Dictated by Ernesto Hubbard MD @ 10/05/2024 9:08:40 AM (Electronically Signed)
[2024-10-05] MEDS: QUETIAPINE 25 MG TABLET PO ×2 (09:07→14:47)
[2024-10-05] MEDS: ASPIRIN 81 MG TABLET EC PO (09:07)
[2024-10-05] MEDS: CLOPIDOGREL 75 MG TABLET PO (09:07)
[2024-10-05] MEDS: GABAPENTIN 600 MG TABLET PO (09:07)
[2024-10-05] MEDS: SODIUM CHLORIDE 0.9 % (FLUSH) 10 ML SYRINGE 5 ML IVF (09:08)
[2024-10-05] MEDS: VENLAFAXINE ER 75 MG CAPSULE 300 MG PO (09:21)
[2024-10-05] MEDS: ACETAMINOPHEN 500 MG TABLET PO (10:04)
[2024-10-05] MEDS: INSULIN ASPART 100 UNIT/ML SUBCUT ×2 (12:58→16:56)
--- NOTE | 2024-10-05 14:30 | PM.DS1 ---
DS: Providers Provider Time Seen by Provider: 14:00 Date Seen: 10/05/24 Date of admission: 10/05/24 10:31 Primary care physician: Karthik Sanz MD Admitting Clinician: Beata Mcdaniels MD Consults: 10/04/24 16:18 Consult to Occupational Therapy [CONS] Routine Comment: Reason(s) for OT Consult:: Evaluate and Treat Any Restrictions?:: No Restrictions Consult to Physical Therapy [CONS] Routine Comment: Reason(s) for PT Consult:: Evaluate and Treat Any Restrictions?:: No Restrictions Consult to Service Desk Technician [CONS] Routine Comment: Reason for Consult:: Discharge Planning Needs Consult to Speech Therapy [CONS] Urgent Comment: Reason(s) for Speech Consult:: Speech/Swallowing Eval Attending Physician on discharge: Ellen Ricci MD Date of Discharge: 10/05/24 DS: Diagnosis Discharge Diagnosis (1) Cerebrovascular disease: Status: Acute Problem details: -Hx of multiple strokes including an old cerebellar infarct and a recent right medullary infarct that happened on September 12 for which patient has been on aspirin and was prescribed Plavix for 3 months; the patient and his confirmed that he was compliant with dual antiplatelet treatment. -CT head and CTA head and neck did not show any acute pathology. Tele stroke was contacted and the neurologist states that he is not a candidate for thrombolytics because of his recent stroke - Echo less than a month ago with bubble study was negative. - Neurologist recommendations are: - MRI brain without contrast shows new acute R thalamus ischemic stroke - Teleneuro gave recommendations: - Continue dual antiplatelet therapy with Plavix 75 mg and aspirin 81 mg x 90 days - atorvastatin 40 mg daily - speech therapy because of difficulty swallowing in addition to dysarthria. This is not available here as inpatient this week. He passed a bedside swallow study and has not had any difficulty eating or drinking here today. F/u as outpatient with speech therapy. - Permissive hypertension, treat blood pressure only if systolic BP is above 210 and diastolic blood pressure above 110. - control blood sugar, keep below 180. (continue home DM insulin regimen) - P.T./OT - continue as outpatient home health (2) Cerebellar infarct: Status: Acute Problem details: - remote history of R cerebellar infarct, patient doesn't recall this, likely contributing to falls. See scanned 03/13/22-03/17/22 [facility] Discharge Sum - Acute on chronic -new stroke as seen on MRI today, see above as well. (3) Heart failure with preserved ejection fraction: Status: Chronic Problem details: - Heart failure looks compensated, chest x-ray showing mild pulmonary vascular congestion and interstitial edema. - patient states that the doctor at [facility] prescribed a water pill for him, will try to find out which antidiuretic and what dose, for now and due to the mild congestion I am going to give him Lasix IV 20 mg. - TTE 09/14 consistent with chronic HFpEF, no evidence of exacerbation - dilated ascending aorta is chronic/stable - 10/05 He had been on lasix 20 mg daily at [facility] recently. I've increased this to 20mg BID and he will f/u with PCP this week. Final Impressions: 1. Normal LV size, mildly increased wall thickness, normal global systolic function with an estimated EF of 60 - 65%. 2. Right ventricular cavity size is mildly enlarged, global systolic RV function is normal. 3. Mildly enlarged left atrium. 4. The aortic valve is calcified (cannot rule out bicuspid valve, leaflets not well visualized), no stenosis and no regurgitation. 5. Dilated sinus of Valsalva, diameter of 4.2 cm. 6. Dilated ascending aorta, diameter of 4.6 cm. 7. Bubble study was technically challenging given limited acoustic windows but no obvious right to left shunt at rest or with Valsalva. 8. Echo contrast was administered to enhance visualization of all left ventricular segments. (4) Type 2 diabetes mellitus with hyperglycemia: Status: Chronic Problem details: - Poorly managed type 2 DM - A1C 10.2 09/12/24; - Resume home regimen - Outpatient management with PCP (5) MICHA (obstructive sleep apnea): Status: Chronic Problem details: - 03/24/12 AHI=70. Untreated. - noted to have elevated CO2, will utilize caution with supplemental oxygen given risk for Co2 narcosis Outpatient follow-up (6) CAD (coronary artery disease): Status: Chronic Problem details: Asymptomatic (7) Hypertension: Status: Chronic Problem details: - Allow permissive hypertension, treat if systolic blood pressure is above 210 and or diastolic blood pressure is above 110, holding lisinopril for 1-2 weeks (8) Hyperlipidemia: Status: Acute Problem details: - atorvastatin increased from 10 ->40mg on 09/13/24 (9) History of traumatic brain injury: Status: Chronic Problem details: - Multiple head injuries and old stroke resulting in cognitive deficits DS: Summary Hospital Course Hospital Course: Per H&P: Saman Michel Jr is a 59 year old male who lives in [facility], With past medical history of hypertension, hyperlipidemia, coronary artery disease and HFpEF, diabetes, MICHA and multiple strokes including an old cerebellar infarct and a recent right medullary infarct that happened on September 12 for which patient has been on aspirin and was prescribed Plavix for 3 months; the patient and his confirmed that he was compliant with dual antiplatelet treatment. Today and during lunch patient started to have acute disorientation and had more weakness in his left arm and leg in addition to dysarthria, which is the same symptoms he had in his previous stroke but got much worse. Patient was at [facility] improving from his previous stroke weakness and he was able to use a walker prior to this event today. No recent infections, patient has been having cough and clear phlegm for more than a month likely secondary to his pulmonary congestion due to history of heart failure. No fevers. At the ED patient was hypertensive. CT head and CTA head and neck did not show any acute pathology. Tele stroke was contacted and the neurologist states that he is not a candidate for thrombolytics because of his recent stroke and found that the patient was dyslexic. Echo less than a month ago with bubble study was negative, ejection fraction was 60-65%. At the ED, Patient was found to have urinary retention and when a Medley was inserted 2.5 L of urine were out. Saman has a new stroke on his MRI. He was seen by tele neuro, who gave recommendations, as above. He was evaluated by physical and occupational therapies. Speech therapy is not available at our hospital this week. He is able to do stairs and was improving throughout the day. He is able to discharge home with his and is in improved condition. He will follow-up as an outpatient with his primary care provider this week and with outpatient speech therapy. Time Spent with Patient Time attestation: Total time spent providing and/or coordinating discharge services: Today I spent 40 minutes seeing and discharging the patient, discussing with the patient and his who was on the phone, reviewing Expanse and EPIC notes/diagnostics/labs, discussing the care plan with our care team that includes social work, PT/OT, pharmacy, RT, [place] [facility] and documenting my impressions and plan in the medical record. Exam Narrative: Exam Narrative: General: No acute distress. Awake, alert, oriented x3. Mild dysarthria. No pallor. No jaundice. Oropharynx: Clear. Mucous membranes moist. Cardiovascular: Regular rate and rhythm. No murmurs, gallops, or rubs. Respiratory: Clear to auscultation bilaterally. No wheezes or crackles. Abdomen: Bowel sounds present. Soft, nondistended, nontender. Neuro: Mild dysarthria noted. Able to converse with me and his , who was on speaker phone, without difficulty. No nystagmus. No facial asymmetry. Tongue is midline. Strength is 2/5 in his left upper and lower extremities. 5/5 in right upper and lower extremities. Light touch sensation is absent in left arm and leg. Const: Vital Signs, click to edit/add: Vital Signs - 24 hr 10/04/24 16:31 10/04/24 16:31 10/04/24 19:00 Temperature 97.6 F 98.7 F Pulse Rate Pulse Rate [Pulse Oximeter] 83 87 Respiratory Rate 20 20 20 Blood Pressure [Le ft Arm] Blood Pressure [Ri ght Arm] 193/111 H 140/84 H Pulse Oximetry 97 97 92 Oxygen Delivery Me thod Nasal Cannula Nasal Cannula Room Air Oxygen Flow Rate 2 2 10/04/24 23:00 10/04/24 23:41 10/05/24 02:31 Temperature 99.1 F 97.9 F Pulse Rate 94 Pulse Rate [Pulse Oximeter] 94 87 Respiratory Rate 18 18 Blood Pressure [Le ft Arm] Blood Pressure [Ri ght Arm] 113/67 91/54 L Pulse Oximetry 90 94 Oxygen Delivery Me thod Room Air Nasal Cannula Oxygen Flow Rate 0.5 10/05/24 03:55 10/05/24 04:25 10/05/24 05:51 Temperature Pulse Rate Pulse Rate [Pulse Oximeter] Respiratory Rate Blood Pressure [Le ft Arm] Blood Pressure [Ri ght Arm] 100/71 77/49 L 111/64 Pulse Oximetry Oxygen Delivery Me thod Oxygen Flow Rate 10/05/24 07:00 10/05/24 07:00 10/05/24 07:00 Temperature 98 F Pulse Rate 85 Pulse Rate [Pulse Oximeter] 83 Respiratory Rate 16 16 Blood Pressure [Le ft Arm] 128/84 Blood Pressure [Ri ght Arm] Pulse Oximetry 91 91 Oxygen Delivery Me thod Nasal Cannula Nasal Cannula Oxygen Flow Rate 1 1 10/05/24 07:00 10/05/24 11:00 Temperature 97.9 F Pulse Rate Pulse Rate [Pulse Oximeter] 83 90 Respiratory Rate 16 18 Blood Pressure [Le ft Arm] Blood Pressure [Ri ght Arm] 153/80 H Pulse Oximetry 94 Oxygen Delivery Me thod Room Air Oxygen Flow Rate DS: Data Data Completed and Pending Completed studies during hospitalization: 10/04/2024 EKG: Normal sinus rhythm, 81 beats per minute, left axis deviation, nonspecific intraventricular block, possible anterior infarct, age undetermined. Ordering Physician: Barbara Diggs M.D. Date of Service: 10/04/24 Procedure(s): CT head/brain wo con Accession Number(s): [id number] cc: Karthik Sanz M.D.; Barbara Diggs M.D.~ For Patients: As a result of the Century Cures Act, medical imaging exams and procedure reports are released immediately into your electronic medical record. You may view this report before your referring provider. If you have questions, please contact your health care provider. INDICATION: Left arm weakness. History of stroke TECHNIQUE: Non-contrast CT of the head is submitted. 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 The ventricles, sulci and gyri are of normal size, shape and contour. Midline structures are centrally located. No convincing evidence of intra- or extra-axial fluid collections. IMPRESSION: 1. No radiographic evidence of acute intracranial abnormalities. 2. 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 Please note that all CT scans at this facility use dose modulation, iterative reconstruction, and/or weight-based dosing when appropriate to reduce radiation dose to as low as reasonably achievable. Dictated by Nagi Sullivan MD @ 10/04/2024 1:28:10 PM (Electronically Signed) Ordering Physician: Barbara Diggs M.D. Date of Service: 10/04/24 Procedure(s): XR chest 1V portable Accession Number(s): [id number] cc: Karthik Sanz M.D.; Barbara Diggs M.D.~ For Patients: As a result of the Cures Act, medical imaging exams and procedure reports are released immediately into your electronic medical record. You may view this report before your referring provider. If you have questions, please contact your health care provider. INDICATION: Altered mental status. TECHNIQUE: Chest radiograph, 1 view. COMPARISON: Chest radiographs 02/03/2024. FINDINGS: Cardiovascular/Mediastinum: Magnified cardiac silhouette. Unremarkable. Lungs: No focal consolidation. Fall perivascular congestion and interstitial edema. Linear band like opacification lungs bilaterally, likely subsegmental atelectasis and/or scarring. Airways: Trachea remains midline. Pleura: No pleural effusions or pneumothorax. Bones: No acute osseous abnormalities. Upper abdomen: Unremarkable. IMPRESSION: Borderline heart size, magnified due to technique, with mild pulmonary vascular congestion and interstitial edema. Dictated by Jabari Liz MD @ 10/04/2024 1:49:17 PM (Electronically Signed) Ordering Physician: Barbara Diggs M.D. Date of Service: 10/04/24 Procedure(s): CT angio head Accession Number(s): [id number] cc: Karthik Sanz M.D.; Barbara Diggs M.D.~ For Patients: As a result of the Cures Act, medical imaging exams and procedure reports are released immediately into your electronic medical record. You may view this report before your referring provider. If you have questions, please contact your health care provider. INDICATION: Acute stroke. TECHNIQUE: CTA head with contrast bolus tracking, 3D angiographic rendering using maximum intensity projection (MIP) and images permanently archived. FINDINGS: There is scattered intracranial atherosclerotic disease. There is normal opacification of the intracranial vasculature. There is no large vessel occlusion. No aneurysm is identified. IMPRESSION: No acute intracranial abnormality at CTA. Please note that all CT scans at this facility use dose modulation, iterative reconstruction, and/or weight-based dosing when appropriate to reduce radiation dose to as low as reasonably achievable. Dictated by Dean Tabor MD @ 10/05/2024 6:20:17 AM (Electronically Signed) Ordering Physician: Barbara Diggs M.D. Date of Service: 10/04/24 Procedure(s): CT angio neck Accession Number(s): [id number] cc: Karthik Sanz M.D.; Barbara Diggs M.D.~ For Patients: As a result of the Cures Act, medical imaging exams and procedure reports are released immediately into your electronic medical record. You may view this report before your referring provider. If you have questions, please contact your health care provider. INDICATION: Acute stroke, new left arm weakness. TECHNIQUE: CTA neck with contrast bolus tracking, 3D angiographic rendering using maximum intensity projection (MIP) and images permanently archived. FINDINGS: There is carotid atherosclerosis bilaterally. There is atherosclerotic plaque in the proximal right ICA resulting in a moderate stenosis, 60% by NASCET. There is no significant left carotid artery stenosis or dissection. The right vertebral artery is occluded proximally. There is no significant left vertebral artery stenosis or dissection. The soft tissues of the neck are within normal limits. The cervical spine is in normal alignment. Degenerative changes are noted in the cervical spine. IMPRESSION: Moderate proximal right ICA stenosis, 60% by NASCET, which may explain the patient`s symptoms. Right vertebral artery occlusion. Please note that all CT scans at this facility use dose modulation, iterative reconstruction, and/or weight-based dosing when appropriate to reduce radiation dose to as low as reasonably achievable. Dictated by Dean Tabor MD @ 10/05/2024 6:35:06 AM (Electronically Signed) Ordering Physician: Barbara Diggs M.D. Date of Service: 10/05/24 Procedure(s): MR head/brain wo con Accession Number(s): [id number] cc: Karthik Sanz M.D.; Barbara Diggs M.D.~ For Patients: As a result of the Cures Act, medical imaging exams and procedure reports are released immediately into your electronic medical record. You may view this report before your referring provider. If you have questions, please contact your health care provider. Indication: Worsened left arm and speech issues. Technique: Multiplanar, multisequence MRI of the brain was performed without intravenous contrast. Comparison: CT head 10/04/2024. Findings: The corpus callosum, pituitary gland and clivus appear intact. Mild degenerative change visualized upper cervical spine. There is a 7 mm focus of restricted diffusion within the right thalamus. Corresponding T2 FLAIR hyperintensity. Evolving late subacute to chronic infarct at the right ventral medulla. Stable chronic right cerebellar infarct. Mild parenchymal volume loss. Scattered T2 FLAIR hyperintense foci within the subcortical and periventricular white matter, favored to represent chronic ischemic microvascular disease. The ventricles are proportionate to the cerebral sulci. The 4th ventricle appears midline. The basal cisterns appear patent. No abnormal extra-axial fluid collection identified. There is no intracranial mass, abnormal mass-effect or midline shift identified. Major intracranial vascular flow voids appear grossly intact. Both globes are preserved. Mild paranasal sinus mucosal disease. Impression: 1. New small acute/subacute infarct involving the right thalamus. 2. Evolving late subacute to chronic infarct right ventral medulla. 3. Stable chronic right cerebellar infarct. 4. Mild chronic ischemic microvascular disease. Dictated by Ernesto Hubbard MD @ 10/05/2024 9:08:40 AM (Electronically Signed) Labs on day of discharge: Labs from last 24 hours 10/05/24 10/04/24 10/04/24 05:44 14:30 14:19 WBC 6.65 RBC 3.89 L Hgb 11.0 L Hct 35.5 L MCV 91 MCH 28 MCHC 31 L Plt Count 187 Sodium 140 Potassium 4.5 Chloride 107 Carbon Dioxide 32 Anion Gap 1 L BUN 42 H Creatinine 1.3 Estimated Creat Clear 65.97 Estimated GFR 64 Glucose 101 Calcium 7.9 L Magnesium 2.4 Total Bilirubin 0.2 AST 23 ALT 22 Alkaline Phosphatase 47 Total Protein 5.1 L Albumin 2.9 L Urine Color Light yellow Urine Appearance Clear Urine pH 7.5 Ur Specific [place] 1.015 Urine Protein Negative Urine Glucose (UA) Negative Urine Ketones Negative Urine Blood Negative Urine Nitrite Negative Urine Bilirubin Negative Urine Urobilinogen 0.2 Ur Leukocyte Esterase Negative Urine RBC 0-2 Urine WBC 0-2 Ur Squamous Epith Cells None Urine Bacteria None SARS-CoV-2 (PCR) Negative SARS-CoV-2 Influenza Type A (PCR) Negative PCR FLU A Influenza Type B (PCR) Negative PCR FLU B RSV (PCR) Negative PCR RSV Discharge Plan Discharge Disposition: Home, Self-Care Date of Admission: 10/05/24 10:31 Attending Provider on Discharge: Ellen Ricci Primary Care Provider: Karthik Sanz Condition: Improved Anticipated Discharge Date/Time: 10/05/24 15:14 Discharge Medications: New atorvastatin 40 mg Tablet 40 mg PO HS Qty: 30 0RF clopidogrel 75 mg Tablet 75 mg PO DAILY Qty: 70 0RF furosemide 20 mg tablet 20 mg PO BID Qty: 60 2RF Continued lidocaine [Lidocaine Pain Relief] 4 % adhesive patch,medicated 1 patch topical DAILY PRN gabapentin 600 mg tablet 1,200 mg PO TID Qty: 180 3RF venlafaxine 150 mg capsule,extended release 24hr 300 mg PO DAILY trazodone 50 mg tablet 50 mg PO HS acetaminophen 500 mg tablet 1,000 mg PO BID Rx Instructions: PLUS PRN insulin aspart U-100 [Novolog FlexPen U-100 Insulin] 100 unit/mL (3 mL) insulin pen 10 - 12 unit subcut TIDWM Rx Instructions: 12 UNITS AM, 10 UNITS AFTERNOON, 10 UNITS EVENING insulin glargine [Lantus Solostar U-100 Insulin] 100 unit/mL (3 mL) insulin pen 32 unit subcut DAILY atorvastatin 40 mg Tablet 40 mg PO HS Qty: 30 0RF clopidogrel 75 mg Tablet 75 mg PO DAILY 69 Days Qty: 69 0RF propranolol 10 mg tablet 10 mg PO BID Qty: 180 1RF quetiapine 25 mg tablet 25 mg PO TID Qty: 120 2RF prazosin 1 mg capsule 1 mg PO HS Qty: 90 0RF divalproex [Depakote ER] 500 mg tablet extended release 24 hr 1,500 mg PO DAILY Qty: 90 0RF Changed aspirin 81 mg tablet,delayed release (DR/EC) 81 mg PO DAILY Qty: 30 3RF furosemide 20 mg tablet 20 mg PO BID Qty: 60 0RF Held lisinopril 20 mg tablet 20 mg PO DAILY Hold Instructions: Resume on 10/12/24. To allow for permissive hypertension for 1-2 weeks Discharge Orders: Discharge Order (Routine); Ordered 10/05/24 Ordered By: Ellen Ricci Additional Instructions: Home health PT and OT Outpatient Speech therapy 3-5 days. F/u with [facility] this week. F/u Urology 10 days, keep indwelling medley in until f/u with urology. Activity Level: Use Walker Discharge Diet: Regular Follow Up Appointments: Karthik Sanz MD [Primary Care Provider, Internal Medicine] - 10/08/24 9:00 am Referral Note: [facility] for follow up with PCP Forms: MyHealth Info Instructions
--- NOTE | 2024-10-05 14:42 | PC.SOCIAL ---
Discharge planning: KIRSTY informed that patient is on a bed hold at [facility]. KIRSTY spoke with patient's who inquired about if the insurance resets at [facility] or if it continues. KIRSTY states she will talk with [facility] and provide with an update. KIRSTY communicated with Madalyn at [facility] who states that insurance would continue so his copay would start. KIRSTY called patient's and informed her of this. expressed financial concerns and that the plan had been for him to discharge. states she used to be a Nurses Aide and feels she could be there for him throughout the day as he needs. reports house is handicap accessible with no stairs that he needs to take and also an accessible shower and newly installed rails on the toilet. SW explains she will talk with the provider and PT/OT about this so they can determine if he has increased needs that couldn't be met at home. KIRSTY spoke with provider OT/PT and PT will meet with patient again and call . KIRTSY called who states she spoke with everyone and he can come home however she didn't know what to do about [facility]. SW explained that could call [facility] if she wants to see if she'd like to bring him back for the night or discharge straight from home. 's main concerns were about getting home PT/OT set up. SW explained that if he's discharging from the hospital, SW would set these services up and call her when they are arranged. reports that sounds good and she will call [facility] to talk with them. SW to assist as needed.
[2024-10-05] MEDS: GABAPENTIN 600 MG TABLET 1200 MG PO (14:46)
--- NOTE | 2024-10-05 18:52 | PC.NURSE ---
Discharge note Patient was very pleasant and cooperative throughout shift. Came in with a CVA. New infarction in thalamus was found on MRI. No sensation at all on left side of face, arm and leg, but was able to move both leg and arm, but not lift arm more than 2-3 inches above chair arm rest. He was able to grasp walker with left hand and bear weight on left leg, but he had to be reminded to look at his left foot for proper positioning. Speech was clear, but a little slurred and he seemed to have a slight recall delay when asked questions. He was seen by PT twice during shift, demonstrating ability to walk and climb stairs with minimal assistance. Prescription of Gabapentin was actualized to 1200 mg TID (from 600 mg) by Dr. Ricci. Patient and spouse were educated on condition, medications, use of insulin pen, signs and symptoms of hyper/hypoglycemia as well as stroke signs and symptoms. Patient's was able to demonstrate appropriate use of insulin pen after education.
--- NOTE | 2024-10-06 13:48 | PC.SOCIAL ---
Discharge planning: KIRSTY sent Home Care referrals to [facility] and [facility]. SW called [facility] and they stated they have yet to review the referral. KIRSTY called [facility] and they state they have accepted patient and plan to meet with him on 10/08. KIRSTY called patient's and she states she has been contacted by them. had no questions at this time regarding home care. states she is working with Dr. Otto on getting assistance with his meds and working with [facility] to get the measurements for the walker there as he liked it more. KIRSTY informed that if questions arise she can call KIRSTY.
== END 2024-10-05 17:48 | disposition home or self-care (01) | DRG 65 ==
LOC: ED 14:21 → MEDSURG 15:46
PROVIDERS: Admitting Provider Family Medicine; Emergency Provider Family Medicine; PCP Internal Medicine; Visit Provider Student in an Organized Health Care Education/Training Program
DX: I63.89 Other cerebral infarction (principal); G81.94 Hemiplegia, unspecified affecting left nondominant side; I50.32 Chronic diastolic (congestive) heart failure; R29.810 Facial weakness; R47.81 Slurred speech; Z79.82 Long term (current) use of aspirin; Z79.02 Long term (current) use of antithrombotics/antiplatelets; G47.33 Obstructive sleep apnea (adult) (pediatric); Z79.4 Long term (current) use of insulin; I11.0 Hypertensive heart disease with heart failure; E11.65 Type 2 diabetes mellitus with hyperglycemia; R33.9 Retention of urine, unspecified; I25.10 Atherosclerotic heart disease of native coronary artery without angina pectoris; E78.5 Hyperlipidemia, unspecified; Z86.73 Personal history of transient ischemic attack (TIA), and cerebral infarction without residual deficits; Z87.891 Personal history of nicotine dependence
CPT/HCPCS: 36415; 70450; 70496; 70498; 70551; 71045; 80053; 81001; 82803; 82962; 83605; 83735; 83880; 84484; 85025; 85027; 86140; 87631; 93005; 94761; 97116; 97162; 97165; 97530; 99284; 99291; A9270; G0378; J1815; J1938; J7030

== ENCOUNTER 2024-10-11 12:41 | Outpatient (CLI) | payer OTHER, SELFPAY | END 2024-10-11 12:42 | disposition home or self-care (01) | PROVIDERS: PCP Internal Medicine; Visit Provider Nurse Practitioner Family | DX: Z11.2 Encounter for screening for other bacterial diseases (principal); Z87.440 Personal history of urinary (tract) infections | CPT/HCPCS: 87086 ==

== ENCOUNTER 2025-03-03 16:33 | Outpatient (CLI) | payer OTHER, SELFPAY | END 2025-03-03 16:34 | disposition home or self-care (01) | LOC: NFLDREF 16:35 | PROVIDERS: PCP Internal Medicine; Visit Provider Internal Medicine | DX: E11.65 Type 2 diabetes mellitus with hyperglycemia (principal) | CPT/HCPCS: 80053 ==